=== PATIENT | male | born 1980 | race Caucasian/White ===

== ENCOUNTER → 2016-08-11 | Outpatient (CLI) | payer BC, OTHER ==
[~2016-08-11] MED LIST: SULF800T23 PO
--- NOTE | 2016-08-11 11:35 | DIAGNOSTIC IMAGING REPORT ---
CHEST 2 VIEWS ROUTINE CLINICAL HISTORY: Emphysema COMPARISON STUDY: No previous studies for comparison. FINDINGS: The heart is mildly enlarged. There is no lobar consolidation. There is slight interstitial thickening, a finding which is likely chronic. There is no overt failure. There are no pleural effusions.[ IMPRESSION: No active disease in the chest. Electronically signed by: Ezekiel German M.D. 08/11/2016 11:34 AM Dictated Date/Time: 08/11/2016 11:32 AM
== END | disposition home or self-care (01) ==
LOC: C.RADBC 11:16
PROVIDERS: ATTEND Family Medicine
DX: J43.9 Emphysema, unspecified (principal)

== ENCOUNTER 2018-03-21 20:55 | Inpatient (IN) | payer BC, OTHER ==
[~2018-03-21] VITALS: Ht 165.1 cm; Wt 79.7 kg
[2018-03-21] MEDS ORDERED: ASPIRIN 324 MG CHEW ONE (21:12)
[2018-03-21] MEDS ORDERED: METOPROLOL TARTRATE 1 MG/ML VIAL ONE (21:12)
[2018-03-21] MEDS ORDERED: FENTANYL CITRATE INJ 50 MCG/1 ML 2 ML VIAL ONE ×2 (21:19→21:33)
[2018-03-21] MEDS ORDERED: ONDANSETRON INJ 2 MG/ML 2 ML VIAL ONE (21:20)
[2018-03-21 21:28] LABS: ISTAT CREATININE 0.7 mg/dl (0.6-1.3); ISTAT IONIZED CALCIUM 1.14 mmol/l (1.12-1.32); ISTAT POTASSIUM 3.6 mEq/L (3.3-5.0)
[2018-03-21] MEDS ORDERED: FENTANYL CITRATE INJ 50 MCG/1 ML 2 ML VIAL IV STA (21:32)
[2018-03-21] MEDS ORDERED: MIDAZOLAM HCL 1 MG/ML 2ML VIAL ONE (21:33)
[2018-03-21] MEDS ORDERED: NiCARDipine HCL INJ 2.5 MG/ML 10 ML AMP ONE (21:33)
[2018-03-21] MEDS ORDERED: NITROGLYCERIN/D5W 100MCG/ML 20ML SYR ONE (21:35)
[2018-03-21 21:41] LABS: BASO % 0.2 %; BASO ABS # 0.03 K/uL (0-0.2); EOS % 0.4 %; EOS ABS # 0.08 K/uL (0-0.5); HEMATOCRIT 46.2 % (42-52); HEMOGLOBIN 16.6 g/dL (14.0-18.0); IG# 0.06 K/uL (0.00-0.02); LYMPH % 13.6 %; LYMPH ABS # 2.56 K/uL (1.2-3.4); MEAN CELL VOLUME 88.5 fL (80-100); MEAN CORPUSCULAR HEMOGLOBIN 31.8 pg (25-34); MEAN CORPUSCULAR HGB CONC 35.9 g/dl (32-36); MEAN PLATELET VOLUME 10.6 fL (7.4-10.4); MONO % 9.3 %; MONO ABS # 1.74 K/uL (0.11-0.59); NEUT % 76.2 %; NEUT ABS # 14.29 K/uL (1.4-6.5); PLATELET COUNT 271 K/uL (130-400); RED CELL DISTRIBUTION WIDTH CV 13.4 % (11.5-14.5); RED CELL DISTRIBUTION WIDTH SD 43.7 fL (36.4-46.3); WHITE BLOOD COUNT 18.76 K/uL (4.8-10.8)
[2018-03-21 21:59] LABS: INR 0.9 (0.9-1.1); PTT PATIENT 29.5 SECONDS (21.0-31.0)
[2018-03-21 22:09] LABS: ALBUMIN 3.9 gm/dl (3.4-5.0); CALCIUM 9.4 mg/dl (8.5-10.1); CREATININE 0.81 mg/dl (0.60-1.40); POTASSIUM 3.5 mmol/L (3.5-5.1); TOTAL PROTEIN 8.3 gm/dl (6.4-8.2)
--- NOTE | 2018-03-21 22:18 | DIAGNOSTIC IMAGING REPORT ---
SINGLE VIEW CHEST CLINICAL HISTORY: Dyspnea. FINDINGS: An AP, portable, upright chest radiograph is compared to study dated 08/11/2016. The cardiomediastinal silhouette is unremarkable. There is diffuse thickening of the interstitium and airspace opacities are present the lung bases. No large pleural effusion or pneumothorax is seen. The bony thorax is grossly intact. IMPRESSION: There is mild diffuse interstitial thickening as well as airspace opacities present at the lung bases. This could represent atelectasis versus an infectious/inflammatory pneumonitis. Clinical correlation will be required. Electronically signed by: Suresh Giles M.D. 03/21/2018 10:17 PM Dictated Date/Time: 03/21/2018 10:16 PM
--- NOTE | 2018-03-21 22:39 | EMERGENCY ROOM VISIT NOTE ---
History Report prepared by Jonn: Bimal Xavier Under the Supervision of: Dr. Russell Mcallister M.D. First contact with patient: 21:14 Chief Complaint: CHEST PAIN Stated Complaint: NAUSEA, CHEST PAIN, DIARRHEA History of Present Illness The patient is a 38 year old male who presents to the Emergency Room with complaints of intermittent chest pain beginning 2 nights ago. He reports that he was awoken from his sleep with chest pain. He describes it as left-sided radiating back to his scapula. It is associated with shortness of breath. It has been intermittent since last night. He did see an emergency doctor in the [place] yesterday. He had an EKG which was unremarkable he is discharged on Naprosyn. He came back to [place] today and developed chest pain tonight at approximately 7 PM. He rates it a 5 out of 10 in severity. States that it is sharp and left-sided. He also states that since Sunday he has had vomiting and diarrhea without abdominal pain, hematochezia or fever. He denies any family history of heart disease other than his grandparents. He denies any cocaine or amphetamine use. He denies any history of aneurysm. Source of History: patient Onset: 2 days Position: chest (left) Symptom Intensity: 5 out of 10 Quality: sharp Timing: intermittent Modifying Factors (Worsening): breathing Associated Symptoms: + SOB, + vomiting, + diarrhea, No fevers Review of Systems See HPI for pertinent positives & negatives. A total of 10 systems reviewed and were otherwise negative. Past Medical & Surgical Medical Problems: (1) No Known Active Medical Problems Family History Cancer Diabetes mellitus Social History Smoking Status: Current Every Day Smoker Alcohol Use: occasionally Marital Status: Housing Status: lives with family Occupation Status: unemployed Allergies Coded Allergies: No Known Allergies (Unverified , 06/25/16) Physical Exam Vital Signs Date Time Temp Pulse Resp B/P (MAP) Pulse Ox O2 Delivery O2 Flow Rate FiO2 03/21/18 21:30 118 20 124/93 94 Room Air 03/21/18 21:20 119 16 122/92 95 Room Air 03/21/18 21:17 126 126/101 03/21/18 21:14 96 Room Air 03/21/18 21:07 130 18 126/101 96 Room Air 03/21/18 21:06 120 03/21/18 20:58 37.1 128 18 118/93 97 Room Air Physical Exam Constitutional: Vital signs reviewed. Eyes: Pupils are equal round reactive to light. Conjunctiva are noninjected. ENT: Pharynx is clear without erythema or exudate. Mucous membranes are moist. Neck supple without meningeal signs. Respiratory: Clear to auscultation bilaterally. Breath sounds are equal bilaterally. Cardiovascular: Tachycardic rate and regular rhythm. No rubs or gallops. GI: Soft, nondistended. Diffuse abdominal tenderness. No pulsatile masses. Bowel sounds are present. Musculoskeletal: No peripheral edema. No lower extremity tenderness. Integumentary: No cyanosis. Neurological: The patient is awake and alert. No focal deficits. Psychiatric: Normal affect. Medical Decision & Procedures ER Provider Diagnostic Interpretation: Radiology results as stated below per my review and the radiologist's interpretation: SINGLE VIEW CHEST CLINICAL HISTORY: Dyspnea. FINDINGS: An AP, portable, upright chest radiograph is compared to study dated 08/11/2016. The cardiomediastinal silhouette is unremarkable. There is diffuse thickening of the interstitium and airspace opacities are present the lung bases. No large pleural effusion or pneumothorax is seen. The bony thorax is grossly intact. IMPRESSION: There is mild diffuse interstitial thickening as well as airspace opacities present at the lung bases. This could represent atelectasis versus an infectious/inflammatory pneumonitis. Clinical correlation will be required. Electronically signed by: Suresh Giles M.D. 03/21/2018 10:17 PM Dictated Date/Time: 03/21/2018 10:16 PM Laboratory Results 03/21/18 21:01 Red Blood Count 5.22, Mean Corpuscular Volume 88.5, Mean Corpuscular Hemoglobin 31.8, Mean Corpuscular Hemoglobin Concent 35.9, Mean Platelet Volume 10.6, Neutrophils (%) (Auto) 76.2, Lymphocytes (%) (Auto) 13.6, Monocytes (%) (Auto) 9.3, Eosinophils (%) (Auto) 0.4, Basophils (%) (Auto) 0.2, Neutrophils # (Auto) 14.29, Lymphocytes # (Auto) 2.56, Monocytes # (Auto) 1.74, Eosinophils # (Auto) 0.08, Basophils # (Auto) 0.03 03/21/18 21:01 Test 03/21/18 21:01 03/21/18 21:14 White Blood Count 18.76 K/uL (4.8-10.8) Red Blood Count 5.22 M/uL (4.7-6.1) Hemoglobin 16.6 g/dL (14.0-18.0) Hematocrit 46.2 % (42-52) Mean Corpuscular Volume 88.5 fL (80-100) Mean Corpuscular Hemoglobin 31.8 pg (25-34) Mean Corpuscular Hemoglobin Concent 35.9 g/dl (32-36) Platelet Count 271 K/uL (130-400) Mean Platelet Volume 10.6 fL (7.4-10.4) Neutrophils (%) (Auto) 76.2 % Lymphocytes (%) (Auto) 13.6 % Monocytes (%) (Auto) 9.3 % Eosinophils (%) (Auto) 0.4 % Basophils (%) (Auto) 0.2 % Neutrophils # (Auto) 14.29 K/uL (1.4-6.5) Lymphocytes # (Auto) 2.56 K/uL (1.2-3.4) Monocytes # (Auto) 1.74 K/uL (0.11-0.59) Eosinophils # (Auto) 0.08 K/uL (0-0.5) Basophils # (Auto) 0.03 K/uL (0-0.2) RDW Standard Deviation 43.7 fL (36.4-46.3) RDW Coefficient of Variation 13.4 % (11.5-14.5) Immature Granulocyte % (Auto) 0.3 % Immature Granulocyte # (Auto) 0.06 K/uL (0.00-0.02) Prothrombin Time 9.8 SECONDS (9.0-12.0) Prothromb Time International Ratio 0.9 (0.9-1.1) Activated Partial Thromboplast Time 29.5 SECONDS (21.0-31.0) Partial Thromboplastin Ratio 1.1 Est Creatinine Clear Calc Drug Dose 124.4 ml/min Estimated GFR () 131.6 Estimated GFR (Non- 113.5 BUN/Creatinine Ratio 11.0 (10-20) Calcium Level 9.4 mg/dl (8.5-10.1) Magnesium Level 2.4 mg/dl (1.8-2.4) Total Bilirubin 1.0 mg/dl (0.2-1) Direct Bilirubin 0.2 mg/dl (0-0.2) Aspartate Amino Transf (AST/SGOT) 259 U/L (15-37) Alanine Aminotransferase (ALT/SGPT) 85 U/L (12-78) Alkaline Phosphatase 92 U/L (45-117) Total Creatine Kinase 1348 U/L (39-308) Creatine Kinase MB 44.0 ng/ml (0.5-3.6) Creatine Kinase MB Ratio 3.3 (0-3.0) Total Protein 8.3 gm/dl (6.4-8.2) Albumin 3.9 gm/dl (3.4-5.0) Lipase 56 U/L (73-393) Bedside Hemoglobin 17.0 g/dl (14.0-18.0) Bedside Hematocrit 50 % (42-52) Bedside Sodium 136 mEq/L (135-144) Bedside Potassium 3.6 mEq/L (3.3-5.0) Bedside Chloride 97 mEq/L (101-112) Bedside Total CO2 25 mEq/l (24-31) Anion Gap 19.0 mmol/L (16-25) Bedside Blood Urea Nitrogen 8 mg/dl (7-18) Bedside Creatinine 0.7 mg/dl (0.6-1.3) Bedside Glucose (other) 113 mg/dl (70-99) Bedside Ionized Calcium (Marva) 1.14 mmol/l (1.12-1.32) Bedside Troponin I 31.270 ng/ml (0-0.045) Laboratory results as reviewed by me. Medications Administered Medications (Trade) Dose Ordered Sig/Kira Route Start Time Stop Time Status Last Admin Dose Admin Aspirin (Aspirin Chew) 324 mg STK-MED ONCE .ROUTE 03/21/18 21:12 03/21/18 21:13 DC 03/21/18 21:19 324 MG Metoprolol Tartrate (Lopressor Iv) 5 mg STK-MED ONCE .ROUTE 03/21/18 21:12 03/21/18 21:13 DC 03/21/18 21:17 2.5 MG Fentanyl Citrate (Fentanyl Inj) 100 mcg STK-MED ONCE .ROUTE 03/21/18 21:19 03/21/18 21:20 DC 03/21/18 21:23 50 MCG Ondansetron HCl (Zofran Inj) 4 mg STK-MED ONCE .ROUTE 03/21/18 21:20 03/21/18 21:21 DC 03/21/18 21:22 4 MG ECG Per My Interpretation Indication: chest pain Rate (beats per minute): 118 Rhythm: sinus tachycardia Findings: Q waves (Anterior), ST elevation (in all precordial leads), other ( ST depressions inferiorly.) ED Course 2106: The patient was evaluated in room A3. A complete history and physical exam was performed. 2123: I discussed the case with Dr. Thorne - Cardiology. He states that a CT scan is now currently necessary, and he will come to take the patient to the research laboratory manager. 2127: I reassessed the patient. He reports that his pain is now gone after receiving Fentanyl and Lopressor. Repeat EKG shows sinus tachycardia at a rate of 113 with Q-waves and persistent ST elevation precordially. 2128: Dr. Thorne is now in the room with the patient. 2131: Ordered Fentanyl 50 mcg IV 2138: I updated with the patient. He is still not experiencing any chest pain. The patient is waiting to be taken to the research laboratory manager. Medical Decision This is a 38-year-old male presents with chest pain with abdominal pain on palpation and vomiting and diarrhea. Differential diagnosis includes STEMI, pericarditis, myocarditis, aortic dissection, foodborne illness, aortic aneurysm. I did perform a limited focused review of portions of the patient's old chart on the electronic medical record. The patient has had no recent pertinent visits to this hospital. I did evaluate the patient as noted above. Patient is presenting with intermittent chest pain since Sunday. On examination he has abdominal pain diffusely. He denies having had abdominal pain before I palpate his abdomen. He denies any back pain or any history of aneurysm. I did do a bedside ultrasound to evaluate his aorta but there was too much bowel gas to appreciate the aorta to any extent other than in the epigastric region which did not show any dilatation. IV access was established. The patient was placed on a continuous satellite project site monitor. The patient was tachycardic and so I did treat him with Lopressor 2.5 mg IV. He was also given aspirin. He is also given fentanyl 50 mcg IV and Zofran 4 mg IV. I did order and personally review the patient's 12-lead EKG and chest x-ray as described above. His twelve-lead EKG demonstrates a STEMI with reciprocal changes inferiorly. His chest x-ray does not show any widened mediastinum. I did discuss case with Dr. Thorne of cardiology. He stated he would come in and take the patient to the Dental Prosthetist and did not think a CT was indicated currently. I did order and review the patient's blood work as noted in the electronic medical record. His troponin came back greater than 30. I did repeat another twelve-lead EKG which showed persistent ST elevations. He currently states that his chest pain is now completely resolved. Dr. Thorne did arrive in the emergency department and he was taken to the Dental Prosthetist. Medication Reconcilliation Current Medication List: was personally reviewed by me Blood Pressure Screening Patient's blood pressure: Normal blood pressure Blood pressure disposition: Did not require urgent referral Consults Time Called: 2121 Consulting Physician: Dr. Thorne - Cardiology Returned Call: 2123 I discussed the case with Dr. Thorne - Cardiology. He states that a CT scan is now currently necessary, and he will come to take the patient to the research laboratory manager. Impression Primary Impression: STEMI (ST elevation myocardial infarction) Additional Impressions: Diffuse abdominal pain Vomiting and diarrhea Scribe Attestation The scribe's documentation has been prepared under my direct and personally reviewed by me in its entirety. I confirm that the note above accurately reflects all work, treatment, procedures, and medical decision making performed by me. Departure Information Dispostion Being Evaluated By Surgeon Rajwinder Bah D.O. (PCP) Patient Instructions My [facility] Problem Qualifiers Primary Impression: STEMI (ST elevation myocardial infarction) Involved coronary artery: unspecified coronary artery Qualified Codes: I21.3 - ST elevation (STEMI) myocardial infarction of unspecified site
[2018-03-21] MEDS ORDERED: EPTIFIBATIDE 0.75 MG/ML 75MG VIAL ONE (22:48)
[2018-03-21] MEDS ORDERED: EPTIFIBATIDE 2 MG/ML 10 ML VIAL ONE (22:48)
[2018-03-21] MEDS ORDERED: TICAGRELOR 90 MG TAB PO ONE (23:09)
--- NOTE | 2018-03-21 23:20 | Pre Sedation Assessment ---
Pre Sedation Assessment General Date of Sedation: Mar 21, 2018. Vital Signs Past 12 Hours Date Time Temp Pulse Resp B/P (MAP) Pulse Ox O2 Delivery O2 Flow Rate FiO2 03/21/18 21:30 118 20 124/93 94 Room Air 03/21/18 21:20 119 16 122/92 95 Room Air 03/21/18 21:17 126 126/101 03/21/18 21:14 96 Room Air 03/21/18 21:07 130 18 126/101 96 Room Air 03/21/18 21:06 120 03/21/18 20:58 37.1 128 18 118/93 97 Room Air Review Cardiovascular: regular rate, rhythm, no edema Lungs: chest non-tender, lungs clear Pre-Sedation Airway Assessment Smoking Status: Current Every Day Smoker Hx of Sleep Apnea: No Hx of difficult intubation: No Short Thick Neck: No Thyro-mental Distance: > 3 Finger Breadths Oral Cavity: WNL Mallampati Classification: Class III ASA Classification: Class IV Procedure Planning Contraindications for Sedation: None Current Medications Reviewed: Yes Notes The planned sedation has been discussed with the patient. Informed Consent was obtained. I have identified the patient, determined the appropriateness of sedation and have assessed the patient immediately prior to the procedure. All medicine(s) and interventions are by my order.
--- NOTE | 2018-03-21 23:21 | Post Sedation Assessment ---
Post Sedation Assessment General Date of Sedation Mar 21, 2018. Vital Signs: Vital Signs Past 12 Hours Date Time Temp Pulse Resp B/P (MAP) Pulse Ox O2 Delivery O2 Flow Rate FiO2 03/21/18 21:30 118 20 124/93 94 Room Air 03/21/18 21:20 119 16 122/92 95 Room Air 03/21/18 21:17 126 126/101 03/21/18 21:14 96 Room Air 03/21/18 21:07 130 18 126/101 96 Room Air 03/21/18 21:06 120 03/21/18 20:58 37.1 128 18 118/93 97 Room Air Post Procedure Recovery Score Activity: (2) Moves 4 extremities * Respiration: (2) Deep breath/cough Circulation: (2) +/-20% PreAnes Value Consciousness: (2) Fully Awake Oxygen Saturation: (2) > 92% On Room Air Post Anesthesia Score: 10 Discharge Sedation Level of Care: Fast Track Phase II Post Sedation Plan On clinical assessment, the patient appears to have tolerated the sedation without complications. Patient is recovering as anticipated. Patient will continue to be monitored by nursing and may be discharged when sedation discharge criteria are met per below protocol. Upon Completions of procedure and additional 15 minutes continue every 5 minute vital signs and the P.A.R. score; then discharge to a Phase I or Fast Track to Phase II per the following guidelines: * Discharge Patient to appropriate Phase II area if PAR is 8 or greater or return to pre- procedure baseline. The post - procedure orders will be as directed. * If PAR score is less than 8 or not return to pre-procedure baseline then patient will follow Phase I monitoring till PAR is reached for Phase II. The Phase I may be done in procedure room or may call to secure a Phase I area. * If naloxone or flumazenil are used for reversal, hold in Phase I for an additional 60 -120 minutes before discharge to Phase II. Please call the Sedation Physician to re-evaluate and complete post-note for discharge to Phase II area. Do NOT discharge from procedure sedation or Phase 1 until post- sedation evaluation note is complete by procedure /sedation MD Sedation Discharge Instructions to be given to the patient at discharge to home.
[2018-03-21] MEDS ORDERED: NITROGLYCERIN 0.4 MG SL PER TAB CHARGE SL PRN (23:30)
[2018-03-21] MEDS ORDERED: EPTIFIBATIDE BOLUS / DRIP IV ONE (23:30)
[2018-03-21] MEDS ORDERED: ONDANSETRON INJ 2 MG/ML 2 ML VIAL IV PRN (23:30)
[2018-03-21] MEDS ORDERED: SODIUM CHLORIDE 0.9% 1000ML 1,000 ML IV SCH (23:30)
[2018-03-21 23:35] VITALS: BP 114/89; PULSE 110; TEMP 37.1; O2SAT 92; Ht 165.1 cm; Wt 79.7 kg
[2018-03-21 23:37] VITALS: BP 114/89
--- NOTE | 2018-03-21 23:42 | Cardiac Catheterization ---
Procedure Note Procedure Date Mar 21, 2018. Pre-Procedure Diagnosis STEMI AUC Score 9 Post-Procedure Diagnosis Severe CAD Procedure(s) Performed Coronary Angiography, Left Heart Cath, Drug Eluting Stent Diabetes Manager Mati Chief Security And Safety Officer(s) Leonardo Estimated Blood Loss 20 Medication(s) Fentanyl, Heparin, Integrilin, Nicardipine, Nitroglycerin, Versed, Lidocaine 1% Ticagrelor Summary of Findings Indication: STEMI/Heart Alert Access: 6Fr right radial artery Catheters: Delanson, JR4; EBU 3.5 guide Findings: LM - Luminal irregularities LAD - 100% occlusion early-mid LAD right after take-off of small 1st diagonal Circumflex - Large vessel, luminal irregularities RCA - Dominant, angiographically normal LVEDP - 21 -- PCI -- Antithrombotic therapy: Heparin, Integrilin, Ticagrelor Procedure: LM cannulated with EBU 3.5 guide With some difficulty able to cross LAD occlusion with whisper wire Mid LAD lesion predilated with 2.0 and 2.5 compliant balloons Radio Maintainer 50 wire placed into moderate caliber 2nd diagonal Dilated lesion stented with 3.0 x 38 [place] WAYNE Diagonal re-wired with sdv pilot/navigator/dds operator wire Ostium of diagonal/stent struts dilated with 2.0 balloon Stent post-dilated with 3.0 noncompliant balloon IC vasodilators administered for spasm Post procedure JANELL 3 flow, stent well expanded with minimal residual stenosis and no apparent cardiac complications. Arterial Closure: TR Band Summary: 1. Anterior STEMI/Occluded mid LAD 2. Elevated intracardiac filling pressures. LVEDP 21 3. Successful PCI of proximal to mid LAD with single WAYNE (3.0 x 30 Gary). Recommendations: Admit to ICU for continued monitoring Loaded with Ticagrelor 180mg in recyclable materials distributor Continue integrilin for 6 hrs. Continue dual-antiplatelet therapy for at least 1 year. Trend troponins until peak, Check Echo Uptitrate beta-bianka/JOLLY as BP allows High-dose statin Consult cardiac Rehab Hemodynamics Rest Ao: // Final Ao: //85 LV: 107/21 Recommendations PCI without planned CABG Specimens None Radiation Exposure (mGy) 3339 Contrast (mls) 200 Fluids (cc crystalloids) 180 Drains none Anesthesia moderate Procedural Complication(s) None Disposition ICU ACC Data Cardiac Status Clinical evaluation leading to the procedure CAD Presntation: STEMI Anginal Classification: CCS IV Heart Failure: No, NYHA Class: CCS I Cardiogenic Shock w/in 24Hrs: No Cardiac Arrest w/in 24Hrs: No Imaging studies past 6 months: No Stress studies past 6 months: No Closure Device Percutaneous Entry Location: Radial Closure Device: Radial Band Recommendations: PCI without planned CABG PCI Indication: Immediate PCI for STEMI Lesion Segment Name: Mid LAD Culprit Artery: Yes Stenosis Prior to Rx (%): 100 Chronic Total Occlusion: No IVUS: No FFR: No Pre-Procedure JANELL Flow: 0 Previously Treated Lesion: No Lesion Complexity: Non-High/Non-C Lesion Length (mm): 25 Thrombus Present: Yes Bifurcation Lesion: Yes Guidewire Across Lesion: Yes Guidewire: Stenosis Post-Procedure (%): 3 Post-Procedure JANELL Flow: 3 Device(s) Deployed: Yes Intraprocedure Events Significant Dissection: No Perforation: No
[2018-03-21] MEDS ORDERED: ICU PROTOCOL FOR HYPERGLYCEMIA PRN (23:45)
[2018-03-21 23:47] VITALS: O2SAT 93
[2018-03-21 23:59] VITALS: O2SAT 93
[2018-03-22] VITALS (34 sets, daily range): BP systolic 85–118; BP diastolic 60–80; PULSE 90–120; TEMP 37.1–37.2; O2SAT 90–96
--- NOTE | 2018-03-22 00:13 | CARDIOLOGY CONSULTATION ---
DATE OF CONSULTATION: 03/21/2018 CONSULTATION REQUESTED BY: Russell Mcallister MD REASON FOR CONSULTATION: Heart alert/NSTEMI. HISTORY OF PRESENT ILLNESS: Mr. Hassan is a 38-year-old man without significant past medical history who presented to the ED [facility] with persistent chest pain for a large part over the last 2 days. The patient states that he had been in his usual state of health until about Sunday night approximately 11:00 p.m. when was awoken from sleep with chest pain. This was associated with nausea as well as diarrhea and generally feeling unwell. Symptoms persisted on and off the next day and presented to an urgent care near [place], where reportedly he had an EKG done that was said to be normal. The patient diagnosed with musculoskeletal pain and recommended to start on NSAIDs. The patient continued to have pain which worsened significantly today at approximately 7:00 p.m. 2 hours prior to presentation and which prompted the patient to return to ED. In the ED, patient had an EKG which showed anterior ST elevations and anterior Q-waves. His point of care troponin was positive at 31. PAST MEDICAL HISTORY: None. SOCIAL HISTORY: He is , works intermittently in [employer] and in [place]. Smokes a pack per day. Denies heavy alcohol or illicit drugs. FAMILY HISTORY: No premature coronary artery disease or sudden cardiac . MEDICATIONS: None. ALLERGIES: None. REVIEW OF SYSTEMS: Not completed in the setting of emergent situation. PHYSICAL EXAMINATION: VITAL SIGNS: Afebrile, pulse 128, blood pressure 118/93, satting 97% on room air. GENERAL: The patient appeared uncomfortable, diaphoretic, in no acute distress. HEENT: Sclerae are anicteric. Oropharynx is clear. Mucous members are moist. NECK: Supple with no lymphadenopathy. LUNGS: Clear to auscultation bilaterally. HEART: He was tachycardic but regular with no murmurs. ABDOMEN: Soft, tender diffusely with positive bowel sounds. EXTREMITIES: Warm with no significant lower extremity edema. He had intact distal pulses including 2+ radial pulses. SKIN: Showed no rashes. NEUROLOGIC: Grossly nonfocal. LABORATORY DATA: Chest x-ray showed mild diffuse interstitial thickening, atelectasis versus infectious process. Labs showed a white blood cell count of 18.7, hemoglobin of 17, platelets of 271. Sodium 136, potassium of 3.6, BUN of 9, creatinine of 0.8, AST and ALT were elevated at 259 and 85 respectively. Point of care troponin elevated at 31.2. IMPRESSION AND PLAN: Anterior ST elevation myocardial infarction. Mr. Hassan is here with 2 days of intermittent chest pain worse this evening and found to have an elevated troponin with anterior ST elevations and anterior Q-waves. Concerned that patient has been having active ischemia for at least 24 hours. As having ongoing pain feel we should proceed with emergent angiography. Discussed risks, benefits, and alternatives of cardiac catheterization and the patient is willing to proceed. We will plan to perform via right radial artery. Further recommendations pending findings of angiography. Thank you for consultation. THADDEUS
[2018-03-22] MEDS ORDERED: EPTIFIBATIDE INJ 75 MG PREMIXED IV SCH (00:15)
--- NOTE | 2018-03-22 01:46 | History and Physical ---
History & Physical Date & Time of Service: Mar 22, 2018 at 01:35 Chief Complaint: STEMI Primary Care Physician: Rajwinder Farrell D.O. History of Present Illness Source: patient, clinic records Mr. Hassan is a 38yo male with no significant past medical or surgical history presenting to [facility] ER as a Code Heart Alert. Patient was awoken from sleep on Sunday night at appx 23:00 with chest discomfort as well as nausea and diarrhea. The symptoms persisted intermittently throughout the next day. He was seen at an Urgent Care facility near [place], [place] and had a normal EKG performed at that time. He was told that his chest pain was secondary to musculoskeletal pain. He was recommended NSAIDs for pain control and sent home. His pain persisted and acutely worsened yesterday at 19:00 which prompted him to come to the ER. His EKG on arrival revealed ST elevations in the anterior leads with q-waves. Troponin positive at 31. A Code Heart was called and the patient was taken to the rn cardiac cath and found to have 100% occlusion of the mid-LAD. A single WAYNE was placed. Patient was transferred to the MICU for continued monitoring. He is presently chest pain free. Complains of feeling chilly, otherwise no complaints. Cath Report: Findings: LM - Luminal irregularities LAD - 100% occlusion early-mid LAD right after take-off of small 1st diagonal Circumflex - Large vessel, luminal irregularities RCA - Dominant, angiographically normal Past Medical/Surgical History Medical Problems: None Past Surgical History: None Family History Cancer Diabetes mellitus No known history of premature CAD or SCD Social History Smoking Status: Current Every Day Smoker Smokeless Tobacco Use: No Alcohol Use: none Drug Use: none Marital Status: Housing status: lives with family Occupational Status: unemployed Allergies Coded Allergies: No Known Allergies (Unverified , 06/25/16) Review of Systems Constitutional: No fever, No chills, No sweats Eyes: No worsening of vision, No diplopia ENT: No sore throat, No trouble swallowing Respiratory: No cough, No shortness of breath Cardiovascular: No chest pain, No palpitations Abdomen: No pain, No nausea, No vomiting, No diarrhea, No constipation Musculoskeletal: No joint pain, No muscle pain Genitourinary - Male: No dysuria Neurologic: No weakness Endocrine: No fatigue Hematologic / Lymphatic: No abnormal bleeding/bruising Integumentary: No rash Physical Exam Vital Signs Date Time Temp Pulse Resp B/P (MAP) Pulse Ox O2 Delivery O2 Flow Rate FiO2 03/21/18 23:35 37.1 110 20 114/89 92 Room Air 03/21/18 23:18 66 18 120/81 (94) 100 Room Air 03/21/18 23:13 64 18 122/89 (100) 99 Room Air 03/21/18 23:08 62 20 111/85 (94) 99 Room Air 03/21/18 21:30 118 20 124/93 94 Room Air 03/21/18 21:20 119 16 122/92 95 Room Air 03/21/18 21:17 126 126/101 03/21/18 21:14 96 Room Air 03/21/18 21:07 130 18 126/101 96 Room Air 03/21/18 21:06 120 03/21/18 20:58 37.1 128 18 118/93 97 Room Air General: resting comfortably, NAD, AA&O Skin: warm, dry, intact, no rashes/lesions HEENT: NC/AT, PERRL, anicteric sclera, conjunctiva without injection, EOMI, MMM , no JVD, no thyromegaly, trachea midline, neck supple Heart: +S1/S2, regular, tachycardic, no m/r/g Lungs: CTA bilaterally with scattered end-expiratory wheezing L > R Abd: soft, NT/ND, no masses/organomegaly/ascites Ext: slightly cool to touch, palpable pulses 2+ in UE/LE bilaterally with good capillary refill, pressure device in place at right wrist, fingers warm with sensation intact, no edema/clubbing or cyanosis noted Neuro: grossly intact Diagnostics Laboratory Results Results Past 24 Hours Test 03/21/18 21:01 03/21/18 21:14 03/21/18 22:20 Range/Units White Blood Count 18.76 4.8-10.8 K/uL Red Blood Count 5.22 4.7-6.1 M/uL Hemoglobin 16.6 14.0-18.0 g/dL Hematocrit 46.2 42-52 % Mean Corpuscular Volume 88.5 80-100 fL Mean Corpuscular Hemoglobin 31.8 25-34 pg Mean Corpuscular Hemoglobin Concent 35.9 32-36 g/dl Platelet Count 271 130-400 K/uL Mean Platelet Volume 10.6 7.4-10.4 fL Neutrophils (%) (Auto) 76.2 % Lymphocytes (%) (Auto) 13.6 % Monocytes (%) (Auto) 9.3 % Eosinophils (%) (Auto) 0.4 % Basophils (%) (Auto) 0.2 % Neutrophils # (Auto) 14.29 1.4-6.5 K/uL Lymphocytes # (Auto) 2.56 1.2-3.4 K/uL Monocytes # (Auto) 1.74 0.11-0.59 K/uL Eosinophils # (Auto) 0.08 0-0.5 K/uL Basophils # (Auto) 0.03 0-0.2 K/uL RDW Standard Deviation 43.7 36.4-46.3 fL RDW Coefficient of Variation 13.4 11.5-14.5 % Immature Granulocyte % (Auto) 0.3 % Immature Granulocyte # (Auto) 0.06 0.00-0.02 K/uL Prothrombin Time 9.8 9.0-12.0 SECONDS Prothromb Time International Ratio 0.9 0.9-1.1 Activated Partial Thromboplast Time 29.5 21.0-31.0 SECONDS Partial Thromboplastin Ratio 1.1 Sodium Level 132 136-145 mmol/L Potassium Level 3.5 3.5-5.1 mmol/L Chloride Level 99 98-107 mmol/L Carbon Dioxide Level 26 21-32 mmol/L Anion Gap 7.0 19.0 16-25 mmol/L Blood Urea Nitrogen 9 7-18 mg/dl Creatinine 0.81 0.60-1.40 mg/dl Est Creatinine Clear Calc Drug Dose 124.4 ml/min Estimated GFR () 131.6 Estimated GFR (Non- 113.5 BUN/Creatinine Ratio 11.0 10-20 Random Glucose 102 70-99 mg/dl Calcium Level 9.4 8.5-10.1 mg/dl Magnesium Level 2.4 1.8-2.4 mg/dl Total Bilirubin 1.0 0.2-1 mg/dl Direct Bilirubin 0.2 0-0.2 mg/dl Aspartate Amino Transf (AST/SGOT) 259 15-37 U/L Alanine Aminotransferase (ALT/SGPT) 85 12-78 U/L Alkaline Phosphatase 92 45-117 U/L Total Creatine Kinase 1348 39-308 U/L Creatine Kinase MB 44.0 0.5-3.6 ng/ml Creatine Kinase MB Ratio 3.3 0-3.0 Total Protein 8.3 6.4-8.2 gm/dl Albumin 3.9 3.4-5.0 gm/dl Lipase 56 73-393 U/L Bedside Hemoglobin 17.0 14.0-18.0 g/dl Bedside Hematocrit 50 42-52 % Bedside Sodium 136 135-144 mEq/L Bedside Potassium 3.6 3.3-5.0 mEq/L Bedside Chloride 97 101-112 mEq/L Bedside Total CO2 25 24-31 mEq/l Bedside Blood Urea Nitrogen 8 7-18 mg/dl Bedside Creatinine 0.7 0.6-1.3 mg/dl Bedside Glucose (other) 113 70-99 mg/dl Bedside Ionized Calcium (Marva) 1.14 1.12-1.32 mmol/l Bedside Troponin I 31.270 0-0.045 ng/ml Kaolin Activated Coagulation Time 268 94-140 SECONDS Microbiology Results 03/21/18 MRSA DNA Surveillance Screen, Received Pending Diagnostic Radiology SINGLE VIEW CHEST CLINICAL HISTORY: Dyspnea. FINDINGS: An AP, portable, upright chest radiograph is compared to study dated 08/11/2016. The cardiomediastinal silhouette is unremarkable. There is diffuse thickening of the interstitium and airspace opacities are present the lung bases. No large pleural effusion or pneumothorax is seen. The bony thorax is grossly intact. IMPRESSION: There is mild diffuse interstitial thickening as well as airspace opacities present at the lung bases. This could represent atelectasis versus an infectious/inflammatory pneumonitis. Clinical correlation will be required. Electronically signed by: Suresh Giles M.D. 03/21/2018 10:17 PM Dictated Date/Time: 03/21/2018 10:16 PM Impression Assessment and Plan 38yo male smoker s/p anterior STEMI s/p cardiac catheterization with PCI, WAYNE x 1 placed to mid-LAD 1. STEMI - patient presently hemodynamically stable, chest pain free. No known risk factors identified with exception of patient being an active tobacco user. -Admit to MICU for continuous cardiac monitoring -Check HgAIC -Check fasting lipid panel -Trend serial troponins and EKGs -Echocardiogram in AM -Continue DAPT with ASA and Brillinta for at least one year -High dose statin with Lipitor 80mg po daily -Beta Raiza - Lopressor 12.5mg po BID, increase as tolerated -Lisinopril 2.5mg po daily -Nitro PRN CP -Cardiology followup and rehab 2. Tobacco abuse - -Smoking cessation counseling 3. F/E/N - Heplock. Monitor electrolytes and replete as needed. AHA diet as tolerated. 4. Ppx - scds to bilateral LEsscd 5. Code - Full per discussion with patient 6. Dispo - Admit to MICU Advanced Directives Existing Living Will: No Existing Power of Facility Manager: No Resuscitation Status VTE Prophylaxis Will order VTE Prophylaxis: Yes
[2018-03-22] MEDS ORDERED: Integrelin infusion --> STOP ORDER ONE (05:00)
[2018-03-22 06:29] LABS: BASO % 0.1 %; BASO ABS # 0.02 K/uL (0-0.2); EOS % 0.6 %; EOS ABS # 0.09 K/uL (0-0.5); HEMATOCRIT 42.4 % (42-52); HEMOGLOBIN 15.2 g/dL (14.0-18.0); IG# 0.05 K/uL (0.00-0.02); LYMPH % 12.3 %; LYMPH ABS # 1.95 K/uL (1.2-3.4); MEAN CELL VOLUME 88.3 fL (80-100); MEAN CORPUSCULAR HEMOGLOBIN 31.7 pg (25-34); MEAN CORPUSCULAR HGB CONC 35.8 g/dl (32-36); MEAN PLATELET VOLUME 10.1 fL (7.4-10.4); MONO % 9.2 %; MONO ABS # 1.47 K/uL (0.11-0.59); NEUT % 77.5 %; NEUT ABS # 12.33 K/uL (1.4-6.5); PLATELET COUNT 240 K/uL (130-400); RED CELL DISTRIBUTION WIDTH CV 13.5 % (11.5-14.5); RED CELL DISTRIBUTION WIDTH SD 43.9 fL (36.4-46.3); WHITE BLOOD COUNT 15.91 K/uL (4.8-10.8)
[2018-03-22 06:30] LABS: HEMOGLOBIN A1C 5.6 % (4.5-5.6)
[2018-03-22 07:43] LABS: CALCIUM 8.9 mg/dl (8.5-10.1); CREATININE 0.69 mg/dl (0.60-1.40); POTASSIUM 3.6 mmol/L (3.5-5.1)
[2018-03-22] MEDS: ASPIRIN 81 MG ECTAB PO SCH (08:41)
[2018-03-22] MEDS: LISINOPRIL 2.5 MG TAB PO SCH (08:42)
[2018-03-22] MEDS: ATORVASTATIN 40 MG TAB PO SCH (08:42)
[2018-03-22] MEDS: METOPROLOL TARTRATE 25 MG TAB PO SCH ×2 (08:42→21:30)
[2018-03-22] MEDS: TICAGRELOR 90 MG TAB PO SCH ×2 (08:42→21:30)
[2018-03-22] MEDS: ACETAMINOPHEN 325 MG TAB PO PRN (09:01)
--- NOTE | 2018-03-22 09:13 | ECHOCARDIOGRAM REPORT ---
*NOTICE TO RECEIVING LIBERTARIAN AGENCY This information is strictly Confidential and protected under [place] law. [place] law prohibits you from making any further disclosure of this information unless further disclosure is expressly permitted by the written consent of the person to whom it pertains or is authorized by law. A general authorization for the release of medical or other information is not sufficient for this purpose. Hospital accepts no responsibility if the information is made available to any other person, INCLUDING THE PATIENT. Interpretation Summary * Name: MAXINE WINSLOW Study Date: 03/22/2018 06:20 AM BP: 100/67 mmHg * Patient Location: .MSICU\S\E104\S\1 HR: 95 * : 1980 (M/d/yyyy) Gender: Male Height: 66 in * Age: 38 yrs Ethnicity: CA Weight: 177 lb * Ordering Physician: Robbie Thorne * Referring Physician: Self, Referred * Performed By: Hari Navarro RCS * * Reason For Study: AMI * BSA: 1.9 m2 * -- Conclusions -- * 1. Normal LV size and wall thickness. * 2. LVEF 30-35%. LAD distribution wall motion abnormalities with apical akinesis. * 3. Normal RV size and function. * 4. No significant valvular pathology. * 5. Small pericardial effusion. * 6. No prior studies for comparison. Procedure Details * A complete two-dimensional transthoracic echocardiogram was performed (2D, M-mode, Doppler and color flow Doppler). Left Ventricle * The left ventricle is grossly normal size. * There is normal left ventricular wall thickness. Right Ventricle * The right ventricle is grossly normal size. * The right ventricular systolic function is qualitatively normal. Atria * The left atrial size is normal. * Right atrial size is normal. * No ASD detected; PFO is not assessed. Mitral Valve * The mitral valve is grossly normal. * There is no mitral valve stenosis. Tricuspid Valve * Significant tricuspid regurgitation is absent. Aortic Valve * The aortic valve opens well. * The aortic valve is trileaflet. * No hemodynamically significant valvular aortic stenosis. * There is no significant aortic regurgitation. Pulmonic Valve * The pulmonary valve is inadequately visualized, but the Doppler data is adequate for interpretation. * There is no pulmonic valvular stenosis. * There is no significant pulmonary regurgitation. Great Vessels * The aortic root and proximal ascending aorta are normal sized. Pericardium/Pleural * Small pericardial effusion. Great Vessels * Normal inferior vena cava size and collapsability with sniff indicates a normal right atrial pressure of 3 mmHg MMode 2D Measurements and Calculations IVSd 0.96 cm IVSs 1.2 cm LVIDd 5.1 cm LVIDs 4.3 cm LVPWd 1.0 cm LVPWs 1.2 cm IVS/LVPW 0.92 FS 16.3 % EDV(Teich) 123.3 ml ESV(Teich) 81.3 ml EF(Teich) 34.1 % EDV(cubed) 131.9 ml ESV(cubed) 77.3 ml EF(cubed) 41.4 % % IVS thick 29.7 % % LVPW thick 13.0 % LV mass(C)d 188.5 grams LV mass(C)dI 99.2 grams/m\S\2 LV mass(C)s 185.4 grams LV mass(C)sI 97.6 grams/m\S\2 SV(Teich) 42.0 ml SI(Teich) 22.1 ml/m\S\2 SV(cubed) 54.6 ml SI(cubed) 28.7 ml/m\S\2 Ao root diam 3.8 cm Ao root area 11.0 cm\S\2 ACS 1.3 cm LA dimension 3.0 cm asc Aorta Diam 2.9 cm LA/Ao 0.80 EDV(MOD-sp4) 108.0 ml ESV(MOD-sp4) 76.0 ml EF(MOD-sp4) 29.6 % EDV(MOD-sp2) 95.0 ml ESV(MOD-sp2) 63.0 ml EF(MOD-sp2) 33.7 % SV(MOD-sp4) 32.0 ml SI(MOD-sp4) 16.9 ml/m\S\2 SV(MOD-sp2) 32.0 ml SI(MOD-sp2) 16.9 ml/m\S\2 Doppler Measurements and Calculations MV E max tricia 98.2 cm/sec MV A max tricia 63.5 cm/sec MV E/A 1.5 MV P1/2t max tricia 102.2 cm/sec MV P1/2t 58.7 msec MVA(P1/2t) 3.7 cm\S\2 MV dec slope 510.0 cm/sec\S\2 MV dec time 0.17 sec Ao V2 max 126.5 cm/sec Ao max PG 6.4 mmHg Ao max PG (full) 1.0 mmHg LV V1 max PG 5.4 mmHg LV V1 max 115.8 cm/sec PA V2 max 96.6 cm/sec PA max PG 3.8 mmHg
--- NOTE | 2018-03-22 09:13 | Critical Care Consultation ---
Critical Care Consultation Date of Consultation: Mar 22, 2018. Attending Physician: Robbie Thorne MD Reason for Consultation: STEMI s/p PCI History of Present Illness Patient is a 38-year-old male who presented to [facility] emergency department with 6 out of 10 substernal chest pain with radiation into the right shoulder. He was found to have a ST elevation LA on EKG and underwent cardiac cath with a single drug-eluting stent to the LAD. He has had an uneventful postoperative course at this point. This morning he complains of a chest discomfort that is worse with deep breathing and worse with movement. He denies that this is related to his chest pain which brought him in yesterday and is not rating it a number on the pain scale. He denies fevers chills or mucus production with cough. He denies nausea vomiting diarrhea. Past Medical/Surgical History Denies significant past medical history 1 pack a day smoker recently quit and was not smoking for 10 months until going to [place]. 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 Family History Cancer Diabetes mellitus Social History Smoking Status: Current Every Day Smoker Smokeless Tobacco Use: No Alcohol Use: none Drug Use: none Marital Status: Housing Status: lives with family Occupation Status: unemployed Allergies Coded Allergies: No Known Allergies (Unverified , 06/25/16) Current Inpatient Medications Current Inpatient Medications Medications (Trade) Dose Ordered Sig/Kira Route Start Time Stop Time Status Last Admin Dose Admin Nitroglycerin (Nitrostat Tab) 0.4 mg UD PRN SL 03/21/18 23:30 04/20/18 23:29 Ondansetron HCl (Zofran Inj) 4 mg Q6H PRN IV 03/21/18 23:30 04/20/18 23:29 Aspirin (Ecotrin Tab) 81 mg QAM PO 03/22/18 09:00 04/21/18 08:59 03/22/18 08:41 81 MG Atorvastatin Calcium (Lipitor Tab) 80 mg QAM PO 03/22/18 09:00 04/21/18 08:59 03/22/18 08:42 80 MG Metoprolol Tartrate (Lopressor Tab) 12.5 mg Q12 PO 03/22/18 09:00 04/21/18 08:59 03/22/18 08:42 12.5 MG Lisinopril (Zestril Tab) 2.5 mg QAM PO 03/22/18 09:00 04/21/18 08:59 03/22/18 08:42 2.5 MG Acetaminophen (Tylenol Tab) 650 mg Q4H PRN PO 03/21/18 23:30 04/20/18 23:29 Ticagrelor (Brilinta Tab) 90 mg BID PO 03/22/18 09:00 04/21/18 08:59 03/22/18 08:42 90 MG Miscellaneous Information (Icu Protocol For Hyperglycemia) 1 ea PRN PRN N/A 03/21/18 23:45 03/23/18 23:44 Review of Systems See above for pertinent positives & negatives. A total of 10 systems reviewed and were otherwise negative. Respiratory: No cough, No sputum, No wheezing, No shortness of breath, No dyspnea on exertion Abdomen: No pain, No nausea, No vomiting, No diarrhea, No constipation, No GI bleeding, No problem reported Physical Exam Date Time Temp Pulse Resp B/P (MAP) Pulse Ox O2 Delivery O2 Flow Rate FiO2 03/22/18 08:00 37.1 113 14 100/69 (79) 94 Room Air 03/22/18 08:00 Room Air 03/22/18 07:00 110 20 111/70 (84) 94 03/22/18 06:01 115 20 110/70 (83) 92 03/22/18 05:01 114 18 100/67 (78) 95 03/22/18 05:01 114 18 100/67 (78) 95 03/22/18 04:01 107 16 116/77 (90) 94 03/22/18 04:01 107 16 116/77 (90) 94 Room Air 03/22/18 03:01 110 15 108/71 (83) 94 Room Air 03/22/18 03:01 110 15 108/71 (83) 94 Room Air 03/22/18 02:58 120 19 108/73 (85) 95 Room Air 03/22/18 02:32 17 93 Room Air 03/22/18 02:01 17 113/75 (88) 94 Room Air 03/22/18 02:01 113 17 113/75 (88) 94 Room Air 03/22/18 01:32 6 93 Room Air 03/22/18 01:01 22 112/75 (87) 91 Room Air 03/22/18 01:01 113 22 112/75 (87) 91 Room Air 03/22/18 00:32 25 91 Room Air 03/22/18 00:17 25 91 Room Air 03/22/18 00:01 21 116/80 (92) 92 Room Air 03/21/18 23:59 93 Room Air 03/21/18 23:47 17 93 Room Air 03/21/18 23:37 114/89 (97) Room Air 03/21/18 23:35 37.1 110 20 114/89 92 Room Air 03/21/18 23:32 Room Air 03/21/18 23:18 66 18 120/81 (94) 100 Room Air 03/21/18 23:13 64 18 122/89 (100) 99 Room Air 03/21/18 23:08 62 20 111/85 (94) 99 Room Air 03/21/18 21:30 118 20 124/93 94 Room Air 03/21/18 21:20 119 16 122/92 95 Room Air 03/21/18 21:17 126 126/101 03/21/18 21:14 96 Room Air 03/21/18 21:07 130 18 126/101 96 Room Air 03/21/18 21:06 120 03/21/18 20:58 37.1 128 18 118/93 97 Room Air General: Alert. nontoxic. Skin: Warm, dry, Head: Atraumatic Ears, nose, mouth and throat: airway patent Cardiovascular: Normal peripheral perfusion S1-S2 no murmurs rubs gallops Respiratory: no respiratory distress scattered rhonchi bilaterally Gastrointestinal: Non distended Musculoskeletal: No deformity Laboratory Results Last 24 Hours Test 03/21/18 21:01 03/21/18 21:14 03/21/18 22:20 03/22/18 02:30 White Blood Count 18.76 K/uL Red Blood Count 5.22 M/uL Hemoglobin 16.6 g/dL Hematocrit 46.2 % Mean Corpuscular Volume 88.5 fL Mean Corpuscular Hemoglobin 31.8 pg Mean Corpuscular Hemoglobin Concent 35.9 g/dl Platelet Count 271 K/uL Mean Platelet Volume 10.6 fL Neutrophils (%) (Auto) 76.2 % Lymphocytes (%) (Auto) 13.6 % Monocytes (%) (Auto) 9.3 % Eosinophils (%) (Auto) 0.4 % Basophils (%) (Auto) 0.2 % Neutrophils # (Auto) 14.29 K/uL Lymphocytes # (Auto) 2.56 K/uL Monocytes # (Auto) 1.74 K/uL Eosinophils # (Auto) 0.08 K/uL Basophils # (Auto) 0.03 K/uL RDW Standard Deviation 43.7 fL RDW Coefficient of Variation 13.4 % Immature Granulocyte % (Auto) 0.3 % Immature Granulocyte # (Auto) 0.06 K/uL Prothrombin Time 9.8 SECONDS Prothromb Time International Ratio 0.9 Activated Partial Thromboplast Time 29.5 SECONDS Partial Thromboplastin Ratio 1.1 Sodium Level 132 mmol/L Potassium Level 3.5 mmol/L Chloride Level 99 mmol/L Carbon Dioxide Level 26 mmol/L Anion Gap 7.0 mmol/L 19.0 mmol/L Blood Urea Nitrogen 9 mg/dl Creatinine 0.81 mg/dl Est Creatinine Clear Calc Drug Dose 124.4 ml/min Estimated GFR () 131.6 Estimated GFR (Non- 113.5 BUN/Creatinine Ratio 11.0 Random Glucose 102 mg/dl Calcium Level 9.4 mg/dl Magnesium Level 2.4 mg/dl Total Bilirubin 1.0 mg/dl Direct Bilirubin 0.2 mg/dl Aspartate Amino Transf (AST/SGOT) 259 U/L Alanine Aminotransferase (ALT/SGPT) 85 U/L Alkaline Phosphatase 92 U/L Total Creatine Kinase 1348 U/L Creatine Kinase MB 44.0 ng/ml Creatine Kinase MB Ratio 3.3 Total Protein 8.3 gm/dl Albumin 3.9 gm/dl Lipase 56 U/L Bedside Hemoglobin 17.0 g/dl Bedside Hematocrit 50 % Bedside Sodium 136 mEq/L Bedside Potassium 3.6 mEq/L Bedside Chloride 97 mEq/L Bedside Total CO2 25 mEq/l Bedside Blood Urea Nitrogen 8 mg/dl Bedside Creatinine 0.7 mg/dl Bedside Glucose (other) 113 mg/dl Bedside Ionized Calcium (Marva) 1.14 mmol/l Bedside Troponin I 31.270 ng/ml Kaolin Activated Coagulation Time 268 SECONDS Urine Color YELLOW Urine Appearance CLEAR Urine pH 6.5 Urine Specific [place] 1.019 Urine Protein NEG Urine Glucose (UA) NEG Urine Ketones NEG Urine Occult Blood 1+ Urine Nitrite NEG Urine Bilirubin NEG Urine Urobilinogen NEG Urine Leukocyte Esterase NEG Urine WBC (Auto) 1-5 /hpf Urine RBC (Auto) 0-4 /hpf Urine Hyaline Casts (Auto) 0 /lpf Urine Epithelial Cells (Auto) 0-5 /lpf Urine Bacteria (Auto) NEG Test 03/22/18 06:07 03/22/18 06:08 White Blood Count 15.91 K/uL Red Blood Count 4.80 M/uL Hemoglobin 15.2 g/dL Hematocrit 42.4 % Mean Corpuscular Volume 88.3 fL Mean Corpuscular Hemoglobin 31.7 pg Mean Corpuscular Hemoglobin Concent 35.8 g/dl Platelet Count 240 K/uL Mean Platelet Volume 10.1 fL Neutrophils (%) (Auto) 77.5 % Lymphocytes (%) (Auto) 12.3 % Monocytes (%) (Auto) 9.2 % Eosinophils (%) (Auto) 0.6 % Basophils (%) (Auto) 0.1 % Neutrophils # (Auto) 12.33 K/uL Lymphocytes # (Auto) 1.95 K/uL Monocytes # (Auto) 1.47 K/uL Eosinophils # (Auto) 0.09 K/uL Basophils # (Auto) 0.02 K/uL RDW Standard Deviation 43.9 fL RDW Coefficient of Variation 13.5 % Immature Granulocyte % (Auto) 0.3 % Immature Granulocyte # (Auto) 0.05 K/uL Sodium Level 136 mmol/L Potassium Level 3.6 mmol/L Chloride Level 102 mmol/L Carbon Dioxide Level 24 mmol/L Anion Gap 10.0 mmol/L Blood Urea Nitrogen 9 mg/dl Creatinine 0.69 mg/dl Est Creatinine Clear Calc Drug Dose 145.8 ml/min Estimated GFR () 140.6 Estimated GFR (Non- 121.3 BUN/Creatinine Ratio 13.3 Random Glucose 100 mg/dl Estimated Average Glucose 114 mg/dl Hemoglobin A1c 5.6 % Calcium Level 8.9 mg/dl Troponin I 50.500 ng/ml Triglycerides Level 218 mg/dl Cholesterol Level 266 mg/dl HDL Cholesterol 32 mg/dl LDL Cholesterol, Calculated 190 mg/dl VLDL Cholesterol, Calculated 44 mg/dl Cholesterol/HDL Ratio 8.3 Bedside Glucose 101 mg/dl Diagnostic Results I have reviewed the EKG dated March 22 at 8:48 AM it reveals a sinus tachycardia with a rate of [address] elevations in V2 through V5 and Q waves. It is compared to a previous EKG dated March 21, [id number], the ST elevations are decreased compared to previous. This is an abnormal EKG. Assessment & Plan Reason Critically Ill: 38-year-old male with an ST elevation LA status post PCI. PLAN: Resp: Tobacco abuse -Encouraged smoking cessation -Patient denied need for nicotine patch at this time Chest x-ray changes -Chest discomfort likely related to pleuritis -Check procalcitonin, possible bronchitis if procalcitonin is elevated will add doxycycline 100 mg twice daily for 7 days for possible atypical infection. CV: Coronary artery disease status post PCI Tachycardia -Increasing beta bianka and given additional 5 mg IV 1 for possible sub- endocardial ischemia secondary to Tachycardia Hyperlipidemia Hypertriglyceridemia -High-dose statin Fluids/Renal: Relative hypokalemia -Additional supplementation p.o. 40 any cues K-Dur 1 ID: Rule out bronchitis -As noted above -Procalcitonin 0.10, without more constitutional symptoms or fever, will hold antibiotics at this time GI/Nutrition: AHA diet Heme: DVT prophylaxis -SCDs Endocrine: ICU hyperglycemia protocol -A1c 5.6 Vascular access: Peripheral IVs Code Status: Full Patient stable for downgrade to telemetry status today.
[2018-03-22] MEDS ORDERED: POTASSIUM CHLORIDE 20 MEQ TABCR PO ONE (09:15)
[2018-03-22] MEDS ORDERED: METOPROLOL TARTRATE 1 MG/ML VIAL IV ONE (09:15)
--- NOTE | 2018-03-22 12:06 | Cardiology Follow-Up ---
Subjective Subjective Date of Service: Mar 22, 2018. Pt evaluation today including: conversation w/ patient, conversation w/ family , physical exam, chart review, lab review, review of studies, review of inpatient medication list Additional Details: No chest pain similar to presentation. Endorse mild discomfort taking a deep breath in, lying flat. Limited appetite Telemetry -- reviewed - sinus tachycardia, no other events. Problem List Medical Problems: (1) Cutaneous abscess of neck Status: Acute (2) Diffuse abdominal pain Status: Acute (3) STEMI (ST elevation myocardial infarction) Status: Acute (4) Vomiting and diarrhea Status: Acute Review of Systems Constitutional: No fever, No chills ENT: No hearing loss Respiratory: No cough, No sputum Cardiac: + see HPI, + chest pain Heme: No abnormal bleeding/bruising Skin: No rash, No itch Objective Vital Signs Last Vital Signs Documentation Date Time Temp Pulse Resp B/P (MAP) Pulse Ox O2 Delivery O2 Flow Rate FiO2 03/22/18 10:00 99 20 86/60 (69) 95 Room Air 03/22/18 08:00 37.1 Physical Exam: General Appearance: no apparent distress ENT: normal ENT inspection, hearing grossly normal Neck: supple Respiratory/Chest: chest non-tender, lungs clear Cardiovascular: regular rate, rhythm, no edema Abdomen: non tender, soft Extremities: normal range of motion Neurologic/Psychiatric: alert, normal mood/affect Skin: normal color Assessment and Plan 1. Anterior STEMI - late-presenter 2. Ischemic cardiomyopathy, LVEF 30-35% with apical akinesis 3. Dyslipidemia 4. Tobacco abuse 5. Small pericardial effusion - possible post [place] pericarditis Hemodynamically stable. No recurrent presenting chest pain. Sinus tachycardia but no significant arrhythmia. Low pulse pressure. No signs of heart failure Moderate to severe LV dysfunction on echo with apical akinesis. No apical thrombus. Low stroke volume per echo. Renal function stable. No access site complications. -- Integrilin off. Continue DAPT with ASA/Ticagrelor -- Titrate beta-bianka as BP allows --> start metoprolol 12.5mg BID -- continue JOLLY -- continue high-intensity statin -- if worsened positional chest pain would consider high dose ASA for pericarditis -- plan for repeat limited echo sat or sun to eval for LV thrombus. -- suspect long-term severe LV dysfunction/ICM -- discussed with patient and family Life Vest on discharge. -- from a cardiac standpoint OK for transition to telemetry if bed needed. Medications: Current Inpatient Medications Medications (Trade) Dose Ordered Sig/Kira Route Start Time Stop Time Status Last Admin Dose Admin Nitroglycerin (Nitrostat Tab) 0.4 mg UD PRN SL 03/21/18 23:30 04/20/18 23:29 Ondansetron HCl (Zofran Inj) 4 mg Q6H PRN IV 03/21/18 23:30 04/20/18 23:29 Aspirin (Ecotrin Tab) 81 mg QAM PO 03/22/18 09:00 04/21/18 08:59 03/22/18 08:41 81 MG Atorvastatin Calcium (Lipitor Tab) 80 mg QAM PO 03/22/18 09:00 04/21/18 08:59 03/22/18 08:42 80 MG Metoprolol Tartrate (Lopressor Tab) 12.5 mg Q12 PO 03/22/18 09:00 04/21/18 08:59 03/22/18 08:42 12.5 MG Lisinopril (Zestril Tab) 2.5 mg QAM PO 03/22/18 09:00 04/21/18 08:59 03/22/18 08:42 2.5 MG Acetaminophen (Tylenol Tab) 650 mg Q4H PRN PO 03/21/18 23:30 04/20/18 23:29 03/22/18 09:01 650 MG Ticagrelor (Brilinta Tab) 90 mg BID PO 03/22/18 09:00 04/21/18 08:59 03/22/18 08:42 90 MG Miscellaneous Information (Icu Protocol For Hyperglycemia) 1 ea PRN PRN N/A 03/21/18 23:45 03/23/18 23:44 Lab Results: 03/22/18 06:07 Red Blood Count 4.80, Mean Corpuscular Volume 88.3, Mean Corpuscular Hemoglobin 31.7, Mean Corpuscular Hemoglobin Concent 35.8, Mean Platelet Volume 10.1, Neutrophils (%) (Auto) 77.5, Lymphocytes (%) (Auto) 12.3, Monocytes (%) (Auto) 9.2, Eosinophils (%) (Auto) 0.6, Basophils (%) (Auto) 0.1, Neutrophils # (Auto) 12.33, Lymphocytes # (Auto) 1.95, Monocytes # (Auto) 1.47, Eosinophils # (Auto) 0.09, Basophils # (Auto) 0.02 03/22/18 06:07 Test 03/21/18 21:01 03/21/18 21:14 03/21/18 22:20 03/22/18 02:30 Prothrombin Time 9.8 SECONDS (9.0-12.0) Prothromb Time International Ratio 0.9 (0.9-1.1) Activated Partial Thromboplast Time 29.5 SECONDS (21.0-31.0) Partial Thromboplastin Ratio 1.1 Magnesium Level 2.4 mg/dl (1.8-2.4) Total Bilirubin 1.0 mg/dl (0.2-1) Direct Bilirubin 0.2 mg/dl (0-0.2) Aspartate Amino Transf (AST/SGOT) 259 U/L (15-37) Alanine Aminotransferase (ALT/SGPT) 85 U/L (12-78) Alkaline Phosphatase 92 U/L (45-117) Total Creatine Kinase 1348 U/L (39-308) Creatine Kinase MB 44.0 ng/ml (0.5-3.6) Creatine Kinase MB Ratio 3.3 (0-3.0) Total Protein 8.3 gm/dl (6.4-8.2) Albumin 3.9 gm/dl (3.4-5.0) Lipase 56 U/L (73-393) Bedside Hemoglobin 17.0 g/dl (14.0-18.0) Bedside Hematocrit 50 % (42-52) Bedside Sodium 136 mEq/L (135-144) Bedside Potassium 3.6 mEq/L (3.3-5.0) Bedside Chloride 97 mEq/L (101-112) Bedside Total CO2 25 mEq/l (24-31) Bedside Blood Urea Nitrogen 8 mg/dl (7-18) Bedside Creatinine 0.7 mg/dl (0.6-1.3) Bedside Glucose (other) 113 mg/dl (70-99) Bedside Ionized Calcium (Marva) 1.14 mmol/l (1.12-1.32) Bedside Troponin I 31.270 ng/ml (0-0.045) Kaolin Activated Coagulation Time 268 SECONDS (94-140) Urine Color YELLOW Urine Appearance CLEAR (CLEAR) Urine pH 6.5 (4.5-7.5) Urine Specific [place] 1.019 (1.000-1.030) Urine Protein NEG (NEG) Urine Glucose (UA) NEG (NEG) Urine Ketones NEG (NEG) Urine Occult Blood 1+ (NEG) Urine Nitrite NEG (NEG) Urine Bilirubin NEG (NEG) Urine Urobilinogen NEG (NEG) Urine Leukocyte Esterase NEG (NEG) Urine WBC (Auto) 1-5 /hpf (0-5) Urine RBC (Auto) 0-4 /hpf (0-4) Urine Hyaline Casts (Auto) 0 /lpf (0-5) Urine Epithelial Cells (Auto) 0-5 /lpf (0-5) Urine Bacteria (Auto) NEG (NEG) Test 03/22/18 06:07 03/22/18 06:08 03/22/18 09:28 White Blood Count 15.91 K/uL (4.8-10.8) Red Blood Count 4.80 M/uL (4.7-6.1) Hemoglobin 15.2 g/dL (14.0-18.0) Hematocrit 42.4 % (42-52) Mean Corpuscular Volume 88.3 fL (80-100) Mean Corpuscular Hemoglobin 31.7 pg (25-34) Mean Corpuscular Hemoglobin Concent 35.8 g/dl (32-36) Platelet Count 240 K/uL (130-400) Mean Platelet Volume 10.1 fL (7.4-10.4) Neutrophils (%) (Auto) 77.5 % Lymphocytes (%) (Auto) 12.3 % Monocytes (%) (Auto) 9.2 % Eosinophils (%) (Auto) 0.6 % Basophils (%) (Auto) 0.1 % Neutrophils # (Auto) 12.33 K/uL (1.4-6.5) Lymphocytes # (Auto) 1.95 K/uL (1.2-3.4) Monocytes # (Auto) 1.47 K/uL (0.11-0.59) Eosinophils # (Auto) 0.09 K/uL (0-0.5) Basophils # (Auto) 0.02 K/uL (0-0.2) RDW Standard Deviation 43.9 fL (36.4-46.3) RDW Coefficient of Variation 13.5 % (11.5-14.5) Immature Granulocyte % (Auto) 0.3 % Immature Granulocyte # (Auto) 0.05 K/uL (0.00-0.02) Anion Gap 10.0 mmol/L (3-11) Est Creatinine Clear Calc Drug Dose 145.8 ml/min Estimated GFR () 140.6 Estimated GFR (Non- 121.3 BUN/Creatinine Ratio 13.3 (10-20) Estimated Average Glucose 114 mg/dl Hemoglobin A1c 5.6 % (4.5-5.6) Calcium Level 8.9 mg/dl (8.5-10.1) Troponin I 50.500 ng/ml (0-0.045) Triglycerides Level 218 mg/dl (0-150) Cholesterol Level 266 mg/dl (0-200) HDL Cholesterol 32 mg/dl LDL Cholesterol, Calculated 190 mg/dl VLDL Cholesterol, Calculated 44 mg/dl Cholesterol/HDL Ratio 8.3 Bedside Glucose 101 mg/dl (70-99) Procalcitonin 0.10 ng/ml (0-0.5) Date/Time Source Procedure Growth Status 03/21/18 23:54 Nasal MRSA DNA Surveillance Screen - Final Specimen Negative for MRSA by DNA Probe Complete
--- NOTE | 2018-03-22 22:48 | Progress Note ---
Subjective Date of Service: Mar 22, 2018. Subjective Pt evaluation today including: conversation w/ patient, physical exam 38 yo male reports feeling better. He denies chest pain at this time but he does feel very fatigued. He states that sometimes he has pain when he takes a deep breath. He wants to know how long it would take for him to get stronger. Problem List Medical Problems: (1) Cutaneous abscess of neck Status: Acute (2) Diffuse abdominal pain Status: Acute (3) STEMI (ST elevation myocardial infarction) Status: Acute (4) Vomiting and diarrhea Status: Acute Review of Systems Constitutional: No fever, No chills Eyes: No worsening of vision ENT: No hearing loss Respiratory: + shortness of breath, No cough Cardiac: + chest pain Breast: No breast lump Abdomen: No pain Musculoskeletal: No joint pain Neurologic: No memory loss Psychiatric: No depression symptoms Heme: No abnormal bleeding/bruising Endo: + fatigue Skin: No rash All Other Systems: Reviewed and Negative Objective Vital Signs Date Time Temp Pulse Resp B/P (MAP) Pulse Ox O2 Delivery O2 Flow Rate FiO2 03/22/18 22:01 103 21 85/67 (73) 93 03/22/18 21:01 108 24 104/76 (85) 91 03/22/18 20:34 Room Air 03/22/18 20:31 37.1 111 20 118/75 (89) 94 Room Air 03/22/18 19:31 118 27 117/73 (88) 92 Room Air 03/22/18 19:01 118 25 114/80 (91) 92 Room Air 03/22/18 18:00 112 14 88/64 (72) 94 Room Air 03/22/18 17:00 98 20 107/71 (83) 90 Room Air 03/22/18 16:00 37.1 90 21 99/74 (82) 95 Room Air 03/22/18 15:00 108 25 115/76 (89) 93 Room Air 03/22/18 14:00 109 16 93/69 (77) 95 Room Air 03/22/18 13:00 110 16 93/72 (79) 96 Room Air 03/22/18 12:00 37.2 95 16 111/76 (88) 94 Room Air 03/22/18 11:00 100 22 101/65 (77) 92 Room Air 03/22/18 10:00 99 20 86/60 (69) 95 Room Air 03/22/18 09:30 107 15 94/63 (73) 95 Room Air 03/22/18 09:25 104 24 110/62 (78) 93 18 09:22 113 100/69 818 09:20 104 24 110/62 (78) 93 03/22/18 09:15 111 14 97/66 (76) 94 03/22/18 09:00 112 13 99/65 (76) 94 03/22/18 08:00 Room Air 03/22/18 08:00 37.1 113 14 100/69 (79) 94 Room Air 03/22/18 08:00 Room Air 03/22/18 07:00 110 20 111/70 (84) 94 03/22/18 06:01 115 20 110/70 (83) 92 03/22/18 05:01 114 18 100/67 (78) 95 03/22/18 05:01 114 18 100/67 (78) 95 03/22/18 04:01 107 16 116/77 (90) 94 03/22/18 04:01 107 16 116/77 (90) 94 Room Air 03/22/18 03:01 110 15 108/71 (83) 94 Room Air 03/22/18 03:01 110 15 108/71 (83) 94 Room Air 03/22/18 02:58 120 19 108/73 (85) 95 Room Air 03/22/18 02:32 17 93 Room Air 03/22/18 02:01 17 113/75 (88) 94 Room Air 03/22/18 02:01 113 17 113/75 (88) 94 Room Air 03/22/18 01:32 6 93 Room Air 03/22/18 01:01 22 112/75 (87) 91 Room Air 03/22/18 01:01 113 22 112/75 (87) 91 Room Air 03/22/18 00:32 25 91 Room Air 03/22/18 00:17 25 91 Room Air 03/22/18 00:01 21 116/80 (92) 92 Room Air 03/21/18 23:59 93 Room Air 18 23:47 17 93 Room Air 03/21/18 23:37 114/89 (97) Room Air 03/21/18 23:35 37.1 110 20 114/89 92 Room Air 03/21/18 23:32 Room Air 03/21/18 23:18 66 18 120/81 (94) 100 Room Air 03/21/18 23:13 64 18 122/89 (100) 99 Room Air 03/21/18 23:08 62 20 111/85 (94) 99 Room Air Physical Exam General Appearance: WD/WN, no apparent distress Eyes: normal inspection ENT: normal ENT inspection Neck: supple, no adenopathy Respiratory/Chest: chest non-tender, lungs clear, normal breath sounds Cardiovascular: regular rate, rhythm, no edema Abdomen: normal bowel sounds, non tender, soft Extremities: normal range of motion Neurologic/Psychiatric: alert, oriented x 3 Skin: normal color Lymphatic: no adenopathy, + axilla node tender (R), + axilla node tender (L), + inguinal node tender (R), + inguinal node tender (L), + pertinent finding Laboratory Results Last 24 Hours Test 03/22/18 02:30 03/22/18 06:07 03/22/18 06:08 03/22/18 09:28 Urine Color YELLOW Urine Appearance CLEAR Urine pH 6.5 Urine Specific [place] 1.019 Urine Protein NEG Urine Glucose (UA) NEG Urine Ketones NEG Urine Occult Blood 1+ Urine Nitrite NEG Urine Bilirubin NEG Urine Urobilinogen NEG Urine Leukocyte Esterase NEG Urine WBC (Auto) 1-5 /hpf Urine RBC (Auto) 0-4 /hpf Urine Hyaline Casts (Auto) 0 /lpf Urine Epithelial Cells (Auto) 0-5 /lpf Urine Bacteria (Auto) NEG White Blood Count 15.91 K/uL Red Blood Count 4.80 M/uL Hemoglobin 15.2 g/dL Hematocrit 42.4 % Mean Corpuscular Volume 88.3 fL Mean Corpuscular Hemoglobin 31.7 pg Mean Corpuscular Hemoglobin Concent 35.8 g/dl Platelet Count 240 K/uL Mean Platelet Volume 10.1 fL Neutrophils (%) (Auto) 77.5 % Lymphocytes (%) (Auto) 12.3 % Monocytes (%) (Auto) 9.2 % Eosinophils (%) (Auto) 0.6 % Basophils (%) (Auto) 0.1 % Neutrophils # (Auto) 12.33 K/uL Lymphocytes # (Auto) 1.95 K/uL Monocytes # (Auto) 1.47 K/uL Eosinophils # (Auto) 0.09 K/uL Basophils # (Auto) 0.02 K/uL RDW Standard Deviation 43.9 fL RDW Coefficient of Variation 13.5 % Immature Granulocyte % (Auto) 0.3 % Immature Granulocyte # (Auto) 0.05 K/uL Sodium Level 136 mmol/L Potassium Level 3.6 mmol/L Chloride Level 102 mmol/L Carbon Dioxide Level 24 mmol/L Anion Gap 10.0 mmol/L Blood Urea Nitrogen 9 mg/dl Creatinine 0.69 mg/dl Est Creatinine Clear Calc Drug Dose 145.8 ml/min Estimated GFR () 140.6 Estimated GFR (Non- 121.3 BUN/Creatinine Ratio 13.3 Random Glucose 100 mg/dl Estimated Average Glucose 114 mg/dl Hemoglobin A1c 5.6 % Calcium Level 8.9 mg/dl Troponin I 50.500 ng/ml Triglycerides Level 218 mg/dl Cholesterol Level 266 mg/dl HDL Cholesterol 32 mg/dl LDL Cholesterol, Calculated 190 mg/dl VLDL Cholesterol, Calculated 44 mg/dl Cholesterol/HDL Ratio 8.3 Bedside Glucose 101 mg/dl Procalcitonin 0.10 ng/ml Test 03/22/18 14:16 Troponin I 29.600 ng/ml Assessment and Plan 38yo male smoker s/p anterior STEMI s/p cardiac catheterization with PCI, WAYNE x 1 placed to mid-LAD 1. Anterior STEMI - patient presently hemodynamically stable, chest pain free. No known risk factors identified with exception of patient being an active tobacco user. -Admit to MICU for continuous cardiac monitoring -Checked FLP and HBA1C -LDL was elevated at 190 -HBA1C was 5.6 -Troponin peaked at 50. -Continue DAPT with ASA and Brillinta for at least one year -High dose statin with Lipitor 80mg po daily -Beta Raiza - Lopressor 12.5mg po BID, increase as tolerated -Lisinopril 2.5mg po daily -Nitro PRN CP -Cardiology followup and rehab 2. Ischemic cardiomyopathy, -Echocardiogram showed: LVEF 30-35%. LAD distribution wall motion abnormalities with apical akinesis. Patient will likely require LIFEVEST. 3. Dyslipidemia Continue high dose statin. This likely played a role in his ME 4. Tobacco abuse counselling provided. 5. Small pericardial effusion - possible post [place] pericarditis Will monitor his symptoms. If worsen, as per cardiology will place patient on high dose ASA. 6. F/E/N - Heplock. Monitor electrolytes and replete as needed. AHA diet as tolerated. 7. Ppx - scds to bilateral LEsscd 8. Code - Full per discussion with patient 6. Dispo - Admitedt to MICU
[2018-03-23] VITALS (13 sets, daily range): BP systolic 99–118; BP diastolic 66–87; PULSE 90–112; TEMP 37–37.7; O2SAT 91–97
[2018-03-23 04:55] LABS: BASO % 0.2 %; BASO ABS # 0.03 K/uL (0-0.2); EOS % 0.9 %; EOS ABS # 0.15 K/uL (0-0.5); HEMATOCRIT 41.8 % (42-52); HEMOGLOBIN 14.8 g/dL (14.0-18.0); IG# 0.07 K/uL (0.00-0.02); LYMPH % 14.9 %; MEAN CELL VOLUME 88.4 fL (80-100); MEAN CORPUSCULAR HEMOGLOBIN 31.3 pg (25-34); MEAN CORPUSCULAR HGB CONC 35.4 g/dl (32-36); MONO % 8.1 %; MONO ABS # 1.36 K/uL (0.11-0.59); NEUT % 75.5 %; NEUT ABS # 12.68 K/uL (1.4-6.5); PLATELET COUNT 254 K/uL (130-400); RED CELL DISTRIBUTION WIDTH CV 13.5 % (11.5-14.5); RED CELL DISTRIBUTION WIDTH SD 43.8 fL (36.4-46.3); WHITE BLOOD COUNT 16.79 K/uL (4.8-10.8)
[2018-03-23 05:15] LABS: CALCIUM 8.9 mg/dl (8.5-10.1); CREATININE 0.82 mg/dl (0.60-1.40); POTASSIUM 3.9 mmol/L (3.5-5.1)
[2018-03-23] MEDS: ACETAMINOPHEN 325 MG TAB PO PRN (07:39)
[2018-03-23] MEDS: LISINOPRIL 2.5 MG TAB PO SCH (07:40)
[2018-03-23] MEDS: ASPIRIN 81 MG ECTAB PO SCH (07:40)
[2018-03-23] MEDS: TICAGRELOR 90 MG TAB PO SCH ×2 (07:40→20:43)
[2018-03-23] MEDS: ATORVASTATIN 40 MG TAB PO SCH (07:40)
[2018-03-23] MEDS: METOPROLOL TARTRATE 25 MG TAB PO SCH ×2 (07:41→20:43)
--- NOTE | 2018-03-23 07:51 | Critical Care Progress Note ---
Critical Care Progress Note Date of Service Mar 23, 2018. ICU Day ICU Day Number: [address] Arevalo Subjective Denies chest pain, admits to exertional dyspnea, really able to get to the toilet and has mild exertional dyspnea with that. We discussed lifestyle modification. Desires to be discharged home, reiterated patient needs to wear LifeVest. Objective General: Alert. nontoxic. Skin: Warm, dry, Head: Atraumatic Ears, nose, mouth and throat: airway patent Cardiovascular: Normal peripheral perfusion Respiratory: no respiratory distress Gastrointestinal: Non distended Musculoskeletal: No deformity Assessment & Plan Reason Critically Ill: 38-year-old male with an ST elevation [place] status post PCI. PLAN: Resp: Tobacco abuse -Encouraged smoking cessation -Patient denied need for nicotine patch at this time Chest x-ray changes -Chest discomfort likely related to pleuritis -Check procalcitonin, possible bronchitis if procalcitonin is elevated will add doxycycline 100 mg twice daily for 7 days for possible atypical infection. CV: Coronary artery disease status post PCI -Dual antiplatelet therapy aspirin with ticagrelor -JOLLY inhibitor Tachycardia: Resolved Hyperlipidemia Hypertriglyceridemia -High-dose statin Ischemic cardiomyopathy: LVEF 30-35% with apical kinesis -LifeVest ordered per cardiology Small pericardial effusion -Per cardiology if patient has worsening positional chest pain consider high-dose aspirin for possible pericarditis Fluids/Renal: Relative hypokalemia -Additional supplementation p.o. 40 any cues K-Dur 1 ID: Rule out bronchitis -As noted above -Procalcitonin 0.10, without more constitutional symptoms or fever, will hold antibiotics at this time GI/Nutrition: AHA diet Heme: DVT prophylaxis -SCDs Endocrine: ICU hyperglycemia protocol -A1c 5.6 Vascular access: Peripheral IVs Code Status: Full Patient stable for downgrade to telemetry status today Consults & Procedures Consultants: Cardiology Procedures: Left heart cath March 21, 2018 Data Medications: Current Inpatient Medications Medications (Trade) Dose Ordered Sig/Kira Route Start Time Stop Time Status Last Admin Dose Admin Nitroglycerin (Nitrostat Tab) 0.4 mg UD PRN SL 03/21/18 23:30 04/20/18 23:29 Ondansetron HCl (Zofran Inj) 4 mg Q6H PRN IV 03/21/18 23:30 04/20/18 23:29 Aspirin (Ecotrin Tab) 81 mg QAM PO 03/22/18 09:00 04/21/18 08:59 03/23/18 07:40 81 MG Atorvastatin Calcium (Lipitor Tab) 80 mg QAM PO 03/22/18 09:00 04/21/18 08:59 03/23/18 07:40 80 MG Metoprolol Tartrate (Lopressor Tab) 12.5 mg Q12 PO 03/22/18 09:00 04/21/18 08:59 03/23/18 07:41 12.5 MG Lisinopril (Zestril Tab) 2.5 mg QAM PO 03/22/18 09:00 04/21/18 08:59 03/23/18 07:40 2.5 MG Acetaminophen (Tylenol Tab) 650 mg Q4H PRN PO 03/21/18 23:30 04/20/18 23:29 03/23/18 07:39 650 MG Ticagrelor (Brilinta Tab) 90 mg BID PO 03/22/18 09:00 04/21/18 08:59 03/23/18 07:40 90 MG Miscellaneous Information (Icu Protocol For Hyperglycemia) 1 ea PRN PRN N/A 03/21/18 23:45 03/23/18 23:44 Vital Signs: Date Time Temp Pulse Resp B/P (MAP) Pulse Ox O2 Delivery O2 Flow Rate FiO2 03/23/18 06:01 103 24 107/87 (94) 93 Room Air 03/23/18 05:01 95 25 118/76 (90) 91 Room Air 03/23/18 04:01 104 18 104/70 (81) 95 03/23/18 03:01 90 17 117/83 (94) 95 03/23/18 02:01 99 21 104/77 (86) 94 Room Air 03/23/18 01:01 93 22 104/72 (83) 96 Room Air 03/23/18 00:01 37.0 92 23 114/69 (84) 95 Room Air 03/22/18 23:01 97 23 101/68 (79) 92 Room Air 03/22/18 22:01 103 21 85/67 (73) 93 03/22/18 21:01 108 24 104/76 (85) 91 03/22/18 20:34 Room Air 03/22/18 20:31 37.1 111 20 118/75 (89) 94 Room Air 03/22/18 19:31 118 27 117/73 (88) 92 Room Air 03/22/18 19:01 118 25 114/80 (91) 92 Room Air 03/22/18 18:00 112 14 88/64 (72) 94 Room Air 03/22/18 17:00 98 20 107/71 (83) 90 Room Air 03/22/18 16:00 37.1 90 21 99/74 (82) 95 Room Air 03/22/18 15:00 108 25 115/76 (89) 93 Room Air 03/22/18 14:00 109 16 93/69 (77) 95 Room Air 03/22/18 13:00 110 16 93/72 (79) 96 Room Air 03/22/18 12:00 37.2 95 16 111/76 (88) 94 Room Air 03/22/18 11:00 100 22 101/65 (77) 92 Room Air 03/22/18 10:00 99 20 86/60 (69) 95 Room Air 03/22/18 09:30 107 15 94/63 (73) 95 Room Air 03/22/18 09:25 104 24 110/62 (78) 93 18 09:22 113 100/69 03/22/18 09:20 104 24 110/62 (78) 93 03/22/18 09:15 111 14 97/66 (76) 94 03/22/18 09:00 112 13 99/65 (76) 94 03/22/18 08:00 Room Air 03/22/18 08:00 37.1 113 14 100/69 (79) 94 Room Air 03/22/18 08:00 Room Air Laboratory Results: Last 24 Hours Test 03/22/18 09:28 03/22/18 14:16 18 04:33 Procalcitonin 0.10 ng/ml Troponin I 29.600 ng/ml White Blood Count 16.79 K/uL Red Blood Count 4.73 M/uL Hemoglobin 14.8 g/dL Hematocrit 41.8 % Mean Corpuscular Volume 88.4 fL Mean Corpuscular Hemoglobin 31.3 pg Mean Corpuscular Hemoglobin Concent 35.4 g/dl Platelet Count 254 K/uL Mean Platelet Volume 10.0 fL Neutrophils (%) (Auto) 75.5 % Lymphocytes (%) (Auto) 14.9 % Monocytes (%) (Auto) 8.1 % Eosinophils (%) (Auto) 0.9 % Basophils (%) (Auto) 0.2 % Neutrophils # (Auto) 12.68 K/uL Lymphocytes # (Auto) 2.50 K/uL Monocytes # (Auto) 1.36 K/uL Eosinophils # (Auto) 0.15 K/uL Basophils # (Auto) 0.03 K/uL RDW Standard Deviation 43.8 fL RDW Coefficient of Variation 13.5 % Immature Granulocyte % (Auto) 0.4 % Immature Granulocyte # (Auto) 0.07 K/uL Sodium Level 134 mmol/L Potassium Level 3.9 mmol/L Chloride Level 102 mmol/L Carbon Dioxide Level 21 mmol/L Anion Gap 11.0 mmol/L Blood Urea Nitrogen 12 mg/dl Creatinine 0.82 mg/dl Est Creatinine Clear Calc Drug Dose 122.6 ml/min Estimated GFR () 130.9 Estimated GFR (Non- 113.0 BUN/Creatinine Ratio 14.9 Random Glucose 96 mg/dl Calcium Level 8.9 mg/dl
--- NOTE | 2018-03-23 17:04 | Cardiology Follow-Up ---
Subjective Subjective Date of Service: Mar 23, 2018. Pt evaluation today including: conversation w/ patient, conversation w/ family Additional Details: Some mild pleuritic pain persists. Short of breath walking to bathroom. No other new concerns. Problem List Medical Problems: (1) Cutaneous abscess of neck Status: Acute (2) Diffuse abdominal pain Status: Acute (3) STEMI (ST elevation myocardial infarction) Status: Acute (4) Vomiting and diarrhea Status: Acute Review of Systems Constitutional: No fever, No chills ENT: No hearing loss Respiratory: No cough, No sputum Cardiac: + see HPI, + chest pain Heme: No abnormal bleeding/bruising Skin: No rash, No itch Objective Vital Signs Last Vital Signs Documentation Date Time Temp Pulse Resp B/P (MAP) Pulse Ox O2 Delivery O2 Flow Rate FiO2 03/23/18 12:00 37.1 102 21 106/66 (79) 95 Room Air Physical Exam: General Appearance: no apparent distress ENT: normal ENT inspection, hearing grossly normal Neck: supple Respiratory/Chest: chest non-tender, lungs clear Cardiovascular: no edema, + tachycardia Abdomen: non tender, soft Extremities: normal range of motion, + pertinent finding (no right radial artery access site complications. ) Neurologic/Psychiatric: alert, normal mood/affect Skin: normal color Assessment and Plan 1. Anterior STEMI - late-presenter 2. Ischemic cardiomyopathy, LVEF 30-35% with apical akinesis 3. Dyslipidemia 4. Tobacco abuse 5. Small pericardial effusion - possible post [place] pericarditis Hemodynamically stable. No recurrent presenting chest pain. Sinus tachycardia but no significant arrhythmia. Troponin peaked Renal function stable. No access site complications. -- Up walking today -- Continue DAPT with ASA/Ticagrelor -- Increase metoprolol to 25mg tonight --> 50mg BID tomorrow. -- continue JOLLY -- continue high-intensity statin -- if worsened positional chest pain would consider high dose ASA for pericarditis -- repeat limited echo tomorrow AM -- LifeVest fitting tomorrow. -- from a cardiac standpoint OK for transition to telemetry if bed needed. -- possible discharge tomorrow/sunday. Medications: Current Inpatient Medications Medications (Trade) Dose Ordered Sig/Kira Route Start Time Stop Time Status Last Admin Dose Admin Nitroglycerin (Nitrostat Tab) 0.4 mg UD PRN SL 03/21/18 23:30 04/20/18 23:29 Ondansetron HCl (Zofran Inj) 4 mg Q6H PRN IV 03/21/18 23:30 04/20/18 23:29 Aspirin (Ecotrin Tab) 81 mg QAM PO 03/22/18 09:00 04/21/18 08:59 03/23/18 07:40 81 MG Atorvastatin Calcium (Lipitor Tab) 80 mg QAM PO 03/22/18 09:00 04/21/18 08:59 03/23/18 07:40 80 MG Metoprolol Tartrate (Lopressor Tab) 12.5 mg Q12 PO 03/22/18 09:00 04/21/18 08:59 03/23/18 07:41 12.5 MG Lisinopril (Zestril Tab) 2.5 mg QAM PO 03/22/18 09:00 04/21/18 08:59 03/23/18 07:40 2.5 MG Acetaminophen (Tylenol Tab) 650 mg Q4H PRN PO 03/21/18 23:30 04/20/18 23:29 03/23/18 07:39 650 MG Ticagrelor (Brilinta Tab) 90 mg BID PO 03/22/18 09:00 04/21/18 08:59 03/23/18 07:40 90 MG Miscellaneous Information (Icu Protocol For Hyperglycemia) 1 ea PRN PRN N/A 03/21/18 23:45 03/23/18 23:44 Lab Results: 03/23/18 04:33 Red Blood Count 4.73, Mean Corpuscular Volume 88.4, Mean Corpuscular Hemoglobin 31.3, Mean Corpuscular Hemoglobin Concent 35.4, Mean Platelet Volume 10.0, Neutrophils (%) (Auto) 75.5, Lymphocytes (%) (Auto) 14.9, Monocytes (%) (Auto) 8.1, Eosinophils (%) (Auto) 0.9, Basophils (%) (Auto) 0.2, Neutrophils # (Auto) 12.68, Lymphocytes # (Auto) 2.50, Monocytes # (Auto) 1.36, Eosinophils # (Auto) 0.15, Basophils # (Auto) 0.03 03/23/18 04:33 Test 03/23/18 04:33 White Blood Count 16.79 K/uL (4.8-10.8) Red Blood Count 4.73 M/uL (4.7-6.1) Hemoglobin 14.8 g/dL (14.0-18.0) Hematocrit 41.8 % (42-52) Mean Corpuscular Volume 88.4 fL (80-100) Mean Corpuscular Hemoglobin 31.3 pg (25-34) Mean Corpuscular Hemoglobin Concent 35.4 g/dl (32-36) Platelet Count 254 K/uL (130-400) Mean Platelet Volume 10.0 fL (7.4-10.4) Neutrophils (%) (Auto) 75.5 % Lymphocytes (%) (Auto) 14.9 % Monocytes (%) (Auto) 8.1 % Eosinophils (%) (Auto) 0.9 % Basophils (%) (Auto) 0.2 % Neutrophils # (Auto) 12.68 K/uL (1.4-6.5) Lymphocytes # (Auto) 2.50 K/uL (1.2-3.4) Monocytes # (Auto) 1.36 K/uL (0.11-0.59) Eosinophils # (Auto) 0.15 K/uL (0-0.5) Basophils # (Auto) 0.03 K/uL (0-0.2) RDW Standard Deviation 43.8 fL (36.4-46.3) RDW Coefficient of Variation 13.5 % (11.5-14.5) Immature Granulocyte % (Auto) 0.4 % Immature Granulocyte # (Auto) 0.07 K/uL (0.00-0.02) Anion Gap 11.0 mmol/L (3-11) Est Creatinine Clear Calc Drug Dose 122.6 ml/min Estimated GFR () 130.9 Estimated GFR (Non- 113.0 BUN/Creatinine Ratio 14.9 (10-20) Calcium Level 8.9 mg/dl (8.5-10.1)
--- NOTE | 2018-03-23 22:59 | Progress Note ---
Subjective Date of Service: Mar 23, 2018. Subjective Pt evaluation today including: conversation w/ patient, physical exam 38 yo male reports his pain has improved, but is very short of breath on exertion. Patient states that he will like to return to work on Sunday. Patient knows that he is waiting for his life vest tomorrow. Patient reports just going to the bathroom, he felt very winded. Problem List Medical Problems: (1) Cutaneous abscess of neck Status: Acute (2) Diffuse abdominal pain Status: Acute (3) STEMI (ST elevation myocardial infarction) Status: Acute (4) Vomiting and diarrhea Status: Acute Review of Systems Constitutional: No fever, No chills Eyes: No worsening of vision ENT: No hearing loss Respiratory: No cough Cardiac: + chest pain Abdomen: + pain Musculoskeletal: No joint pain Male : No dysuria Neurologic: No memory loss Psychiatric: No depression symptoms Heme: No abnormal bleeding/bruising Endo: No fatigue Skin: No rash Objective Vital Signs Date Time Temp Pulse Resp B/P (MAP) Pulse Ox O2 Delivery O2 Flow Rate FiO2 03/23/18 20:03 Room Air 03/23/18 20:02 37.1 112 16 106/71 (83) 94 Room Air 03/23/18 17:30 109 20 111/74 (86) 97 Room Air 03/23/18 16:00 37.4 93 17 102/72 (82) 94 Room Air 03/23/18 12:00 37.1 102 21 106/66 (79) 95 Room Air 03/23/18 08:00 Room Air 03/23/18 08:00 37.7 101 18 110/68 (82) 94 Room Air 03/23/18 07:00 100 20 99/70 (80) 95 Room Air 03/23/18 06:01 103 24 107/87 (94) 93 Room Air 03/23/18 05:01 95 25 118/76 (90) 91 Room Air 03/23/18 04:01 104 18 104/70 (81) 95 03/23/18 03:01 90 17 117/83 (94) 95 03/23/18 02:01 99 21 104/77 (86) 94 Room Air 03/23/18 01:01 93 22 104/72 (83) 96 Room Air 03/23/18 00:01 37.0 92 23 114/69 (84) 95 Room Air 03/22/18 23:01 97 23 101/68 (79) 92 Room Air Physical Exam General Appearance: WD/WN, no apparent distress Eyes: normal inspection ENT: normal ENT inspection Neck: supple, no adenopathy Respiratory/Chest: chest non-tender, lungs clear, normal breath sounds Cardiovascular: regular rate, rhythm, no edema Abdomen: normal bowel sounds, soft, no organomegaly, + tenderness (in bilateral lower quadrant, no rebound.) Extremities: normal range of motion, non-tender, normal inspection Neurologic/Psychiatric: alert, oriented x 3 Laboratory Results Last 24 Hours Test 03/23/18 04:33 White Blood Count 16.79 K/uL Red Blood Count 4.73 M/uL Hemoglobin 14.8 g/dL Hematocrit 41.8 % Mean Corpuscular Volume 88.4 fL Mean Corpuscular Hemoglobin 31.3 pg Mean Corpuscular Hemoglobin Concent 35.4 g/dl Platelet Count 254 K/uL Mean Platelet Volume 10.0 fL Neutrophils (%) (Auto) 75.5 % Lymphocytes (%) (Auto) 14.9 % Monocytes (%) (Auto) 8.1 % Eosinophils (%) (Auto) 0.9 % Basophils (%) (Auto) 0.2 % Neutrophils # (Auto) 12.68 K/uL Lymphocytes # (Auto) 2.50 K/uL Monocytes # (Auto) 1.36 K/uL Eosinophils # (Auto) 0.15 K/uL Basophils # (Auto) 0.03 K/uL RDW Standard Deviation 43.8 fL RDW Coefficient of Variation 13.5 % Immature Granulocyte % (Auto) 0.4 % Immature Granulocyte # (Auto) 0.07 K/uL Sodium Level 134 mmol/L Potassium Level 3.9 mmol/L Chloride Level 102 mmol/L Carbon Dioxide Level 21 mmol/L Anion Gap 11.0 mmol/L Blood Urea Nitrogen 12 mg/dl Creatinine 0.82 mg/dl Est Creatinine Clear Calc Drug Dose 122.6 ml/min Estimated GFR () 130.9 Estimated GFR (Non- 113.0 BUN/Creatinine Ratio 14.9 Random Glucose 96 mg/dl Calcium Level 8.9 mg/dl Assessment and Plan 38yo male smoker s/p anterior STEMI s/p cardiac catheterization with PCI, WAYNE x 1 placed to mid-LAD 1. Anterior STEMI - patient presently hemodynamically stable, chest pain free. No known risk factors identified with exception of patient being an active tobacco user. -Admit to MICU for continuous cardiac monitoring -Checked FLP and HBA1C -LDL was elevated at 190 -HBA1C was 5.6 -Troponin peaked at 50. -Continue DAPT with ASA and Brillinta for at least one year -High dose statin with Lipitor 80mg po daily -Beta Raiza - Lopressor 25mg po BID, increase as tolerated -Lisinopril 2.5mg po daily -Nitro PRN CP -Cardiology followup and rehab 2. Ischemic cardiomyopathy, -Echocardiogram showed: LVEF 30-35%. LAD distribution wall motion abnormalities with apical akinesis. Patient will likely require LIFEVEST. will repeat limited echo in AM 3. Dyslipidemia Continue high dose statin. This likely played a role in his IA 4. Tobacco abuse counselling provided. Also likely played a role in IA. 5. Small pericardial effusion - possible post [place] pericarditis Will monitor his symptoms. If worsen, as per cardiology will place patient on high dose ASA. 6. Leukocytosis: likely reactive from problem one. will monitor 7. Abdominal pain no signs of peritonitis. will monitor. 8. F/E/N - Heplock. Monitor electrolytes and replete as needed. AHA diet as tolerated. 9. Ppx - scds to bilateral LEsscd 10. Code - Full per discussion with patient
[2018-03-24 00:10] VITALS: BP 101/65; PULSE 91; TEMP 37; O2SAT 93
[2018-03-24 04:09] VITALS: BP 94/61; PULSE 104; TEMP 37.2; O2SAT 94
[2018-03-24 04:14] LABS: BASO % 0.1 %; BASO ABS # 0.02 K/uL (0-0.2); EOS % 1.5 %; EOS ABS # 0.22 K/uL (0-0.5); HEMATOCRIT 39.8 % (42-52); HEMOGLOBIN 14.1 g/dL (14.0-18.0); IG# 0.08 K/uL (0.00-0.02); LYMPH % 15.6 %; LYMPH ABS # 2.35 K/uL (1.2-3.4); MEAN CELL VOLUME 88.8 fL (80-100); MEAN CORPUSCULAR HEMOGLOBIN 31.5 pg (25-34); MEAN CORPUSCULAR HGB CONC 35.4 g/dl (32-36); NEUT % 74.3 %; NEUT ABS # 11.16 K/uL (1.4-6.5); PLATELET COUNT 267 K/uL (130-400); RED CELL DISTRIBUTION WIDTH CV 13.3 % (11.5-14.5); RED CELL DISTRIBUTION WIDTH SD 43.6 fL (36.4-46.3); WHITE BLOOD COUNT 15.03 K/uL (4.8-10.8)
[2018-03-24 04:31] LABS: CALCIUM 8.9 mg/dl (8.5-10.1); CREATININE 0.79 mg/dl (0.60-1.40); POTASSIUM 3.8 mmol/L (3.5-5.1)
[2018-03-24] MEDS: ASPIRIN 81 MG ECTAB PO SCH (07:49)
[2018-03-24] MEDS: METOPROLOL TARTRATE 25 MG TAB PO SCH (07:49)
[2018-03-24] MEDS: ATORVASTATIN 40 MG TAB PO SCH (07:49)
[2018-03-24] MEDS: TICAGRELOR 90 MG TAB PO SCH (07:49)
[2018-03-24] MEDS: LISINOPRIL 2.5 MG TAB PO SCH (07:49)
[2018-03-24 08:00] VITALS: BP 107/73; PULSE 105; TEMP 37.1; O2SAT 94
--- NOTE | 2018-03-24 10:36 | ECHOCARDIOGRAM REPORT ---
*NOTICE TO RECEIVING REPUBLICAN AGENCY This information is strictly Confidential and protected under [place] law. [place] law prohibits you from making any further disclosure of this information unless further disclosure is expressly permitted by the written consent of the person to whom it pertains or is authorized by law. A general authorization for the release of medical or other information is not sufficient for this purpose. Hospital accepts no responsibility if the information is made available to any other person, INCLUDING THE PATIENT. Interpretation Summary * Name: MAXINE WINSLOW Study Date: 03/24/2018 06:48 AM BP: 139/72 mmHg * Patient Location: .MSICU\S\E104\S\1 HR: 101 * : 1980 (M/d/yyyy) Gender: Male Height: 66 in * Age: 38 yrs Ethnicity: CA Weight: 187 lb * Ordering Physician: Robbie Thorne * Referring Physician: Self, Referred * Performed By: Rachel Resendez [facility] * * Reason For Study: AMI * BSA: 1.9 m2 * -- Conclusions -- * 1. Normal LV size, mild concentric LVH. * 2. LVEF 30-35%. Apical akinesis. * 3. Normal RV size and function. * 4. No LV thrombus. * 5. Compared with prior study on 03/22/2018: No significant changes. Procedure Details * Limited views were obtained. * A contrast injection of Definity was performed to improve assessment of LV function. * Contrast was injected into an intravenous site in the right arm. * One vial of Definity ultrasound contrast was diluted in normal saline to a total volume of 10 ml. A total of '2' ml of solution was administered during imaging. * Lot # [id number] of Definity utilized for procedure. * Expiration date FEB 21. * The attending nurse who injected the contrast agent was AISHA REEVES RN. Left Ventricle * The left ventricle is grossly normal size. * There is no thrombus. * There is mild concentric left ventricular hypertrophy. * Ejection Fraction = 30-35%. * There is apical akinesis. Right Ventricle * The right ventricle is grossly normal size. * The right ventricular systolic function is normal as assessed by tricuspid annular plane systolic excursion (TAPSE) (normal >1.5 cm). Atria * The left atrial size is normal. * Right atrial size is normal. Mitral Valve * The mitral valve is grossly normal. * There is no mitral valve stenosis. Tricuspid Valve * The tricuspid valve is not well visualized, but is grossly normal. Aortic Valve * The aortic valve opens well. * No hemodynamically significant valvular aortic stenosis. Pulmonic Valve * The pulmonary valve is inadequately visualized, but the Doppler data is adequate for interpretation. Great Vessels * The aortic root and proximal ascending aorta are normal sized. Pericardium/Pleural * There is no pericardial effusion. MMode 2D Measurements and Calculations IVSd 1.5 cm IVSs 1.5 cm LVIDd 4.4 cm LVIDs 3.4 cm LVPWd 1.3 cm LVPWs 1.5 cm IVS/LVPW 1.2 FS 24.6 % EDV(Teich) 89.7 ml ESV(Teich) 45.8 ml EF(Teich) 49.0 % EDV(cubed) 87.7 ml ESV(cubed) 37.6 ml EF(cubed) 57.1 % % IVS thick 2.8 % % LVPW thick 18.2 % LV mass(C)d 236.5 grams LV mass(C)dI 121.7 grams/m\S\2 LV mass(C)s 184.1 grams LV mass(C)sI 94.7 grams/m\S\2 SV(Teich) 43.9 ml SI(Teich) 22.6 ml/m\S\2 SV(cubed) 50.1 ml SI(cubed) 25.8 ml/m\S\2 Ao root diam 3.3 cm Ao root area 8.3 cm\S\2 LVOT diam 2.0 cm LVOT area 3.2 cm\S\2 LVAd ap4 20.3 cm\S\2 LVLd ap4 6.9 cm EDV(MOD-sp4) 50.3 ml EDV(sp4-el) 50.8 ml LVAs ap4 13.3 cm\S\2 LVLs ap4 6.4 cm ESV(MOD-sp4) 22.5 ml ESV(sp4-el) 23.7 ml EF(MOD-sp4) 55.3 % EF(sp4-el) 53.3 % LVAd ap2 22.5 cm\S\2 LVLd ap2 7.1 cm EDV(MOD-sp2) 59.0 ml EDV(sp2-el) 60.9 ml LVAs ap2 16.5 cm\S\2 LVLs ap2 6.7 cm ESV(MOD-sp2) 33.0 ml ESV(sp2-el) 34.3 ml EF(MOD-sp2) 44.1 % EF(sp2-el) 43.7 % LVLd %diff 2.4 % EDV(MOD-bp) 54.9 ml LVLs %diff 5.0 % ESV(MOD-bp) 27.2 ml EF(MOD-bp) 50.4 % SV(MOD-sp4) 27.8 ml SI(MOD-sp4) 14.3 ml/m\S\2 SV(MOD-sp2) 26.0 ml SI(MOD-sp2) 13.4 ml/m\S\2 SV(MOD-bp) 27.7 ml SI(MOD-bp) 14.3 ml/m\S\2 SV(sp4-el) 27.1 ml SI(sp4-el) 13.9 ml/m\S\2 SV(sp2-el) 26.6 ml SI(sp2-el) 13.7 ml/m\S\2
--- NOTE | 2018-03-24 11:19 | Cardiology Follow-Up ---
Subjective Subjective Date of Service: Mar 24, 2018. Pt evaluation today including: conversation w/ patient, conversation w/ family , physical exam, chart review, lab review, review of studies, review of inpatient medication list Additional Details: No chest pain. Up walking armstrong yesterday, reports some limiting dyspnea but improved from earlier in day. No other new complaints. LifeVest placed this AM. Tele reviewed -- Problem List Medical Problems: (1) Cutaneous abscess of neck Status: Acute (2) Diffuse abdominal pain Status: Acute (3) STEMI (ST elevation myocardial infarction) Status: Acute (4) Vomiting and diarrhea Status: Acute Review of Systems Constitutional: No fever, No chills Eyes: No worsening of vision ENT: No hearing loss Respiratory: No cough Cardiac: + chest pain Breast: No breast lump Abdomen: + pain Musculoskeletal: No joint pain Male : No dysuria Neurologic: No memory loss Psychiatric: No depression symptoms Heme: No abnormal bleeding/bruising Endo: No fatigue Skin: No rash Objective Vital Signs Last Vital Signs Documentation Date Time Temp Pulse Resp B/P (MAP) Pulse Ox O2 Delivery O2 Flow Rate FiO2 03/24/18 08:00 Room Air 03/24/18 08:00 37.1 105 20 107/73 (84) 94 Physical Exam: General Appearance: no apparent distress ENT: normal ENT inspection Neck: supple, no adenopathy Respiratory/Chest: lungs clear, normal breath sounds Cardiovascular: regular rate, rhythm, no edema Abdomen: normal bowel sounds, soft Extremities: normal range of motion, normal inspection, + pertinent finding ( right radial artery access site -- no complications. ) Neurologic/Psychiatric: alert, oriented x 3 Skin: normal color Lymphatic: no adenopathy Assessment and Plan 1. Anterior STEMI - late-presenter 2. Ischemic cardiomyopathy, LVEF 30-35% with apical akinesis 3. Dyslipidemia 4. Tobacco abuse 5. Small pericardial effusion - possible post [place] pericarditis --- no significant effusion on repeat echo Chest pain free. No arrhythmias. LV function unchanged on echo. No LV thrombus. From a cardiac standpoint OK for discharge today with close follow-up -- PCP this week, follow-up with me on Thursday 03/29 On discharge -- -- Brillanta 90mg BID -- ASA 81 mg daily -- Change to Toprol XL 50mg daily on discharge -- Lisinopril 2.5 mg daily -- Atorvastatin 80m daily -- PRN SL nitroglycerin. Medications: Current Inpatient Medications Medications (Trade) Dose Ordered Sig/Kira Route Start Time Stop Time Status Last Admin Dose Admin Nitroglycerin (Nitrostat Tab) 0.4 mg UD PRN SL 03/21/18 23:30 04/20/18 23:29 Ondansetron HCl (Zofran Inj) 4 mg Q6H PRN IV 03/21/18 23:30 04/20/18 23:29 Aspirin (Ecotrin Tab) 81 mg QAM PO 03/22/18 09:00 04/21/18 08:59 03/24/18 07:49 81 MG Atorvastatin Calcium (Lipitor Tab) 80 mg QAM PO 03/22/18 09:00 04/21/18 08:59 03/24/18 07:49 80 MG Lisinopril (Zestril Tab) 2.5 mg QAM PO 03/22/18 09:00 04/21/18 08:59 03/24/18 07:49 2.5 MG Acetaminophen (Tylenol Tab) 650 mg Q4H PRN PO 03/21/18 23:30 04/20/18 23:29 03/23/18 07:39 650 MG Ticagrelor (Brilinta Tab) 90 mg BID PO 03/22/18 09:00 04/21/18 08:59 03/24/18 07:49 90 MG Metoprolol Tartrate (Lopressor Tab) 25 mg Q12 PO 03/23/18 21:00 04/21/18 08:59 03/24/18 07:49 25 MG Lab Results: 03/24/18 03:58 Red Blood Count 4.48, Mean Corpuscular Volume 88.8, Mean Corpuscular Hemoglobin 31.5, Mean Corpuscular Hemoglobin Concent 35.4, Mean Platelet Volume 10.0, Neutrophils (%) (Auto) 74.3, Lymphocytes (%) (Auto) 15.6, Monocytes (%) (Auto) 8.0, Eosinophils (%) (Auto) 1.5, Basophils (%) (Auto) 0.1, Neutrophils # (Auto) 11.16, Lymphocytes # (Auto) 2.35, Monocytes # (Auto) 1.20, Eosinophils # (Auto) 0.22, Basophils # (Auto) 0.02 8/19/18 03:58 Test 03/24/18 03:58 White Blood Count 15.03 K/uL (4.8-10.8) Red Blood Count 4.48 M/uL (4.7-6.1) Hemoglobin 14.1 g/dL (14.0-18.0) Hematocrit 39.8 % (42-52) Mean Corpuscular Volume 88.8 fL (80-100) Mean Corpuscular Hemoglobin 31.5 pg (25-34) Mean Corpuscular Hemoglobin Concent 35.4 g/dl (32-36) Platelet Count 267 K/uL (130-400) Mean Platelet Volume 10.0 fL (7.4-10.4) Neutrophils (%) (Auto) 74.3 % Lymphocytes (%) (Auto) 15.6 % Monocytes (%) (Auto) 8.0 % Eosinophils (%) (Auto) 1.5 % Basophils (%) (Auto) 0.1 % Neutrophils # (Auto) 11.16 K/uL (1.4-6.5) Lymphocytes # (Auto) 2.35 K/uL (1.2-3.4) Monocytes # (Auto) 1.20 K/uL (0.11-0.59) Eosinophils # (Auto) 0.22 K/uL (0-0.5) Basophils # (Auto) 0.02 K/uL (0-0.2) RDW Standard Deviation 43.6 fL (36.4-46.3) RDW Coefficient of Variation 13.3 % (11.5-14.5) Immature Granulocyte % (Auto) 0.5 % Immature Granulocyte # (Auto) 0.08 K/uL (0.00-0.02) Anion Gap 11.0 mmol/L (3-11) Est Creatinine Clear Calc Drug Dose 124.5 ml/min Estimated GFR () 133.0 Estimated GFR (Non- 114.7 BUN/Creatinine Ratio 17.4 (10-20) Calcium Level 8.9 mg/dl (8.5-10.1)
[2018-03-24] MEDS ORDERED: BRL90 PO (11:28)
[2018-03-24] MEDS ORDERED: TPRSR50 PO (11:28)
[2018-03-24] MEDS ORDERED: ASPI-461 PO (11:28)
[2018-03-24] MEDS ORDERED: NTRSLP4 SL (11:28)
[2018-03-24] MEDS ORDERED: LPT40 PO (11:28)
[2018-03-24] MEDS ORDERED: LSN25 PO (11:28)
--- NOTE | 2018-03-24 11:30 | Discharge Instructions ---
Discharge Instructions Date of Service Mar 24, 2018. Admission Reason for Admission: STEMI Discharge Discharge Diagnosis / Problem: STEMI Discharge Goals Goal(s): Decrease discomfort, Improve function Activity Recommendations Activity Limitations: as noted below Lifting Limitations: gradually increase as tolerated . Instructions / Follow-Up Instructions / Follow-Up From a cardiac standpoint OK for discharge today with close follow-up -- PCP this week, follow-up with me on Thursday 03/29 On discharge -- -- Brillanta 90mg BID -- ASA 81 mg daily -- Change to Toprol XL 50mg daily on discharge -- Lisinopril 2.5 mg daily -- Atorvastatin 80m daily -- PRN SL nitroglycerin. Do not return to work until you see [employer] on Sunday Current Hospital Diet Patient's current hospital diet: AHA Diet (Heart Healthy) Discharge Diet Recommended Diet: AHA Diet (Heart Healthy) Pending Studies Studies pending at discharge: no Laboratory Results Hemoglobin A1c Test 03/22/18 06:07 Range/Units Estimated Average Glucose 114 mg/dl Hemoglobin A1c 5.6 4.5-5.6 % Lipid Panel Test 03/22/18 06:07 Range/Units Triglycerides Level 218 H 0-150 mg/dl Cholesterol Level 266 H 0-200 mg/dl HDL Cholesterol 32 mg/dl Cholesterol/HDL Ratio 8.3 LDL Cholesterol, Calculated 190 mg/dl Medical Emergencies . Who to Call and When: Medical Emergencies: If at any time you feel your situation is an emergency, please call 911 immediately. . Non-Emergent Contact Non-Emergency issues call your: Primary Care Provider Call Non-Emergent contact if: you have any medication questions . . "Provider Documentation" section prepared by Blaine Schaffer. .
[2018-03-24 11:34] VITALS: BP 107/73; PULSE 105; TEMP 37.1; O2SAT 94
[2018-03-25] MEDS ORDERED: METOPROLOL SUCC 50MG EXT REL TAB PO SCH (09:00)
== END 2018-03-24 12:13 | disposition home or self-care (01) | DRG 247 ==
LOC: C.EDB 20:56 → C.MSICU 23:48 → EEVIPCON 23:48
PROVIDERS: ADMIT Internal Medicine; ATTEND Internal Medicine Sports Medicine
PROC: 4A023N7 Measurement of Cardiac Sampling and Pressure, Left Heart, Percutaneous Approach (ICD-10-PCS; principal; 2018-03-21 21:32)
PROC: 027034Z Dilation of Coronary Artery, One Artery with Drug-eluting Intraluminal Device, Percutaneous Approach (ICD-10-PCS; principal; 2018-03-21 21:32)
PROC: B211YZZ Fluoroscopy of Multiple Coronary Arteries using Other Contrast (ICD-10-PCS; principal; 2018-03-21 21:32)
DX: I21.02 ST elevation (STEMI) myocardial infarction involving left anterior descending coronary artery (principal); I24.1 Dressler's syndrome; I25.5 Ischemic cardiomyopathy; E78.5 Hyperlipidemia, unspecified; E78.1 Pure hyperglyceridemia; R73.9 Hyperglycemia, unspecified; F17.200 Nicotine dependence, unspecified, uncomplicated; J40 Bronchitis, not specified as acute or chronic

== ENCOUNTER 2018-10-12 12:53 | Inpatient (IN) ==
[2018-10-12] MEDS ORDERED: SODIUM CHLORIDE 0.9% 1000ML 500 ML IV ONE (13:16)
--- NOTE | 2018-10-12 13:28 | Emergency Department Note ---
History of Present Illness General Chief complaint: Abdominal Pain Stated complaint: STOMACH PAIN Time Seen by Provider: 10/12/18 13:02 History of Present Illness Maximum Pain Intensity: 4 38-year-old male who presents the emergency department with complaint of intermittent lower abdominal pain for the past 4 days. The patient reports that he has a prior history of heart attack and had abdominal pain at that time. He is status post coronary artery stenting. The patient reports that this pain is lower than the pain he had when he had his heart attack. The patient reports a history of frequent diarrhea. The patient did undergo a colonoscopy a few years ago by Dr. Caruso, and was found to have benign polyps. The patient reports dark red blood in his stools. He denies any nausea or vomiting. The pain does not radiate into his back, chest, neck or extremities. He denies any diaphoresis or weakness. The patient currently denies any pain on my exam, but reported pain a 4 out of 10 this morning with bowel movements. Home Medications Home Medications Medication Instructions Recorded Confirmed Type aspirin 81 mg PO QAM 10/12/18 10/12/18 History atorvastatin [Lipitor] 80 mg PO QAM 10/12/18 10/12/18 History lisinopril [Zestril] 2.5 mg PO QAM 10/12/18 10/12/18 History metoprolol succinate [Toprol XL] 50 mg PO QAM 10/12/18 10/12/18 History nitroglycerin [Nitrostat] 0.4 mg SUBLINGUAL UD PRN 10/12/18 10/12/18 History ticagrelor [Brilinta] 90 mg PO BID 10/12/18 10/12/18 History Allergies Allergy/AdvReac Type Severity Reaction Status Date / Time No Known Allergies Allergy Unverified 10/12/18 13:57 Past Med/Surg History Medical History Colonic polyp Hyperlipidemia Hypertension Myocardial infarction Surgical History History of colonoscopy History of heart artery stent Social History marital status: Current Living Situation: Spouse current occupational status: employed Feels Safe at Home: Yes Smoking Status: Current every day smoker Hx Alcohol Use: Yes (3-4 beers 1 day a weekend) Hx Substance Use: No Review of Systems HEENT: Denies dizziness, visual problems, hearing loss, tinnitus. Denies difficulty swallowing or oral lesions. PULMONARY: Denies cough, shortness of breath, sputum production or hemoptysis. CARDIOVASCULAR: Denies current chest pain, palpitations, dyspnea on exertion, orthopnea or peripheral edema. GASTROINTESTINAL: Reports frequent loose stools. Denies any recent constipation, nausea or vomiting. GENITOURINARY: Denies dysuria, frequency, urgency or nocturia. NEUROLOGIC: Denies history of epilepsy, CVA, TIA or chronic headaches. MUSCULOSKELETAL: Denies history of joint tenderness/swelling. SKIN: Denies rashes or lesions. PSYCHIATRIC: Denies history of depression or mental illness. ENDOCRINE: Denies history of diabetes or thyroid disorders. Physical Exam Vital Signs Vital Signs - 24 hr 10/12/18 12:59 10/12/18 13:53 10/12/18 13:54 Temperature 37.0 C Temperature Source Oral Sepsis Recent Fever Within 48 Hours No Sepsis New/Unexplained Change in Mental Status No Sepsis Action Taken by Nursing No Action Required Pulse Rate 91 H 79 91 H Pulse Rate from SpO2 Sensor 78 Pulse Rhythm Regular Regular Pulse Strength Normal Respiratory Rate 20 17 20 Respiratory Effort / Characteristics Non-Labored Accessory Muscle Use Respiratory Depth Normal Respiratory Pattern Agonal Blood Pressure 151/89 H 110/66 Blood Pressure Mean 109 80 Pulse Oximetry 98 95 98 Oxygen Delivery Method Room Air Room Air Room Air 10/12/18 14:01 10/12/18 14:30 10/12/18 15:00 Temperature Temperature Source Sepsis Recent Fever Within 48 Hours Sepsis New/Unexplained Change in Mental Status Sepsis Action Taken by Nursing Pulse Rate 81 73 80 Pulse Rate from SpO2 Sensor 82 73 81 Pulse Rhythm Pulse Strength Respiratory Rate 20 20 21 Respiratory Effort / Characteristics Respiratory Depth Respiratory Pattern Blood Pressure 111/71 111/73 Blood Pressure Mean 84 85 Pulse Oximetry 95 96 97 Oxygen Delivery Method Room Air Room Air 10/12/18 15:01 10/12/18 15:30 10/12/18 15:31 Temperature Temperature Source Sepsis Recent Fever Within 48 Hours Sepsis New/Unexplained Change in Mental Status Sepsis Action Taken by Nursing Pulse Rate 71 79 81 Pulse Rate from SpO2 Sensor 71 77 80 Pulse Rhythm Pulse Strength Respiratory Rate 18 15 26 H Respiratory Effort / Characteristics Respiratory Depth Respiratory Pattern Blood Pressure 125/88 108/72 Blood Pressure Mean 100 84 Pulse Oximetry 97 96 97 Oxygen Delivery Method CONSTITUTIONAL: Healthy and well nourished. Alert and oriented X 3. Patient does not appear in any acute distress. HEENT: Normocephalic, atraumatic. Pupils equal, round and reactive. No scleral icterus or conjunctival injection/pallor. No tonsillar hypertrophy or exudates. NECK: Full active range of motion without discomfort. No JVD or carotid bruits. LYMPHATICS: No cervical chain adenopathy. RESPIRATORY: Clear to auscultation bilaterally with no wheezing, crackles, rhonchi or stridor. CARDIOVASCULAR: Regular rate and rhythm with no murmurs, rubs or gallops. GASTROINTESTINAL: Bowel sounds present in all quadrants. Has diffuse and notable lower abdominal tenderness to palpation, more so in the left lower quadrant. Mild guarding is noted without abdominal rigidity or rebound. Negative CVA tenderness. MUSCULOSKELETAL: Full range of motion of all joints without discomfort. INTEGUMENTARY: No rash or other significant dermatologic conditions noted. HEMATOLOGIC: No ecchymosis or petechiae. PSYCHIATRIC: Positive affect. NEUROLOGIC: No focal neurologic deficits noted. Course Patient history and physical exam were performed. Nurse's notes were reviewed. Vital signs were reviewed. The patient is afebrile and mildly hypertensive. O2 saturation and heart rate are normal. IV access was established, and labs were drawn. The patient was hydrated with a normal saline 500 cc bolus. He refused any analgesics or antiemetics. An ECG shows an ectopic atrial rhythm which is different from his last ECG last fall. No ST elevations noted. A portable chest x-ray shows stable findings when compared to his prior, showing mild stable cardiomegaly. Review of labs shows a mild leukocytosis with left shift and bandemia. CRP is elevated at 3.48. Remaining electrolytes are normal. Urinalysis was also unremarkable without evidence for hematuria or signs of infection. CT of the abdomen and pelvis with IV contrast shows evidence for acute sigmoid diverticulitis with microperforation. No abscess appreciated. The case was further discussed with Dr. Oconnell, ED attending physician, who recommended consultation with general surgery to see if they are willing to manage the patient locally. I did discuss the case with Dr. Howell who is in agreement with this plan of care. [facility], who came to the emergency department, performed patient evaluation and will be admitting the patient. It is noted that when I did discuss the patient with the nature of his pain, he initially insisted that he was going to go home. I did discuss the risks of doing so with this infection, including risk of bowel perforation, and increased risk of worsening infection, sepsis and even . I did order IV Cipro and Flagyl prior to transfer of care to the hospitalist service. Administered Medications Ioversol (Optiray 320 100ml) 93 ml IV ONCE PRN PRN Reason: Interaction Checking Stop: 10/16/18 14:29 Last Admin: 10/12/18 14:30 Dose: 93 ml Documented by: [id number] Discontinued Medications Sodium Chloride (Nss 1000ml) 500 mls @ 999 mls/hr IV .Q31M ONE Stop: 10/12/18 13:46 Last Infusion: 10/12/18 14:15 Dose: 0 mls/hr Documented by: [id number] Admin: 10/12/18 13:42 Dose: 999 mls/hr Documented by: [id number] Metronidazole (Flagyl) 500 mg in 100 mls @ 100 mls/hr IV NOW STA Stop: 10/12/18 16:04 Last Admin: 10/12/18 15:45 Dose: 100 mls/hr Documented by: [id number] Ciprofloxacin (Cipro) 400 mg in 200 mls @ 200 mls/hr IV NOW STA Stop: 10/12/18 16:04 Last Admin: 10/12/18 15:45 Dose: 200 mls/hr Documented by: [id number] Medical Decision Making Medical Records Attestation: I reviewed the patient's medical records. Home Medications Current Medication List: was personally reviewed by me Laboratory Data Attestation: I reviewed the patient's lab results. Result diagrams: 10/12/18 13:35 10/12/18 13:35 Lab Results 10/12/18 10/12/18 10/12/18 Range/Units 13:20 13:35 13:35 WBC 11.97 H (4.8-10.8) K/uL RBC 4.91 (4.7-6.1) M/uL Hgb 15.6 (14.0-18.0) g/dL Hct 44.1 (42-52) % MCV 89.8 (80-100) fL MCH 31.8 (25-34) pg MCHC 35.4 (32-36) g/dL RDW Std Deviation 42.7 (36.4-46.3) fL RDW Coeff of Héctor 13.0 (11.5-14.5) % Plt Count 253 (130-400) K/uL MPV 10.4 (7.4-10.4) fL Immature Gran % (Auto) 0.3 % Neut % (Auto) 69.2 % Lymph % (Auto) 21.3 % [place] % (Auto) 7.3 % Eos % (Auto) 1.6 % Baso % (Auto) 0.3 % Immature Gran # (Auto) 0.03 H (0.00-0.02) K/uL Neut # (Auto) 8.30 H (1.4-6.5) K/uL Lymph # (Auto) 2.55 (1.2-3.4) K/uL [place] # (Auto) 0.87 H (0.11-0.59) K/uL Eos # (Auto) 0.19 (0-0.5) K/uL Baso # (Auto) 0.03 (0-0.2) K/uL PT 9.9 (9.0-12.0) Seconds INR 1.0 (0.9-1.1) APTT (21.0-31.0) Seconds PTT Ratio Sodium (136-145) mmol/L Potassium (3.5-5.1) mmol/L Chloride (98-107) mmol/L Carbon Dioxide (21-32) mmol/L Anion Gap (3-11) BUN (7-18) mg/dl Creatinine (0.6-1.4) mg/dl Est Cr Clr Drug Dosing ml/min Est GFR ( Amer) Est GFR (Non-Af Amer) BUN/Creatinine Ratio (10-20) Glucose (70-99) mg/dl Calcium (8.5-10.1) mg/dl Total Bilirubin (0.2-1) mg/dl AST (15-37) U/L ALT (12-78) U/L Alkaline Phosphatase (45-117) U/L Troponin I (0-0.045) ng/ml C-Reactive Protein (0-0.29) mg/dl Total Protein (6.4-8.2) gm/dl Albumin (3.4-5.0) gm/dl Globulin (2.5-4.0) gm/dl Albumin/Globulin Ratio (0.9-2) Lipase (73-393) U/L Urine Color Yellow Urine Appearance Clear (Clear) Urine pH 7.0 (4.5-7.5) Ur Specific Paia 1.015 (1.000-1.030) Urine Protein Negative (Negative) Urine Glucose (UA) Negative (Negative) Urine Ketones Negative (Negative) Urine Blood Negative (Negative) Urine Nitrite Negative (Negative) Urine Bilirubin Negative (Negative) Urine Urobilinogen Negative (Negative) Ur Leukocyte Esterase Negative (Negative) 10/12/18 10/12/18 Range/Units 13:35 13:35 WBC (4.8-10.8) K/uL RBC (4.7-6.1) M/uL Hgb (14.0-18.0) g/dL Hct (42-52) % MCV (80-100) fL MCH (25-34) pg MCHC (32-36) g/dL RDW Std Deviation (36.4-46.3) fL RDW Coeff of Héctor (11.5-14.5) % Plt Count (130-400) K/uL MPV (7.4-10.4) fL Immature Gran % (Auto) % Neut % (Auto) % Lymph % (Auto) % [place] % (Auto) % Eos % (Auto) % Baso % (Auto) % Immature Gran # (Auto) (0.00-0.02) K/uL Neut # (Auto) (1.4-6.5) K/uL Lymph # (Auto) (1.2-3.4) K/uL [place] # (Auto) (0.11-0.59) K/uL Eos # (Auto) (0-0.5) K/uL Baso # (Auto) (0-0.2) K/uL PT (9.0-12.0) Seconds INR (0.9-1.1) APTT 27.3 (21.0-31.0) Seconds PTT Ratio 1.0 Sodium 138 (136-145) mmol/L Potassium 3.6 (3.5-5.1) mmol/L Chloride 104 (98-107) mmol/L Carbon Dioxide 27 (21-32) mmol/L Anion Gap 7.0 (3-11) BUN 10 (7-18) mg/dl Creatinine 0.76 (0.6-1.4) mg/dl Est Cr Clr Drug Dosing 132.7 ml/min Est GFR ( Amer) 135.1 Est GFR (Non-Af Amer) 116.6 BUN/Creatinine Ratio 12.9 (10-20) Glucose 98 (70-99) mg/dl Calcium 9.2 (8.5-10.1) mg/dl Total Bilirubin 0.4 (0.2-1) mg/dl AST 20 (15-37) U/L ALT 48 (12-78) U/L Alkaline Phosphatase 107 (45-117) U/L Troponin I < 0.015 (0-0.045) ng/ml C-Reactive Protein 3.48 H (0-0.29) mg/dl Total Protein 7.7 (6.4-8.2) gm/dl Albumin 3.6 (3.4-5.0) gm/dl Globulin 4.1 H (2.5-4.0) gm/dl Albumin/Globulin Ratio 0.9 (0.9-2) Lipase 120 (73-393) U/L Urine Color Urine Appearance (Clear) Urine pH (4.5-7.5) Ur Specific Paia (1.000-1.030) Urine Protein (Negative) Urine Glucose (UA) (Negative) Urine Ketones (Negative) Urine Blood (Negative) Urine Nitrite (Negative) Urine Bilirubin (Negative) Urine Urobilinogen (Negative) Ur Leukocyte Esterase (Negative) Imaging Data Attestation: I personally reviewed and interpreted this imaging study as follows: My Impression: My interpretation of a portable chest x-ray does not show any consolidations or pneumothorax. Cardiomegaly is noted, but unchanged when comparable to a prior chest x-ray in March 2018. Radiologist report was also reviewed. CT of the abdomen and pelvis with IV contrast shows an acute sigmoid diverticulitis with microperforations. No abscess formation noted. Radiologist reports were reviewed. Radiologist's Impression: XR chest 1V portable HISTORY: Generalized abdominal pain. COMPARISON: Chest 03/21/2018. FINDINGS: No pneumothorax. No pleural effusions. The heart remains enlarged. Perihilar interstitial thickening persists. This may be chronic or technical from the patient's body habitus. No new focal lung consolidations to suggest pneumonia. No evidence for pulmonary edema. IMPRESSION: No significant change compared to the prior study. No acute process. Stable mild cardiomegaly. ABDOMEN AND PELVIS CT WITH IV CONTRAST CT DOSE: 852.64 mGycm HISTORY: LOWER ABD PAIN TECHNIQUE: Multiaxial CT images of the abdomen and pelvis were performed following the use of intravenous contrast. A dose lowering technique was utilized adhering to the principles of ALARA. COMPARISON STUDY: Abdomen and pelvis CT 07/16/2015. FINDINGS: The lung bases are clear. No fractures within the visualized osseous structures. Tiny fat-containing umbilical hernia. The liver, gallbladder, spleen, adrenal glands, pancreas, and kidneys are unremarkable. No hydronephrosis. No retroperitoneal lymphadenopathy. Normal bladder. Focal thickening and pericolonic fat stranding at the mid sigmoid colon. There are few punctate foci of extraluminal gas consistent with microperforation. Findings are consistent with acute diverticulitis. No abscess identified at this time. No evidence for bowel obstruction. Normal appendix. IMPRESSION: Acute sigmoid diverticulitis with associated microperforation. No abscess i dentified at this time. Follow-up colonoscopy is recommended once the patient's symptoms have resolved to exclude the less likely possibility of an underlying colonic lesion. ECG Data Attestation: I personally reviewed and interpreted this ECG as follows: Indication: abdominal pain Rate (beats per minute): 72 Rhythm: other (Ectopic atrial rhythm) Comparison ECG Date: from (03/22/18) Change: the following changes noted (Change from a sinus rhythm to ectopic atrial rhythm) Blood Pressure Blood Pressure Findings: Elevated blood pressure MDM Narrative Workup today shows evidence for an acute sigmoid diverticulitis with microper foration, and no evidence for abscess formation. Remaining workup is not suggestive of appendicitis, UTI or bowel obstruction. Clinical exam is not consistent with pyelonephritis. Impression & Plan Sigmoid diverticulitis Discharge Plan Visit Data Chief Complaint: Abdominal Pain Stated Complaint: STOMACH PAIN ED Provider: Anish,Misha D ED Midlevel Provider: Janusz Do Discharge Problem: Sigmoid diverticulitis Patient Disposition: Admitted As Inpatient Forms Stand Alone Forms: Call Back Authorization, My [facility] Prescriptions Prescriptions: No Action atorvastatin [Lipitor] 80 mg tablet 80 mg PO QAM RF: 0 metoprolol succinate [Toprol XL] 50 mg tablet extended release 24 hr 50 mg PO QAM RF: 0 aspirin 81 mg Tablet,Delayed Release (Dr/Ec) 81 mg PO QAM RF: 0 nitroglycerin [Nitrostat] 0.4 mg Tablet, Sublingual 0.4 mg Sublingual UD PRN (Reason: Chest Pain) RF: 0 lisinopril [Zestril] 2.5 mg tablet 2.5 mg PO QAM RF: 0 Brilinta 90 mg tablet 90 mg PO BID RF: 0 Referrals Referrals: Rajwinder Farrell DO [Primary Care Provider] -
--- NOTE | 2018-10-12 13:41 | XRay Report ---
XR chest 1V portable HISTORY: Generalized abdominal pain. COMPARISON: Chest 03/21/2018. FINDINGS: No pneumothorax. No pleural effusions. The heart remains enlarged. Perihilar interstitial t hickening persists. This may be chronic or technical from the patient's body habitus. No new focal katy ng consolidations to suggest pneumonia. No evidence for pulmonary edema. IMPRESSION: No significant change compared to the prior study. No acute process. Stable mild cardiomegaly. Electronically signed by: Marquise Olmos M.D. 10/12/2018 1:39 PM
[2018-10-12 13:47] LABS: Basophils # (auto) 0.03 K/uL (0-0.2); Basophils % (auto) 0.3 %; Eosinophils # (auto) 0.19 K/uL (0-0.5); Eosinophils % (auto) 1.6 %; Hematocrit (blood only) 44.1 % (42-52); Hemoglobin 15.6 g/dL (14.0-18.0); Immature Granulocytes # (auto) 0.03 K/uL (0.00-0.02); Immature Granulocytes % (auto) 0.3 %; Lymphocytes # (auto) 2.55 K/uL (1.2-3.4); Lymphocytes % (auto) 21.3 %; Mean Corpuscular Hgb Conc 35.4 g/dL (32-36); Mean Corpuscular Volume 89.8 fL (80-100); Mean Platelet Volume 10.4 fL (7.4-10.4); Monocytes # (auto) 0.87 K/uL (0.11-0.59); Monocytes % (auto) 7.3 %; Neutrophils % (auto) 69.2 %; Platelet Count 253 K/uL (130-400); RDW Standard Deviation 42.7 fL (36.4-46.3); Red Blood Count 4.91 M/uL (4.7-6.1); White Blood Count 11.97 K/uL (4.8-10.8)
[2018-10-12 13:51] LABS: Appearance Urine Clear (Clear); Bilirubin Urine Negative (Negative); Blood Urine Negative (Negative); Color Urine Yellow; Glucose Urine UA Negative (Negative); Ketones Urine Negative (Negative); Leukocyte Esterase Urine Negative (Negative); Nitrite Urine Negative (Negative); Protein Urine Negative (Negative); Specific Gravity Urine 1.015 (1.000-1.030); Urobilinogen Urine Negative (Negative)
[2018-10-12 13:57] LABS: Prothrombin Time 9.9 Seconds (9.0-12.0)
[2018-10-12 14:03] LABS: Alanine Aminotransferase 48 U/L (12-78); Albumin Level 3.6 gm/dl (3.4-5.0); Aspartate Aminotransferase 20 U/L (15-37); BUN Creatinine Ratio 12.9 (10-20); Blood Urea Nitrogen 10 mg/dl (7-18); C Reactive Protein 3.48 mg/dl (0-0.29); Calcium 9.2 mg/dl (8.5-10.1); Carbon Dioxide 27 mmol/L (21-32); Chloride 104 mmol/L (98-107); Creatinine Clr Calc Pharmacy 132.7 ml/min; Est GFR (African American) 135.1; Est GFR (Non-African American) 116.6; Glucose 98 mg/dl (70-99); Potassium 3.6 mmol/L (3.5-5.1); Sodium 138 mmol/L (136-145)
[2018-10-12 14:08] LABS: Albumin Globulin Ratio 0.9 (0.9-2); Alkaline Phosphatase 107 U/L (45-117); Bilirubin,Total 0.4 mg/dl (0.2-1); Globulin 4.1 gm/dl (2.5-4.0); Total Protein 7.7 gm/dl (6.4-8.2); Troponin I < 0.015 ng/ml (0-0.045)
[2018-10-12 14:19] LABS: Partial Thromboplastin Time 27.3 Seconds (21.0-31.0)
[2018-10-12] MEDS ORDERED: IOVERSOL 100ml IV PRN (14:30)
--- NOTE | 2018-10-12 14:42 | CT Scan Report ---
ABDOMEN AND PELVIS CT WITH IV CONTRAST CT DOSE: 852.64 mGycm HISTORY: LOWER ABD PAIN TECHNIQUE: Multiaxial CT images of the abdomen and pelvis were performed following the use of intrave nous contrast. A dose lowering technique was utilized adhering to the principles of ALARA. COMPARISON STUDY: Abdomen and pelvis CT 07/16/2015. FINDINGS: The lung bases are clear. No fractures within the visualized osseous structures. Tiny fat-c ontaining umbilical hernia. The liver, gallbladder, spleen, adrenal glands, pancreas, and kidneys are unremarkable. No hydronephrosis. No retroperitoneal lymphadenopathy. Normal bladder. Focal thickenin g and pericolonic fat stranding at the mid sigmoid colon. There are few punctate foci of extraluminal gas consistent with microperforation. Findings are consistent with acute diverticulitis. No abscess identified at this time. No evidence for bowel obstruction. Normal appendix. IMPRESSION: Acute sigmoid diverticulitis with associated microperforation. No abscess identified at this time. Fo llow-up colonoscopy is recommended once the patient's symptoms have resolved to exclude the less like ly possibility of an underlying colonic lesion. Electronically signed by: Marquise Olmos M.D. 10/12/2018 2:40 PM
[2018-10-12] MEDS ORDERED: CIPROFLOXACIN 400 MG/200 ML BAG IV STA (15:05)
[2018-10-12] MEDS ORDERED: metroNIDAZOLE 500 MG/100 ML BAG IV STA (15:05)
--- NOTE | 2018-10-12 15:53 | History & Physical Report ---
Date of Service October 12, 2018 Assessment & Plan (1) Diverticulitis: with microperf, noted on CT AP NPO with IVF Cipro/flagyl Minimal elevation in WBC, monitor Trop neg Gen surg c/s Has seen Dr. Caruso in the past if GI is needed Recs for scope once resolved to r/o underlying lesions (2) HTN (hypertension): Stable in the ED Holding home meds for now with PRN vasotec (3) Hyperlipidemia: (4) Myocardial infarction: Recent RI 03/2018 with stent Will hold aspirin 81mg, however given pt's event was somewhat recent, I am hesitant to hold Brilinta in the setting of resolved GIB x2 days and pain improved somewhat [employer] If pain worsens, bleeding resumes, or there is other concern for need for OR, this will need re-evaluated Trop neg EKG WNL States sx are not similar to cardiac event (5) Tobacco use disorder: Declines nicotine patch, will order PRN (6) DVT prophylaxis: SCDs given possible need for OR History of Present Illness Primary Care Provider: Rajwinder Farrell, DO 38 y/o M c/o abd pain. Pt states this pain started Sunday night and has been gradually worsening since that time. It was actually a bit better today, but given the ongoing pain, he came to the ED. Pt states he was fine on Sunday and Sunday until pain onset. He has baseline diarrhea which continued throughout this time. He did note blood mixed in with his stool on Sunday but it was less on AM and none since that time. No jerome clots noted. His pain is LLQ. No n/v. He states he has been able to eat but is "eating less", which entailed 3 slices of pizza yesterday and 3 eggs today. Pt states he had abd pain when he was having an RI last year, but that pain was more epigastric. This is not similar. He feels bloated. Pt with hx of abd pain and GIB 3-4 years ago. He had a c-scope with Dr. Caruso at that time that revealed polyps, benign. He states that this pain is more intense than at that time. Pt states he feels a bit less pain s/p IVF, abx, pain medications in the ED. Still with pain. Pt is somewhat agitated as he has a work commitment and states he needs to leave here by 6pm tomorrow night. ED spoke with Dr. Howell who feels pt does not need OR intervention at this time. Allergies Allergy/AdvReac Type Severity Reaction Status Date / Time No Known Allergies Allergy Unverified 10/12/18 13:57 Home Medications Home Medications Medication Instructions Recorded Confirmed Type aspirin 81 mg PO QAM 10/12/18 10/12/18 History atorvastatin [Lipitor] 80 mg PO QAM 10/12/18 10/12/18 History lisinopril [Zestril] 2.5 mg PO QAM 10/12/18 10/12/18 History metoprolol succinate [Toprol XL] 50 mg PO QAM 10/12/18 10/12/18 History nitroglycerin [Nitrostat] 0.4 mg SUBLINGUAL UD PRN 10/12/18 10/12/18 History ticagrelor [Brilinta] 90 mg PO BID 10/12/18 10/12/18 History Past Med/Surg History Medical History Colonic polyp Hyperlipidemia Hypertension Myocardial infarction Surgical History History of colonoscopy History of heart artery stent Family History Other Heart attack Social History marital status: Current Living Situation: Spouse current occupational status: employed Feels Safe at Home: Yes Smoking Status: Current every day smoker Hx Alcohol Use: Yes (3-4 beers 1 day a weekend) Hx Substance Use: No Review of Systems Pertinent positives and negatives reviewed in HPI--all others negative Physical Exam Vital Signs (Past 24 Hours): Last Vital Signs Temp 37.0 C 10/12/18 12:59 Pulse 73 10/12/18 14:30 Resp 20 10/12/18 14:30 BP 111/73 10/12/18 14:30 Pulse Ox 96 10/12/18 14:30 Constitutional: WD/WN, vitals as above Eyes: normal visual li by confrontation and + anicteric sclerae Neck: normal visual inspection and trachea midline Respiratory: normal respiratory effort, lungs clear to auscultation Cardiovascular: Rate/Rhythm: regular rate and regular rhythm Gastrointestinal (Abdomen): Inspection/Auscultation: + abdomen distended Percussion/Palpation: + abdomen tender (LLQ, Left lateral quadrant) and abdomen soft Musculoskeletal: Head/Neck/Chest: normocephalic and head atraumatic negative for edema, peripheral pulses intact Skin: no rashes, warm and dry Neurologic: awake; not confused Speech / Cognition: normal speech Psychiatric: Orientation: oriented x 3 Mood: + irritable mood Results & Data Diagnostic Findings CXR: neg for acute CT AP: Acute sigmoid diverticulitis with associated microperforation. No abscess identified at this time. Follow-up colonoscopy is recommended once the patient's symptoms have resolved to exclude the less likely possibility of an underlying colonic lesion. Code Status & VTE Plan Code Status Full code VTE Prophylaxis Plan VTE Prophylaxis will be ordered: Yes
[2018-10-12] MEDS ORDERED: ONDANSETRON INJ 2 MG/ML 2 ML VIAL IV PRN (16:57)
[2018-10-12] MEDS ORDERED: MAGNESIUM HYDROXIDE SUSP 30 ML UDC PO PRN (16:57)
[2018-10-12] MEDS ORDERED: ACETAMINOPHEN 325 MG TAB PO PRN (16:57)
[2018-10-12] MEDS ORDERED: NICOTINE 21 MG/24 HR TDSY TD PRN (16:57)
--- NOTE | 2018-10-12 17:17 | Surgery Consultation ---
Date of Consultation October 12, 2018 Assessment & Plan (1) Sigmoid diverticulitis: pt is a 38 year old male who was admitted to hospital for acute sigmoid diverticulitis, with micro-perforation, IMP: sigmoid diverticulitis with micro-perforation, Plan, conservative treatment first, v fluid, iv antibiotic, control pain, repeat labs in am, no surgical intervention now, History of Present Illness Attending Physician: Bianka Triplett, DO 38 y/o M c/o abd pain. Pt states this pain started Sunday night and has been gradually worsening since that time. It was actually a bit better today, but given the ongoing pain, he came to the ED. Pt states he was fine on Sunday and Sunday until pain onset. He has baseline diarrhea which continued throughout this time. He did note blood mixed in with his stool on Sunday but it was less on AM and none since that time. No jerome clots noted. His pain is LLQ. No n/v. He states he has been able to eat but is "eating less", which entailed 3 slices of pizza yesterday and 3 eggs today. Pt states he had abd pain when he was having an WA last year, but that pain was more epigastric. This is not similar. He feels bloated. Pt with hx of abd pain and GIB 3-4 years ago. He had a c-scope with Dr. Caruso at that time that revealed polyps, benign. He states that this pain is more intense than at that time. Pt states he feels a bit less pain s/p IVF, abx, pain medications in the ED. Still with pain. Pt is somewhat agitated as he has a work commitment and states he needs to leave here by 6pm tomorrow night. I reviewed pt's H/P with pt and his , pt feels better now, no abdominal pain, no fever, no diarrhea, last BM yesterday. Allergies Allergy/AdvReac Type Severity Reaction Status Date / Time No Known Allergies Allergy Unverified 10/12/18 13:57 Home Medications Home Medications Medication Instructions Recorded Confirmed Type aspirin 81 mg PO QAM 10/12/18 10/12/18 History atorvastatin [Lipitor] 80 mg PO QAM 10/12/18 10/12/18 History lisinopril [Zestril] 2.5 mg PO QAM 10/12/18 10/12/18 History metoprolol succinate [Toprol XL] 50 mg PO QAM 10/12/18 10/12/18 History nitroglycerin [Nitrostat] 0.4 mg SUBLINGUAL UD PRN 10/12/18 10/12/18 History ticagrelor [Brilinta] 90 mg PO BID 10/12/18 10/12/18 History Patient History Medical History Colonic polyp Hyperlipidemia Hypertension Myocardial infarction Surgical History History of colonoscopy History of heart artery stent Social History Preferred Language: Yi Communication Ability: Effective Passenger Conductor Required: No Beliefs That Will Affect Care: None marital status: Current Living Situation: Family current occupational status: employed Other Information That Helps Us Care for You: No Feels Safe at Home: Yes Safety Concerns: Feels Safe At This Time Smoking Status: Current every day smoker Hx Alcohol Use: No Hx Substance Use: No Review of Systems Constitutional: as per Subjective / HPI Ear, Nose, Mouth, Throat: as per Subjective / HPI Respiratory: as per Subjective / HPI smoking one pack/day Cardiovascular: as per Subjective / HPI Gastrointestinal: as per Subjective / HPI pt had colonosocpy withpolypectomy 2 years ago Genitourinary (Male): as per Subjective / HPI Neurologic: as per Subjective / HPI Psychiatric: as per Subjective / HPI Endocrine: as per Subjective / HPI Physical Exam Vital Signs (Past 24 Hours): Last Vital Signs Temp 37.0 C 10/12/18 12:59 Pulse 81 10/12/18 15:31 Resp 26 H 10/12/18 15:31 BP 108/72 10/12/18 15:31 Pulse Ox 97 10/12/18 15:31 Constitutional: WD/WN, vitals as above well developed and well nourished Neck: trachea midline, no thyromegaly Respiratory: normal respiratory effort, lungs clear to auscultation normal respiratory effort Cardiovascular: RRR, no murmur, no edema Rate/Rhythm: regular rate and regular rhythm Heart Sounds: normal S1 and normal S2 Gastrointestinal (Abdomen): Percussion/Palpation: abdomen soft NT, ND BS + Neurologic: awake Psychiatric: Orientation: alert and oriented x 3 Results & Data Laboratory Results Abnormal lab results 10/12/18 10/12/18 Range/Units 13:35 13:35 WBC 11.97 H (4.8-10.8) K/uL Immature Gran # (Auto) 0.03 H (0.00-0.02) K/uL Neut # (Auto) 8.30 H (1.4-6.5) K/uL [place] # (Auto) 0.87 H (0.11-0.59) K/uL C-Reactive Protein 3.48 H (0-0.29) mg/dl Globulin 4.1 H (2.5-4.0) gm/dl Diagnostic Findings ABDOMEN AND PELVIS CT WITH IV CONTRAST CT DOSE: 852.64 mGycm HISTORY: LOWER ABD PAIN TECHNIQUE: Multiaxial CT images of the abdomen and pelvis were performed following the use of intravenous contrast. A dose lowering technique was utilized adhering to the principles of ALARA. COMPARISON STUDY: Abdomen and pelvis CT 07/16/2015. FINDINGS: The lung bases are clear. No fractures within the visualized osseous structures. Tiny fat-containing umbilical hernia. The liver, gallbladder, spleen, adrenal glands, pancreas, and kidneys are unremarkable. No hydronephrosis. No retroperitoneal lymphadenopathy. Normal bladder. Focal thickening and pericolonic fat stranding at the mid sigmoid colon. There are few punctate foci of extraluminal gas consistent with microperforation. Findings are consistent with acute diverticulitis. No abscess identified at this time. No evidence for bowel obstruction. Normal appendix. IMPRESSION: Acute sigmoid diverticulitis with associated microperforation. No abscess identified at this time. Follow-up colonoscopy is recommended once the patient's symptoms have resolved to exclude the less likely possibility of an underlying colonic lesion.
[2018-10-12] MEDS: D5W AND 1/2NSS + 20MEQ KCL 20 MEQ/1,000 ML BAG IV SCH (18:07)
[2018-10-12] MEDS ORDERED: ENALAPRILAT 2.5 MG in DEXTROSE 5% 25 ML IV PRN (21:00)
[2018-10-12] MEDS: TICAGRELOR 90 MG TAB PO SCH (21:01)
[2018-10-12] MEDS ORDERED: CIPROFLOXACIN 400 MG/200 ML BAG IV SCH (23:00)
[2018-10-13] MEDS: metroNIDAZOLE 500 MG/100 ML BAG IV SCH ×2 (00:26→08:16)
[2018-10-13] MEDS: D5W AND 1/2NSS + 20MEQ KCL 20 MEQ/1,000 ML BAG IV SCH ×2 (03:57→15:39)
[2018-10-13] MEDS ORDERED: CIPROFLOXACIN 400 MG/200 ML BAG IV SCH (04:00)
[2018-10-13 05:48] LABS: Basophils # (auto) 0.02 K/uL (0-0.2); Basophils % (auto) 0.2 %; Eosinophils % (auto) 1.9 %; Hematocrit (blood only) 39.8 % (42-52); Immature Granulocytes # (auto) 0.02 K/uL (0.00-0.02); Immature Granulocytes % (auto) 0.2 %; Lymphocytes # (auto) 2.13 K/uL (1.2-3.4); Lymphocytes % (auto) 20.3 %; Mean Corpuscular Hgb Conc 35.2 g/dL (32-36); Mean Corpuscular Volume 87.9 fL (80-100); Mean Platelet Volume 10.2 fL (7.4-10.4); Monocytes # (auto) 0.88 K/uL (0.11-0.59); Monocytes % (auto) 8.4 %; Neutrophils # (auto) 7.23 K/uL (1.4-6.5); Platelet Count 226 K/uL (130-400); RDW Coefficient of Variation 12.9 % (11.5-14.5); RDW Standard Deviation 41.3 fL (36.4-46.3); Red Blood Count 4.53 M/uL (4.7-6.1); White Blood Count 10.48 K/uL (4.8-10.8)
[2018-10-13 06:11] LABS: Calcium 8.6 mg/dl (8.5-10.1); Creatinine Clr Calc Pharmacy 134.9 ml/min; Est GFR (African American) 137.3; Est GFR (Non-African American) 118.5; Magnesium 2.3 mg/dl (1.8-2.4); Potassium 3.7 mmol/L (3.5-5.1)
[2018-10-13 06:12] LABS: Phosphorus 2.9 mg/dl (2.5-4.9)
[2018-10-13] MEDS: TICAGRELOR 90 MG TAB PO SCH (08:19)
--- NOTE | 2018-10-13 14:57 | Discharge Summary ---
Date of Service October 13, 2018 Admission HPI Per Admitting Provider 38 y/o M c/o abd pain. Pt states this pain started Sunday night and has been gradually worsening since that time. It was actually a bit better today, but given the ongoing pain, he came to the ED. Pt states he was fine on Sunday and Sunday until pain onset. He has baseline diarrhea which continued throughout this time. He did note blood mixed in with his stool on Sunday but it was less on AM and none since that time. No jerome clots noted. His pain is LLQ. No n/v. He states he has been able to eat but is "eating less", which entailed 3 slices of pizza yesterday and 3 eggs today. Pt states he had abd pain when he was having an NC last year, but that pain was more epigastric. This is not similar. He feels bloated. Pt with hx of abd pain and GIB 3-4 years ago. He had a c-scope with Dr. Caruso at that time that revealed polyps, benign. He states that this pain is more intense than at that time. Pt states he feels a bit less pain s/p IVF, abx, pain medications in the ED. St ill with pain. Pt is somewhat agitated as he has a work commitment and states he needs to leave here by 6pm tomorrow night. ED spoke with Dr. Howell who feels pt does not need OR intervention at this time. Principal Diagnosis Diverticulitis with microperforation Discharge Exam Constitutional WD/WN, vitals as above Eyes PERRL, conjunctivae normal, anicteric sclerae ENMT external ear and nose normal, oropharynx normal Neck normal visual inspection Respiratory normal respiratory effort, lungs clear to auscultation Cardiovascular RRR, no murmur, no edema Gastrointestinal (Abdomen) Inspection/Auscultation: abdomen normal to inspection and normal bowel sounds Percussion/Palpation: + abdomen tender (LLQ) Musculoskeletal no cyanosis or clubbing, extremities motor strength 5/5 Skin no rashes, warm and dry Neurologic PERRL, EOMI, accommodation nl, no face palsy, no dysarthria Psychiatric A+Ox3, euthymic affect Discharge Data Allergies Allergy/AdvReac Type Severity Reaction Status Date / Time No Known Allergies Allergy Unverified 10/12/18 13:57 Consultations 10/12/18 15:11 ED Decision to Admit Stat 10/12/18 16:57 Consult General Surgery Routine Ordered Studies 10/12/18 13:16 CT abd pelvis IV con only Stat Hospital Course (1) Sigmoid diverticulitis: Patient presented with continued LLQ pain and intermittent BRBPR in the past 5 days. He actually felt symptoms were improving on day of admission, but came in to be checked out just in case. CT Abdo showed diverticulitis with microperforation without clear evidence of abscess. Diverticulitis with microperf -Evaluated by surgery, no surgical need at this time. -Pt improving, no elevated WBC -Pt insistent on discharge home today which is reasonable with qualification that this may be abscess, given strict directions to return to ER. -Was able to tolerate advanced diet without pain or GIBleeding -Sent home with 10 day script of cipro/flagyl BRBPR -Resolved -Continue asa and brillinta -Follow up colonoscopy recommended for h/o polyps after resolution of diverticulitis H/O NC/HTN/HLD -Continue home meds Code: FULL (2) Myocardial infarction: (3) HTN (hypertension): (4) Tobacco use disorder: (5) Hyperlipidemia: Total Time Total Time Spent Total Time Spent (In Minutes): 35 Discharge Plan Discharge Items Patient Disposition: Home - Home Health Services Reason For Visit: DIVERTICLITIS WITH MICROPERF Discharge Diagnosis: Diverticulitis Discharge Goals: Decrease discomfort and Therapeutic intervention Activity: Per 'Additional Instructions' section Non-emergency contact: Primary Care Provider Call non-emergency contact if: your symptoms worsen, your pain is worsening and your temperature is above 101.5 Follow-up/Referrals: Rajwinder Farrell DO [Primary Care Provider] - Diet: Regular Addtl Provider Instructions: During this admission, you were evaluated for abdominal pain. You were found to have Diverticulitis. You will be discharged on antibiotics for this; please complete the entire course of antibiotics. Please follow up with your primary care physician in 7-14 days. We will help to get you set up with a PCP within [place] [facility] [place], but your current physician should still see you within 2 weeks. If your symptoms return or worsen, if you develop a fever, or if you are unable to keep food down, please return to the emergency room. We recommend you have a follow up colonoscopy after you have fully healed from this current condition to evaluate for your GI bleed and to follow up on your polyps. Resume all of your home medications in addition to your antibiotics. Prescriptions: New ciprofloxacin HCl 500 mg tablet 500 mg PO BID 10 Days Qty: 20 RF: 0 metronidazole 500 mg tablet 500 mg PO Q8H 10 Days Qty: 30 RF: 0 Continued atorvastatin [Lipitor] 80 mg tablet 80 mg PO QAM RF: 0 metoprolol succinate [Toprol XL] 50 mg tablet extended release 24 hr 50 mg PO QAM RF: 0 aspirin 81 mg Tablet,Delayed Release (Dr/Ec) 81 mg PO QAM RF: 0 nitroglycerin [Nitrostat] 0.4 mg Tablet, Sublingual 0.4 mg Sublingual UD PRN (Reason: Chest Pain) RF: 0 lisinopril [Zestril] 2.5 mg tablet 2.5 mg PO QAM RF: 0 Brilinta 90 mg tablet 90 mg PO BID RF: 0 Visit Report Forms: Smoking Cessation Stand-Alone Forms: Call Back Authorization, [facility]/Other Patient Handouts: DVT, Diverticulitis Dc Discharge Orders: Discharge Order (Routine); Ordered 10/13/18 Ordered By: Aliya Talbert Admission Data Admit Date/Time: 10/12/18 15:40 Attending Provider: Nabor Jackson Admit Provider: Bianka Triplett Primary Care Provider: Rajwinder Farrell Other Providers: Juan Francisco Howell ; Nabor Jackson Service: Medical Other Interventions: Discharge Summary Assessment (RN) Last Done: 10/13/18 15:05 DC Date/Time DO NOT enter until pt leaves facility: 10/13/18 15:58 Supervising Physician Co-Signing Physician Notes I saw and examined the patient independently. I discussed the plan of care with the resident with the following summary/exceptions: 38yo M w/ hx of NC who presents with diverticulitis and microperforation. Today he is pain-free. No fevers, chills, nausea, or vomiting. Normal BM today with blood or melena. Desires to leave the hospital this afternoon. 1) Diverticulitis with microperforation - CT a/p on 10/12 showed acute sigmoid diverticulitis with microperforations. No abscess seen. Seen by surgery without plan for OR. On day of discharge, he was entirely pain-free and was not willing to stay in the hospital any longer. We discussed that we would prefer that he remain in the hospital for a longer period of time, but he declined. He was capable of making this decision, as he had no altered mental status or confusion. His was in agreement with his decision. We explicitly discussed that he needed to return to the hospital if he had worsening pain, nausea, blood or dark stools, fevers (>100.5), chills, felt lightheaded, or had any other issues. We discussed the risk of perforation, abscess formation, or need for urgent surgery. He was willing to accept these risks. - He will be discharged on 10 days of antibiotics and was strictly advised to follow up with his PCP this week to ensure he is doing well. He was agreeable to this plan. Resident Activity Tracking Resident Involvement: Resident Care Provided Care Provided: Adult [facility]
== END 2018-10-13 15:58 | disposition home health service (06) | DRG 379 ==
LOC: ED 12:53 → 3E 15:40 → SUATTDRO 15:40 → 3E 16:57

== ENCOUNTER 2018-10-18 20:33 | Inpatient (IN) ==
[2018-10-18] MEDS ORDERED: ONDANSETRON INJ 2 MG/ML 2 ML VIAL IV STA (21:48)
[2018-10-18] MEDS ORDERED: MoRPHine SULFATE 4 MG/ML 1 ML CARP\\VIAL IV STA (21:48)
[2018-10-18] MEDS ORDERED: PIPERACILL/TAZOBAC CONSULT ACTIVE PRN (21:48)
[2018-10-18] MEDS ORDERED: PIPERACILLIN/TAZOBACTAM 4.5 GM/120 ML BAG IV ONE (21:48)
[2018-10-18] MEDS ORDERED: SODIUM CHLORIDE 0.9% 1000ML 1,000 ML IV ONE (21:48)
[2018-10-18 22:16] LABS: Basophils # (auto) 0.02 K/uL (0-0.2); Basophils % (auto) 0.1 %; Eosinophils # (auto) 0.16 K/uL (0-0.5); Hematocrit (blood only) 44.8 % (42-52); Hemoglobin 16.6 g/dL (14.0-18.0); Immature Granulocytes # (auto) 0.09 K/uL (0.00-0.02); Immature Granulocytes % (auto) 0.6 %; Lymphocytes # (auto) 2.83 K/uL (1.2-3.4); Lymphocytes % (auto) 17.3 %; Mean Corpuscular Hgb Conc 37.1 g/dL (32-36); Mean Corpuscular Volume 86.2 fL (80-100); Mean Platelet Volume 12.6 fL (7.4-10.4); Monocytes # (auto) 1.28 K/uL (0.11-0.59); Monocytes % (auto) 7.8 %; Neutrophils # (auto) 11.94 K/uL (1.4-6.5); Neutrophils % (auto) 73.2 %; Platelet Count 178 K/uL (130-400); RDW Coefficient of Variation 12.6 % (11.5-14.5); RDW Standard Deviation 39.8 fL (36.4-46.3); White Blood Count 16.32 K/uL (4.8-10.8)
[2018-10-18 22:29] LABS: iSTAT Creatinine 0.7 mg/dl (0.6-1.3); iSTAT Ionized Calcium 1.13 mmol/l (1.12-1.32); iSTAT Potassium 3.9 mEq/L (3.3-5.0)
[2018-10-18 22:33] LABS: Albumin Level 3.7 gm/dl (3.4-5.0); BUN Creatinine Ratio 11.6 (10-20); Calcium 9.3 mg/dl (8.5-10.1); Creatinine Clr Calc Pharmacy 117.4 ml/min; Est GFR (African American) 130.3; Est GFR (Non-African American) 112.4; Potassium 3.9 mmol/L (3.5-5.1)
[2018-10-18 22:36] LABS: Albumin Globulin Ratio 0.9 (0.9-2); Bilirubin,Total 0.5 mg/dl (0.2-1); Globulin 4.3 gm/dl (2.5-4.0)
[2018-10-18 22:57] LABS: Appearance Urine Cloudy (Clear); Bacteria Urine Automated Negative (Negative); Bilirubin Urine Negative (Negative); Blood Urine Negative (Negative); Color Urine Dark Yellow; Glucose Urine UA Negative (Negative); Ketones Urine Trace (Negative); Leukocyte Esterase Urine 1+ (Negative); Nitrite Urine Negative (Negative); Protein Urine Negative (Negative); Urobilinogen Urine Negative (Negative)
--- NOTE | 2018-10-18 23:20 | Emergency Department Note ---
History of Present Illness General Chief complaint: Abdominal Pain Stated complaint: STOMACH PAIN, DIARRHEA History of Present Illness Maximum Pain Intensity: 3 This 38 yo presents to the ER complaining of worsening abdominal pain who is currently being treated for diverticulitis with microperforation he was placed on Cipro and Flagyl Location: Left lower quadrant Quality: Aching Severity: Moderate Duration: 1 week Timin week ago Context: Patient became more sick and came into the night Modifying factors: better with nothing; worse with activity Patient states he has been getting progressively worse this past few days. He complaints of subjective fever and chills and lack of appetite. He has been taking his antibiotics as directed. Patient denies chest pain, dyspnea, vomiting, back pain. He has been having diarrhea. No well water. Home Medications Home Medications Medication Instructions Recorded Confirmed Type Brilinta 90 mg PO BID 10/12/18 10/18/18 History aspirin 81 mg PO QAM 10/12/18 10/18/18 History atorvastatin [Lipitor] 80 mg PO QAM 10/12/18 10/18/18 History lisinopril [Zestril] 2.5 mg PO QAM 10/12/18 10/18/18 History metoprolol succinate [Toprol XL] 50 mg PO QAM 10/12/18 10/18/18 History nitroglycerin [Nitrostat] 0.4 mg SUBLINGUAL UD PRN 10/12/18 10/18/18 History ciprofloxacin HCl 500 mg PO BID 10 Days #20 tab 10/13/18 10/18/18 Rx metronidazole 500 mg PO Q8H 10 Days #30 tab 10/13/18 10/18/18 Rx Allergies Allergy/AdvReac Type Severity Reaction Status Date / Time No Known Allergies Allergy Verified 10/18/18 22:06 Past Med/Surg History Medical History Sigmoid diverticulitis (Acute) Colonic polyp Hyperlipidemia Hypertension Myocardial infarction Surgical History History of colonoscopy History of heart artery stent Family History Other Heart attack Social History Preferred Language: Tanzanian Beliefs That Will Affect Care: None marital status: Current Living Situation: Family current occupational status: employed Feels Safe at Home: Yes Smoking Status: Current every day smoker Hx Alcohol Use: No Hx Substance Use: No Review of Systems All systems reviewed & are unremarkable except as noted in HPI & below Physical Exam Vital Signs Vital Signs - 24 hr 10/18/18 20:37 10/18/18 22:56 10/19/18 00:00 Temperature 36.5 C Temperature Source Oral Sepsis Recent Fever Within 48 Hours No Sepsis New/Unexplained Change in Mental Status No Sepsis Action Taken by Nursing No Action Required Pulse Rate 105 H Pulse Rate [Finger] 88 75 Pulse Rhythm [Finger] Regular Pulse Strength [Finger] Normal Respiratory Rate 18 18 Respiratory Effort / Characteristics Non-Labored Spontaneous Respiratory Depth Normal Blood Pressure 124/82 Blood Pressure [Right Arm] 111/74 Blood Pressure Mean 96 Blood Pressure Mean [Right Arm] 86 Pulse Oximetry 97 97 95 Oxygen Delivery Method Room Air Room Air 10/19/18 01:38 Temperature Temperature Source Sepsis Recent Fever Within 48 Hours Sepsis New/Unexplained Change in Mental Status Sepsis Action Taken by Nursing Pulse Rate Pulse Rate [Finger] 75 Pulse Rhythm [Finger] Regular Pulse Strength [Finger] Normal Respiratory Rate 18 Respiratory Effort / Characteristics Non-Labored Spontaneous Respiratory Depth Normal Blood Pressure Blood Pressure [Right Arm] 107/73 Blood Pressure Mean Blood Pressure Mean [Right Arm] 84 Pulse Oximetry 96 Oxygen Delivery Method Room Air VITALS: Vitals are noted on the nurse's note and reviewed by myself. Vital signs stable. GENERAL: White male, in no acute distress, nondiaphoretic, well-developed well-nourished. SKIN: The skin was without rashes, erythema, edema, or bruising. There is no tenting of the skin. Capillary reflex less than 2 seconds. HEAD: Normocephalic atraumatic. EARS: External auditory canals clear, tympanic membranes pearly sharp without erythema or effusion bilaterally. EYES: Pupils equal round and reactive to light and accommodation. Conjunctivae without injection, sclerae without icterus. Extraocular movements intact. NOSE: Patent, turbinates without inflammation or discharge. MOUTH: Mucous membranes moist. Pharynx without erythema or exudate. Uvula midline. Airway patent. Tongue does not deviate. NECK: Supple without nuchal rigidity. No lymphadenopathy. No thyromegaly. Cervical spine is nontender. No JVD. HEART: Regular rate and rhythm without murmurs gallops or rubs. LUNGS: Clear to auscultation bilaterally without wheezes, rales or rhonchi. No retractions or accessory muscle use. ABDOMEN: Positive bowel sounds x 4. Normal tympanic percussion. Soft, tender to palpation left lower quadrant, without masses or organomegaly. Bowles sign negative. No guarding or rebound tenderness. No CVA tenderness MUSCULOSKELETAL: No muscle atrophy, erythema, or edema noted. NEURO: Patient was alert and oriented to person place and time. Normal sensati on to light and sharp touch. No focal neurological deficits. Course Administered Medications Ioversol (Optiray 320 100ml) 94 ml IV ONCE PRN PRN Reason: Interaction Checking Stop: 10/22/18 23:47 Last Admin: 10/18/18 23:49 Dose: 94 ml Documented by: [id number] Morphine Sulfate (Morphine Sulfate) 4 mg IV NOW PRN PRN Reason: pain Stop: 11/02/18 01:32 Last Admin: 10/19/18 01:36 Dose: 4 mg Documented by: [id number] Discontinued Medications Sodium Chloride (Nss 1000ml) 1,000 mls @ 999 mls/hr IV .Q1H1M ONE Stop: 10/18/18 22:48 Last Infusion: 10/19/18 00:02 Dose: 0 mls/hr Documented by: [id number] Admin: 10/18/18 22:52 Dose: 999 mls/hr Documented by: [id number] Piperacillin Sod/Tazobactam Sod (Zosyn) 4.5 gm in 120 mls @ 240 mls/hr IV NOW ONE Stop: 10/18/18 22:17 Last Infusion: 10/19/18 00:03 Dose: 0 mls/hr Documented by: [id number] Admin: 10/18/18 22:54 Dose: 240 mls/hr Documented by: [id number] Morphine Sulfate (Morphine Sulfate) 4 mg IV NOW STA Stop: 10/18/18 21:49 Last Admin: 10/18/18 22:52 Dose: 4 mg Documented by: [id number] Ondansetron HCl (Zofran) 4 mg IV NOW STA Stop: 10/18/18 21:49 Last Admin: 10/18/18 22:52 Dose: 4 mg Documented by: [id number] Medical Decision Making Medical Records Attestation: I reviewed the patient's medical records. Home Medications Current Medication List: was personally reviewed by me Laboratory Data Attestation: I reviewed the patient's lab results. Result diagrams: 10/18/18 22:05 10/18/18 22:05 Lab Results 10/18/18 10/18/18 10/18/18 Range/Units 22:05 22:05 22:11 WBC 16.32 H (4.8-10.8) K/uL RBC 5.20 (4.7-6.1) M/uL Hgb 16.6 (14.0-18.0) g/dL POC Hgb (14.0-18.0) g/dl Hct 44.8 (42-52) % POC Hct (42-52) % MCV 86.2 (80-100) fL MCH 31.9 (25-34) pg MCHC 37.1 H (32-36) g/dL RDW Std Deviation 39.8 (36.4-46.3) fL RDW Coeff of Héctor 12.6 (11.5-14.5) % Plt Count 178 (130-400) K/uL MPV 12.6 H (7.4-10.4) fL Immature Gran % (Auto) 0.6 % Neut % (Auto) 73.2 % Lymph % (Auto) 17.3 % [place] % (Auto) 7.8 % Eos % (Auto) 1.0 % Baso % (Auto) 0.1 % Immature Gran # (Auto) 0.09 H (0.00-0.02) K/uL Neut # (Auto) 11.94 H (1.4-6.5) K/uL Lymph # (Auto) 2.83 (1.2-3.4) K/uL [place] # (Auto) 1.28 H (0.11-0.59) K/uL Eos # (Auto) 0.16 (0-0.5) K/uL Baso # (Auto) 0.02 (0-0.2) K/uL POC Sodium (135-144) mEq/L Sodium 133 L (136-145) mmol/L POC Potassium (3.3-5.0) mEq/L Potassium 3.9 (3.5-5.1) mmol/L POC Chloride (101-112) mEq/L Chloride 100 (98-107) mmol/L Carbon Dioxide 26 (21-32) mmol/L POC Total CO2 (24-31) mEq/l Anion Gap 7.0 (3-11) POC Anion Gap (16-25) mmol/L POC BUN (7-18) mg/dl BUN 10 (7-18) mg/dl Creatinine 0.83 (0.6-1.4) mg/dl POC Creatinine (0.6-1.3) mg/dl Est Cr Clr Drug Dosing 117.4 ml/min Est GFR ( Amer) 130.3 Est GFR (Non-Af Amer) 112.4 BUN/Creatinine Ratio 11.6 (10-20) Glucose 110 H (70-99) mg/dl POC Glucose (other) (70-99) mg/dl POC Lactic Acid Sukhdev 0.84 L (0.90-1.70) mmol/L Calcium 9.3 (8.5-10.1) mg/dl POC Ioniz Calcium Marva (1.12-1.32) mmol/l Total Bilirubin 0.5 (0.2-1) mg/dl AST 24 (15-37) U/L ALT 47 (12-78) U/L Alkaline Phosphatase 106 (45-117) U/L Total Protein 8.0 (6.4-8.2) gm/dl Albumin 3.7 (3.4-5.0) gm/dl Globulin 4.3 H (2.5-4.0) gm/dl Albumin/Globulin Ratio 0.9 (0.9-2) Lipase 63 L (73-393) U/L Urine Color Urine Appearance (Clear) Urine pH (4.5-7.5) Ur Specific [place] (1.000-1.030) Urine Protein (Negative) Urine Glucose (UA) (Negative) Urine Ketones (Negative) Urine Blood (Negative) Urine Nitrite (Negative) Urine Bilirubin (Negative) Urine Urobilinogen (Negative) Ur Leukocyte Esterase (Negative) Urine WBC (Auto) (0-5) /hpf Urine RBC (Auto) (0-4) /hpf U Hyaline Cast (Auto) (0-5) /lpf U Epithel Cells (Auto) (0-5) /lpf Urine Bacteria (Auto) (Negative) 10/18/18 10/18/18 Range/Units 22:15 22:30 WBC (4.8-10.8) K/uL RBC (4.7-6.1) M/uL Hgb (14.0-18.0) g/dL POC Hgb 16.0 (14.0-18.0) g/dl Hct (42-52) % POC Hct 47 (42-52) % MCV (80-100) fL MCH (25-34) pg MCHC (32-36) g/dL RDW Std Deviation (36.4-46.3) fL RDW Coeff of Héctor (11.5-14.5) % Plt Count (130-400) K/uL MPV (7.4-10.4) fL Immature Gran % (Auto) % Neut % (Auto) % Lymph % (Auto) % [place] % (Auto) % Eos % (Auto) % Baso % (Auto) % Immature Gran # (Auto) (0.00-0.02) K/uL Neut # (Auto) (1.4-6.5) K/uL Lymph # (Auto) (1.2-3.4) K/uL [place] # (Auto) (0.11-0.59) K/uL Eos # (Auto) (0-0.5) K/uL Baso # (Auto) (0-0.2) K/uL POC Sodium 133 L (135-144) mEq/L Sodium (136-145) mmol/L POC Potassium 3.9 (3.3-5.0) mEq/L Potassium (3.5-5.1) mmol/L POC Chloride 97 L (101-112) mEq/L Chloride (98-107) mmol/L Carbon Dioxide (21-32) mmol/L POC Total CO2 23 L (24-31) mEq/l Anion Gap (3-11) POC Anion Gap 17.0 (16-25) mmol/L POC BUN 9 (7-18) mg/dl BUN (7-18) mg/dl Creatinine (0.6-1.4) mg/dl POC Creatinine 0.7 (0.6-1.3) mg/dl Est Cr Clr Drug Dosing ml/min Est GFR ( Amer) Est GFR (Non-Af Amer) BUN/Creatinine Ratio (10-20) Glucose (70-99) mg/dl POC Glucose (other) 110 H (70-99) mg/dl POC Lactic Acid Sukhdev (0.90-1.70) mmol/L Calcium (8.5-10.1) mg/dl POC Ioniz Calcium Marva 1.13 (1.12-1.32) mmol/l Total Bilirubin (0.2-1) mg/dl AST (15-37) U/L ALT (12-78) U/L Alkaline Phosphatase (45-117) U/L Total Protein (6.4-8.2) gm/dl Albumin (3.4-5.0) gm/dl Globulin (2.5-4.0) gm/dl Albumin/Globulin Ratio (0.9-2) Lipase (73-393) U/L Urine Color Dark Yellow Urine Appearance Cloudy H (Clear) Urine pH 6.0 (4.5-7.5) Ur Specific [place] 1.020 (1.000-1.030) Urine Protein Negative (Negative) Urine Glucose (UA) Negative (Negative) Urine Ketones Trace H (Negative) Urine Blood Negative (Negative) Urine Nitrite Negative (Negative) Urine Bilirubin Negative (Negative) Urine Urobilinogen Negative (Negative) Ur Leukocyte Esterase 1+ H (Negative) Urine WBC (Auto) 1-5 (0-5) /hpf Urine RBC (Auto) 5-10 H (0-4) /hpf U Hyaline Cast (Auto) 1-5 (0-5) /lpf U Epithel Cells (Auto) 5-10 H (0-5) /lpf Urine Bacteria (Auto) Negative (Negative) MDM Narrative Prior records/ancillary studies reviewed. Triage Nursing notes reviewed. Additional history obtained from family. The patient's history was concerning for abdominal pain. Differential diagnosis: Etiologies such as appendicitis, diverticulitis, PUD, biliary pathology, UTI, pancreatitis, obstruction, mesenteric ischemia, aortic pathology, infections, inflammatory bowel disease, renal colic, as well as others were entertained. Physical examination findings: As above. ER treatment provided: Zosyn IV On reassessment the patient felt better. Diagnostics interpreted by me: The labs revealed leukocytosis Negative lactic acid Imaging studies: CT SCAN OF THE ABDOMEN AND PELVIS WITH IV CONTRAST CLINICAL HISTORY: Generalized abdominal pain. COMPARISON STUDY: Abdominal CT dated 10/12/2018 and 07/16/2015. TECHNIQUE: Following the IV administration of 94 cc of Optiray 320, CT scan of the abdomen and pelvis is performed from the lung bases to the proximal femora. Images are reviewed in the axial, sagittal, and coronal planes. IV contrast was administered without complication. A dose lowering technique was utilized adhering to the principles of ALARA. CT DOSE: 389.45 mGy.cm FINDINGS: Lung bases: The heart is normal in size and without pericardial effusion. The coronary arteries are densely calcified. The lung bases are clear. Liver: The contrast-enhanced liver is normal in size, contour, and attenuation. There is no intrahepatic biliary ductal dilatation. The hepatic veins and portal veins are patent. Gallbladder: Unremarkable. Spleen: Normal in size and attenuation. Pancreas: Unremarkable. Adrenal glands: Unremarkable. Kidneys: The contrast enhanced kidneys are normal in size and without hydronephrosis. The kidneys enhance symmetrically. Abdominal vasculature: The abdominal aorta is normal in course and caliber noting mild to moderate and age-advanced atherosclerotic calcification. Bowel: There is mild colonic diverticulosis. Again seen is significant wall thickening with pericolonic infiltration and trace fluid involving the sigmoid colon consistent with acute diverticulitis. There is discontinuity of the colonic mucosa indicating microperforation. Phlegmonous change is noted. No organized fluid collection is clearly seen to indicate abscess. This appears worsened as compared to 10/12/2018. There are mildly inflamed loops of adjacent small bowel, likely reactive basis. No bowel obstruction is seen. The appendix is well-visualized and normal. Peritoneum: There is no intraperitoneal free air or abdominal ascites. There is a small fat-containing umbilical hernia. Lymphadenopathy: None. Pelvic viscera: The bladder, prostate, and seminal vesicles are normal as vis ualized. There are small bilateral fat-containing inguinal hernias. Skeletal structures: No lytic or blastic lesions are seen. IMPRESSION: 1. There is mild colonic diverticulosis with evidence of severe acute diverticulitis involving the sigmoid colon. This has worsened as compared to 10/12/2017. Follow-up colonoscopy is recommended following resolution of symptoms for further assessment of the underlying colon. 2. Mucosal discontinuity of the colonic wall suggests microperforation. No definite intraperitoneal free air is seen. There is phlegmonous change with no organized fluid collection to indicate abscess. 3. The coronary arteries are densely calcified, advanced for age. Consider non emergent cardiology follow-up. Electronically signed by: Suresh Giles M.D. CT scan from last week was reviewed Consultation: A consultation was placed with the hospitalist, Dr. Krueger. The case was discussed and diagnostics were reviewed. The patient was evaluated in the ER for further treatment. Exam and history seem consistent with diverticulitis that is worsening from prior CAT scan. Patient was started on antibiotics on initial assessment. He is agreeable treatment plan of admission. By the evaluation outlined above emergent etiologies such as appendicitis, PUD, biliary pathology, UTI, pancreatitis, obstruction, mesenteric ischemia, aortic pathology, inflammatory bowel disease, renal colic, as well as others were deemed relatively unlikely. The pt informed about the findings as listed above. All questions were answered and pleased with the treatment. Case reviewed with my attending The chart was completed utilizing [facility] Speech voice recognition software. Grammatical errors, random word insertions, pronoun errors, and incomplete sentences are an occassional consequence of this system due to software limitations, ambient noise, and hardware issues. Any formal questions or concerns about the content, text, or information contained within the body of this dictation should be directly addressed to the physician shampoo assistant for clarification. Impression & Plan Diverticulitis of colon with perforation Discharge Plan Visit Data Chief Complaint: Abdominal Pain Stated Complaint: STOMACH PAIN, DIARRHEA ED Provider: Santi Jacobs ED Midlevel Provider: Lashell Gan Discharge Problem: Diverticulitis of colon with perforation Patient Disposition: Admitted As Inpatient Condition: Fair Forms Stand Alone Forms: Call Back Authorization, [facility] Prescriptions Prescriptions: No Action atorvastatin [Lipitor] 80 mg tablet 80 mg PO QAM RF: 0 metoprolol succinate [Toprol XL] 50 mg tablet extended release 24 hr 50 mg PO QAM RF: 0 aspirin 81 mg Tablet,Delayed Release (Dr/Ec) 81 mg PO QAM RF: 0 nitroglycerin [Nitrostat] 0.4 mg Tablet, Sublingual 0.4 mg Sublingual UD PRN (Reason: Chest Pain) RF: 0 lisinopril [Zestril] 2.5 mg tablet 2.5 mg PO QAM RF: 0 Brilinta 90 mg tablet 90 mg PO BID RF: 0 ciprofloxacin HCl 500 mg tablet 500 mg PO BID 10 Days Qty: 20 RF: 0 metronidazole 500 mg tablet 500 mg PO Q8H 10 Days Qty: 30 RF: 0 Referrals Referrals: Felicity Pemberton DO [Primary Care Provider] - Discharge Problem: Diverticulitis of colon with perforation Qualifiers: Diverticulitis bleeding: unspecified bleeding status Qualified Code(s): K57.20 - Diverticulitis of large intestine with perforation and abscess without bleeding
[2018-10-18] MEDS ORDERED: IOVERSOL 100ml IV PRN (23:48)
--- NOTE | 2018-10-19 00:08 | CT Scan Report ---
CT SCAN OF THE ABDOMEN AND PELVIS WITH IV CONTRAST CLINICAL HISTORY: Generalized abdominal pain. COMPARISON STUDY: Abdominal CT dated 10/12/2018 and 07/16/2015. TECHNIQUE: Following the IV administration of 94 cc of Optiray 320, CT scan of the abdomen and pelvi s is performed from the lung bases to the proximal femora. Images are reviewed in the axial, sagittal , and coronal planes. IV contrast was administered without complication. A dose lowering technique wa s utilized adhering to the principles of ALARA. CT DOSE: 389.45 mGy.cm FINDINGS: Lung bases: The heart is normal in size and without pericardial effusion. The coronary arteries are d ensely calcified. The lung bases are clear. Liver: The contrast-enhanced liver is normal in size, contour, and attenuation. There is no intrahepa tic biliary ductal dilatation. The hepatic veins and portal veins are patent. Gallbladder: Unremarkable. Spleen: Normal in size and attenuation. Pancreas: Unremarkable. Adrenal glands: Unremarkable. Kidneys: The contrast enhanced kidneys are normal in size and without hydronephrosis. The kidneys enh ance symmetrically. Abdominal vasculature: The abdominal aorta is normal in course and caliber noting mild to moderate an d age-advanced atherosclerotic calcification. Bowel: There is mild colonic diverticulosis. Again seen is significant wall thickening with pericolon ic infiltration and trace fluid involving the sigmoid colon consistent with acute diverticulitis. The re is discontinuity of the colonic mucosa indicating microperforation. Phlegmonous change is noted. N o organized fluid collection is clearly seen to indicate abscess. This appears worsened as compared t o 10/12/2018. There are mildly inflamed loops of adjacent small bowel, likely reactive basis. No bowel obstruction is seen. The appendix is well-visualized and normal. Peritoneum: There is no intraperitoneal free air or abdominal ascites. There is a small fat-containin g umbilical hernia. Lymphadenopathy: None. Pelvic viscera: The bladder, prostate, and seminal vesicles are normal as visualized. There are small bilateral fat-containing inguinal hernias. Skeletal structures: No lytic or blastic lesions are seen. IMPRESSION: 1. There is mild colonic diverticulosis with evidence of severe acute diverticulitis involving the si gmoid colon. This has worsened as compared to 10/12/2017. Follow-up colonoscopy is recommended followin g resolution of symptoms for further assessment of the underlying colon. 2. Mucosal discontinuity of the colonic wall suggests microperforation. No definite intraperitoneal f ree air is seen. There is phlegmonous change with no organized fluid collection to indicate abscess. 3. The coronary arteries are densely calcified, advanced for age. Consider nonemergent cardiology fol low-up. Electronically signed by: Suresh Giles M.D. 10/19/2018 12:05 AM
[2018-10-19] MEDS ORDERED: MoRPHine SULFATE 4 MG/ML 1 ML CARP\\VIAL IV PRN (01:33)
--- NOTE | 2018-10-19 02:25 | History & Physical Report ---
Date of Service October 19, 2018 Assessment & Plan (1) Diverticulitis of colon with perforation: Patient with history of the same, failed outpatient treatment with Cipro and Flagyl. Presenting with worsening abdominal pain, leukocytosis and progressive findings on CT. Patient reports adherance to medication regimen. He is presently afebrile, HD stable, nontoxic in appearance. His abdomen is quite tender with some voluntary guarding. * Admit to MedSurge * Zosyn * Morphine PRN pain * Zofran PRN nausea * NSS at 125mL/hr x 2 liters * General surgery consultation - appreciate assistance with this case (2) CAD (coronary artery disease): Patient with newly diagnosed CAD s/p anterior STEMI with stenting to the LAD. Risk factors include HTN, HLP, smoking. Patient presently without chest pain * Check EKG * Continue ASA, Brillinta, Atorvastatin, Metoprolol and Lisinopril * Tobacco cessation counseling (3) Hyperlipidemia: Newly diagnosed * Continue Atorvastatin (4) HTN (hypertension): Blood pressure well controlled at present * Continue Metoprolol * Continue Lisinopril F/E/N- NSS at 125mL/hr x 2 liters, monitor electrolytes and replete as needed, NPO for now Ppx - SCDs to bilateral LE Code -Full Dispo - [facility]ge History of Present Illness Chief Complaint: Abdominal pain Primary Care Provider: Felicity Pemberton, 38yo male with history of CAD s/p anterior STEMI with stent to LAD in March 2018. Patient was recently hospitalized from 10/12 - 10/13 with diverticulitis with microperforation. He was discharged home in stable condition with Cipro and Flagyl. Patient reports compliance with medications. Has had worsening abdominal pain over the last few days. Pain is severe in LLQ. Also with nausea with two episodes of non-bloody/non-bilious vomiting today. Decreased PO intake over the last few days as well as weakness and fatigue. He denies fevers/chills/sweats or abdominal distention. No additional complaints at this time. Denies melena/BRBPR ER Course: Morphine, Zofran, Zosyn Allergies Allergy/AdvReac Type Severity Reaction Status Date / Time No Known Allergies Allergy Verified 10/18/18 22:06 Home Medications Home Medications Medication Instructions Recorded Confirmed Type Brilinta 90 mg PO BID 10/12/18 10/18/18 History aspirin 81 mg PO QAM 10/12/18 10/18/18 History atorvastatin [Lipitor] 80 mg PO QAM 10/12/18 10/18/18 History lisinopril [Zestril] 2.5 mg PO QAM 10/12/18 10/18/18 History metoprolol succinate [Toprol XL] 50 mg PO QAM 10/12/18 10/18/18 History nitroglycerin [Nitrostat] 0.4 mg SUBLINGUAL UD PRN 10/12/18 10/18/18 History ciprofloxacin HCl 500 mg PO BID 10 Days #20 tab 10/13/18 10/18/18 Rx metronidazole 500 mg PO Q8H 10 Days #30 tab 10/13/18 10/18/18 Rx Past Med/Surg History Medical History Sigmoid diverticulitis (Acute) Colonic polyp Hyperlipidemia Hypertension Myocardial infarction Surgical History History of colonoscopy History of heart artery stent Family History Other Heart attack Social History Preferred Language: Montenegrin Beliefs That Will Affect Care: None marital status: Current Living Situation: Family current occupational status: employed Feels Safe at Home: Yes Smoking Status: Current every day smoker Hx Alcohol Use: No Hx Substance Use: No Review of Systems All systems reviewed & are unremarkable except as noted in HPI & below Physical Exam Vital Signs (Past 24 Hours): Last Vital Signs Temp 36.5 C 10/18/18 20:37 Pulse 75 10/19/18 01:38 Resp 18 10/19/18 01:38 BP 107/73 10/19/18 01:38 Pulse Ox 96 10/19/18 01:38 Physical Exam: General: patient resting comfortably, NAD, non-toxic in appearance, AA&O x 4 Skin: warm, dry, intact, no rashes or lesions HEENT: NC/AT, PERRL, EOMI, anicteric sclera, conjunctiva without injection, external ear normal to inspection and nontender, nares patent, dry mucus membranes, dentition intact, no oropharyngeal lesions, neck supple, trachea midline, no LAD, no thyromegaly, no JVD Heart: +S1/S2, regular, no m/r/g Lungs: equal air entry bilaterally, coarse breath sounds cleared with coughing, diffuse end-expiratory wheezing Abd: +BS, soft, ND, diffusely tender with voluntary guarding, no rebound tenderness Ext: warm, 2+ pulses in UE/LE bilaterally, no clubbing/cyanosis or edema Neuro: nonfocal, patient AA&O x 4, speech intact, no facial droop, moving all extremities on command with equal strength 5/5 Results & Data Laboratory Results Lab Results 10/18/18 10/18/18 10/18/18 Range/Units 22:05 22:05 22:11 WBC 16.32 H (4.8-10.8) K/uL RBC 5.20 (4.7-6.1) M/uL Hgb 16.6 (14.0-18.0) g/dL POC Hgb (14.0-18.0) g/dl Hct 44.8 (42-52) % POC Hct (42-52) % MCV 86.2 (80-100) fL MCH 31.9 (25-34) pg MCHC 37.1 H (32-36) g/dL RDW Std Deviation 39.8 (36.4-46.3) fL RDW Coeff of Héctor 12.6 (11.5-14.5) % Plt Count 178 (130-400) K/uL MPV 12.6 H (7.4-10.4) fL Immature Gran % (Auto) 0.6 % Neut % (Auto) 73.2 % Lymph % (Auto) 17.3 % [place] % (Auto) 7.8 % Eos % (Auto) 1.0 % Baso % (Auto) 0.1 % Immature Gran # (Auto) 0.09 H (0.00-0.02) K/uL Neut # (Auto) 11.94 H (1.4-6.5) K/uL Lymph # (Auto) 2.83 (1.2-3.4) K/uL [place] # (Auto) 1.28 H (0.11-0.59) K/uL Eos # (Auto) 0.16 (0-0.5) K/uL Baso # (Auto) 0.02 (0-0.2) K/uL POC Sodium (135-144) mEq/L Sodium 133 L (136-145) mmol/L POC Potassium (3.3-5.0) mEq/L Potassium 3.9 (3.5-5.1) mmol/L POC Chloride (101-112) mEq/L Chloride 100 (98-107) mmol/L Carbon Dioxide 26 (21-32) mmol/L POC Total CO2 (24-31) mEq/l Anion Gap 7.0 (3-11) POC Anion Gap (16-25) mmol/L POC BUN (7-18) mg/dl BUN 10 (7-18) mg/dl Creatinine 0.83 (0.6-1.4) mg/dl POC Creatinine (0.6-1.3) mg/dl Est Cr Clr Drug Dosing 117.4 ml/min Est GFR ( Amer) 130.3 Est GFR (Non-Af Amer) 112.4 BUN/Creatinine Ratio 11.6 (10-20) Glucose 110 H (70-99) mg/dl POC Glucose (other) (70-99) mg/dl POC Lactic Acid Sukhdev 0.84 L (0.90-1.70) mmol/L Calcium 9.3 (8.5-10.1) mg/dl POC Ioniz Calcium Marva (1.12-1.32) mmol/l Total Bilirubin 0.5 (0.2-1) mg/dl AST 24 (15-37) U/L ALT 47 (12-78) U/L Alkaline Phosphatase 106 (45-117) U/L Total Protein 8.0 (6.4-8.2) gm/dl Albumin 3.7 (3.4-5.0) gm/dl Globulin 4.3 H (2.5-4.0) gm/dl Albumin/Globulin Ratio 0.9 (0.9-2) Lipase 63 L (73-393) U/L Urine Color Urine Appearance (Clear) Urine pH (4.5-7.5) Ur Specific [place] (1.000-1.030) Urine Protein (Negative) Urine Glucose (UA) (Negative) Urine Ketones (Negative) Urine Blood (Negative) Urine Nitrite (Negative) Urine Bilirubin (Negative) Urine Urobilinogen (Negative) Ur Leukocyte Esterase (Negative) Urine WBC (Auto) (0-5) /hpf Urine RBC (Auto) (0-4) /hpf U Hyaline Cast (Auto) (0-5) /lpf U Epithel Cells (Auto) (0-5) /lpf Urine Bacteria (Auto) (Negative) 10/18/18 10/18/18 Range/Units 22:15 22:30 WBC (4.8-10.8) K/uL RBC (4.7-6.1) M/uL Hgb (14.0-18.0) g/dL POC Hgb 16.0 (14.0-18.0) g/dl Hct (42-52) % POC Hct 47 (42-52) % MCV (80-100) fL MCH (25-34) pg MCHC (32-36) g/dL RDW Std Deviation (36.4-46.3) fL RDW Coeff of Héctor (11.5-14.5) % Plt Count (130-400) K/uL MPV (7.4-10.4) fL Immature Gran % (Auto) % Neut % (Auto) % Lymph % (Auto) % [place] % (Auto) % Eos % (Auto) % Baso % (Auto) % Immature Gran # (Auto) (0.00-0.02) K/uL Neut # (Auto) (1.4-6.5) K/uL Lymph # (Auto) (1.2-3.4) K/uL [place] # (Auto) (0.11-0.59) K/uL Eos # (Auto) (0-0.5) K/uL Baso # (Auto) (0-0.2) K/uL POC Sodium 133 L (135-144) mEq/L Sodium (136-145) mmol/L POC Potassium 3.9 (3.3-5.0) mEq/L Potassium (3.5-5.1) mmol/L POC Chloride 97 L (101-112) mEq/L Chloride (98-107) mmol/L Carbon Dioxide (21-32) mmol/L POC Total CO2 23 L (24-31) mEq/l Anion Gap (3-11) POC Anion Gap 17.0 (16-25) mmol/L POC BUN 9 (7-18) mg/dl BUN (7-18) mg/dl Creatinine (0.6-1.4) mg/dl POC Creatinine 0.7 (0.6-1.3) mg/dl Est Cr Clr Drug Dosing ml/min Est GFR ( Amer) Est GFR (Non-Af Amer) BUN/Creatinine Ratio (10-20) Glucose (70-99) mg/dl POC Glucose (other) 110 H (70-99) mg/dl POC Lactic Acid Sukhdev (0.90-1.70) mmol/L Calcium (8.5-10.1) mg/dl POC Ioniz Calcium Marva 1.13 (1.12-1.32) mmol/l Total Bilirubin (0.2-1) mg/dl AST (15-37) U/L ALT (12-78) U/L Alkaline Phosphatase (45-117) U/L Total Protein (6.4-8.2) gm/dl Albumin (3.4-5.0) gm/dl Globulin (2.5-4.0) gm/dl Albumin/Globulin Ratio (0.9-2) Lipase (73-393) U/L Urine Color Dark Yellow Urine Appearance Cloudy H (Clear) Urine pH 6.0 (4.5-7.5) Ur Specific [place] 1.020 (1.000-1.030) Urine Protein Negative (Negative) Urine Glucose (UA) Negative (Negative) Urine Ketones Trace H (Negative) Urine Blood Negative (Negative) Urine Nitrite Negative (Negative) Urine Bilirubin Negative (Negative) Urine Urobilinogen Negative (Negative) Ur Leukocyte Esterase 1+ H (Negative) Urine WBC (Auto) 1-5 (0-5) /hpf Urine RBC (Auto) 5-10 H (0-4) /hpf U Hyaline Cast (Auto) 1-5 (0-5) /lpf U Epithel Cells (Auto) 5-10 H (0-5) /lpf Urine Bacteria (Auto) Negative (Negative) Diagnostic Findings CT SCAN OF THE ABDOMEN AND PELVIS WITH IV CONTRAST CLINICAL HISTORY: Generalized abdominal pain. COMPARISON STUDY: Abdominal CT dated 10/12/2018 and 07/16/2015. TECHNIQUE: Following the IV administration of 94 cc of Optiray 320, CT scan of the abdomen and pelvis is performed from the lung bases to the proximal femora. Images are reviewed in the axial, sagittal, and coronal planes. IV contrast was administered without complication. A dose lowering technique was utilized adhering to the principles of ALARA. CT DOSE: 389.45 mGy.cm FINDINGS: Lung bases: The heart is normal in size and without pericardial effusion. The coronary arteries are densely calcified. The lung bases are clear. Liver: The contrast-enhanced liver is normal in size, contour, and attenuation. There is no intrahepatic biliary ductal dilatation. The hepatic veins and portal veins are patent. Gallbladder: Unremarkable. Spleen: Normal in size and attenuation. Pancreas: Unremarkable. Adrenal glands: Unremarkable. Kidneys: The contrast enhanced kidneys are normal in size and without hydronephrosis. The kidneys enhance symmetrically. Abdominal vasculature: The abdominal aorta is normal in course and caliber noting mild to moderate and age-advanced atherosclerotic calcification. Bowel: There is mild colonic diverticulosis. Again seen is significant wall thickening with pericolonic infiltration and trace fluid involving the sigmoid colon consistent with acute diverticulitis. There is discontinuity of the colonic mucosa indicating microperforation. Phlegmonous change is noted. No organized fluid collection is clearly seen to indicate abscess. This appears worsened as compared to 10/12/2018. There are mildly inflamed loops of adjacent small bowel, likely reactive basis. No bowel obstruction is seen. The appendix is well-visualized and normal. Peritoneum: There is no intraperitoneal free air or abdominal ascites. There is a small fat-containing umbilical hernia. Lymphadenopathy: None. Pelvic viscera: The bladder, prostate, and seminal vesicles are normal as visualized. There are small bilateral fat-containing inguinal hernias. Skeletal structures: No lytic or blastic lesions are seen. IMPRESSION: 1. There is mild colonic diverticulosis with evidence of severe acute diverticulitis involving the sigmoid colon. This has worsened as compared to 10/12/2017. Follow-up colonoscopy is recommended following resolution of symptoms for further assessment of the underlying colon. 2. Mucosal discontinuity of the colonic wall suggests microperforation. No definite intraperitoneal free air is seen. There is phlegmonous change with no organized fluid collection to indicate abscess. 3. The coronary arteries are densely calcified, advanced for age. Consider nonemergent cardiology follow-up. Electronically signed by: Suresh Giles M.D. 10/19/2018 12:05 AM Dictated: 10/18/18 2355 Transcribed: 10/18/18 2355 ECG Additional Comments: ordered Code Status & VTE Plan Code Status FULL VTE Prophylaxis Plan VTE Prophylaxis will be ordered: Yes Critical Care Time Critical Care Time: No (1) Diverticulitis of colon with perforation Diverticulitis bleeding: unspecified bleeding status Qualified Code(s): K57.20 - Diverticulitis of large intestine with perforation and abscess without bleeding (2) Hyperlipidemia Hyperlipidemia type: unspecified Qualified Code(s): E78.5 - Hyperlipidemia, unspecified (3) HTN (hypertension) Hypertension type: essential hypertension Qualified Code(s): I10 - Essential (primary) hypertension (4) CAD (coronary artery disease) Coronary Disease-Associated Artery/Lesion type: jamul artery [place] vs. transplanted heart: jamul heart Associated angina: without angina Qualified Code(s): I25.10 - Atherosclerotic heart disease of jamul coronary artery without angina pectoris
[2018-10-19] MEDS ORDERED: ONDANSETRON INJ 2 MG/ML 2 ML VIAL IV PRN (02:37)
[2018-10-19] MEDS ORDERED: PIPERACILL/TAZOBAC CONSULT ACTIVE PRN (02:37)
[2018-10-19 02:53] LABS: Magnesium 2.4 mg/dl (1.8-2.4); Phosphorus 2.9 mg/dl (2.5-4.9)
[2018-10-19] MEDS: MoRPHine SULFATE 2 MG/ML CARP IV PRN ×2 (03:29→09:16)
[2018-10-19] MEDS: SODIUM CHLORIDE 0.9% 1000ML 1,000 ML IV SCH ×2 (03:30→16:19)
[2018-10-19] MEDS: PIPERACILLIN/TAZOBACTAM 3.375 GM in DEXTROSE 5% 100 ML IV SCH ×3 (03:30→20:43)
[2018-10-19] MEDS: TICAGRELOR 90 MG TAB PO SCH ×2 (09:00→20:44)
[2018-10-19] MEDS: LISINOPRIL 2.5 MG TAB PO SCH (09:01)
[2018-10-19] MEDS: ATORVASTATIN 40 MG TAB PO SCH (09:01)
[2018-10-19] MEDS: METOPROLOL SUCC 50MG EXT REL TAB PO SCH (09:01)
[2018-10-19] MEDS: ASPIRIN 81 MG ECTAB PO SCH (09:02)
--- NOTE | 2018-10-19 11:08 | Family Medicine Progress Note ---
Date of Service October 19, 2018 Assessment & Plan (1) Diverticulitis of colon with perforation: 38 year old male with hx of [place] s/p LAD stent and now with diverticulitis w/ perf after failing outpatient regimen. No abscess presently. (1) Diverticulitis of colon with microperforation.: - Continue IV Zosyn - Morphine PRN pain - Zofran PRN nausea - NSS at 125mL/hr x 2 liters. Will re-evaluate fluid status tonight - General surgery consultation. To schedule sigmoidectomy as outpatient in a [facility] (2) CAD (coronary artery disease): - Patient CAD s/p anterior STEMI with stenting to the LAD in 2018. Patient presently without chest pain - EKG w/out any acute changes - Continue ASA, Brillinta, Atorvastatin, Metoprolol and Lisinopril - Tobacco cessation counseling (3) Hyperlipidemia: - Continue Atorvastatin (4) HTN (hypertension): - Blood pressure well controlled at present - Continue Metoprolol - Continue Lisinopril F/E/N- NSS at 125mL/hr x 2 liters, monitor electrolytes and replete as needed, NPO for now Ppx - SCDs to bilateral LE Code -Full Dispo - MedSurg Supervising Physician Co-Signing Physician Notes Resident Physician Supervision Note: I independently interviewed and examined the patient and verified the herrera history and physical, reviewed labs and image studies, discussed the case with the resident Dr. Renteria and agree with the findings and care plan. Subjective Patient notes he feels well this morning. His pain is well controlled with the morphine. In between doses he has mild pain in the RLQ. He denies any fevers, chills, nausea or vomiting. He has not had a bowel movement since being in the hospital. He has been urinating normally. He denies any chest pain, cough, SOB, leg swelling, rashes Review of Systems All systems reviewed & are unremarkable except as noted in HPI & below Physical Exam Vital Signs (Past 24 Hours): Last Vital Signs Temp 36.7 C 10/19/18 02:35 Pulse 78 10/19/18 02:35 Resp 16 10/19/18 02:35 BP 99/65 L 10/19/18 02:35 Pulse Ox 95 10/19/18 02:35 Physical Exam: Gen: alert and in no acute distress Ab: moderate tenderness throughout, no rebound or guarding, normal BS Cardiac: RRR, no murmurs Lungs: clear to auscultation bilaterally without any wheezes or rhonchi Lower extremities: no swelling w/ strong peripheral pulses (1) Diverticulitis of colon with perforation Diverticulitis bleeding: unspecified bleeding status Qualified Code(s): K57.20 - Diverticulitis of large intestine with perforation and abscess without bleeding
--- NOTE | 2018-10-19 12:37 | Surgery Consultation ---
Date of Consultation October 19, 2018 Assessment & Plan (1) Sigmoid diverticulitis: no urgent surgical indications keep clears only cont IV antibiotics will follow along will discuss/potential elective sigmoid colectomy candidate in future History of Present Illness Attending Physician: Laina Holt MD History of Present Illness pt recently admitted to hospital with acute diverticulitis. was sent home after 1 day with oral antibiotics. readmitted last night with same symptoms. ct shows worsening diverticulitis with suspected microperforation. no free air pt feeling better now than when he was admitted. Allergies Allergy/AdvReac Type Severity Reaction Status Date / Time No Known Allergies Allergy Verified 10/18/18 22:06 Home Medications Home Medications Medication Instructions Recorded Confirmed Type Brilinta 90 mg PO BID 10/12/18 10/18/18 History aspirin 81 mg PO QAM 10/12/18 10/18/18 History atorvastatin [Lipitor] 80 mg PO QAM 10/12/18 10/18/18 History lisinopril [Zestril] 2.5 mg PO QAM 10/12/18 10/18/18 History metoprolol succinate [Toprol XL] 50 mg PO QAM 10/12/18 10/18/18 History nitroglycerin [Nitrostat] 0.4 mg SUBLINGUAL UD PRN 10/12/18 10/18/18 History ciprofloxacin HCl 500 mg PO BID 10 Days #20 tab 10/13/18 10/18/18 Rx metronidazole 500 mg PO Q8H 10 Days #30 tab 10/13/18 10/18/18 Rx Patient History Medical History Sigmoid diverticulitis (Acute) Colonic polyp Hyperlipidemia Hypertension Myocardial infarction Surgical History History of colonoscopy History of heart artery stent Family History Other Heart attack Social History Preferred Language: Australian Communication Ability: Effective Spragger Required: No Beliefs That Will Affect Care: None marital status: Current Living Situation: Spouse current occupational status: employed Other Information That Helps Us Care for You: No Feels Safe at Home: Yes Safety Concerns: Feels Safe At This Time Smoking Status: Current every day smoker Hx Alcohol Use: No Hx Substance Use: No Review of Systems abdominal pain fatigue Physical Exam Vital Signs (Past 24 Hours): Last Vital Signs Temp 36.7 C 10/19/18 02:35 Pulse 78 10/19/18 02:35 Resp 16 10/19/18 02:35 BP 99/65 L 10/19/18 02:35 Pulse Ox 95 10/19/18 02:35 Physical Exam: alert. nad heent: pearla. eomi Heart: RRR Lungs: CTA b/l abd: soft. + LLQ ttp/suprapubic ttp. no g/r/r ext: no c/c/e
[2018-10-19] MEDS ORDERED: KETOROLAC TROMETHAMINE 15 MG/ML VIAL IV PRN (15:52)
[2018-10-19] MEDS: PANTOprazole 40 MG in SYRINGE 0 ML IV SCH (16:19)
[2018-10-20] MEDS: PIPERACILLIN/TAZOBACTAM 3.375 GM in DEXTROSE 5% 100 ML IV SCH ×3 (04:59→20:21)
[2018-10-20 06:12] LABS: Basophils # (auto) 0.02 K/uL (0-0.2); Basophils % (auto) 0.1 %; Eosinophils # (auto) 0.13 K/uL (0-0.5); Eosinophils % (auto) 0.9 %; Hematocrit (blood only) 39.4 % (42-52); Hemoglobin 13.7 g/dL (14.0-18.0); Immature Granulocytes # (auto) 0.04 K/uL (0.00-0.02); Immature Granulocytes % (auto) 0.3 %; Lymphocytes # (auto) 1.77 K/uL (1.2-3.4); Lymphocytes % (auto) 12.7 %; Mean Corpuscular Hgb Conc 34.8 g/dL (32-36); Mean Corpuscular Volume 88.5 fL (80-100); Mean Platelet Volume 11.9 fL (7.4-10.4); Monocytes # (auto) 0.95 K/uL (0.11-0.59); Monocytes % (auto) 6.8 %; Neutrophils # (auto) 11.08 K/uL (1.4-6.5); Neutrophils % (auto) 79.2 %; Platelet Count 177 K/uL (130-400); RDW Coefficient of Variation 12.5 % (11.5-14.5); RDW Standard Deviation 40.8 fL (36.4-46.3); Red Blood Count 4.45 M/uL (4.7-6.1); White Blood Count 13.99 K/uL (4.8-10.8)
[2018-10-20 06:39] LABS: Albumin Level 3.1 gm/dl (3.4-5.0); BUN Creatinine Ratio 10.9 (10-20); Calcium 8.5 mg/dl (8.5-10.1); Creatinine Clr Calc Pharmacy 126.5 ml/min; Est GFR (African American) 134.4; Est GFR (Non-African American) 115.9; Potassium 3.8 mmol/L (3.5-5.1)
[2018-10-20 06:44] LABS: Albumin Globulin Ratio 0.9 (0.9-2); Bilirubin,Total 0.4 mg/dl (0.2-1); Globulin 3.5 gm/dl (2.5-4.0); Total Protein 6.6 gm/dl (6.4-8.2)
[2018-10-20] MEDS: TICAGRELOR 90 MG TAB PO SCH ×2 (09:38→20:24)
[2018-10-20] MEDS: ASPIRIN 81 MG ECTAB PO SCH (09:38)
[2018-10-20] MEDS: METOPROLOL SUCC 50MG EXT REL TAB PO SCH (09:39)
[2018-10-20] MEDS: ATORVASTATIN 40 MG TAB PO SCH (09:39)
[2018-10-20] MEDS: LISINOPRIL 2.5 MG TAB PO SCH (09:40)
--- NOTE | 2018-10-20 11:20 | Family Medicine Progress Note ---
Date of Service October 20, 2018 Assessment & Plan (1) Diverticulitis of colon with perforation: (1) Diverticulitis of colon with perforation: 38 year old male with hx of [place] s/p LAD stent and now with diverticulitis w/ perf after failing outpatient regimen. No abscess presently. (1) Diverticulitis of colon with microperforation.: - Continue IV Zosyn - Morphine PRN pain - Zofran PRN nausea - Patient tolerating clears therefore IVF stopped - General surgery consultation. To schedule sigmoidectomy as outpatient in a month. They will discuss w/ pt about advancing diet (2) CAD (coronary artery disease): - Patient CAD s/p anterior STEMI with stenting to the LAD in 2018. Patient pre sently without chest pain - EKG w/out any acute changes - Continue ASA, Brillinta, Atorvastatin, Metoprolol and Lisinopril - Tobacco cessation counseling (3) Hyperlipidemia: - Continue Atorvastatin (4) HTN (hypertension): - Blood pressure well controlled at present - Continue Metoprolol - Continue Lisinopril F/E/N- monitor electrolytes and replete as needed, clear fluids Ppx - SCDs to bilateral LE Code -Full Dispo - MedSurg Supervising Physician Co-Signing Physician Notes Resident Physician Supervision Note: I independently interviewed and examined the patient and verified the herrera history and physical, reviewed labs and image studies, discussed the case with the resident Dr. Renteria and agree with the findings and care plan. Subjective Patient notes that he has lots of abdominal pain with bowel movements. He notes his bowel movements are loose, but denies any blood. He is frustrated that he is on a clear diet. He denies any fevers, chills, nausea, vomiting, cough, chest pain, urinary symptoms Review of Systems All systems reviewed & are unremarkable except as noted in HPI & below Physical Exam Vital Signs (Past 24 Hours): Last Vital Signs Temp 37.2 C 10/20/18 07:15 Pulse 87 10/20/18 07:15 Resp 16 10/20/18 07:15 BP 129/75 10/20/18 07:15 Pulse Ox 95 10/20/18 07:15 Physical Exam: Gen: alert and in no acute distress Ab: moderate tenderness throughout, mild guarding, w/out rebound, normal BS Cardiac: RRR, no murmurs Lungs: clear to auscultation bilaterally without any wheezes or rhonchi Lower extremities: no swelling w/ strong peripheral pulses (1) Diverticulitis of colon with perforation Diverticulitis bleeding: unspecified bleeding status Qualified Code(s): K57.20 - Diverticulitis of large intestine with perforation and abscess without bleeding
--- NOTE | 2018-10-20 14:06 | Surgery Progress Note ---
Date of Service October 20, 2018 Assessment & Plan (1) Diverticulitis of colon with perforation: likely has microperforation we are not out of the [facility] yet for possible urgent OR continue npo/sips antibiotics wbc slightly improved. will monitor wbc and fever curve Subjective slightly better than yesterday. still pain with palpation. Physical Exam Vital Signs (Past 24 Hours): Last Vital Signs Temp 37.2 C 10/20/18 07:15 Pulse 87 10/20/18 07:15 Resp 16 10/20/18 07:15 BP 129/75 10/20/18 07:15 Pulse Ox 95 10/20/18 07:15 Physical Exam: alert. nad abd: soft. +LLQ tenderness/guarding. about same as yesterday (1) Diverticulitis of colon with perforation Diverticulitis bleeding: unspecified bleeding status Qualified Code(s): K57.20 - Diverticulitis of large intestine with perforation and abscess without bleeding
[2018-10-20] MEDS: PANTOprazole 40 MG in SYRINGE 0 ML IV SCH (14:08)
[2018-10-21] MEDS: PIPERACILLIN/TAZOBACTAM 3.375 GM in DEXTROSE 5% 100 ML IV SCH ×3 (04:44→20:39)
[2018-10-21] MEDS: ATORVASTATIN 40 MG TAB PO SCH (07:38)
[2018-10-21] MEDS: ASPIRIN 81 MG ECTAB PO SCH (07:39)
[2018-10-21] MEDS: TICAGRELOR 90 MG TAB PO SCH ×2 (07:39→20:42)
[2018-10-21] MEDS: METOPROLOL SUCC 50MG EXT REL TAB PO SCH (07:39)
[2018-10-21] MEDS: LISINOPRIL 2.5 MG TAB PO SCH (07:39)
[2018-10-21 07:42] LABS: Basophils # (auto) 0.03 K/uL (0-0.2); Basophils % (auto) 0.3 %; Eosinophils # (auto) 0.25 K/uL (0-0.5); Eosinophils % (auto) 2.2 %; Hematocrit (blood only) 39.9 % (42-52); Hemoglobin 14.3 g/dL (14.0-18.0); Immature Granulocytes # (auto) 0.04 K/uL (0.00-0.02); Immature Granulocytes % (auto) 0.4 %; Lymphocytes # (auto) 2.63 K/uL (1.2-3.4); Lymphocytes % (auto) 23.2 %; Mean Corpuscular Hgb Conc 35.8 g/dL (32-36); Mean Corpuscular Volume 87.1 fL (80-100); Mean Platelet Volume 11.7 fL (7.4-10.4); Monocytes # (auto) 0.93 K/uL (0.11-0.59); Monocytes % (auto) 8.2 %; Neutrophils # (auto) 7.45 K/uL (1.4-6.5); Neutrophils % (auto) 65.7 %; Platelet Count 233 K/uL (130-400); RDW Coefficient of Variation 12.6 % (11.5-14.5); RDW Standard Deviation 40.8 fL (36.4-46.3); Red Blood Count 4.58 M/uL (4.7-6.1); White Blood Count 11.33 K/uL (4.8-10.8)
[2018-10-21 08:02] LABS: BUN Creatinine Ratio 7.2 (10-20); Creatinine Clr Calc Pharmacy 121.8 ml/min; Est GFR (African American) 132.3; Est GFR (Non-African American) 114.1; Potassium 3.7 mmol/L (3.5-5.1)
[2018-10-21] MEDS: PANTOprazole 40 MG in SYRINGE 0 ML IV SCH (10:24)
--- NOTE | 2018-10-21 10:48 | Surgery Progress Note ---
Date of Service October 21, 2018 Assessment & Plan (1) Diverticulitis of colon with perforation: clinically improving. WBC improving will advance to full liquids. continue IV antibiotics not ready for d/c yet Subjective feeling better/pain improved. +bm. Physical Exam Vital Signs (Past 24 Hours): Last Vital Signs Temp 37 C 10/21/18 07:42 Pulse 80 10/21/18 07:42 Resp 17 10/21/18 07:42 BP 118/70 10/21/18 07:42 Pulse Ox 97 10/21/18 07:42 Physical Exam: alert. nad abd: soft. +suprapubic /LLQ ttp with deep palpation. mild/improved. no g/r/r (1) Diverticulitis of colon with perforation Diverticulitis bleeding: unspecified bleeding status Qualified Code(s): K57.20 - Diverticulitis of large intestine with perforation and abscess without bleeding
--- NOTE | 2018-10-21 10:55 | Family Medicine Progress Note ---
Date of Service October 21, 2018 Assessment & Plan (1) Diverticulitis of colon with perforation: (1) Diverticulitis of colon with perforation: 38 year old male with hx of [place] s/p LAD stent and now with diverticulitis w/ perf after failing outpatient regimen. No abscess presently. Diverticulitis of colon with microperforation.: - Continue IV Zosyn - Morphine PRN pain - Zofran PRN nausea - Patient tolerating clears therefore IVF stopped - General surgery consultation. To schedule sigmoidectomy as outpatient in a month. F/E/N- monitor electrolytes and replete as needed, clear fluids Ppx - SCDs to bilateral LE Code -Full Dispo - MedSurg (2) CAD (coronary artery disease): - Patient CAD s/p anterior STEMI with stenting to the LAD in 2018. Patient presently without chest pain - EKG w/out any acute changes - Continue ASA, Brillinta, Atorvastatin, Metoprolol and Lisinopril - Tobacco cessation counseling (3) Hyperlipidemia: - Continue Atorvastatin (4) HTN (hypertension): - Blood pressure well controlled at present - Continue Metoprolol - Continue Lisinopril Supervising Physician Co-Signing Physician Notes I personally examined the patient and verified all herrera points of history and exam, discussed case, and agree with decision making with Dr Ricks. Feeling okay, no significant pain. Would like to eat more, but understands this is slow to get better. He has been outside some. Vitals noted, in general he is in no distress. HEENT normocephalic atraumatic mucous membranes are moist. Skin shows no rashes no pallor or icterus Diverticulitis/microperforationcontinue antibiotics and supportive care. Appears to be slowly improving. Appreciate surgical input. DVT prophylaxisaspirin, ambulation Subjective Dave states his abdominal pain has improved and is only present with movement. He notes that he has had clear watery BMs x 5 since yesterday. He would like to advance his diet if allowed. He denies any fevers, chills, nausea, vomiting, cough, chest pain, urinary symptoms Physical Exam Vital Signs (Past 24 Hours): Last Vital Signs Temp 37 C 10/21/18 07:42 Pulse 80 10/21/18 07:42 Resp 17 10/21/18 07:42 BP 118/70 10/21/18 07:42 Pulse Ox 97 10/21/18 07:42 Constitutional: WD/WN, vitals as above cooperative and comfortable Eyes: + anicteric sclerae and EOM intact bilaterally Neck: normal visual inspection and trachea midline Respiratory: normal respiratory effort, lungs clear to auscultation Cardiovascular: Rate/Rhythm: regular rate and regular rhythm Extremities: no pedal edema Gastrointestinal (Abdomen): Inspection/Auscultation: normal bowel sounds Percussion/Palpation: abdomen soft; abdomen nontender, no guarding and abdomen not rigid Musculoskeletal: Head/Neck/Chest: normocephalic and head atraumatic Skin: no rashes, warm and dry Neurologic: moves all extremities and awake Psychiatric: A+Ox3, euthymic affect Results & Data Laboratory Results Laboratory Results - last 24 hr 10/21/18 10/21/18 07:16 07:16 WBC 11.33 H RBC 4.58 L Hgb 14.3 Hct 39.9 L MCV 87.1 MCH 31.2 MCHC 35.8 RDW Std Deviation 40.8 RDW Coeff of Héctor 12.6 Plt Count 233 MPV 11.7 H Immature Gran % (Auto) 0.4 Neut % (Auto) 65.7 Lymph % (Auto) 23.2 [place] % (Auto) 8.2 Eos % (Auto) 2.2 Baso % (Auto) 0.3 Immature Gran # (Auto) 0.04 H Neut # (Auto) 7.45 H Lymph # (Auto) 2.63 [place] # (Auto) 0.93 H Eos # (Auto) 0.25 Baso # (Auto) 0.03 Sodium 138 Potassium 3.7 Chloride 107 Carbon Dioxide 25 Anion Gap 7.0 BUN 6 L Creatinine 0.80 Est Cr Clr Drug Dosing 121.8 Est GFR ( Amer) 132.3 Est GFR (Non-Af Amer) 114.1 BUN/Creatinine Ratio 7.2 L Glucose 117 H Calcium 9.0 Medications Administered Aspirin ([facility]rin Ectab) [facility] Stop: 11/18/18 08:59 Last Admin: 10/21/18 07:39 Dose: 81 mg Documented by: [id number] Admin: 10/20/18 09:38 Dose: 81 mg Documented by: [id number] Admin: 10/19/18 09:02 Dose: 81 mg Documented by: [id number] Atorvastatin Calcium (Lipitor) 80 mg PO QAM [facility] Stop: 11/18/18 08:59 Last Admin: 10/21/18 07:38 Dose: 80 mg Documented by: [id number] Admin: 10/20/18 09:39 Dose: 80 mg Documented by: [id number] Admin: 10/19/18 09:01 Dose: 80 mg Documented by: [id number] Piperacillin Sod/Tazobactam (Sod 3.375 gm/ Dextrose) 115 mls @ 28.75 mls/hr IV Q8H [facility]; Protocol Stop: 10/29/18 03:59 Last Infusion: 10/21/18 08:51 Dose: 0 mls/hr Documented by: [id number] Admin: 10/21/18 04:44 Dose: 28.8 mls/hr Documented by: [id number] Infusion: 10/21/18 00:25 Dose: 0 mls/hr Documented by: [id number] Admin: 10/20/18 20:21 Dose: 28.8 mls/hr Documented by: [id number] Infusion: 10/20/18 18:10 Dose: 0 mls/hr Documented by: [id number] Admin: 10/20/18 14:08 Dose: 28.8 mls/hr Documented by: [id number] Infusion: 10/20/18 08:05 Dose: 0 mls/hr Documented by: [id number] Admin: 10/20/18 04:59 Dose: 28.8 mls/hr Documented by: [id number] Infusion: 10/20/18 00:43 Dose: 0 mls/hr Documented by: [id number] Admin: 10/19/18 20:43 Dose: 28.8 mls/hr Documented by: [id number] Infusion: 10/19/18 15:26 Dose: 0 mls/hr Documented by: [id number] Admin: 10/19/18 11:53 Dose: 28.8 mls/hr Documented by: [id number] Infusion: 10/19/18 07:34 Dose: 0 mls/hr Documented by: [id number] Admin: 10/19/18 03:30 Dose: 28.8 mls/hr Documented by: [id number] Pantoprazole Sodium 40 mg/ (Syringe) 10 mls @ 5 mls/min IV DAILY@1100 [facility] Stop: 11/18/18 16:59 Last Admin: 10/21/18 10:24 Dose: 5 mls/min Documented by: [id number] Admin: 10/20/18 14:08 Dose: 5 mls/min Documented by: [id number] Admin: 10/19/18 16:19 Dose: 5 mls/min Documented by: [id number] Ketorolac Tromethamine (Toradol) 15 mg IV Q6H PRN PRN Reason: Pain Stop: 10/24/18 15:51 Last Admin: 10/19/18 16:20 Dose: 15 mg Documented by: [id number] Lisinopril (Zestril) [facility] [place] Stop: 11/18/18 08:59 Last Admin: 10/21/18 07:39 Dose: 2.5 mg Documented by: [id number] Admin: 10/20/18 09:40 Dose: 2.5 mg Documented by: [id number] Admin: 10/19/18 09:01 Dose: 2.5 mg Documented by: [id number] Metoprolol Succinate (Toprol Xl) 50 mg PO [facility] Stop: 11/18/18 08:59 Last Admin: 10/21/18 07:39 Dose: 50 mg Documented by: [id number] Admin: 10/20/18 09:39 Dose: 50 mg Documented by: [id number] Admin: 10/19/18 09:01 Dose: Not Given Documented by: [id number] Morphine Sulfate (Morphine Sulfate) 2 mg IV Q4 PRN PRN Reason: Pain Stop: 11/02/18 02:36 Last Admin: 10/19/18 09:16 Dose: 2 mg Documented by: [id number] Admin: 10/19/18 03:29 Dose: 2 mg Documented by: [id number] Ticagrelor (Brilinta) 90 mg PO BID [facility] Stop: 11/18/18 08:59 Last Admin: 10/21/18 07:39 Dose: 90 mg Documented by: [id number] Admin: 10/20/18 20:24 Dose: 90 mg Documented by: [id number] Admin: 10/20/18 09:38 Dose: 90 mg Documented by: [id number] Admin: 10/19/18 20:44 Dose: 90 mg Documented by: [id number] Admin: 10/19/18 09:00 Dose: 90 mg Documented by: [id number] (1) CAD (coronary artery disease) Associated angina: without angina Coronary Disease-Associated Artery/Lesion type: [place] artery [place] vs. transplanted heart: [place] heart Qualified Code(s): I25.10 - Atherosclerotic heart disease of [place] coronary artery without angina pectoris (2) Hyperlipidemia Hyperlipidemia type: unspecified Qualified Code(s): E78.5 - Hyperlipidemia, unspecified (3) Diverticulitis of colon with perforation Diverticulitis bleeding: unspecified bleeding status Qualified Code(s): K57.20 - Diverticulitis of large intestine with perforation and abscess without bleeding (4) HTN (hypertension) Hypertension type: essential hypertension Qualified Code(s): I10 - Essential (primary) hypertension
[2018-10-22] MEDS: PIPERACILLIN/TAZOBACTAM 3.375 GM in DEXTROSE 5% 100 ML IV SCH ×2 (03:03→12:03)
[2018-10-22 06:50] LABS: Basophils # (auto) 0.04 K/uL (0-0.2); Basophils % (auto) 0.4 %; Eosinophils # (auto) 0.33 K/uL (0-0.5); Eosinophils % (auto) 2.9 %; Hematocrit (blood only) 41.5 % (42-52); Hemoglobin 14.6 g/dL (14.0-18.0); Immature Granulocytes # (auto) 0.03 K/uL (0.00-0.02); Immature Granulocytes % (auto) 0.3 %; Lymphocytes # (auto) 3.31 K/uL (1.2-3.4); Lymphocytes % (auto) 29.1 %; Mean Corpuscular Hgb Conc 35.2 g/dL (32-36); Mean Corpuscular Volume 88.7 fL (80-100); Monocytes # (auto) 0.87 K/uL (0.11-0.59); Monocytes % (auto) 7.7 %; Neutrophils # (auto) 6.78 K/uL (1.4-6.5); Neutrophils % (auto) 59.6 %; Platelet Count 293 K/uL (130-400); RDW Coefficient of Variation 12.8 % (11.5-14.5); RDW Standard Deviation 40.4 fL (36.4-46.3); Red Blood Count 4.68 M/uL (4.7-6.1); White Blood Count 11.36 K/uL (4.8-10.8)
[2018-10-22 07:24] LABS: BUN Creatinine Ratio 6.3 (10-20); Calcium 9.2 mg/dl (8.5-10.1); Creatinine Clr Calc Pharmacy 114.6 ml/min; Est GFR (Non-African American) 111.3
[2018-10-22] MEDS: ATORVASTATIN 40 MG TAB PO SCH (07:38)
[2018-10-22] MEDS: LISINOPRIL 2.5 MG TAB PO SCH (07:38)
[2018-10-22] MEDS: TICAGRELOR 90 MG TAB PO SCH (07:38)
[2018-10-22] MEDS: METOPROLOL SUCC 50MG EXT REL TAB PO SCH (07:38)
[2018-10-22] MEDS: ASPIRIN 81 MG ECTAB PO SCH (07:38)
--- NOTE | 2018-10-22 08:09 | Surgery Progress Note ---
Date of Service October 22, 2018 Assessment & Plan (1) Diverticulitis of colon with perforation: WBC remains 11,000 advance diet Subjective denies pain, tolerating liquids, no f/c, 4-5 loose BM daily, some blood with BM Physical Exam Vital Signs (Past 24 Hours): Last Vital Signs Temp 36.6 C 10/22/18 07:12 Pulse 74 10/22/18 07:12 Resp 16 10/22/18 07:12 BP 111/74 10/22/18 07:12 Pulse Ox 97 10/22/18 07:12 Gastrointestinal (Abdomen): Percussion/Palpation: abdomen soft; abdomen nontender stool occult and c. diff negative (1) Diverticulitis of colon with perforation Diverticulitis bleeding: unspecified bleeding status Qualified Code(s): K57.20 - Diverticulitis of large intestine with perforation and abscess without bleeding
--- NOTE | 2018-10-22 09:10 | Surgery Progress Note ---
Date of Service October 22, 2018 Assessment & Plan (1) Diverticulitis: clinically improving set to try full liquids at lunch can likely be d/c'd later today or tomorrow pt to follow up with me in 2-3 weeks will s/o call if needed. Subjective feeling better. denies pain. small amount of blood with BM. really wants to go home Physical Exam Vital Signs (Past 24 Hours): Last Vital Signs Temp 36.6 C 10/22/18 07:12 Pulse 74 10/22/18 07:12 Resp 16 10/22/18 07:12 BP 111/74 10/22/18 07:12 Pulse Ox 97 10/22/18 07:12 Physical Exam: alert. nad abd: soft. nt. nd. no g/r/r
[2018-10-22] MEDS ORDERED: PANTOprazole 40 MG TAB PO SCH (10:45)
--- NOTE | 2018-10-22 12:04 | Discharge Summary ---
Date of Service October 22, 2018 Admission HPI Per Admitting Provider 38yo male with history of CAD s/p anterior STEMI with stent to LAD in March 2018. Patient was recently hospitalized from 10/12 - 10/13 with diverticulitis with microperforation. He was discharged home in stable condition with Cipro and Flagyl. Patient reports compliance with medications. Has had worsening abdominal pain over the last few days. Pain is severe in LLQ. Also with nausea with two episodes of non-bloody/non-bilious vomiting today. Decreased PO intake over the last few days as well as weakness and fatigue. He denies fevers/chills/sweats or abdominal distention. No additional complaints at this time. Denies melena/BRBPR ER Course: Morphine, Zofran, Zosyn Admission Exam Per Admitting Provider General: patient resting comfortably, NAD, non-toxic in appearance, AA&O x 4 Skin: warm, dry, intact, no rashes or lesions HEENT: NC/AT, PERRL, EOMI, anicteric sclera, conjunctiva without injection, external ear normal to inspection and nontender, nares patent, dry mucus membranes, dentition intact, no oropharyngeal lesions, neck supple, trachea midline, no LAD, no thyromegaly, no JVD Heart: +S1/S2, regular, no m/r/g Lungs: equal air entry bilaterally, coarse breath sounds cleared with coughing, diffuse end-expiratory wheezing Abd: +BS, soft, ND, diffusely tender with voluntary guarding, no rebound tenderness Ext: warm, 2+ pulses in UE/LE bilaterally, no clubbing/cyanosis or edema Neuro: nonfocal, patient AA&O x 4, speech intact, no facial droop, moving all extremities on command with equal strength 5/5 Principal Diagnosis Diverticulitis with microperforation Discharge Exam Constitutional WD/WN, vitals as above cooperative and comfortable Eyes + anicteric sclerae and EOM intact bilaterally Neck normal visual inspection and trachea midline Respiratory normal respiratory effort, lungs clear to auscultation Cardiovascular Rate/Rhythm: regular rate and regular rhythm Extremities: no pedal edema Gastrointestinal (Abdomen) Inspection/Auscultation: normal bowel sounds Percussion/Palpation: abdomen soft; abdomen nontender, no guarding and abdomen not rigid Musculoskeletal Head/Neck/Chest: normocephalic and head atraumatic Skin no rashes, warm and dry Neurologic moves all extremities and awake Psychiatric A+Ox3, euthymic affect Discharge Data Allergies Allergy/AdvReac Type Severity Reaction Status Date / Time No Known Allergies Allergy Verified 10/18/18 22:06 Consultations 10/19/18 00:29 ED Decision to Admit Stat 10/19/18 02:37 Consult General Surgery Routine Ordered Studies 10/18/18 21:48 CT abd pelvis IV con only Stat Hospital Course (1) Diverticulitis of colon with perforation: (1) Diverticulitis of colon with perforation: 38 year old male with hx of [place] s/p LAD stent and now with diverticulitis w/ perf after failing outpatient regimen. No abscess presently. Diverticulitis of colon with microperforation.: - received IV Zosyn 3.375gm q8hr for a total of 10 doses during admission - will send home on a 10 day course of Cipro 500mg BID and Flagyl 500mg TID - Morphine PRN pain - Zofran PRN nausea - Patient tolerating clears therefore IVF stopped previously - General surgery consultation. To schedule sigmoidectomy as outpatient in a month. F/E/N- monitor electrolytes and replete as needed, clear fluids Ppx - SCDs to bilateral LE Code -Full Dispo - MedSurg (2) CAD (coronary artery disease): - Patient CAD s/p anterior STEMI with stenting to the LAD in 2018. Patient presently without chest pain - EKG w/out any acute changes - Continue ASA, Brillinta, Atorvastatin, Metoprolol and Lisinopril - Tobacco cessation counseling (3) Hyperlipidemia: - Continue Atorvastatin (4) HTN (hypertension): - Blood pressure well controlled at present - Continue Metoprolol - Continue Lisinopril Total Time Total Time Spent Total Time Spent (In Minutes): Less than 30 Total Time Includes: Examination of the Patient, Discharge Planning, Medication Reconciliation and Communication With Other Providers Discharge Plan Discharge Items Patient Disposition: Home - Self-Care Reason For Visit: DIVERTICULITIS Discharge Diagnosis: Diverticulitis with microperforation Condition: Fair Discharge Goals: Improve disease control and Therapeutic intervention Activity: Per 'Additional Instructions' section Non-emergency contact: Primary Care Provider Call non-emergency contact if: you have any medication questions, your symptoms worsen, your pain is worsening, your pain is concerning for you and you have a fever Follow-up/Referrals: Felicity Pemberton, [Primary Care Provider] - 10/29/18 9:00 am (Please, follow up with Dr. Felicity Pemberton, she will be your new primary care provider, on SundayOctober 29 at 9:00 am. *This office is located in [place], next to [employer]. If you need to change this appointment, call the office at [phone].) Bimal Iglesias, [Surgeon] - Diet: Low Fiber Addtl Provider Instructions: You were admitted and treated for Diverticulitis with microperforation. You received IV antibiotics here in the hospital that worked to improve symptoms. You will need to continue antibiotics at home. Please complete course of antibiotics even if you are feeling symptom free. Please follow a low fiber diet. You will complete a 10 day course of the following antibiotics: * Ciprofloxacin 500mg, take one pill twice per day/every 12 hours. * Metronidazole 500mg, take one pill three times per day/every 8 hours. * These medications were electronically sent to [facility] in [place]. Please ensure you maintain follow up appointments. This includes follow up with your Primary Care Provider. Also, you will need to schedule follow up appointment in a month with general surgery per their recommendations to discuss further intervention. If you feel your symptoms worsen, please seek medical attention, call your Primary Care Doctor or return to [facility] Emergency Department. Prescriptions: New ciprofloxacin HCl 500 mg tablet 500 mg PO BID 10 Days Qty: 20 RF: 0 metronidazole 500 mg tablet 500 mg PO Q8H 10 Days Qty: 30 RF: 0 Continued atorvastatin [Lipitor] 80 mg tablet 80 mg PO QAM RF: 0 metoprolol succinate [Toprol XL] 50 mg tablet extended release 24 hr 50 mg PO QAM RF: 0 aspirin 81 mg Tablet,Delayed Release (Dr/Ec) 81 mg PO QAM RF: 0 nitroglycerin [Nitrostat] 0.4 mg Tablet, Sublingual 0.4 mg Sublingual UD PRN (Reason: Chest Pain) RF: 0 lisinopril [Zestril] 2.5 mg tablet 2.5 mg PO QAM RF: 0 Brilinta 90 mg tablet 90 mg PO BID RF: 0 Discontinued ciprofloxacin HCl 500 mg tablet 500 mg PO BID 10 Days Qty: 20 RF: 0 metronidazole 500 mg tablet 500 mg PO Q8H 10 Days Qty: 30 RF: 0 Visit Report Forms: Smoking Cessation Stand-Alone Forms: Call Back Authorization, [facility]/Other Patient Handouts: Diverticulitis Dc Discharge Orders: Discharge Order (Routine); Ordered 10/22/18 Ordered By: Garrison Naranjo Admission Data Admit Date/Time: 10/19/18 02:10 Attending Provider: Carlo Lord Admit Provider: Aleshia Krueger Primary Care Provider: Felicity Pemberton Other Providers: Aleshia Krueger ; Rodolfo Moe ; Janell Boyd ; Fareed Gutierrez ; Damaso Rodriguez ; Garrison Gallegos Jr ; Isidro Galdamez ; Bimal Iglesias ; Sneha Jalloh ; Yordan Seay ; Juan Jose Summers ; Laina Holt Service: Surgical Services Other Interventions: Discharge Summary Assessment (RN) Last Done: 10/22/18 16:04 DC Date/Time DO NOT enter until pt leaves facility: 10/22/18 16:49 Supervising Physician Co-Signing Physician Notes I personally examined the patient and verified all herrera points of history and exam, discussed case, and agree with decision making with Dr Naranjo. Feeling much better, wants to go home, tolerating real food okay. Dr. Naranjo discussed the case with surgery and felt that discharge was okay. Vitals noted, in general he is awake alert oriented x3 pleasant no distress, eating well without any difficulty or any discomfort. Neuro shows no focal deficits. Skin shows no rashes no pallor or icterus. Diverticulitis/microperforationstable for home on ongoing antibiotics, outpatient follow-up. Otherwise as above
== END 2018-10-22 16:49 | disposition home or self-care (01) | DRG 392 ==
LOC: ED 20:33 → SUATTDRO 10-19 02:10 → 3W 10-19 02:10

== ENCOUNTER 2018-12-01 21:58 | Inpatient (IN) ==
[2018-12-01] MEDS ORDERED: SODIUM CHLORIDE 0.9% 1000ML 1,000 ML IV SCH (22:30)
[2018-12-01] MEDS ORDERED: MoRPHine SULFATE 10 MG/ML CARP/VIAL IV STA (22:54)
[2018-12-01 23:37] LABS: Basophils # (auto) 0.03 K/uL (0-0.2); Basophils % (auto) 0.3 %; Eosinophils # (auto) 0.11 K/uL (0-0.5); Hematocrit (blood only) 41.4 % (42-52); Hemoglobin 15.3 g/dL (14.0-18.0); Immature Granulocytes # (auto) 0.04 K/uL (0.00-0.02); Immature Granulocytes % (auto) 0.3 %; Lymphocytes # (auto) 1.11 K/uL (1.2-3.4); Lymphocytes % (auto) 9.6 %; Mean Corpuscular Volume 87.9 fL (80-100); Mean Platelet Volume 10.1 fL (7.4-10.4); Monocytes # (auto) 0.91 K/uL (0.11-0.59); Monocytes % (auto) 7.9 %; Neutrophils # (auto) 9.31 K/uL (1.4-6.5); Neutrophils % (auto) 80.9 %; Platelet Count 247 K/uL (130-400); Red Blood Count 4.71 M/uL (4.7-6.1); White Blood Count 11.51 K/uL (4.8-10.8)
[2018-12-01 23:56] LABS: Albumin Level 3.1 gm/dl (3.4-5.0); Calcium 8.9 mg/dl (8.5-10.1); Creatinine Clr Calc Pharmacy 127.5 ml/min; Est GFR (African American) 140.6; Est GFR (Non-African American) 121.3; Magnesium 1.9 mg/dl (1.8-2.4); Potassium 3.8 mmol/L (3.5-5.1)
[2018-12-02] LABS: Albumin Globulin Ratio 0.8 (0.9-2); Bilirubin Direct 0.1 mg/dl (0-0.2); Bilirubin,Total 0.5 mg/dl (0.2-1); Globulin 3.9 gm/dl (2.5-4.0); Phosphorus 3.4 mg/dl (2.5-4.9)
[2018-12-02] MEDS ORDERED: IOVERSOL 100ml IV PRN (00:29)
[2018-12-02] MEDS ORDERED: PIPERACILLIN/TAZOBACTAM 4.5 GM/120 ML BAG IV ONE (00:59)
[2018-12-02] MEDS ORDERED: MoRPHine SULFATE 10 MG/ML CARP/VIAL IV STA (01:00)
[2018-12-02] MEDS ORDERED: SODIUM CHLORIDE 0.9% 1000ML 1,000 ML IV ONE (01:00)
--- NOTE | 2018-12-02 01:33 | Emergency Department Note ---
Entered by Rodolfo Storey acting as a scribe for History of Present Illness General Chief complaint: Abdominal Pain Stated complaint: abdominal pain Time Seen by Provider: 12/01/18 22:30 Source: patient History of Present Illness Provider complaint: Abdominal pain Onset (ago): hour(s) (Couple hours ago) Location: abdomen Radiation: other (Chest) Pain Consistency: + constant Maximum Pain Intensity: 10 Current Pain Intensity: 10 Relieved By: + none Exacerbated By: + none Associated symptoms: + nausea/vomiting and + other (Diarrhea) The patient is a 38 year old male who presents to the Emergency Room with c omplaints of constant abdominal pain that started early this afternoon just after returning home from [facility]. He rates the pain as a 10/10 and notes it radiates to his chest. He was originally in [place] admitted for past 5 days for diverticulitis after getting an attack when he was working in the [place] area and presented to [facility]. He was discharged this morning on Augmentin and states he states he was progressively getting better until this afternoon. He is experiencing nausea, vomiting and diarrhea, however the diarrhea is normal for him at baseline. The patient has a history of a myocardial infarction in March and has one stent in place. He currently takes a baby Aspirin and Brilinta daily, which he took this morning but not yet tonight. Home Medications Home Medications Medication Instructions Recorded Confirmed Type Brilinta 90 mg PO BID 10/12/18 12/01/18 History aspirin 81 mg PO QAM 10/12/18 12/01/18 History atorvastatin [Lipitor] 80 mg PO QAM 10/12/18 12/01/18 History lisinopril [Zestril] 2.5 mg PO QAM 10/12/18 12/01/18 History metoprolol succinate [Toprol XL] 50 mg PO QAM 10/12/18 12/01/18 History nitroglycerin [Nitrostat] 0.4 mg SUBLINGUAL UD PRN 10/12/18 12/01/18 History amoxicillin-pot clavulanate 1 tab PO Q12H 12/01/18 12/01/18 History [Augmentin] Allergies Allergy/AdvReac Type Severity Reaction Status Date / Time No Known Allergies Allergy Verified 10/18/18 22:06 Past Med/Surg History Medical History Sigmoid diverticulitis (Acute) Colonic polyp Hyperlipidemia Hypertension Myocardial infarction Surgical History History of colonoscopy History of heart artery stent Family History Other Heart attack Social History Preferred Language: Taiwanese Communication Ability: Effective Beliefs That Will Affect Care: None marital status: Current Living Situation: Spouse current occupational status: employed Feels Safe at Home: Yes Smoking Status: Former smoker Tobacco Type: cigarettes Cigarettes Per Day: 20 Second Hand Exposure: Yes Hx Alcohol Use: No Hx Substance Use: No Review of Systems See HPI for pertinent positives & negatives. and A total of 10 systems reviewed and were otherwise negative Physical Exam Vital Signs Vital Signs - 24 hr 12/01/18 22:05 12/01/18 22:36 12/02/18 00:28 Temperature 36.9 C Temperature Source Oral Sepsis Recent Fever Within 48 Hours No Sepsis Action Taken by Nursing No Action Required Pulse Rate 88 Pulse Rate [Right Finger] 97 H Pulse Rate from SpO2 Sensor Pulse Rhythm [Right Finger] Regular Pulse Strength [Right Finger] Normal Respiratory Rate 26 H 18 Respiratory Effort / Characteristics Non-Labored Non-Labored Respiratory Depth Normal Normal Blood Pressure 105/72 Blood Pressure [Right Arm] 117/49 L Blood Pressure Mean 83 Blood Pressure Mean [Right Arm] 71 Blood Pressure Position [Right Arm] Lying Pulse Oximetry 94 96 94 Oxygen Delivery Method Room Air Room Air Room Air 12/02/18 01:01 12/02/18 01:20 12/02/18 01:30 Temperature Temperature Source Sepsis Recent Fever Within 48 Hours Sepsis Action Taken by Nursing Pulse Rate 101 H 101 H 99 H Pulse Rate [Right Finger] Pulse Rate from SpO2 Sensor 100 H 100 H 97 H Pulse Rhythm [Right Finger] Pulse Strength [Right Finger] Respiratory Rate 24 24 24 Respiratory Effort / Characteristics Respiratory Depth Blood Pressure 96/65 L 106/75 127/75 Blood Pressure [Right Arm] Blood Pressure Mean 75 85 92 Blood Pressure Mean [Right Arm] Blood Pressure Position [Right Arm] Pulse Oximetry 94 94 94 Oxygen Delivery Method 12/02/18 02:00 12/02/18 02:17 Temperature Temperature Source Sepsis Recent Fever Within 48 Hours Sepsis Action Taken by Nursing Pulse Rate 107 H Pulse Rate [Right Finger] Pulse Rate from SpO2 Sensor 106 H Pulse Rhythm [Right Finger] Pulse Strength [Right Finger] Respiratory Rate 24 Respiratory Effort / Characteristics Respiratory Depth Blood Pressure 105/78 Blood Pressure [Right Arm] Blood Pressure Mean 87 Blood Pressure Mean [Right Arm] Blood Pressure Position [Right Arm] Pulse Oximetry 94 Oxygen Delivery Method Room Air GENERAL: Awake, alert, uncomfortable-appearing, in no distress HENT: Normocephalic, atraumatic. Oropharynx with dry mucous membranes and otherwise unremarkable. EYES: Normal conjunctiva. Sclera non-icteric. NECK: Supple. No nuchal rigidity. FROM. No JVD. RESPIRATORY: Clear to auscultation. CARDIAC: Regular rate, normal rhythm. Extremities warm and well perfused. Pulses equal. ABDOMEN: Soft, non-distended. Generalized abdominal tenderness with rebound and guarding. No masses. RECTAL: Deferred. MUSCULOSKELETAL: Chest examination reveals no tenderness. The back is symmetrical on inspection without obvious abnormality. There is no CVA tenderness to palpation. No joint edema. LOWER EXTREMITIES: Calves are equal size bilaterally and non-tender. No edema. No discoloration. NEURO: Normal sensorium. No sensory or motor deficits noted. SKIN: No rash or jaundice noted. Course 0: The patient was evaluated in room C10, and a complete history and physical examination were performed. Administered Medications Piperacillin Sod/Tazobactam Sod (Zosyn) 4.5 gm in 120 mls @ 30 mls/hr IV NOW ONE Stop: 12/02/18 04:58 Last Admin: 12/02/18 01:19 Dose: 30 mls/hr Documented by: [id number] Ioversol (Optiray 320 100ml) 100 ml IV ONCE PRN PRN Reason: Interaction Checking Stop: 12/06/18 00:28 Last Admin: 12/02/18 00:29 Dose: 94 ml Documented by: [id number] Discontinued Medications Sodium Chloride (Nss 1000ml) 1,000 mls @ 999 mls/hr IV .Q1H1M SAURAV Stop: 12/01/18 23:30 Last Infusion: 12/02/18 00:22 Dose: 0 mls/hr Documented by: [id number] Admin: 12/01/18 23:10 Dose: 999 mls/hr Documented by: [id number] Sodium Chloride (Nss 1000ml) 1,000 mls @ 999 mls/hr IV .Q1H1M ONE Stop: 12/02/18 02:00 Last Admin: 12/02/18 01:19 Dose: 999 mls/hr Documented by: [id number] Morphine Sulfate (Morphine Sulfate) 10 mg IV NOW STA Stop: 12/01/18 22:55 Last Admin: 12/01/18 23:06 Dose: 10 mg Documented by: [id number] Morphine Sulfate (Morphine Sulfate) 10 mg IV NOW STA Stop: 12/02/18 01:01 Last Admin: 12/02/18 01:41 Dose: 10 mg Documented by: [id number] Medical Decision Making Differential Diagnosis Differential diagnoses includes but is not limited to gastritis, peptic ulcer disease, GERD, gallbladder disease, pancreatitis, small bowel obstruction, acute coronary syndrome, pericarditis, ischemic bowel, irritable bowel disease, irritable bowel syndrome, appendicitis, diverticulitis, malignancy, hernia, urinary tract infection, torsion, perforation, trauma, infectious. Medical Records Attestation: I reviewed the patient's medical records. Home Medications Current Medication List: was personally reviewed by me Laboratory Data Attestation: I reviewed the patient's lab results. Result diagrams: 12/01/18 23:22 12/01/18 23:22 Lab Results 12/01/18 12/01/18 12/02/18 Range/Units 23:22 23:22 01:15 WBC 11.51 H (4.8-10.8) K/uL RBC 4.71 (4.7-6.1) M/uL Hgb 15.3 (14.0-18.0) g/dL Hct 41.4 L (42-52) % MCV 87.9 (80-100) fL MCH 32.5 (25-34) pg MCHC 37.0 H (32-36) g/dL RDW Std Deviation 42.0 (36.4-46.3) fL RDW Coeff of Héctor 13.0 (11.5-14.5) % Plt Count 247 (130-400) K/uL MPV 10.1 (7.4-10.4) fL Immature Gran % (Auto) 0.3 % Neut % (Auto) 80.9 % Lymph % (Auto) 9.6 % [place] % (Auto) 7.9 % Eos % (Auto) 1.0 % Baso % (Auto) 0.3 % Immature Gran # (Auto) 0.04 H (0.00-0.02) K/uL Neut # (Auto) 9.31 H (1.4-6.5) K/uL Lymph # (Auto) 1.11 L (1.2-3.4) K/uL [place] # (Auto) 0.91 H (0.11-0.59) K/uL Eos # (Auto) 0.11 (0-0.5) K/uL Baso # (Auto) 0.03 (0-0.2) K/uL Sodium 136 (136-145) mmol/L Potassium 3.8 (3.5-5.1) mmol/L Chloride 106 (98-107) mmol/L Carbon Dioxide 26 (21-32) mmol/L Anion Gap 4.0 (3-11) BUN 10 (7-18) mg/dl Creatinine 0.69 (0.6-1.4) mg/dl Est Cr Clr Drug Dosing 127.5 ml/min Est GFR ( Amer) 140.6 Est GFR (Non-Af Amer) 121.3 BUN/Creatinine Ratio 14.0 (10-20) Glucose 131 H (70-99) mg/dl Lactate 0.9 (0.4-2.0) mmol/L Calcium 8.9 (8.5-10.1) mg/dl Phosphorus 3.4 (2.5-4.9) mg/dl Magnesium 1.9 (1.8-2.4) mg/dl Total Bilirubin 0.5 (0.2-1) mg/dl Direct Bilirubin 0.1 (0-0.2) mg/dl AST 32 (15-37) U/L ALT 60 (12-78) U/L Alkaline Phosphatase 62 (45-117) U/L Total Protein 7.0 (6.4-8.2) gm/dl Albumin 3.1 L (3.4-5.0) gm/dl Globulin 3.9 (2.5-4.0) gm/dl Albumin/Globulin Ratio 0.8 L (0.9-2) Lipase 43 L (73-393) U/L Urine Color Urine Appearance (Clear) Urine pH (4.5-7.5) Ur Specific [place] (1.000-1.030) Urine Protein (Negative) Urine Glucose (UA) (Negative) Urine Ketones (Negative) Urine Blood (Negative) Urine Nitrite (Negative) Urine Bilirubin (Negative) Urine Urobilinogen (Negative) Ur Leukocyte Esterase (Negative) Urine WBC (Auto) (0-5) /hpf Urine RBC (Auto) (0-4) /hpf U Hyaline Cast (Auto) (0-5) /lpf U Epithel Cells (Auto) (0-5) /lpf Urine Bacteria (Auto) (Negative) Urine Crystals Calcium Oxalate Crystal (None Prsent) Granular Casts (0) /lpf Urine Mucus (None Prsent) 12/02/18 Range/Units 02:14 WBC (4.8-10.8) K/uL RBC (4.7-6.1) M/uL Hgb (14.0-18.0) g/dL Hct (42-52) % MCV (80-100) fL MCH (25-34) pg MCHC (32-36) g/dL RDW Std Deviation (36.4-46.3) fL RDW Coeff of Héctor (11.5-14.5) % Plt Count (130-400) K/uL MPV (7.4-10.4) fL Immature Gran % (Auto) % Neut % (Auto) % Lymph % (Auto) % [place] % (Auto) % Eos % (Auto) % Baso % (Auto) % Immature Gran # (Auto) (0.00-0.02) K/uL Neut # (Auto) (1.4-6.5) K/uL Lymph # (Auto) (1.2-3.4) K/uL [place] # (Auto) (0.11-0.59) K/uL Eos # (Auto) (0-0.5) K/uL Baso # (Auto) (0-0.2) K/uL Sodium (136-145) mmol/L Potassium (3.5-5.1) mmol/L Chloride (98-107) mmol/L Carbon Dioxide (21-32) mmol/L Anion Gap (3-11) BUN (7-18) mg/dl Creatinine (0.6-1.4) mg/dl Est Cr Clr Drug Dosing ml/min Est GFR ( Amer) Est GFR (Non-Af Amer) BUN/Creatinine Ratio (10-20) Glucose (70-99) mg/dl Lactate (0.4-2.0) mmol/L Calcium (8.5-10.1) mg/dl Phosphorus (2.5-4.9) mg/dl Magnesium (1.8-2.4) mg/dl Total Bilirubin (0.2-1) mg/dl Direct Bilirubin (0-0.2) mg/dl AST (15-37) U/L ALT (12-78) U/L Alkaline Phosphatase (45-117) U/L Total Protein (6.4-8.2) gm/dl Albumin (3.4-5.0) gm/dl Globulin (2.5-4.0) gm/dl Albumin/Globulin Ratio (0.9-2) Lipase (73-393) U/L Urine Color Dark Yellow Urine Appearance Clear (Clear) Urine pH 5.5 (4.5-7.5) Ur Specific [place] > 1.045 H (1.000-1.030) Urine Protein Trace H (Negative) Urine Glucose (UA) Negative (Negative) Urine Ketones Trace H (Negative) Urine Blood 2+ H (Negative) Urine Nitrite Negative (Negative) Urine Bilirubin Negative (Negative) Urine Urobilinogen Negative (Negative) Ur Leukocyte Esterase Negative (Negative) Urine WBC (Auto) 1-5 (0-5) /hpf Urine RBC (Auto) 5-10 H (0-4) /hpf U Hyaline Cast (Auto) 10-30 H (0-5) /lpf U Epithel Cells (Auto) >30 H (0-5) /lpf Urine Bacteria (Auto) Negative (Negative) Urine Crystals Not Reportable Calcium Oxalate Crystal Present H (None Prsent) Granular Casts 5-10 H (0) /lpf Urine Mucus Present H (None Prsent) Imaging Data Attestation: I personally reviewed and interpreted this imaging study as follows: My Impression: CHEST XRAY Mild cardiomegaly, no overt infiltrates, no overt free air. Radiologist's Impression: STATRAD: PreliminaryFindingsOnly See Final Report For Complete Findings CT ABDOMEN & PELVIS With Contrast: Basilar atelectasis Pneumoperitoneumconsistent with bowel perforation Focus of extraluminal fluid and foci of air adjacent to an abnormal appearing small bowel loop in the lower abdomen measures 3.4 x 2.3 x 3 cmaxial 61 and coronal 33 Short segment of abnormal appearing bowel loopswith wall thickening, edema in the lower abdomen with adjacent fat stranding, edema Normal caliber appendixwithout secondarysigns Abdominal solid organs and gallbladder appear within limits Small amount of abdominal pelvic free fluid Afewcolonic diverticula suggested Radiologist: Rodolfo Shoemaker M.D. Study ready at 00:35 and initial results transmitted at 01:02 Critical Value Communications Clear Time Type Notes 12/02/18 00:59 Call Doctor Regarding Bowel Perforation with Free Air, called Dr. Landon on 12/02 00:58 (-04:00) ECG Data Attestation: I personally reviewed and interpreted this ECG as follows: Indication: abdominal pain Rate (beats per minute): 90 Rhythm: normal sinus Findings: + other (Normal axis); no acute ischemic change Blood Pressure Blood Pressure Findings: Normal blood pressure MDM Narrative The patient is a pleasant 38-year-old gentleman with a past medical history of CAD status post DC/PCI in March on Brilinta, recurrent diverticulitis who presents emergency department with acute onset generalized abdominal pain that began this afternoon and acutely worsened this evening after having a bowel mov ement in the setting of being discharged this morning from [facility] where he had been admitted for 5 days for diverticulitis per hpi. On arrival patient is uncomfortable but no acute distress, afebrile stable vital signs. On exam patient has generalized abdominal tenderness with rebound and guarding. EKG unremarkable without overt evidence of acute ischemia. Chest x- ray without obvious free air or focal infiltrates per my preliminary review. WBC 11.5, nonspecific. Hemoglobin and platelets within normal limits. Chemistry without evidence of acidosis. Lactate within normal limits. LFTs unremarkable. CT abdomen pelvis per preliminary stat rad read shows evidence of perforated diverticulitis. Patient was ordered for IV Zosyn. Case was discussed with Dr. Iglesias, general surgery on-call, who will evaluate the patient for OR/admission. Impression & Plan Diverticulitis of colon with perforation Critical Care Time I have personally spent greater than 65 minutes of critical care time in the direct management of this patient. This includes bedside care, interpretation of diagnostic studies, and testing, discussion with consultants, patient, and family members, and other required patient management activities. This 65 minutes is in excess of all separately billable procedures. Critical Care Time: Yes Total Critical Care Time: 65 Discharge Plan Visit Data Chief Complaint: Abdominal Pain Stated Complaint: abdominal pain ED Provider: Harry Landon Discharge Problem: Diverticulitis of colon with perforation Patient Disposition: Admitted As Inpatient Discharge Instructions Interventions: ED Discharge Assessment Last Done: 12/02/18 02:17 Discharge Problem: Diverticulitis of colon with perforation Qualifiers: Diverticulitis bleeding: unspecified bleeding status Qualified Code(s): K57.20 - Diverticulitis of large intestine with perforation and abscess without bleeding The scribe's documentation has been prepared under my direction and personally reviewed by me in its entirety. I confirm that the note above accurately reflects all work, treatment, procedures, and medical decision making performed by me.
--- NOTE | 2018-12-02 02:20 | History & Physical Report ---
Date of Service December 02, 2018 Assessment & Plan (1) Diverticulitis of colon with perforation: 38 y/o M hx CAD - RI 03/2018. The pt was admitted with diverticulitis and a microperforation 10/19 after having failed outpt antibiotics for said condition. He was discharged 10/22 with a course of antibiotics and plan for elective sigmoidectomy. The pt developed recurrence of RLQ abdominal pain over the past 2 days and returned to the ER for evaluation. A CT of the abdomen in the ER demonstrated diverticulitis with perforation and pneumoperitoneum. The pt states that he may have had some CP earlier in the day, however, he describes this as lower chest pain and felt that it was radiation from the abdomen, not similar to the CP he experienced with his RI. 1) Perforated diverticulitis - the pt proceeded directl to the OR. 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 The medical service will follow dialy pending DC. 2) CAD - The pt will be placed on IV Metoprolol. He took his daily meds including ASA and Brilinta the day of admission which the surgeon is aware of. These should be continued at the earliest possible time post-operatively considering recent stenting of his LAD. He will continue a Statin when tolerated. 3) HTN - IV Metoprolol provided. If he is NPO, Vasotec and Hydralazine can be added until he can tolerate Lisinopril. 4) HLD - as above - resume statin therapy when possible. Full code - prophylaxis held due to impending surgery Total time for this admit including review of labs, meds, imaging, records - discussion with pt, ER attending, surgeon - 39 min Present on Admission?: Yes History of Present Illness Chief Complaint: Abdominal pain, diverticulitis Primary Care Provider: Felicity Pemberton DO 38 y/o M hx CAD - RI 03/2018. The pt was admitted with diverticulitis and a microperforation 10/19 after having failed outpt antibiotics for said condition. He was discharged 10/22 with a course of antibiotics and plan for elective sigmoidectomy. The pt developed recurrence of RLQ abdominal pain over the past 2 days and returned to the ER for evaluation. A CT of the abdomen in the ER demonstrated diverticulitis with perforation and pneumoperitoneum. The pt states that he may have had some CP earlier in the day, however, he describes this as lower chest pain and felt that it was radiation from the abdomen, not similar to the CP he experienced with his RI. PMH: 1) CAD - anterior RI 03/2018 - LAD stent 2) HTN 3) HLD 4) Smoker Surgical: Catheterization and stent 03/2018 Social: Smokes a pack of cigarettes daily, denies ETOH Family: CAD Allergies Allergy/AdvReac Type Severity Reaction Status Date / Time No Known Allergies Allergy Verified 10/18/18 22:06 Home Medications Home Medications Medication Instructions Recorded Confirmed Type Brilinta 90 mg PO BID 10/12/18 12/01/18 History aspirin 81 mg PO QAM 10/12/18 12/01/18 History atorvastatin [Lipitor] 80 mg PO QAM 10/12/18 12/01/18 History lisinopril [Zestril] 2.5 mg PO QAM 10/12/18 12/01/18 History metoprolol succinate [Toprol XL] 50 mg PO QAM 10/12/18 12/01/18 History nitroglycerin [Nitrostat] 0.4 mg SUBLINGUAL UD PRN 10/12/18 12/01/18 History amoxicillin-pot clavulanate 1 tab PO Q12H 12/01/18 12/01/18 History [Augmentin] Past Med/Surg History Medical History Sigmoid diverticulitis (Acute) Colonic polyp Hyperlipidemia Hypertension Myocardial infarction Surgical History History of colonoscopy History of heart artery stent Family History Other Heart attack Social History Preferred Language: Sudanese Communication Ability: Effective Beliefs That Will Affect Care: None marital status: Current Living Situation: Spouse current occupational status: employed Feels Safe at Home: Yes Smoking Status: Former smoker Tobacco Type: cigarettes Cigarettes Per Day: 20 Second Hand Exposure: Yes Hx Alcohol Use: No Hx Substance Use: No Review of Systems Review of Systems: Gen: Denies fevers, night sweats, rigors, fatigue, malaise, weight loss/gain ENT: Denies congestion, throat pain, hearing loss Eyes: Denies acute visual changes CV: Denies CP, palpitations Pulmonary: Denies SOB, cough, wheezing GI: Abdomninal pain Neuro: Denies acute or unilateral weakness, acute gait impairment, headache or acute visual changes Musculoskeletal: Denies joint pain, inflammation Endocrine: Denies polydipsia, polyuria Skin: Denies acute rashe or ulcers Physical Exam Physical Exam: General: AAO x 3, no distress ENT: No erythema or exudates, no thrush Eyes: JESSICA, EOMI Head and neck: Normocephalic, atraumatic, No JVD, neck is supple. Chest/heart: Nontender, S1,2, RRR, no murmurs, no gallops Lungs: CTAB, no wheezing or crackles Abdomen: Abdomen is very tender and firm Neuro: AAO x 3, speech is clear, no unilateral weakness or loss of sensation, coordination intact Musculoskeletal: No joint inflammation, muscle tenderness, FROM Skin: No acute rashes or ulcers Extremities: No clubbing, cyanosis, edema Results & Data Vital Signs (Past 12 Hours) Vital Signs Temp Pulse Pulse Resp BP BP Pulse Ox 12/02/18 02:00 107 H 24 105/78 94 12/02/18 01:30 99 H 24 127/75 94 12/02/18 01:20 101 H 24 106/75 94 12/02/18 01:01 101 H 24 96/65 L 94 12/02/18 00:28 97 H 18 117/49 L 94 12/01/18 22:36 96 12/01/18 22:05 98.4 F 88 26 H 105/72 94 (1) Diverticulitis of colon with perforation Diverticulitis bleeding: unspecified bleeding status Qualified Code(s): K57.20 - Diverticulitis of large intestine with perforation and abscess without bleeding
--- NOTE | 2018-12-02 02:23 | History & Physical Report ---
Date of Service December 02, 2018 Assessment & Plan (1) Diverticulitis of colon with perforation: pt with perforated sigmoid colon and peritonitis discussed options. Ct reviewed. recommend ex-lap with resection, washout and likely stoma formation. discussed risks (bleeding/infection/injury to other organs/dvt/pe/mi/cva etc...) I had previously discussed his care with Dr. Thorne who said from cardiac standpoint we could proceed with the elective surgery. questions answered. pt /family agree with plan. (2) CAD (coronary artery disease): History of Present Illness Primary Care Provider: Felicity Pemberton DO pt known to me. has history of diverticulitis with microperforation in past. we were planning elective sigmoid colectomy in near future. has been in [facility] the past 5 days being treated for diverticulitis. was discharged just today. This evening during a bowel movement, the patient had excruciating pain and came to the ER. CT shows free air c/w perforated sigmoid colon. Allergies Allergy/AdvReac Type Severity Reaction Status Date / Time No Known Allergies Allergy Verified 10/18/18 22:06 Home Medications Home Medications Medication Instructions Recorded Confirmed Type Brilinta 90 mg PO BID 10/12/18 12/01/18 History aspirin 81 mg PO QAM 10/12/18 12/01/18 History atorvastatin [Lipitor] 80 mg PO QAM 10/12/18 12/01/18 History lisinopril [Zestril] 2.5 mg PO QAM 10/12/18 12/01/18 History metoprolol succinate [Toprol XL] 50 mg PO QAM 10/12/18 12/01/18 History nitroglycerin [Nitrostat] 0.4 mg SUBLINGUAL UD PRN 10/12/18 12/01/18 History amoxicillin-pot clavulanate 1 tab PO Q12H 12/01/18 12/01/18 History [Augmentin] Past Med/Surg History Medical History Sigmoid diverticulitis (Acute) Colonic polyp Hyperlipidemia Hypertension Myocardial infarction Surgical History History of colonoscopy History of heart artery stent Family History Other Heart attack Social History Preferred Language: Ken[place] Communication Ability: Effective Beliefs That Will Affect Care: None marital status: Current Living Situation: Spouse current occupational status: employed Feels Safe at Home: Yes Smoking Status: Former smoker Tobacco Type: cigarettes Cigarettes Per Day: 20 Second Hand Exposure: Yes Hx Alcohol Use: No Hx Substance Use: No Review of Systems Review of Systems: All systems reviewed & are unremarkable except as noted in HPI & below Physical Exam Physical Exam: alert. moderate distress secondary to pain. oriented. Heent: pearla. eomi. Heart: Sinus tachy. Lungs: CTA b/l Abd: firm. diffuse tenderness. +rebound ext: no c/c/e Results & Data Vital Signs (Past 12 Hours) Vital Signs Temp Pulse Pulse Resp BP BP Pulse Ox 12/02/18 02:00 107 H 24 105/78 94 12/02/18 01:30 99 H 24 127/75 94 12/02/18 01:20 101 H 24 106/75 94 12/02/18 01:01 101 H 24 96/65 L 94 12/02/18 00:28 97 H 18 117/49 L 94 12/01/18 22:36 96 12/01/18 22:05 36.9 C 88 26 H 105/72 94 (1) Diverticulitis of colon with perforation Diverticulitis bleeding: unspecified bleeding status Qualified Code(s): K57.20 - Diverticulitis of large intestine with perforation and abscess without bleeding (2) CAD (coronary artery disease) Coronary Disease-Associated Artery/Lesion type: [place] artery [place] vs. transplanted heart: [place] heart Associated angina: without angina Qualified Code(s): I25.10 - Atherosclerotic heart disease of [place] coronary artery without angina pectoris
[2018-12-02 02:40] LABS: Appearance Urine Clear (Clear); Bacteria Urine Automated Negative (Negative); Bilirubin Urine Negative (Negative); Blood Urine 2+ (Negative); Color Urine Dark Yellow; Epithelial Cell Urine Auto >30 /lpf (0-5); Glucose Urine UA Negative (Negative); Ketones Urine Trace (Negative); Leukocyte Esterase Urine Negative (Negative); Nitrite Urine Negative (Negative); Protein Urine Trace (Negative); Specific Gravity Urine > 1.045 (1.000-1.030); Urobilinogen Urine Negative (Negative); pH Urine 5.5 (4.5-7.5)
--- NOTE | 2018-12-02 02:48 | Anesthesiology Consultation ---
Date of Service December 02, 2018 Assessment & Plan (1) Encounter for pre-operative examination: Chart Review Chart Review: Acceptable Risk for Surgery and Patient NOT seen in Pre Admission Testing Consults Requested none NPO Date Last Intake of Fluids: 12/01/18 Time Last Intake of Fluids: 19:00 Date Last Intake of Solids: 12/01/18 Time Last Intake of Solids: 12:00 History Surgery Operation Date: 12/02/18 02:00 Proposed Procedures p Bowel Resection - Bimal Iglesias DO Height/Weight Height: 5 ft 5 in Weight: 70.5 kg Allergies Allergy/AdvReac Type Severity Reaction Status Date / Time No Known Allergies Allergy Verified 10/18/18 22:06 Medications Home Medications Medication Instructions Recorded Confirmed Last Taken Brilinta 90 mg PO BID 10/12/18 12/01/18 10/18/18 AM DOSE aspirin 81 mg PO QAM 10/12/18 12/01/18 10/18/18 atorvastatin [Lipitor] 80 mg PO QAM 10/12/18 12/01/18 10/18/18 lisinopril [Zestril] 2.5 mg PO QAM 10/12/18 12/01/18 10/18/18 metoprolol succinate [Toprol XL] 50 mg PO QAM 10/12/18 12/01/18 10/18/18 nitroglycerin [Nitrostat] 0.4 mg SUBLINGUAL UD PRN 10/12/18 12/01/18 Unknown amoxicillin-pot clavulanate 1 tab PO Q12H 12/01/18 12/01/18 Unknown [Augmentin] Active Medications Generic Name Dose Route Start Last Admin Trade Name Freq PRN Reason Stop Dose Admin Ioversol 100 ml 12/02/18 00:29 12/02/18 00:29 Optiray 320 100ml IV 12/06/18 00:28 94 ml ONCE PRN Administration Interaction Checking Past Medical History Medical History Sigmoid diverticulitis (Acute) Colonic polyp Hyperlipidemia Hypertension Myocardial infarction Past Family History Family History Other Heart attack Past Surgical History Surgical History History of colonoscopy History of heart artery stent Social History Smoking Status: Former smoker tobacco type: cigarettes Smoking cigarettes per day: 20 Hx Alcohol Use: No Hx Substance Use: No Physical Exam Vital Signs Last Vital Signs Temp 36.9 C 12/01/18 22:05 Pulse 107 H 12/02/18 02:00 Resp 24 12/02/18 02:00 BP 105/78 12/02/18 02:00 Pulse Ox 94 12/02/18 02:00 Testing Echocardiogram Date: 03/24/18 EF: 30-35% Laboratory Results 12/01/18 23:22 12/01/18 23:22 Urine Color Dark Yellow 12/02/18 02:14 Urine Appearance Clear (Clear) 12/02/18 02:14 Urine pH 5.5 (4.5-7.5) 12/02/18 02:14 Ur Specific [place] > 1.045 (1.000-1.030) H 12/02/18 02:14 Urine Protein Trace (Negative) H 12/02/18 02:14 Urine Glucose (UA) Negative (Negative) 12/02/18 02:14 Urine Ketones Trace (Negative) H 12/02/18 02:14 Urine Nitrite Negative (Negative) 12/02/18 02:14 Ur Leukocyte Esterase Negative (Negative) 12/02/18 02:14 Urine WBC (Auto) 1-5 /hpf (0-5) 12/02/18 02:14 Urine RBC (Auto) 10-30 /hpf (0-4) H 12/02/18 02:14 U Epithel Cells (Auto) >30 /lpf (0-5) H 12/02/18 02:14 Urine Bacteria (Auto) Negative (Negative) 12/02/18 02:14
[2018-12-02] MEDS ORDERED: fentaNYL citrate 100 MCG/2 ML VIAL ONE ×2 (02:51→02:52)
[2018-12-02] MEDS ORDERED: PIPERACILL/TAZOBAC CONSULT ACTIVE PRN (02:54)
[2018-12-02] MEDS ORDERED: HYDROmorphone INJ 0.5 MG/0.5 ML SYR IV PRN (02:55)
[2018-12-02 02:58] LABS: Calcium Oxalate Crystals Urine Present (None Prsent)
[2018-12-02] MEDS ORDERED: D5W AND LACTATED RINGERS 1,000 ML IV SCH (03:00)
[2018-12-02 03:01] LABS: Mucus Urine Present (None Prsent)
[2018-12-02] MEDS ORDERED: MoRPHine SULFATE PF 1 MG/ML 10 ML AMP/VIAL ONE (03:37)
[2018-12-02] MEDS ORDERED: SUCCINYLCHOLINE CHLORIDE 20 MG/ML 10 ML VIAL ONE (04:37)
[2018-12-02] MEDS ORDERED: DEXAMETHASONE SOD INJ 4 MG/ML VIAL ONE (04:37)
[2018-12-02] MEDS ORDERED: ONDANSETRON INJ 2 MG/ML 2 ML VIAL ONE (04:37)
[2018-12-02] MEDS ORDERED: PROPOFOL IV EMULSION 10 MG/ML 20 ML VIAL IV ONE (04:37)
[2018-12-02] MEDS ORDERED: LIDOCAINE HCL 2% 2 ML VIAL/AMP(20MG/ML) INFIL ONE (04:37)
[2018-12-02] MEDS ORDERED: ROCURONIUM BROMIDE 10 MG/ML 5 ML VIAL ONE (04:37)
[2018-12-02] MEDS ORDERED: GLYCOPYRROLATE 0.2 MG/ML VIAL ONE (04:52)
[2018-12-02] MEDS ORDERED: NEOSTIGMINE METHYLSULFATE 5 MG/5 ML SYR ONE (04:52)
--- NOTE | 2018-12-02 05:18 | Operative Report ---
Post Operative Report Pre & Post Diagnosis Operation Date: 12/02/18 02:00 Pre-Op Diagnosis: Diverticulitis of colon with perforation Post-Op Diagnosis: Diverticulitis of colon with perforation Procedure Operation Date: 12/02/18 02:00 Actual Procedures p Exploratory Laparotomy, Sigmoid colectomy with end colostomy, abdominal washout(Not Applicable) - Bimal Iglesias DO Surgeon Bimal Iglesias DO Editor [employer] Co Founder n/a Estimated Blood Loss 75 Findings Consistent with Post-Op Diagnosis Specimens sigmoid colon Description of Procedure After informed consent was obtained the patient was taken to the operating room and placed in supine position. After successful intubation a Marquez catheter was placed. The abdomen was then shaved and sterilely prepped and draped in usual fashion. I began with a midline incision from above the umbilicus down around to the suprapubic region. This was carried down through the soft tissue using cautery. Anterior rectus fascia was opened using cautery. Peritoneum was elevated with hemostats and incised under direct vision using a Metzenbaum scissor. I then extended the incision to both poles using cautery. Once in the abdomen there was a large amount of dark purulent fluid. It was not foul- smelling but we took cultures. The colon was clearly perforated. I then suctioned this out. I was able to put my hands down in the pelvis and immediately palpate a very large inflammatory sigmoid colon mass. We used a Bookwalter root throughout the procedure to help with our exposure. This was placed and the wound retracted. There were 2 areas of small bowel that were tightly adherent to the infected area. It had appeared to perforate primarily into the mesentery as the mesentery was very thick and hard. After peeling the small bowel off of this area while the serosa appeared abnormal there was no breakdown of the serosa and the small bowel was intact. We were able to pack the small bowel into the upper abdomen using wet towels. I then mobilized the left and sigmoid colon along the white line of Toldt using blunt finger fractionation as well as electrocautery. The area of perforation was about an 8 inch segment. It was very thick and hard to mobilize again because of the thickened mesentery. I picked a viable spot of bowel proximal to this area transected it with a SHAHEEN purple cartridge. I then picked a viable spot distal to the perforation and transected the colon using a SHAHEEN black stapler. I then used the LigaSure to take down the mesentery and the past specimen was passed of f. The cecum and appendix appeared normal as did the proximal left colon. No other abnormalities were identified. We thoroughly irrigated the entire abdomen with multiple irrigant. I placed 0 Prolene sutures on either corner of the rectal stump to help identify it in the future. We ran the small bowel and there did not appear to be any small bowel injury or perforations. I created a circular opening in the left lower quadrant with a fresh skin blade and carried this down through the soft tissue using the cautery. The fascia was opened in a cruciate manner and spread using retractors and cautery. I mobilized the remainder of the left colon using blunt dissection and small amounts of cautery. A Dexter was then used to deliver the end of the left colon out through this window created in the left lower quadrant. I was able to pull it out easily without any tension. A 19 round drain was placed into the pelvis and brought through a separate stab incision in the left abdomen. It was secured to the skin using 2-0 silk. Final irrigation was performed and the fascia was closed using 0-looped PDS in a running fashion. Soft tissue was irrigated and skin was closed using skin rio. I matured the stoma in Tasha fashion with 3-0 Monocryl. Silver dressing was applied to the incision and a stoma bag was placed. The patient was awakeed, extubated and transferred recovery in guarded condition. I attest to the content of the Intraoperative Record and any orders documented therein. Any exceptions are noted below.
[2018-12-02] MEDS ORDERED: fentaNYL citrate 100 MCG/2 ML VIAL IV PRN (05:28)
[2018-12-02] MEDS ORDERED: ONDANSETRON INJ 2 MG/ML 2 ML VIAL IV PRN (05:28)
[2018-12-02] MEDS ORDERED: ATROPINE SULFATE 0.1 MG/ML 10ML SYR IV PRN (05:28)
[2018-12-02] MEDS ORDERED: HYDROmorphone INJ 2 MG/ML SYR/VIAL IV PRN (05:28)
[2018-12-02] MEDS ORDERED: ePHEDrine sulfate 50 MG/ML AMP IV PRN (05:28)
--- NOTE | 2018-12-02 05:52 | Anesthesiology Progress Note ---
Date of Service December 02, 2018 Anesthesia Post Procedure Vital Signs Vital Signs: Temp Pulse Pulse Resp BP BP Pulse Ox 12/02/18 02:00 107 H 24 105/78 94 12/02/18 01:30 99 H 24 127/75 94 12/02/18 01:20 101 H 24 106/75 94 12/02/18 01:01 101 H 24 96/65 L 94 12/02/18 00:28 97 H 18 117/49 L 94 12/01/18 22:36 96 12/01/18 22:05 36.9 C 88 26 H 105/72 94 Pain Intensity Left Lower Abdomen: Pain Intensity: 6 Notes Mental Status: alert / awake / arousable Patient Amnestic to Procedure: Yes Nausea / Vomiting: adequately controlled Pain: adequately controlled Airway Patency, RR, SpO2: stable & adequate BP & HR: stable & adequate Hydration State: stable & adequate Anesthetic Complications: no major complications apparent
--- NOTE | 2018-12-02 07:10 | XRay Report ---
SINGLE VIEW CHEST CLINICAL HISTORY: Generalized abdominal pain. FINDINGS: An AP, portable, upright chest radiograph is compared to study dated 10/12/2018. The examinat ion is degraded by portable technique and patient rotation. The cardiomediastinal silhouette is unre markable. There are low lung volumes with bibasilar atelectasis. No focal airspace consolidation or l arge pleural effusion is identified. No pneumothorax is seen. The bony thorax is grossly intact. IMPRESSION: Low lung volumes with no acute cardiopulmonary abnormality. Electronically signed by: Suresh Giles M.D. 12/02/2018 7:09 AM
--- NOTE | 2018-12-02 07:11 | CT Scan Report ---
CT abd pelvis IV con only CT DOSE: 488.59 mGy.cm HISTORY: Pain abd pain diverticulitis TECHNIQUE: Multiaxial CT images of the abdomen and pelvis were performed following the use of intrave nous contrast. A dose lowering technique was utilized adhering to the principles of ALARA. COMPARISON STUDY: 10/18/2018 FINDINGS: Mild dependent basilar atelectasis. Liver spleen and pancreas appear uniform. Trace amount of free fluid surrounds the spleen. Scattered free air throughout the abdomen as well as pelvis. Mode rate generalized colonic wall thickening. Mild small bowel distention with moderate wall thickening o f components of the small bowel. There is possibility of a focal internal hernia best seen transaxial image 32. Remainder the small bowel continues to show wall thickening and/or edematous change. Withi n the central abdomen transaxial image 30 is interval development of a 4 x 2 cm collection. This cont ains infiltrative change as well as air. This potentially is at the site of perforation. There is sma ll amount of ascites within the pelvic cul-de-sac. There is moderate pericolonic infiltrative change involving the sigmoid. IMPRESSION: 1. Free intraperitoneal air. 2. General progression of the patient's wall edema of the colon as well as small bowel with a suggest ion of a potential internal hernia within the central abdomen. 3. Interval development of 4 x 2 cm complex collection anterior to the aortic bifurcation 4. Additional infiltrative change throughout the root of the mesentery as well as remainder of the me sentery and omentum regions. 4.. Suggests progressive colitis/small bowel diffuse inflammatory change. 5. This includes development of at least one perforation with a 4 x 2 cm central abdominal collection . The above report was generated using voice recognition software. It may contain grammatical, syntax or spelling errors. Electronically signed by: Taurus Mcconnell M.D. 12/02/2018 7:10 AM
[2018-12-02] MEDS ORDERED: NITROGLYCERIN SL 0.4 MG/TAB TAB SL PRN (07:34)
[2018-12-02] MEDS ORDERED: ZOLPIDEM TARTRATE 5 MG TAB PO PRN (07:34)
[2018-12-02] MEDS ORDERED: ACETAMINOPHEN 1,000 MG/100 ML VIAL IV PRN (07:34)
[2018-12-02] MEDS ORDERED: ACETAMINOPHEN 325 MG TAB PO PRN (07:34)
[2018-12-02] MEDS ORDERED: PIPERACILLIN/TAZOBACTAM 3.375 GM in DEXTROSE 5% 100 ML IV SCH (07:34)
[2018-12-02] MEDS ORDERED: METOPROLOL TARTRATE 1 MG/ML VIAL IV SCH (07:34)
[2018-12-02] MEDS: LACTATED RINGER'S 1,000 ML IV SCH ×3 (08:29→21:18)
[2018-12-02] MEDS: HYDROmorphone INJ 1 MG/ML SYRINGE IV PRN ×5 (08:37→21:17)
[2018-12-02] MEDS: PIPERACILLIN/TAZOBACTAM 3.375 GM in DEXTROSE 5% 100 ML IV SCH ×2 (08:38→16:19)
[2018-12-02] MEDS ORDERED: TICAGRELOR 90 MG TAB PO SCH ×2 (09:00)
[2018-12-02] MEDS: METOPROLOL SUCC 50MG EXT REL TAB PO SCH (10:26)
[2018-12-02] MEDS: ATORVASTATIN 40 MG TAB PO SCH (10:26)
--- NOTE | 2018-12-02 15:25 | Cardiology Consultation ---
Date of Consultation December 02, 2018 Assessment & Plan (1) Diverticulitis of colon with perforation: 2. Coronary artery disease post anterior MD and prior WAYNE to mid LAD 3. Ischemic cardiomyopathyprior EF 30 to 35%, most recently LV dysfunction resolved EF 50-55 11/2018 Patient now postop sigmoid colectomy with colostomy for diverticulitis with perforation. Post procedure he is chest pain-free, hemodynamically and electrically stable. No signs of heart failure. As patient is more than 8 months out from prior WAYNE to mid LAD feel okay to hold dual antiplatelet therapy in the perioperative setting. Once GI issues stable with then resume DAPT to complete 1 year of therapy. Recommend: Hold ticagrelor until safe from a surgical standpoint and colostomy bleeding issues resolved Ideally would continue aspirin throughout perioperative course Continue current Toprol XL 50 mg daily, continue to monitor on telemetry Okay to hold JOLLY inhibitor if BP is marginal We will continue to follow History of Present Illness Attending Physician: Bimal Iglesias, DO History of Present Illness Mr. Hassan is a very pleasant 38-year-old known to me from prior anterior STEMI on 03/21/2018 treated with single WAYNE to mid LAD who underwent emergent sigmoid colectomy for diverticulitis with perforation this morning. Cardiology consulted for perioperative management. Patient has been dealing with new diverticulitis over the last month. Previously seen by Dr. Iglesias and elective colectomy was planned. Patient was recently admitted to [facility] after developed sharp left lower quadrant pain. CT of abdomen and pelvis at that time showed locules of free air as well as a very thickened inflamed sigmoid colon. Diet advanced over the next several days. Discharged on 12/01/2018. During admission was seen by cardiology and had a repeat echocardiogram which showed an EF of 50 to 55% with distal LAD wall motion abnormality. Patient return to [facility] overnight after developed severe abdominal pain after bowel movement. Repeat abdominal imaging showed free intraperitoneal air sigmoid colectomy with colostomy completed without complication. At time of interview patient states mild residual pain in his abdomen. Colostomy with bright red blood. Denies any chest pain. Does report having some right-sided chest pain while hospitalized at [facility] and a brief episode of pain yesterday which he thinks was more related to gas as it came from his abdomen and was relieved with belching. Pain felt nothing like prior MD. EKG on arrival showed sinus rhythm with anterior Q waves, no new dynamic ST changes. Prior cardiovascular studies Cardiac catheterization (03/21/2018): 100% acute occlusion of early mid LAD after takeoff of small 1st diagonal. No other significant remain disease. LVEDP 21 PCI proximal mid LAD with single drug-eluting stent (3 x 30 mm Gary). Echo (03/2018): EF 30-35%. Lad distribution wall motion abnormality with apical akinesis. Echo 11/28/2018[facility]: Normal LV size, EF 50 to 55%, distal LAD wall motion of normality, no significant valvular pathology Allergies Allergy/AdvReac Type Severity Reaction Status Date / Time No Known Allergies Allergy Verified 10/18/18 22:06 Home Medications Home Medications Medication Instructions Recorded Confirmed Type Brilinta 90 mg PO BID 10/12/18 12/01/18 History aspirin 81 mg PO QAM 10/12/18 12/01/18 History atorvastatin [Lipitor] 80 mg PO QAM 10/12/18 12/01/18 History lisinopril [Zestril] 2.5 mg PO QAM 10/12/18 12/01/18 History metoprolol succinate [Toprol XL] 50 mg PO QAM 10/12/18 12/01/18 History nitroglycerin [Nitrostat] 0.4 mg SUBLINGUAL UD PRN 10/12/18 12/01/18 History amoxicillin-pot clavulanate 1 tab PO Q12H 12/01/18 12/01/18 History [Augmentin] Patient History Medical History Sigmoid diverticulitis (Acute) Colonic polyp Hyperlipidemia Hypertension Myocardial infarction Surgical History History of colonoscopy History of heart artery stent Family History Other Heart attack Social History Preferred Language: [place] Communication Ability: Effective Historical Archeologist Required: No Beliefs That Will Affect Care: None marital status: Current Living Situation: Family current occupational status: employed Other Information That Helps Us Care for You: No Feels Safe at Home: Yes Safety Concerns: Feels Safe At This Time Smoking Status: Current every day smoker Tobacco Type: cigarettes Cigarettes Per Day: 20 Do You Dip or Chew Tobacco: No Second Hand Exposure: No Tobacco Cessation Education Requested by Patient: No Hx Alcohol Use: No Hx Substance Use: No Review of Systems Review of Systems: All systems reviewed & are unremarkable except as noted in HPI & below Physical Exam Physical Exam: General: Comfortable, no acute distress, uncomfortable Eyes: Sclerae anicteric, extraocular movements intact HENT: Oropharynx clear mucous membranes moist Lungs: Clear to auscultation bilaterally, no rhonchi or wheezes Cardiac: Regular rate and rhythm, no murmurs, rubs or gallops. Abdomen: Dressing in place, colostomy with bright red blood Extremities: Well perfused, no peripheral edema Neuro: Nonfocal Psych: Alert orient x3, normal affect and mood Results & Data Vital Signs (Past 12 Hours) Vital Signs Temp Pulse Pulse Resp BP BP Pulse Ox 12/02/18 12:00 36.8 C 108 H 16 103/80 92 12/02/18 11:37 36.9 C 115 H 18 122/79 94 12/02/18 11:10 36.4 C L 101 H 18 117/88 92 12/02/18 10:30 103 H 15 116/78 96 12/02/18 10:00 101 H 12 99/73 L 96 12/02/18 09:30 105 H 10 L 95/75 L 96 12/02/18 09:00 96 H 10 L 114/76 91 12/02/18 08:30 109 H 16 114/75 94 12/02/18 06:31 74 96 12/02/18 06:30 89 138/76 93 12/02/18 06:25 84 109/82 95 12/02/18 06:20 96 H 129/85 12/02/18 06:15 91 H 121/81 89 L 12/02/18 06:10 94 H 127/88 92 12/02/18 06:05 92 H 127/78 97 12/02/18 06:01 36.7 C 88 97 12/02/18 06:00 85 121/88 97 12/02/18 05:55 84 120/81 96 12/02/18 05:51 91 H 18 127/75 97 12/02/18 05:46 89 114/85 98 04/29/19 05:40 89 18 130/85 97 12/02/18 05:37 90 127/79 99 12/02/18 05:31 78 100 12/02/18 05:30 78 18 122/82 100 12/02/18 05:26 76 18 129/85 100 12/02/18 05:22 88 134/90 98 12/02/18 05:20 83 16 122/87 100 12/02/18 05:19 36.6 C 78 16 100 (1) Diverticulitis of colon with perforation Diverticulitis bleeding: unspecified bleeding status Qualified Code(s): K57.20 - Diverticulitis of large intestine with perforation and abscess without bleeding
[2018-12-02 16:40] LABS: Hematocrit (blood only) 34.1 % (42-52); Hemoglobin 12.3 g/dL (14.0-18.0)
[2018-12-02 21:31] LABS: Hematocrit (blood only) 32.7 % (42-52); Hemoglobin 11.9 g/dL (14.0-18.0)
--- OUTSIDE RECORDS SUMMARY | 2018-12-02 22:46 | External Medical Summary | Continuity of Care Document ---
:1980 Author Name Carmen Fink, Provider Address Unavailable Unavailable , Care Team Providers Name Role Phone Mike Camarillo PA-C Unavailable [email or web address] Trey HOFFMAN Unavailable [email or web address] Mati Fink Unavailable [email or web address] Brian MOREL Unavailable [email or web address] [email or web address] [email or web address] Unavailable Unavailable Unavailable Unavailable Unavailable Problems Acute diverticulitis (562.11) (K57.92) Oral thrush (112.0) (B37.0) Cardiomyopathy, ischemic (414.8) (I25.5) Dyslipidemia (272.4) (E78.5) History of [place] (myocardial infarction) (412) (I25.2) Coronary artery disease (414.00) (I25.10) Status post insertion of drug-eluting st ent into left anterior descending (LAD) artery (V45.82) (Z95.5) Allergies and Adverse Reactions No Known Allergies (Allergy) Medications Brilinta 90 MG Oral Tablet; take 1 tablet by mouth twi ce a day DALTON Yang Start: 28-Oct-2018 Quantity: 60 Refills: 5 Nitroglycerin 0.4 MG Sublingual Tablet Sublingual Refills: 0 Metoprolol Succinate ER 50 MG Oral Table t Extended Release 24 Hour; TAKE 1 TABLET BY MOUTH EVERY DAY DALTON Camarillo Start: 25-Oct-2018 Quantity: 30 Refills: 5 Lisinopril 2.5 MG Oral Tablet; TAKE 1 TABLET BY MOUTH EVERY DAY DALTON Camarillo Start: 25-Oct-2018 Quantity: 30 Refills: 5 Atorvastatin Calcium 80 MG Oral Tablet; TAKE 1 TABLET BY MOUTH EVERYDAY In morning Danae Thorne Start: 10-Oct-2018 Quantity: 30 Refills: 5 Aspirin 81 MG TABS; take 1 tablet by mouth once daily Refills: 0 Procedures Colonoscopy Date: 1-Apr-2019 History of coronary artery stent placement Status: Completed Immunizations Immunizations not documented Family History Unknown Family Member Family history of malignant neoplasm (V16.9) Status: Active Comments: Family History (Z80.9) Mother Family history of malignant neoplasm (V16.9) (Z80.9) Status: Active Grandmother Family history of malignant neoplasm (V16.9) (Z80.9) Status: Active Family history of coronary artery disease (V17.3) (Z82.49) S tatus: Active Family history of type 2 diabetes mellitus (V18.0) (Z83.3) S tatus: Active Grandfather Family history of coronary artery disease (V17.3) (Z82.49) S tatus: Active Grandfather Family history of coronary artery disease (V17.3) (Z82.49) S tatus: Active Father Family history of type 2 diabetes mellitus (V18.0) (Z83.3) S tatus: Active Social History - Smoking Status Current every day smoker Plan of Treatment Planned Encounters Appointment; Bimal Torres CRNP Start: 14-Apr-2019 1 4:00 Request Planned Observations Planned Goals not documented Results X-Ray Chest 1 View Portable Laboratory: [facility] Diagnostic Candice ging Miguel EPb (Pending) [facility] MATI 02-Dec-2018 7:07 X-Ray Chest 1 VW Portable (CXR1P) [facility], [place] [phone] XRa y Report Patient: MAXINE WINSLOW Admit Date: MR#: [id number] Address1: [address] [place] [address] Acct ID:[id number] Address2: Jorge e: 1980 [facility] Zip: [place] [address] Age: 38 Location: OR Sex: M Room/Bed: Att Phy: Bimal Miller, Diagnosis: abdo yariel pain Gloria Phy: Felicity Pemberton DO Service Date: 12/01/18 Fam Phy: Interpreting P hy: Suresh Carbone Adm it Phy: Ordering Phy: Harry Landon M. D. cc: SINGLE VIEW C HEST CLINICAL HISTORY: Generalized abdomin al pain. FINDINGS: An AP, portable, up right chest radiograph is compared to study da dominick 10/12/2018. The examination is degraded by portable technique and patient rotation. The cardiomediastinal silhouette is unremark able. There are low lung volumes with bibasila r atelectasis. No focal airspaceconsolidat ion or large pleural effusion is identified. No pneumothorax is seen. The bony thorax is grossly intact. IMPRESSION: Low jaylon g volumes with no acute cardiopulmonary abnormality. Electronically s igned by: Suresh Giles M.D. 12/02/2018 7:09 AM Dictated: 12/02/18706 Transc ribed: 12/02/18706 CT abd pelvis IV con only (Pending) Laboratory: [facility] Diagnostic Imaging [address] [facility] 02-Dec-2018 7:04 CT abd pelvis IV con only [place], [place] [phone] CT Scan Repo rt Patient: MAXINE WINSLOW Admit Date: MR#: [id number] Address1: [address] [place] [address] Acct ID:[id number] Address2: Date: 1980 [facility] Zip: [place] [address] Age: 38 Location: OR Sex: M Room/Bed: Att Phy: Bimal Iglesias, Diagnosis: abdominal pain Gloria Phy: Felicity Pemberton DO Ser vice Date: 12/01/18 Fam P hy: Interpreting Phy: Taurus Mcconnell MD Admit Phy: Ordering Phy: Harry Key M.D. cc : CT abd pelvis IV con only CT DOS E: 488.59 mGy.cm HISTORY: Pain abd pa in diverticulitis TECHNIQUE: Multiaxia l CT images of the abdomen and pelvis were pe rformed following the use of intravenous contras t. A dose lowering technique was utilized adh ering to the principles of ALARA. COMP ANMOL STUDY: 10/18/2018 FINDINGS: Mild dep endent basilar atelectasis. Liver spleen and pa ncreas appear uniform. Trace amount of free flu id surrounds the spleen. Scattered free air throughout the abdomen as well as pelvis . Moderate generalized colonic wall thicke mary ann. Mild small bowel distention with moderat e wallthickening of components of the smal l bowel. There is possibility of a focal i nternal hernia best seen transaxial image 32. Re mainder the small bowel continues to show wall thickening and/or edematous change. With in the central abdomen transaxial image 30 is i nterval development of a 4 x 2 cm collection. Th is contains infiltrative change as well as air. This potentially is at the site of perfo ration. There is small amount of ascites within the pelvic cul-de-sac. There is moderate pericolonic infiltrative change involvin g the sigmoid. IMPRESSION: 1. Free intraperitoneal air. 2. General progression of the patient's wall edema of the colon as well as small bowel with a sugg estion of a potential internal hernia within th e central abdomen. 3. Interval development of 4 x 2 cm complex collecti on anterior to the aortic bifurcation 4. Additional infiltrative change throughou t the root of the mesentery as well as remaind er of the mesentery and omentum regions. 4.. Suggests progressive colitis/small bowel diffuse inflammatory change. 5. This includes development of at least one perforation with a 4 x 2 cm central abdo yariel collection. The above report was generated using voice recognition [employer] re. It may contain grammatical, syntax or spell ing errors. Electronically signed by: Taurus Mcconnell M.D. 12/02/2018 7:10 AM Dictated: 12/02/1804 Transcribed : 12/02/1804 Aero/Akila Culture + Gram Stain 02-Dec-2018 3:34 AERO/AKILA CULTURE & GRAM STAIN ORDERED NM OCEDURE : Aero/Akila Culture Gram Stain; Spec iment : Abdomen Gram Stain : SEE COMMENT GRAM S TAIN RESULT\S\Gram Stain Result Many Polys No Organi sms Seen Vital Signs 04-Nov-2018 9:39 Systolic 112 mm[Hg] Diastolic 81 mm[Hg] Respiration 18 /min Height 65 in Temperature 98.3 f Heart Rate 78 /min BMI Calculated 29.29 kg/m2 Weight 176 lb BSA Calculated 1.87 m2 Encounters Appointment; Bimal Iglesias DO 04-Nov-2018 9:00 Encounter Diagnosis: Problem not documented Appointment; Felicity Pemberton DO 29-Oct-2018 9:40 Encounter Diagnosis: Problem not documented Appointment; Bimal Torres CRNP 20-Sep-2018 11:20 Encounter Diagnosis: Problem not documented Appointment; Ewa Yang PA-C 28-May-2018 11:30 Encounter Diagnosis: Problem not documented Appointment; Echo/Stress, Echo/Stress 10-May-2018 10:15 Encounter Diagnosis: Problem not documented Appointment; Robbie Thorne M.D. 29-Mar-2018 15:00 Encounter Diagnosis: Problem not documented Appointment; Bimal Torres CRNP 14-Apr-2019 14:00 Encounter Diagnosis: Problem not documented
--- OUTSIDE RECORDS SUMMARY | 2018-12-02 22:47 | External Medical Summary | Continuity of Care Document ---
:1980 Author Name Carmen Fink, Provider Address Unavailable Unavailable , Care Team Providers Name Role Phone Mike Camarillo PA-C Unavailable [email or web address] Trey HOFFMAN Unavailable [email or web address] Mati Fink Unavailable [email or web address] Brian MOREL Unavailable [email or web address] Geremias TORRES Unavailable Unavailable Unavailable Unavailable Unavailable Problems Status post insertion of drug-eluting st ent into left anterior descending (LAD) artery (V45.82) (Z95.5) Coronary artery disease (414.00) (I25.10) History of [place] (myocardial infarction) (412) (I25.2) Dyslipidemia (272.4) (E78.5) Cardiomyopathy, ischemic (414.8) (I25.5) Oral thrush (112.0) (B37.0) Acute diverticulitis (562.11) (K57.92) Allergies and Adverse Reactions No Known Allergies (Allergy) Medications Brilinta 90 MG Oral Tablet; take 1 tablet by mouth twi ce a day DALTON Yang Start: 28-Oct-2018 Quantity: 60 Refills: 5 Aspirin 81 MG TABS; take 1 tablet by mouth once daily Refills: 0 Metoprolol Succinate ER 50 MG [...] Thorne Start: 10-Oct-2018 Quantity: 30 Refills: 5 Nitroglycerin 0.4 MG Sublingual Tablet Sublingual Refills: 0 Procedures Colonoscopy Date: 1-Apr-2019 History [...] Results X-Ray Chest 1 View Portable Laboratory: [facility] Diagnostic Candice ging Miguel EPb (Pending) [facility] MATI 02-Dec-2018 7:07 X-Ray Chest 1 VW Portable (CXR1P) [facility], [place] [phone] XRa y Report Patient: MAXINE WINSLOW Admit Date: MR#: [id number] Address1: [address] [place] [address] Acct ID:[id number] Address2: Jorge e: 1980 [facility] Zip: [place] [address] Age: 38 Location: OR Sex: M Room/Bed: [...] abd pelvis IV con only (Pending) Laboratory: [facility] Diagnostic Imaging [address] [facility] 02-Dec-2018 7:04 CT abd pelvis IV con only [place], [place] [phone] CT Scan Repo rt Patient: MAXINE WINSLOW Admit Date: MR#: [id number] Address1: [address] [place] [address] Acct ID:[id number] Address2: Date: 1980 [facility] Zip: [place] [address] Age: 38 Location: OR Sex: M Room/Bed: [...] above report was generated using voice recognition [employer] re. It may contain grammatical, syntax or spell ing errors. Electronically signed by: Taurus Mcconnell M.D. 12/02/2018 7:10 AM Dictated: 12/02/1804 Transcribed : 12/02/1804 Aero/Akila Culture + Gram Stain 02-Dec-2018 3:34 AERO/AKILA CULTURE & GRAM STAIN ORDERED AR OCEDURE : Aero/Akila Culture Gram Stain; Spec [...]
[2018-12-03] MEDS: HYDROmorphone INJ 1 MG/ML SYRINGE IV PRN ×7 (00:23→21:40)
[2018-12-03] MEDS: PIPERACILLIN/TAZOBACTAM 3.375 GM in DEXTROSE 5% 100 ML IV SCH ×3 (00:24→17:12)
[2018-12-03] MEDS: LACTATED RINGER'S 1,000 ML IV SCH ×3 (04:10→17:26)
[2018-12-03 06:00] LABS: Basophils # (auto) 0.02 K/uL (0-0.2); Basophils % (auto) 0.1 %; Eosinophils # (auto) 0.07 K/uL (0-0.5); Eosinophils % (auto) 0.4 %; Hematocrit (blood only) 31.1 % (42-52); Hemoglobin 11.1 g/dL (14.0-18.0); Immature Granulocytes # (auto) 0.06 K/uL (0.00-0.02); Immature Granulocytes % (auto) 0.3 %; Lymphocytes # (auto) 1.29 K/uL (1.2-3.4); Lymphocytes % (auto) 7.3 %; Mean Corpuscular Hgb Conc 35.7 g/dL (32-36); Mean Corpuscular Volume 87.6 fL (80-100); Monocytes # (auto) 1.75 K/uL (0.11-0.59); Monocytes % (auto) 9.9 %; Neutrophils # (auto) 14.44 K/uL (1.4-6.5); Platelet Count 251 K/uL (130-400); RDW Coefficient of Variation 13.1 % (11.5-14.5); RDW Standard Deviation 42.8 fL (36.4-46.3); Red Blood Count 3.55 M/uL (4.7-6.1); White Blood Count 17.63 K/uL (4.8-10.8)
[2018-12-03 06:42] LABS: BUN Creatinine Ratio 18.3 (10-20); Calcium 8.6 mg/dl (8.5-10.1); Creatinine Clr Calc Pharmacy 133.3 ml/min; Est GFR (African American) 143.2; Est GFR (Non-African American) 123.5; Magnesium 1.9 mg/dl (1.8-2.4); Potassium 4.1 mmol/L (3.5-5.1)
[2018-12-03] MEDS: ATORVASTATIN 40 MG TAB PO SCH (08:21)
[2018-12-03] MEDS: METOPROLOL SUCC 50MG EXT REL TAB PO SCH (08:21)
--- NOTE | 2018-12-03 08:44 | Cardiology Progress Note ---
Date of Service December 03, 2018 Assessment & Plan (1) Diverticulitis of colon with perforation: 2. Coronary artery disease post anterior [place] and prior WAYNE to mid LAD 3. Ischemic cardiomyopathyprior EF 30 to 35%, most recently LV dysfunction resolved EF 50-55 11/2018 4. Anemia 5. Sinus tachycardia POD#1 post sigmoid colectomy with colostomy for diverticulitis with perforation. Remains chest pain free. Hemodynamically stable. Sinus tachycardia persists. Physiologic. No arrhythmias. + almost 4 L. On exam well perfused without congestion. Hgb down from 14 to 11 -- DAPT on hold. When safe from surgical standpoint would restart ASA first. -- Continue current toprol XL -- reduce maintenance IVFs <100/hr Will continue to follow Subjective states up every hour overnight due to abdominal pain. denies chest pain. O2 sats to high 80s overnight but denies shortness of breath. Tele reviewed -- sinus tachycardia to 110-120s. Review of Systems Review of Systems: All systems reviewed & are unremarkable except as noted in HPI & below Physical Exam Constitutional: WD/WN, vitals as above Eyes: + anicteric sclerae Respiratory: normal respiratory effort, lungs clear to auscultation Cardiovascular: Rate/Rhythm: + tachycardic Heart Sounds: no murmur Vessels: no JVD Extremities: no edema Gastrointestinal (Abdomen): Percussion/Palpation: + abdomen tender dressing in place, some residual blood in colostomy bag Skin: no rashes, warm and dry Neurologic: moves all extremities Psychiatric: A+Ox3, euthymic affect Results & Data Vital Signs (Past 12 Hours) Vital Signs Temp Pulse Pulse Resp BP Pulse Ox 12/03/18 07:18 37.4 C 111 H 12 111/78 90 12/03/18 03:46 36.9 C 105 H 17 109/75 96 12/02/18 23:02 37.0 C 120 H 18 108/72 90 12/02/18 22:25 103 H (1) Diverticulitis of colon with perforation Diverticulitis bleeding: unspecified bleeding status Qualified Code(s): K57.20 - Diverticulitis of large intestine with perforation and abscess without bleeding
--- NOTE | 2018-12-03 09:08 | Surgery Progress Note ---
Date of Service December 03, 2018 Assessment & Plan (1) Diverticulitis of colon with perforation: POD #1 Exploratory Laparotomy, Sigmoid colectomy with end colostomy, abdominal washout Pt seen and examined with Dr. Harris RIVERA labs and vital signs reviewed. Afebrile Patient doing as expected for POD #1 Will keep kingsley today, plan to remove tomorrow. Patient to get out of bed and sit in chair today Will advance to clear liquids and see how he tolerates- advised to go slow. As above. Bleeding around stoma has stopped. Stoma looks pink and viable. LEDY serous. Continue antibiotics increase activities. Can start clear liquids as tolerated. Subjective Patient doing as expected this AM- reports abdominal pain Denies nausea. Physical Exam Gastrointestinal (Abdomen): Percussion/Palpation: + abdomen tender and abdomen soft surgical dressings dry- will change tomorrow. bloody drainage from colostomy- drainage significantly less than yesterday AM following surgery. Results & Data Vital Signs (Past 12 Hours) Vital Signs Temp Pulse Pulse Resp BP Pulse Ox 12/03/18 07:18 37.4 C 111 H 12 111/78 90 12/03/18 03:46 36.9 C 105 H 17 109/75 96 12/02/18 23:02 37.0 C 120 H 18 108/72 90 12/02/18 22:25 103 H (1) Diverticulitis of colon with perforation Diverticulitis bleeding: unspecified bleeding status Qualified Code(s): K57.20 - Diverticulitis of large intestine with perforation and abscess without bleeding
[2018-12-03] MEDS: ONDANSETRON INJ 2 MG/ML 2 ML VIAL IV PRN (10:05)
[2018-12-03] MEDS: FLUCONAZOLE 200 MG/100 ML BAG IV SCH ×4 (12:39→16:02)
[2018-12-04] MEDS: PIPERACILLIN/TAZOBACTAM 3.375 GM in DEXTROSE 5% 100 ML IV SCH ×3 (00:09→16:30)
[2018-12-04] MEDS: LACTATED RINGER'S 1,000 ML IV SCH ×3 (00:53→18:38)
[2018-12-04] MEDS: HYDROmorphone INJ 1 MG/ML SYRINGE IV PRN ×4 (01:52→12:38)
[2018-12-04] MEDS: METOPROLOL SUCC 50MG EXT REL TAB PO SCH (08:57)
--- NOTE | 2018-12-04 09:34 | Surgery Progress Note ---
Date of Service December 04, 2018 Assessment & Plan (1) Diverticulitis of colon with perforation: POD 2 Exploratory Laparotomy, Sigmoid colectomy with end colostomy, abdominal washout keep on sips, consider NG if nausea persists or vomiting but he wants to wait was OOB yesterday AM labs pending as above. mild nausea. drain serous stoma viable but no funtion yet slightly distended. d/c kingsley. increase activity. awaiting bowel fx diflucan added for yeast on abd. fluid cx cont antibiotics will add oral analgesics Subjective bloated, some nausea, taking just sips of water Physical Exam Gastrointestinal (Abdomen): Inspection/Auscultation: + abdomen distended and + abdominal surgical drain present (240 serosang) Percussion/Palpation: abdomen soft ostomy edematous but pink, minimal blood in pouch Results & Data Vital Signs (Past 12 Hours) Vital Signs Temp Pulse Pulse Resp BP Pulse Ox 12/04/18 07:37 37.2 C 96 H 16 119/75 93 12/04/18 07:20 98 H 12/04/18 03:17 36.9 C 93 H 18 123/83 97 12/03/18 23:18 37.0 C 89 18 130/76 96 12/03/18 22:37 93 H (1) Diverticulitis of colon with perforation Diverticulitis bleeding: unspecified bleeding status Qualified Code(s): K57.20 - Diverticulitis of large intestine with perforation and abscess without bleeding
[2018-12-04 09:51] LABS: Basophils # (auto) 0.01 K/uL (0-0.2); Basophils % (auto) 0.1 %; Eosinophils # (auto) 0.09 K/uL (0-0.5); Eosinophils % (auto) 0.5 %; Hematocrit (blood only) 26.6 % (42-52); Hemoglobin 9.5 g/dL (14.0-18.0); Immature Granulocytes # (auto) 0.07 K/uL (0.00-0.02); Immature Granulocytes % (auto) 0.4 %; Lymphocytes # (auto) 1.34 K/uL (1.2-3.4); Mean Corpuscular Hgb Conc 35.7 g/dL (32-36); Mean Corpuscular Volume 87.5 fL (80-100); Mean Platelet Volume 9.5 fL (7.4-10.4); Monocytes # (auto) 1.09 K/uL (0.11-0.59); Monocytes % (auto) 6.5 %; Neutrophils # (auto) 14.05 K/uL (1.4-6.5); Neutrophils % (auto) 84.5 %; Platelet Count 253 K/uL (130-400); RDW Coefficient of Variation 12.9 % (11.5-14.5); RDW Standard Deviation 41.8 fL (36.4-46.3); Red Blood Count 3.04 M/uL (4.7-6.1); White Blood Count 16.65 K/uL (4.8-10.8)
--- NOTE | 2018-12-04 11:59 | Cardiology Progress Note ---
Date of Service December 04, 2018 Assessment & Plan (1) Diverticulitis of colon with perforation: 2. Coronary artery disease post anterior [place] and prior WAYNE to mid LAD 3. Ischemic cardiomyopathyprior EF 30 to 35%, most recently LV dysfunction resolved EF 50-55 11/2018 4. Anemia 5. Sinus tachycardia POD#2 post sigmoid colectomy with colostomy for diverticulitis with perforation. Remains chest pain free. Hemodynamically stable. + almost 7L from admission. Minimal congestion on exam. Hgb down from 14 to 11, now 9.5 -- DAPT on hold in the setting of dropping hemoglobin -- Continue current toprol XL -- reduce maintenance IVFs <100/hr Will continue to follow Subjective Abdominal pain overnight. Persistent nausea, no real appetite. Denies chest pain or significant shortness of breath. Telemetry reviewedsinus tachycardia, no arrhythmia Review of Systems Review of Systems: All systems reviewed & are unremarkable except as noted in HPI & below Physical Exam Constitutional: WD/WN, vitals as above Eyes: + anicteric sclerae Respiratory: normal respiratory effort, lungs clear to auscultation Cardiovascular: Rate/Rhythm: + tachycardic Heart Sounds: no murmur Vessels: no JVD Extremities: no edema Gastrointestinal (Abdomen): Percussion/Palpation: + abdomen tender Dressing in place, serosanguineous fluid in colostomy bag, LEDY drain Skin: no rashes, warm and dry Neurologic: moves all extremities Psychiatric: A+Ox3, euthymic affect Results & Data Vital Signs (Past 12 Hours) Vital Signs Temp Pulse Pulse Resp BP Pulse Ox 12/04/18 11:44 36.8 C 102 H 18 123/87 95 12/04/18 07:37 37.2 C 96 H 16 119/75 93 12/04/18 07:20 98 H 12/04/18 03:17 36.9 C 93 H 18 123/83 97 (1) Diverticulitis of colon with perforation Diverticulitis bleeding: unspecified bleeding status Qualified Code(s): K57.20 - Diverticulitis of large intestine with perforation and abscess without bleeding
[2018-12-04] MEDS: FLUCONAZOLE 200 MG/100 ML BAG IV SCH (12:38)
[2018-12-04] MEDS: HYDROCODONE/ACETAMINOPHEN 10/325 TAB PO PRN (15:33)
[2018-12-04] MEDS: ENOXAPARIN INJ 40 MG/0.4 ML SYR SQ SCH (15:34)
[2018-12-04] MEDS: ONDANSETRON INJ 2 MG/ML 2 ML VIAL IV PRN (16:31)
[2018-12-04] MEDS ORDERED: PROMETHAZINE HCL 12.5 MG in SODIUM CHLORIDE 0.9% 50 ML IV PRN (20:19)
[2018-12-05] MEDS: PIPERACILLIN/TAZOBACTAM 3.375 GM in DEXTROSE 5% 100 ML IV SCH ×4 (00:06→23:46)
[2018-12-05] MEDS: HYDROmorphone INJ 1 MG/ML SYRINGE IV PRN ×5 (01:13→20:23)
[2018-12-05 07:09] LABS: Basophils # (auto) 0.02 K/uL (0-0.2); Basophils % (auto) 0.2 %; Eosinophils % (auto) 1.7 %; Hematocrit (blood only) 25.2 % (42-52); Hemoglobin 9.1 g/dL (14.0-18.0); Immature Granulocytes # (auto) 0.04 K/uL (0.00-0.02); Immature Granulocytes % (auto) 0.3 %; Lymphocytes # (auto) 2.09 K/uL (1.2-3.4); Lymphocytes % (auto) 17.3 %; Mean Corpuscular Hgb Conc 36.1 g/dL (32-36); Mean Corpuscular Volume 87.2 fL (80-100); Mean Platelet Volume 9.5 fL (7.4-10.4); Monocytes # (auto) 1.01 K/uL (0.11-0.59); Monocytes % (auto) 8.3 %; Neutrophils # (auto) 8.74 K/uL (1.4-6.5); Neutrophils % (auto) 72.2 %; Platelet Count 302 K/uL (130-400); RDW Coefficient of Variation 12.9 % (11.5-14.5); RDW Standard Deviation 41.2 fL (36.4-46.3); Red Blood Count 2.89 M/uL (4.7-6.1)
[2018-12-05] MEDS: LACTATED RINGER'S 1,000 ML IV SCH ×2 (07:43→20:24)
[2018-12-05 07:47] LABS: BUN Creatinine Ratio 18.2 (10-20); Blood Urea Nitrogen 9 mg/dl (7-18); Calcium 8.5 mg/dl (8.5-10.1); Carbon Dioxide 35 mmol/L (21-32); Chloride 97 mmol/L (98-107); Creatinine Clr Calc Pharmacy 211.1 ml/min; Est GFR (African American) > 150.0; Glucose 88 mg/dl (70-99); Potassium 3.3 mmol/L (3.5-5.1); Sodium 136 mmol/L (136-145)
[2018-12-05] MEDS: ONDANSETRON INJ 2 MG/ML 2 ML VIAL IV PRN (09:01)
[2018-12-05] MEDS: METOPROLOL SUCC 50MG EXT REL TAB PO SCH (09:01)
[2018-12-05] MEDS: ENOXAPARIN INJ 40 MG/0.4 ML SYR SQ SCH (09:01)
[2018-12-05] MEDS: KETOROLAC 30 MG/ML VIAL IV PRN (11:09)
[2018-12-05] MEDS: FLUCONAZOLE 200 MG/100 ML BAG IV SCH ×3 (11:42→13:20)
--- NOTE | 2018-12-05 14:35 | Surgery Progress Note ---
Date of Service December 05, 2018 Assessment & Plan (1) Sigmoid diverticulitis: doing ok. awaiting bowel fx keep ngt for now will check KUB tomorrow increase activity Subjective feeling better today. starting to feel gurgling/hungry. distension/nausea improved since NGT place Physical Exam Physical Exam: alert. nad abd: soft. mild distension. wound looks good. LEDY serous. stoma pink/viable Results & Data Vital Signs (Past 12 Hours) Vital Signs Temp Pulse Pulse Resp BP Pulse Ox 12/05/18 12:29 37.1 C 61 15 93/64 L 97 12/05/18 07:37 37 C 78 14 122/80 94 12/05/18 07:15 81 12/05/18 03:57 84 18 113/67 96
--- NOTE | 2018-12-05 14:44 | Cardiology Progress Note ---
Date of Service December 05, 2018 Assessment & Plan (1) Diverticulitis of colon with perforation: 2. Coronary artery disease post anterior [place] and prior WAYNE to mid LAD 3. Ischemic cardiomyopathyprior EF 30 to 35%, most recently LV dysfunction resolved EF 50-55 11/2018 4. Anemia 5. Sinus tachycardia POD#3 post sigmoid colectomy with colostomy for diverticulitis with perforation. Remains chest pain free. Hemodynamically stable. Well perfused, minimal congestion on exam. Hgb to 9.1 today -- DAPT on hold in the setting of hemoglobin drop -- Continue current toprol XL Will continue to follow Subjective NG tube placed overnight. Feeling somewhat better after decompression. Denies any chest pain, shortness of breath. Abdominal pain slightly improved. Telemetry reviewedsinus Review of Systems Review of Systems: All systems reviewed & are unremarkable except as noted in HPI & below Physical Exam Constitutional: WD/WN, vitals as above Eyes: + anicteric sclerae Respiratory: normal respiratory effort, lungs clear to auscultation Cardiovascular: Rate/Rhythm: + tachycardic Heart Sounds: no murmur Vessels: no JVD Extremities: no edema Gastrointestinal (Abdomen): Percussion/Palpation: + abdomen tender Skin: no rashes, warm and dry Neurologic: moves all extremities Psychiatric: A+Ox3, euthymic affect Results & Data Vital Signs (Past 12 Hours) Vital Signs Temp Pulse Pulse Resp BP Pulse Ox 12/05/18 12:29 37.1 C 61 15 93/64 L 97 12/05/18 07:37 37 C 78 14 122/80 94 12/05/18 07:15 81 12/05/18 03:57 84 18 113/67 96 (1) Diverticulitis of colon with perforation Diverticulitis bleeding: unspecified bleeding status Qualified Code(s): K57.2 0 - Diverticulitis of large intestine with perforation and abscess without bleeding
[2018-12-05] MEDS: HYDROmorphone INJ 2 MG/ML SYR/VIAL IV PRN (16:34)
[2018-12-06] MEDS: HYDROmorphone INJ 2 MG/ML SYR/VIAL IV PRN ×5 (00:19→20:42)
[2018-12-06 06:10] LABS: Basophils # (auto) 0.03 K/uL (0-0.2); Basophils % (auto) 0.3 %; Eosinophils # (auto) 0.29 K/uL (0-0.5); Eosinophils % (auto) 2.8 %; Hematocrit (blood only) 26.2 % (42-52); Hemoglobin 9.2 g/dL (14.0-18.0); Immature Granulocytes # (auto) 0.03 K/uL (0.00-0.02); Immature Granulocytes % (auto) 0.3 %; Lymphocytes % (auto) 14.6 %; Mean Corpuscular Hgb Conc 35.1 g/dL (32-36); Mean Corpuscular Volume 88.5 fL (80-100); Mean Platelet Volume 9.1 fL (7.4-10.4); Monocytes # (auto) 0.82 K/uL (0.11-0.59); Neutrophils # (auto) 7.63 K/uL (1.4-6.5); Platelet Count 323 K/uL (130-400); RDW Standard Deviation 42.3 fL (36.4-46.3); Red Blood Count 2.96 M/uL (4.7-6.1)
[2018-12-06 06:56] LABS: BUN Creatinine Ratio 21.1 (10-20); Blood Urea Nitrogen 10 mg/dl (7-18); Calcium 8.5 mg/dl (8.5-10.1); Carbon Dioxide 33 mmol/L (21-32); Chloride 97 mmol/L (98-107); Creatinine Clr Calc Pharmacy 210.7 ml/min; Est GFR (African American) > 150.0; Glucose 78 mg/dl (70-99); Potassium 3.3 mmol/L (3.5-5.1); Sodium 136 mmol/L (136-145)
[2018-12-06] MEDS: PIPERACILLIN/TAZOBACTAM 3.375 GM in DEXTROSE 5% 100 ML IV SCH ×2 (07:36→15:13)
[2018-12-06] MEDS: ENOXAPARIN INJ 40 MG/0.4 ML SYR SQ SCH (07:40)
[2018-12-06] MEDS: HYDROmorphone INJ 1 MG/ML SYRINGE IV PRN (07:43)
--- NOTE | 2018-12-06 08:32 | XRay Report ---
XR KUB/Abdomen 1 view CLINICAL HISTORY: Ex Laparotomy, Sig colectomy with end colostomy postoperative evaluation COMPARISON STUDY: None FINDINGS: Nasogastric tube within the stomach. Generalized post operative ileus. Midline suture line. Surgical drain within the soft tissue pelvis. Left-sided ostomy is present. IMPRESSION: Moderate post operative ileus. The above report was generated using voice recognition software. It may contain grammatical, syntax or spelling errors. Electronically signed by: Taurus Mcconnell M.D. 12/06/2018 8:30 AM
[2018-12-06] MEDS: LACTATED RINGER'S 1,000 ML IV SCH (08:45)
[2018-12-06] MEDS: METOPROLOL SUCC 50MG EXT REL TAB PO SCH (08:54)
--- NOTE | 2018-12-06 08:59 | Surgery Progress Note ---
Date of Service December 06, 2018 Assessment & Plan (1) Diverticulitis of colon with perforation: pod 4 expected slow return of bowel fx keep NGT until stoma functions WBC normalizing [facility] covering for weekend. Subjective pt down in radiology. Results & Data Vital Signs (Past 12 Hours) Vital Signs Temp Pulse Pulse Resp BP Pulse Ox 12/06/18 07:12 37.0 C 74 18 125/72 95 12/06/18 04:00 36.8 C 70 18 123/67 98 12/06/18 00:00 37.0 C 70 17 102/69 94 12/05/18 22:45 63 (1) Diverticulitis of colon with perforation Diverticulitis bleeding: unspecified bleeding status Qualified Code(s): K57.20 - Diverticulitis of large intestine with perforation and abscess without bleeding
--- NOTE | 2018-12-06 10:39 | Cardiology Progress Note ---
Date of Service December 06, 2018 Assessment & Plan (1) Diverticulitis of colon with perforation: 2. Coronary artery disease post anterior [place] and prior WAYNE to mid LAD 3. Ischemic cardiomyopathyprior EF 30 to 35%, most recently LV dysfunction resolved EF 50-55 11/2018 4. Anemia 5. Sinus tachycardia POD#4 post sigmoid colectomy with colostomy for diverticulitis with perforation. --patient remains chest pain free and hemodynamically stable --well perfused and no significant congestion on exam --hemoglobin stable at 9.2; DAPT on hold, restart as soon as deemed safe from surgical standpoint with ASA first --continue toprol XL Supervising Physician Co-Signing Physician Notes Patient seen and examined. Agree with assessment and plan as outlined by MATI Yang. Would restart ASA if felt safe from a surgical standpoint. Subjective No acute complaints. Continues to have NG tube in. Reports some improvement in abdominal discomfort. No chest pain or shortness of breath. Tele reviewed-- sinus rhythm, no events Review of Systems Review of Systems: All systems reviewed & are unremarkable except as noted in HPI & below Physical Exam Physical Exam: General: No acute distress. HEENT: Sclerae anicteric. +NG tube in place. Neck: No appreciable JVD. Lungs: Clear to auscultation bilaterally without rales, rhonchi or wheezes. Cardiac: Regular rate and rhythm. S1-S2 normal. No appreciable murmur, gallop or rub. Extremities/vascular: Well perfused. No peripheral edema. Radial, DP and PT pulses 2+ bilaterally Results & Data Vital Signs (Past 12 Hours) Vital Signs Temp Pulse Pulse Resp BP Pulse Ox 12/06/18 08:00 81 12/06/18 07:12 37.0 C 74 18 125/72 95 12/06/18 04:00 36.8 C 70 18 123/67 98 12/06/18 00:00 37.0 C 70 17 102/69 94 12/05/18 22:45 63 Laboratory Results Laboratory Results - last 24 hr 12/06/18 12/06/18 05:45 05:45 WBC 10.30 RBC 2.96 L Hgb 9.2 L Hct 26.2 L MCV 88.5 MCH 31.1 MCHC 35.1 RDW Std Deviation 42.3 RDW Coeff of Héctor 13.0 Plt Count 323 MPV 9.1 Immature Gran % (Auto) 0.3 Neut % (Auto) 74.0 Lymph % (Auto) 14.6 Petroleum % (Auto) 8.0 Eos % (Auto) 2.8 Baso % (Auto) 0.3 Immature Gran # (Auto) 0.03 H Neut # (Auto) 7.63 H Lymph # (Auto) 1.50 Petroleum # (Auto) 0.82 H Eos # (Auto) 0.29 Baso # (Auto) 0.03 Sodium 136 Potassium 3.3 L Chloride 97 L Carbon Dioxide 33 H Anion Gap 6.0 BUN 10 Creatinine 0.47 L Est Cr Clr Drug Dosing 210.7 Est GFR ( Amer) > 150.0 Est GFR (Non-Af Amer) 142.0 BUN/Creatinine Ratio 21.1 H Glucose 78 Calcium 8.5 (1) Diverticulitis of colon with perforation Diverticulitis bleeding: unspecified bleeding status Qualified Code(s): K57.20 - Diverticulitis of large intestine with perforation and abscess without bleeding
[2018-12-06] MEDS: FLUCONAZOLE 200 MG/100 ML BAG IV SCH ×2 (13:05→15:08)
[2018-12-06] MEDS: ASPIRIN 81 MG ECTAB PO SCH (13:07)
[2018-12-06] MEDS: D5W AND 1/2NSS + 20MEQ KCL 20 MEQ/1,000 ML BAG IV SCH ×2 (13:07→20:37)
[2018-12-06] MEDS: TICAGRELOR 90 MG TAB PO SCH (20:38)
[2018-12-07] MEDS: HYDROmorphone INJ 2 MG/ML SYR/VIAL IV PRN ×7 (00:07→19:08)
[2018-12-07] MEDS: PIPERACILLIN/TAZOBACTAM 3.375 GM in DEXTROSE 5% 100 ML IV SCH ×4 (00:08→23:33)
[2018-12-07] MEDS: D5W AND 1/2NSS + 20MEQ KCL 20 MEQ/1,000 ML BAG IV SCH ×2 (04:43→14:48)
[2018-12-07 06:47] LABS: Basophils # (auto) 0.03 K/uL (0-0.2); Basophils % (auto) 0.4 %; Eosinophils # (auto) 0.19 K/uL (0-0.5); Eosinophils % (auto) 2.4 %; Hematocrit (blood only) 25.9 % (42-52); Hemoglobin 9.1 g/dL (14.0-18.0); Immature Granulocytes # (auto) 0.03 K/uL (0.00-0.02); Immature Granulocytes % (auto) 0.4 %; Lymphocytes # (auto) 1.18 K/uL (1.2-3.4); Lymphocytes % (auto) 14.8 %; Mean Corpuscular Hgb Conc 35.1 g/dL (32-36); Mean Corpuscular Volume 88.4 fL (80-100); Mean Platelet Volume 9.3 fL (7.4-10.4); Monocytes % (auto) 6.3 %; Neutrophils # (auto) 6.06 K/uL (1.4-6.5); Neutrophils % (auto) 75.7 %; Platelet Count 322 K/uL (130-400); RDW Standard Deviation 42.4 fL (36.4-46.3); Red Blood Count 2.93 M/uL (4.7-6.1); White Blood Count 7.99 K/uL (4.8-10.8)
[2018-12-07 07:17] LABS: BUN Creatinine Ratio 6.2 (10-20); Blood Urea Nitrogen 3 mg/dl (7-18); Calcium 8.5 mg/dl (8.5-10.1); Carbon Dioxide 32 mmol/L (21-32); Chloride 98 mmol/L (98-107); Est GFR (African American) > 150.0; Est GFR (Non-African American) 138.4; Glucose 123 mg/dl (70-99); Potassium 3.1 mmol/L (3.5-5.1); Sodium 136 mmol/L (136-145)
[2018-12-07] MEDS: METOPROLOL SUCC 50MG EXT REL TAB PO SCH (08:43)
[2018-12-07] MEDS: ASPIRIN 81 MG ECTAB PO SCH (08:44)
[2018-12-07] MEDS: ENOXAPARIN INJ 40 MG/0.4 ML SYR SQ SCH (08:45)
[2018-12-07] MEDS: TICAGRELOR 90 MG TAB PO SCH ×2 (08:48→20:32)
--- NOTE | 2018-12-07 10:28 | Cardiology Progress Note ---
Date of Service December 07, 2018 Assessment & Plan (1) Diverticulitis of colon with perforation: 2. Coronary artery disease post anterior TN and prior WAYNE to mid LAD 3. Ischemic cardiomyopathyprior EF 30 to 35%, most recently LV dysfunction resolved EF 50-55 11/2018 4. Anemia 5. Sinus tachycardia POD#5 post sigmoid colectomy with colostomy for diverticulitis with perforation. Stable from a cardiac standpoint. Restarted on ASA/Ticagrelor. Hb stable. No signs of heart failure on exam. Continue current DAPT, toprol. Can add statin back at some point when tolerating POs. Cardiology to sign off. Contact if questions. Subjective No acute complaints. Continues to have NG tube in. Reports some improvement in abdominal discomfort. No chest pain or shortness of breath. Tele reviewed-- sinus rhythm, no events Physical Exam Constitutional: WD/WN, vitals as above Eyes: + anicteric sclerae Respiratory: normal respiratory effort, lungs clear to auscultation Cardiovascular: Rate/Rhythm: regular rate Heart Sounds: no murmur Vessels: no JVD Extremities: no edema Gastrointestinal (Abdomen): Percussion/Palpation: + abdomen tender brown liquid stool in colostomy bag. serosang fluid in LEDY drain Skin: no rashes, warm and dry Neurologic: moves all extremities Psychiatric: A+Ox3, euthymic affect Results & Data Vital Signs (Past 12 Hours) Vital Signs Temp Pulse Pulse Resp BP Pulse Ox Pulse Ox 12/07/18 08:00 73 93 12/07/18 07:01 36.9 C 85 16 119/72 93 12/07/18 03:28 37.3 C 74 16 107/66 94 12/06/18 23:39 37.3 C 82 18 115/64 95 (1) Diverticulitis of colon with perforation Diverticulitis bleeding: unspecified bleeding status Qualified Code(s): K57.20 - Diverticulitis of large intestine with perforation and abscess without bleeding
[2018-12-07] MEDS: FLUCONAZOLE 200 MG/100 ML BAG IV SCH ×2 (12:09→12:58)
--- NOTE | 2018-12-07 12:32 | Surgery Progress Note ---
Date of Service December 07, 2018 Assessment & Plan (1) Sigmoid diverticulitis: s/p Yonny's procedure - POD#5 Postop ileus - starting to have stool in bag but still very distended with hypoactive bowel tones. Keep ng tube in for now. Continue to increase activity as tolerated. Hypokalemia - will replete. Subjective POD#5 from Yonny's with postop ileus. Ostomy has started functioning (slight gas, liquid) but still feels bloated/ tight/ pressure. When was disconnected from ng suction for walk yesterday, felt more distended which relieved once placed back on suction. Pain otherwise manageable. Review of Systems Review of Systems: All systems reviewed & are unremarkable except as noted in HPI & below Physical Exam Constitutional: WD/WN, vitals as above Respiratory: normal respiratory effort, lungs clear to auscultation Cardiovascular: RRR, no murmur, no edema Gastrointestinal (Abdomen): Inspection/Auscultation: + abdomen distended (moderate) and + hypoactive bowel sounds Percussion/Palpation: abdomen soft; no guarding incision clean. LEDY 85 cc serosanguinous. Neurologic: moves all extremities and awake; no focal motor deficits Psychiatric: A+Ox3, euthymic affect Results & Data Vital Signs (Past 12 Hours) Vital Signs Temp Pulse Pulse Resp BP Pulse Ox Pulse Ox 12/07/18 08:00 73 93 12/07/18 07:01 36.9 C 85 16 119/72 93 12/07/18 03:28 37.3 C 74 16 107/66 94
[2018-12-07] MEDS: POTASSIUM CHLORIDE / WTR 10 MEQ/100 ML PLCT IV SCH ×2 (13:15→14:48)
[2018-12-07] MEDS: HYDROCODONE/ACETAMINOPHEN 10/325 TAB PO PRN (22:14)
[2018-12-08] MEDS: KETOROLAC 30 MG/ML VIAL IV PRN ×2 (00:55→15:07)
[2018-12-08] MEDS: HYDROCODONE/ACETAMINOPHEN 10/325 TAB PO PRN ×4 (04:10→23:07)
[2018-12-08] MEDS: D5W AND 1/2NSS + 20MEQ KCL 20 MEQ/1,000 ML BAG IV SCH ×4 (04:20→23:03)
[2018-12-08 07:40] LABS: Basophils # (auto) 0.01 K/uL (0-0.2); Basophils % (auto) 0.1 %; Eosinophils # (auto) 0.23 K/uL (0-0.5); Eosinophils % (auto) 3.2 %; Hematocrit (blood only) 26.1 % (42-52); Hemoglobin 9.1 g/dL (14.0-18.0); Immature Granulocytes # (auto) 0.04 K/uL (0.00-0.02); Immature Granulocytes % (auto) 0.6 %; Lymphocytes # (auto) 1.27 K/uL (1.2-3.4); Lymphocytes % (auto) 17.8 %; Mean Corpuscular Hgb Conc 34.9 g/dL (32-36); Mean Corpuscular Volume 88.5 fL (80-100); Mean Platelet Volume 9.2 fL (7.4-10.4); Monocytes # (auto) 0.38 K/uL (0.11-0.59); Monocytes % (auto) 5.3 %; Platelet Count 311 K/uL (130-400); RDW Coefficient of Variation 13.1 % (11.5-14.5); RDW Standard Deviation 42.6 fL (36.4-46.3); Red Blood Count 2.95 M/uL (4.7-6.1); White Blood Count 7.13 K/uL (4.8-10.8)
[2018-12-08 08:10] LABS: BUN Creatinine Ratio 6.6 (10-20); Blood Urea Nitrogen 4 mg/dl (7-18); Calcium 8.8 mg/dl (8.5-10.1); Carbon Dioxide 31 mmol/L (21-32); Chloride 104 mmol/L (98-107); Creatinine Clr Calc Pharmacy 184.9 ml/min; Est GFR (African American) > 150.0; Est GFR (Non-African American) 135.2; Glucose 114 mg/dl (70-99); Potassium 3.5 mmol/L (3.5-5.1); Sodium 139 mmol/L (136-145)
[2018-12-08] MEDS: PIPERACILLIN/TAZOBACTAM 3.375 GM in DEXTROSE 5% 100 ML IV SCH ×2 (08:15→16:56)
[2018-12-08] MEDS: HYDROmorphone INJ 1 MG/ML SYRINGE IV PRN (08:20)
[2018-12-08] MEDS: TICAGRELOR 90 MG TAB PO SCH ×2 (08:32→21:28)
[2018-12-08] MEDS: METOPROLOL SUCC 50MG EXT REL TAB PO SCH (08:32)
[2018-12-08] MEDS: ASPIRIN 81 MG ECTAB PO SCH (08:32)
[2018-12-08] MEDS: FLUCONAZOLE 200 MG/100 ML BAG IV SCH ×2 (11:33→12:47)
--- NOTE | 2018-12-08 12:49 | Surgery Progress Note ---
Date of Service December 08, 2018 Assessment & Plan (1) Sigmoid diverticulitis: s/p Yonny's procedure - POD#6 Postop ileus appears to be resolving - will trial ng clamping today. OK to have water/ sherbets. Offered other alternatives to help him sleep but he is not interested. Continue to increase activity as tolerated. Subjective POD#6 from Yonny's with postop ileus. Ostomy has started functioning (gas/ dark liquid). Still bloated. Worried about having to put ng tube back in. Last night, upset when he didn't have IV dilaudid to help him with pain/ sleeping. Family at bedside. Physical Exam Constitutional: WD/WN, vitals as above Respiratory: normal respiratory effort, lungs clear to auscultation Gastrointestinal (Abdomen): Inspection/Auscultation: + abdomen distended (moderate) and normal bowel sounds Percussion/Palpation: abdomen soft; no guarding incision clean, ostomy full with gas/ dark liquid Neurologic: moves all extremities and awake; no focal motor deficits Psychiatric: A+Ox3, euthymic affect Results & Data Vital Signs (Past 12 Hours) Vital Signs Temp Pulse Resp BP Pulse Ox 12/08/18 11:27 36.8 C 81 22 107/87 92 12/08/18 07:52 36.9 C 82 14 101/57 L 97 12/08/18 04:00 36.9 C 70 11 L 133/87 98
--- NOTE | 2018-12-08 15:21 | Hospitalist Progress Note ---
Date of Service December 08, 2018 Assessment & Plan (1) Diverticulitis of colon with perforation: 38 y/o M hx CAD - [place] 03/2018. The pt was admitted with diverticulitis and a microperforation 10/19 after having failed outpt antibiotics for said condition. He was discharged 10/22 with a course of antibiotics and plan for elective sigmoidectomy. The pt developed recurrence of RLQ abdominal pain over the past 2 days and returned to the ER for evaluation. A CT of the abdomen in the ER demonstrated diverticulitis with perforation and pneumoperitoneum. The pt states that he may have had some CP earlier in the day, however, he describes this as lower chest pain and felt that it was radiation from the abdomen, not similar to the CP he experienced with his [place]. 1) Perforated diverticulitis - the pt proceeded directly to the OR. Prior to surgery, the surgeon had contacted he pt's shear operator automatic and made him aware that he was proceeding to the OR. The medical service will follow daily pending DC. 2) CAD - The pt will be placed on IV Metoprolol. He took his daily meds including ASA and Brilinta the day of admission which the surgeon is aware of. These should be continued at the earliest possible time post-operatively considering recent stenting of his LAD. He will continue a Statin when tolerated. 3) HTN - IV meds until he can tolerate Lisinopril. 4) HLD - as above - resume statin therapy when possible. Full code Subjective Pt with ongoing abd pain and distention. Ongoing SOB issues. Pt denies fever, chest pain, n/v/c/d, LE pain or swelling. Review of Systems Review of Systems: Pertinent positives and negatives reviewed in HPI--all others negative Physical Exam Constitutional: WD/WN, vitals as above Eyes: normal visual li by confrontation and + anicteric sclerae Neck: normal visual inspection and trachea midline Respiratory: normal respiratory effort, lungs clear to auscultation Cardiovascular: Rate/Rhythm: regular rate and regular rhythm Gastrointestinal (Abdomen): Inspection/Auscultation: + abdomen distended Percussion/Palpation: + abdomen tender Musculoskeletal: Head/Neck/Chest: normocephalic and head atraumatic negative for edema, peripheral pulses intact Skin: no rashes, warm and dry Neurologic: awake; not confused Speech / Cognition: normal speech Psychiatric: A+Ox3, euthymic affect Results & Data Vital Signs (Past 12 Hours) Vital Signs Temp Pulse Resp BP Pulse Ox 12/08/18 14:28 38.5 C H 88 14 130/82 90 12/08/18 11:27 36.8 C 81 22 107/87 92 12/08/18 07:52 36.9 C 82 14 101/57 L 97 12/08/18 04:00 36.9 C 70 11 L 133/87 98 (1) Diverticulitis of colon with perforation Diverticulitis bleeding: unspecified bleeding status Qualified Code(s): K57.20 - Diverticulitis of large intestine with perforation and abscess without bleeding
[2018-12-09] MEDS: PIPERACILLIN/TAZOBACTAM 3.375 GM in DEXTROSE 5% 100 ML IV SCH ×4 (00:07→23:39)
[2018-12-09 05:34] LABS: Basophils # (auto) 0.01 K/uL (0-0.2); Basophils % (auto) 0.2 %; Eosinophils # (auto) 0.22 K/uL (0-0.5); Eosinophils % (auto) 3.7 %; Hematocrit (blood only) 27.7 % (42-52); Hemoglobin 9.5 g/dL (14.0-18.0); Immature Granulocytes # (auto) 0.04 K/uL (0.00-0.02); Immature Granulocytes % (auto) 0.7 %; Lymphocytes # (auto) 1.18 K/uL (1.2-3.4); Lymphocytes % (auto) 19.9 %; Mean Corpuscular Hgb Conc 34.3 g/dL (32-36); Mean Corpuscular Volume 89.4 fL (80-100); Mean Platelet Volume 8.9 fL (7.4-10.4); Monocytes # (auto) 0.36 K/uL (0.11-0.59); Monocytes % (auto) 6.1 %; Neutrophils # (auto) 4.11 K/uL (1.4-6.5); Neutrophils % (auto) 69.4 %; Platelet Count 317 K/uL (130-400); RDW Coefficient of Variation 13.2 % (11.5-14.5); RDW Standard Deviation 42.8 fL (36.4-46.3); White Blood Count 5.92 K/uL (4.8-10.8)
[2018-12-09 06:01] LABS: BUN Creatinine Ratio 5.3 (10-20); Calcium 8.6 mg/dl (8.5-10.1); Est GFR (African American) 138.9; Est GFR (Non-African American) 119.9
[2018-12-09] MEDS: D5W AND 1/2NSS + 20MEQ KCL 20 MEQ/1,000 ML BAG IV SCH ×2 (06:28→12:46)
[2018-12-09] MEDS: HYDROmorphone INJ 1 MG/ML SYRINGE IV PRN (07:33)
--- NOTE | 2018-12-09 08:24 | Surgery Progress Note ---
Date of Service December 09, 2018 Assessment & Plan (1) Diverticulitis of colon with perforation: clinically improving will initiate diet. increase activity can probably d/c drain soon. Subjective no new complaints. no n/v. pain control adequate. Physical Exam Physical Exam: alert. nad abd: soft. wound looks good. stoma functioning. liquid stool/gas Results & Data Vital Signs (Past 12 Hours) Vital Signs Temp Pulse Resp BP BP Pulse Ox 12/09/18 07:18 37.2 C 96 H 16 112/76 95 12/08/18 23:10 37 C 72 16 103/66 93 (1) Diverticulitis of colon with perforation Diverticulitis bleeding: unspecified bleeding status Qualified Code(s): K57.20 - Diverticulitis of large intestine with perforation and abscess without bleeding
[2018-12-09] MEDS: TICAGRELOR 90 MG TAB PO SCH ×2 (08:37→20:29)
[2018-12-09] MEDS: METOPROLOL SUCC 50MG EXT REL TAB PO SCH (08:37)
[2018-12-09] MEDS: ASPIRIN 81 MG ECTAB PO SCH (08:37)
[2018-12-09] MEDS: FLUCONAZOLE 200 MG/100 ML BAG IV SCH ×2 (12:09→12:46)
[2018-12-09] MEDS: HYDROCODONE/ACETAMINOPHEN 10/325 TAB PO PRN ×3 (12:15→20:25)
--- NOTE | 2018-12-09 20:47 | Hospitalist Progress Note ---
Date of Service December 09, 2018 Assessment & Plan (1) Diverticulitis of colon with perforation: 38 y/o M hx CAD - [place] 03/2018. The pt was admitted with diverticulitis and a microperforation 10/19 after having failed outpt antibiotics for said condition. He was discharged 10/22 with a course of antibiotics and plan for elective sigmoidectomy. The pt developed recurrence of RLQ abdominal pain over the past 2 days and returned to the ER for evaluation. A CT of the abdomen in the ER demonstrated diverticulitis with perforation and pneumoperitoneum. The pt states that he may have had some CP earlier in the day, however, he describes this as lower chest pain and felt that it was radiation from the abdomen, not similar to the CP he experienced with his CT. 1) Perforated diverticulitis - the pt proceeded directly to the OR. Prior to surgery, the surgeon had contacted he pt's creosoting engineer and made him aware that he was proceeding to the OR. The medical service will follow daily pending DC. 2) CAD - The pt will be placed on IV Metoprolol. He took his daily meds including ASA and Brilinta the day of admission which the surgeon is aware of. These should be continued at the earliest possible time post-operatively considering recent stenting of his LAD. He will continue a Statin when tolerated. 3) HTN - IV meds until he can tolerate Lisinopril. 4) HLD - as above - resume statin therapy when possible. Full code Subjective Pt is feeling much better today. NGT d/c and OOB. He did tolerate some PO. Pt was noted in the common area with multiple family members. SO feels he looks much better. Still with abd pain, but better. Pt denies fever, SOB, chest pain, n/v/c/d, LE pain or swelling. Review of Systems Review of Systems: Pertinent positives and negatives reviewed in HPI--all others negative Physical Exam Constitutional: WD/WN, vitals as above Eyes: normal visual li by confrontation and + anicteric sclerae Neck: normal visual inspection and trachea midline Respiratory: normal respiratory effort, lungs clear to auscultation Cardiovascular: Rate/Rhythm: regular rate and regular rhythm Gastrointestinal (Abdomen): Inspection/Auscultation: + abdomen distended Percussion/Palpation: + abdomen tender Musculoskeletal: Head/Neck/Chest: normocephalic and head atraumatic Skin: no rashes, warm and dry Neurologic: awake; not confused Speech / Cognition: normal speech Psychiatric: A+Ox3, euthymic affect Results & Data Vital Signs (Past 12 Hours) Vital Signs Temp Pulse Resp BP Pulse Ox 12/09/18 15:05 37.6 C H 95 H 15 94/66 L 95 (1) Diverticulitis of colon with perforation Diverticulitis bleeding: unspecified bleeding status Qualified Code(s): K57.20 - Diverticulitis of large intestine with perforation and abscess without bleeding
[2018-12-10] MEDS: HYDROCODONE/ACETAMINOPHEN 10/325 TAB PO PRN ×3 (00:51→20:23)
[2018-12-10] MEDS: HYDROmorphone INJ 1 MG/ML SYRINGE IV PRN (03:35)
--- NOTE | 2018-12-10 07:42 | Surgery Progress Note ---
Date of Service December 10, 2018 Assessment & Plan (1) Diverticulitis of colon with perforation: diet as flavio can probably d/c drain soon as above. doing well. try reg diet today plan d/c tomorrow. will d/c drain prior to d/c Subjective feeling well, tolerating liquids Physical Exam Gastrointestinal (Abdomen): Inspection/Auscultation: + abdominal surgical incision (clean, dry) and + abdominal surgical drain present (10 cc serous) Results & Data Vital Signs (Past 12 Hours) Vital Signs Temp Pulse Pulse Resp BP BP Pulse Ox 12/10/18 06:45 37.3 C 83 20 105/70 93 12/09/18 23:35 36.8 C 59 L 16 98/64 L 93 (1) Diverticulitis of colon with perforation Diverticulitis bleeding: unspecified bleeding status Qualified Code(s): K57.20 - Diverticulitis of large intestine with perforation and abscess without bleeding
[2018-12-10] MEDS: PIPERACILLIN/TAZOBACTAM 3.375 GM in DEXTROSE 5% 100 ML IV SCH ×3 (07:51→23:43)
[2018-12-10] MEDS: TICAGRELOR 90 MG TAB PO SCH ×2 (08:25→20:23)
[2018-12-10] MEDS: ASPIRIN 81 MG ECTAB PO SCH (08:25)
[2018-12-10] MEDS: METOPROLOL SUCC 50MG EXT REL TAB PO SCH (08:26)
[2018-12-10] MEDS: FLUCONAZOLE 100 MG TAB PO SCH (13:00)
--- NOTE | 2018-12-10 21:12 | Hospitalist Progress Note ---
Date of Service December 10, 2018 Assessment & Plan (1) Diverticulitis of colon with perforation: 38 y/o M hx CAD - [place] 03/2018. The pt was admitted with diverticulitis and a microperforation 10/19 after having failed outpt antibiotics for said condition. He was discharged 10/22 with a course of antibiotics and plan for elective sigmoidectomy. The pt developed recurrence of RLQ abdominal pain over the past 2 days and returned to the ER for evaluation. A CT of the abdomen in the ER demonstrated diverticulitis with perforation and pneumoperitoneum. The pt states that he may have had some CP earlier in the day, however, he describes this as lower chest pain and felt that it was radiation from the abdomen, not similar to the CP he experienced with his [place]. 1) Perforated diverticulitis - the pt proceeded directly to the OR. Prior to surgery, the surgeon had contacted he pt's bilingual medical receptionist and made him aware that he was proceeding to the OR. The medical service will follow daily pending DC. NGT d/c'd and doing well Diet as per surgery 2) CAD - The pt will be placed on IV Metoprolol. He took his daily meds including ASA and Brilinta the day of admission which the surgeon is aware of. These should be continued at the earliest possible time post-operatively considering recent stenting of his LAD. He will continue a Statin when tolerated. 3) HTN - IV meds until he can tolerate Lisinopril. 4) HLD - as above - resume statin therapy when possible. Full code Subjective Pt continues to feel better. Still with abd pain, but better. Tolerating PO. Pt denies fever, SOB, chest pain, n/v/c/d, LE pain or swelling. Review of Systems Review of Systems: Pertinent positives and negatives reviewed in HPI--all others negative Physical Exam Constitutional: WD/WN, vitals as above Eyes: normal visual li by confrontation and + anicteric sclerae Neck: normal visual inspection and trachea midline Respiratory: normal respiratory effort, lungs clear to auscultation Cardiovascular: Rate/Rhythm: regular rate and regular rhythm Gastrointestinal (Abdomen): Inspection/Auscultation: + abdomen distended Percussion/Palpation: + abdomen tender Musculoskeletal: Head/Neck/Chest: normocephalic and head atraumatic Skin: no rashes, warm and dry Neurologic: awake; not confused Speech / Cognition: normal speech Psychiatric: A+Ox3, euthymic affect Results & Data Vital Signs (Past 12 Hours) Vital Signs Temp Pulse Resp BP Pulse Ox 12/10/18 15:43 37.6 C H 93 H 17 102/68 96 (1) Diverticulitis of colon with perforation Diverticulitis bleeding: unspecified bleeding status Qualified Code(s): K57.20 - Diverticulitis of large intestine with perforation and abscess without bleeding
[2018-12-11] MEDS: PIPERACILLIN/TAZOBACTAM 3.375 GM in DEXTROSE 5% 100 ML IV SCH (07:28)
[2018-12-11] MEDS: FLUCONAZOLE 100 MG TAB PO SCH (07:32)
[2018-12-11] MEDS: ASPIRIN 81 MG ECTAB PO SCH (07:33)
[2018-12-11] MEDS: TICAGRELOR 90 MG TAB PO SCH (07:33)
[2018-12-11] MEDS: METOPROLOL SUCC 50MG EXT REL TAB PO SCH (07:33)
--- NOTE | 2018-12-11 08:15 | Surgery Progress Note ---
Date of Service December 11, 2018 Assessment & Plan (1) Diverticulitis of colon with perforation: doing well ok for d/c I do not believe antibiotics are needed at d/c home nursing arranged to assist with stoma adjustment. f/u in office in 1 week. Subjective doing well. no pain. flavio diet. was outside in healing [place] for 2 hours yesterday. Physical Exam Physical Exam: alert. nad abd: soft. wound looks good. stoma pink/functioning. Results & Data Vital Signs (Past 12 Hours) Vital Signs Temp Pulse Resp BP Pulse Ox 12/11/18 07:35 36.9 C 78 18 100/65 94 12/10/18 23:00 36.9 C 60 16 122/69 96 (1) Diverticulitis of colon with perforation Diverticulitis bleeding: unspecified bleeding status Qualified Code(s): K57.20 - Diverticulitis of large intestine with perforation and abscess without bleeding
[2018-12-11] MEDS: HYDROCODONE/ACETAMINOPHEN 10/325 TAB PO PRN (10:30)
--- NOTE | 2018-12-11 11:18 | Hospitalist Progress Note ---
Date of Service December 11, 2018 Assessment & Plan (1) Diverticulitis of colon with perforation: s/p Exploratory Laparotomy, Sigmoid colectomy with end colostomy, abdominal washout - by Dr Iglesias. Doing well from surgical standpoint. f/u gen surg as directed. Present on Admission?: Yes (2) CAD (coronary artery disease): Resumed asa, lipitor, brilinta, JOLLY, and beta bianka. No ischemic symptoms at this time. Present on Admission?: No (3) HTN (hypertension): Controlled; continue home meds. Present on Admission?: Yes (4) Tobacco use disorder: Counseled to quit. Present on Admission?: Yes (5) Bronchitis: wheezing on exam c/w bronchitis. he cleared nicely with combivent inhaler this AM. cxr w/o infiltrates or edema. continue combivent after discharge. if no improvement over the next week then consider steroids as outpatient. Present on Admission?: No (6) Acute blood loss anemia: recommended ferrous sulfate 325mg BID for 1-2 months post-discharge. from medical standpoint can d/c home today. Present on Admission?: No Subjective patient feels well. anxious to get home today. denies any abdominal complaints. he has had cough and wheeze. required O2 earlier his stay. denies any BRAY. he has been a long-time smoker. Review of Systems Constitutional: no fever Respiratory: no dyspnea, no dyspnea on exertion and no sputum production Cardiovascular: no chest pain Gastrointestinal: no abdominal pain Physical Exam Constitutional: well developed and well nourished; no acute distress ENMT: external ear and nose normal, oropharynx normal Respiratory: Auscultation: + wheezes; no crackles Cardiovascular: Rate/Rhythm: regular rate and regular rhythm Heart Sounds: normal S1 and normal S2; no murmur Vessels: posterior tibial pulses present and dorsalis pedis pulses present; no JVD Gastrointestinal (Abdomen): normal bowel sounds, soft, nontender, no hepatosplenomegaly colostomy in place with brown stool Psychiatric: A+Ox3, euthymic affect Results & Data Vital Signs (Past 12 Hours) Vital Signs Temp Pulse Pulse Resp BP BP Pulse Ox 12/11/18 09:42 36.9 C 83 78 18 105/70 100/65 94 12/11/18 07:35 36.9 C 78 18 100/65 94 Laboratory Results chest x-ray - no infiltrates or edema. (1) CAD (coronary artery disease) Associated angina: without angina Coronary Disease-Associated Artery/Lesion type: yocha dehe artery Teller vs. transplanted heart: yocha dehe heart Qualified Code(s): I25.10 - Atherosclerotic heart disease of yocha dehe coronary artery without angina pectoris (2) Diverticulitis of colon with perforation Diverticulitis bleeding: unspecified bleeding status Qualified Code(s): K57.20 - Diverticulitis of large intestine with perforation and abscess without bleeding (3) HTN (hypertension) Hypertension type: essential hypertension Qualified Code(s): I10 - Essential (primary) hypertension
[2018-12-11] MEDS ORDERED: guaiFENesin 600 MG TABCR PO SCH (11:20)
[2018-12-11] MEDS ORDERED: IPRATROPIUM BROMIDE/ALBUTEROL respimat INH INH SCH (11:20)
--- NOTE | 2018-12-11 12:02 | XRay Report ---
XR chest 2V routine CLINICAL HISTORY: b/l wheezes, rhonchi COMPARISON STUDY: 12/01/2018, 08/11/2016 FINDINGS: The heart is the upper limits of normal in size. Slight hilar prominence remains unchanged from prior studies. There is no focal pulmonary consolidation. There is no failure. There are no pleu ral effusions.[ IMPRESSION: No active disease in the chest. Electronically signed by: Ezekiel German M.D. 12/11/2018 12:01 PM
--- NOTE | 2018-12-21 03:28 | Discharge Summary ---
PRIMARY DISCHARGE DIAGNOSES: 1. Perforated diverticulitis with peritonitis. 2. Blood loss anemia. 3. Bronchitis. SECONDARY DISCHARGE DIAGNOSES: 1. Coronary artery disease. 2. Hypertension. 3. Hyperlipidemia. PROCEDURE PERFORMED: Exploratory laparotomy with sigmoid colectomy, abdominal washout and end colostomy. CONSULTATIONS: 1. [facility] hospitalist to assist in medical management. 2. [facility] Cardiology for history of coronary artery disease and ischemic cardiomyopathy. HOSPITAL COURSE: The patient is a 38-year-old male recently admitted twice for diverticulitis. He was discharged recently from [facility] and returned to [facility] complaining of increasing abdominal pain. CT showed perforated appendicitis with a 4 x 2 cm fluid collection. He was taken to the Operating Room overnight for exploratory laparotomy, washout and colostomy. Hospitalist was consulted routinely. Cardiology also has been consulted and continued to follow him during his hospitalization. The procedure was well tolerated. He was transferred to PCU postoperatively for cardiac monitoring. He was continued on IV Zosyn. Postoperative day 2, he was complaining of some nausea and bloating. NG tube was placed overnight. He had persistent nausea. His cultures grew grow Deysi albicans and Diflucan was added to Zosyn. By day 3 his white count had normalized. He was afebrile. His bowel function was slow to return. He had some colostomy output beginning postoperative day 5, but remained distended with minimal bowel sounds. By day 6, he was able to tolerate clamping of the NG tube and was later removed. He was started on clear liquids on postoperative day #7. He was transferred to regular surgical floor. His aspirin was continued. His Brilinta was resumed and prophylactic Lovenox discontinued at that time. His blood pressure remained stable and he also remained stable from a cardiac standpoint. He was able to tolerate an advancing diet beginning on postoperative day 8. His H and H equilibrated at 9.5 and 27.7. He did not require transfusion. He was tolerating oral analgesics by postoperative day 9. His incision was healing well. He had teaching for colostomy care. He was stable for discharge on postoperative day 9. He did have a cough, some wheezing. Chest x-ray was unremarkable and he was treated for bronchitis. DISCHARGE INSTRUCTIONS: Discharged home. Follow up with Dr. Iglesias's office in 1 week. Also follow up with his PCP in 1 week for bronchitis. DISCHARGE MEDICATIONS: Combivent 1 puff q.i.d., Mucinex 1200 mg b.i.d., ferrous sulfate 325 mg p.o. b.i.d., Percocet 1-2 tablets every 4 hours as needed for pain. Resume home medications; aspirin 81 mg daily, Lipitor 80 mg daily, Brilinta 90 mg b.i.d., lisinopril 2.5 mg daily, Toprol-XL 50 mg daily, Nitrostat 0.4 mg as needed. MTDD
== END 2018-12-11 14:22 | DRG 330 ==
LOC: ED 21:58 → 2E 12-02 02:17 → OR 12-02 02:17 → 2E 12-02 02:18 → 3E 12-08 14:24

== ENCOUNTER 2019-01-29 08:17 | Inpatient (IN) ==
[2019-01-29] MEDS ORDERED: MoRPHine SULFATE 10 MG/ML CARP/VIAL IV STA (08:44)
[2019-01-29] MEDS ORDERED: SODIUM CHLORIDE 0.9% 1000ML 1,000 ML IV ONE ×2 (08:44→10:21)
[2019-01-29] MEDS ORDERED: ACETAMINOPHEN 1,000 MG/100 ML VIAL IV STA (08:44)
[2019-01-29] MEDS ORDERED: ONDANSETRON INJ 2 MG/ML 2 ML VIAL IV STA (08:44)
--- NOTE | 2019-01-29 08:53 | Emergency Department Note ---
History of Present Illness General Chief complaint: Abdominal Pain Stated complaint: STOMACH PAIN ,HEADACHE Source: patient Mode of arrival: ambulatory Limitations: no limitations History of Present Illness Maximum Pain Intensity: 8 This patient is a 39-year-old male who presents the emergency department complaining of abdominal pain, weakness and lightheadedness. The patient states that his symptoms began 3 days ago. At that time, he began to develop some abdominal pain and was feeling weak. He has had persistent pain all over his abdomen which feels like a crampy pain. He states the pain is constant and rates the discomfort an 8/10. He has been feeling cold, weak and lightheaded. He has had no appetite. Patient states that the stool in his ostomy bag has been very watery. He had 2 episodes of vomiting beginning this morning. Patient states that he had a partial colectomy with colostomy 2 months ago due to perforated diverticulitis. He is supposed to be scheduled for surgery next month to have this reversed. Patient has not taken his temperature at home, but states he was told today he has a fever. Home Medications Home Medications Medication Instructions Recorded Confirmed Type Brilinta 90 mg PO BID 10/12/18 01/29/19 History aspirin 81 mg PO QAM 10/12/18 01/29/19 History atorvastatin [Lipitor] 80 mg PO QAM 10/12/18 01/29/19 History metoprolol succinate [Toprol XL] 50 mg PO QAM 10/12/18 01/29/19 History nitroglycerin [Nitrostat] 0.4 mg SUBLINGUAL UD PRN 10/12/18 01/29/19 History Allergies Allergy/AdvReac Type Severity Reaction Status Date / Time No Known Allergies Allergy Verified 01/29/19 10:26 Past Med/Surg History Medical History Acute diverticulitis (Acute) Cardiomyopathy, ischemic (Acute) LIFE [place] JUNE 2018 Acute blood loss anemia CAD (coronary artery disease) (Chronic) Diverticulitis of colon with perforation (Acute) NOVEMBER 2018 Myocardial infarction HTN (hypertension) (Chronic) Tobacco use disorder (Chronic) Colonic polyp Hyperlipidemia Myocardial infarction 03/2018 Surgical History History of bowel resection WITH COLOSTOMY 11/2018 History of colonoscopy History of esophagogastroduodenoscopy (EGD) History of heart artery stent 03/2018 (FOLLOWED BY DR. JHA) History of tooth extraction Family History Father Family history of diabetes mellitus Unknown Cancer Mother Cancer Grandmother Cancer Coronary heart disease Type 2 diabetes mellitus Grandfather Cancer Coronary heart disease Type 2 diabetes mellitus Grandfather Coronary heart disease Other Myocardial infarction Social History Preferred Language: Setswana Communication Ability: Effective Beliefs That Will Affect Care: None marital status: Current Living Situation: Spouse current occupational status: employed Other Information That Helps Us Care for You: No Feels Safe at Home: Yes Safety Concerns: Feels Safe At This Time Smoking Status: Current every day smoker Tobacco Type: cigarettes Cigarettes Per Day: 20 CIG DAILY Second Hand Exposure: No Hx Alcohol Use: Yes Alcohol type: beer Hx Substance Use: No Review of Systems A total of 10 systems reviewed and were otherwise negative Physical Exam Vital Signs Vital Signs - 24 hr 01/29/19 08:30 01/29/19 09:11 01/29/19 10:03 Temperature 39.2 C H Temperature Source Oral Sepsis Recent Fever Within 48 Hours Yes Sepsis Action Taken by Nursing Physician Notified Pulse Rate 143 H Pulse Rate [Left Finger] 125 H 106 H Pulse Rate from SpO2 Sensor Respiratory Rate 24 16 16 Respiratory Depth Normal Blood Pressure 101/65 Blood Pressure [Left Arm] 107/67 95/68 L Blood Pressure Mean 77 Blood Pressure Mean [Left Arm] 80 77 Blood Pressure Position Sitting Pulse Oximetry 97 96 96 Oxygen Delivery Method Room Air Room Air Room Air 01/29/19 10:34 01/29/19 11:00 01/29/19 11:01 Temperature 37.1 C Temperature Source Oral Sepsis Recent Fever Within 48 Hours Sepsis Action Taken by Nursing Pulse Rate 96 H 96 H Pulse Rate [Left Finger] 99 H Pulse Rate from SpO2 Sensor 96 H 96 H Respiratory Rate 14 20 19 Respiratory Depth Blood Pressure 93/54 L Blood Pressure [Left Arm] 101/59 L Blood Pressure Mean 67 Blood Pressure Mean [Left Arm] 73 Blood Pressure Position Pulse Oximetry 95 92 94 Oxygen Delivery Method Room Air 01/29/19 11:30 01/29/19 11:31 Temperature Temperature Source Sepsis Recent Fever Within 48 Hours Sepsis Action Taken by Nursing Pulse Rate 93 H 96 H Pulse Rate [Left Finger] Pulse Rate from SpO2 Sensor Respiratory Rate 16 19 Respiratory Depth Blood Pressure 95/59 L Blood Pressure [Left Arm] Blood Pressure Mean 71 Blood Pressure Mean [Left Arm] Blood Pressure Position Pulse Oximetry Oxygen Delivery Method VITALS: Vitals are noted on the nurse's note and reviewed by myself. Patient is tachycardic and febrile. GENERAL: This is a 39-year-old male, uncomfortable appearing, well-developed well-nourished. SKIN: The skin was without rashes. EARS: External auditory canals clear, tympanic membranes pearly sharp without erythema or effusion bilaterally. EYES: Pupils equal round and reactive to light and accommodation. Conjunctivae without injection, sclerae without icterus. MOUTH: Mucous membranes somewhat dry. NECK: Supple without nuchal rigidity. No lymphadenopathy. HEART: Tachycardic, regular rhythm without murmurs gallops or rubs. LUNGS: Clear to auscultation bilaterally without wheezes, rales or rhonchi. ABDOMEN: Colostomy in place in the left lower quadrant, stoma pink with no evidence surrounding infection. Positive bowel sounds x 4. Patient reports significant pain in palpation of all quadrants, guarding with minimal palpation. NEURO: Patient was alert and oriented to person place and time. Course Reevaluation(s) Reevaluation #1: Patient was reevaluated and is feeling somewhat better at this time. Reevaluation #2: Patient was reevaluated. Findings discussed with the patient and family members. They are agreeable to admission. Consultations Consultation #1: Dr. Chapman - [facility] – [place] hospitalist Administered Medications Heparin Sodium (Porcine) (Heparin Sodium (Porcine)) 5,000 units SQ Q8 SAURAV Stop: 02/28/19 14:29 Last Admin: 01/29/19 15:18 Dose: 5,000 units Documented by: [id number] Cosigned by: [id number] Metronidazole (Flagyl) 500 mg in 100 mls @ 100 mls/hr IV Q8H SAURAV Stop: 02/08/19 12:59 Last Infusion: 01/29/19 15:15 Dose: 0 mls/hr Documented by: [id number] Admin: 01/29/19 14:03 Dose: 100 mls/hr Documented by: [id number] Ciprofloxacin (Cipro) 400 mg in 200 mls @ 100 mls/hr IV Q12H SAURAV Stop: 02/08/19 13:59 Last Admin: 01/29/19 14:37 Dose: 100 mls/hr Documented by: [id number] Potassium Chloride/Sodium Chloride (Normal Saline W/20 Meq Kcl) 20 meq in 1,000 mls @ 150 mls/hr IV .Q6H40M SAURAV Stop: 01/30/19 02:49 Last Admin: 01/29/19 14:09 Dose: 150 mls/hr Documented by: [id number] Morphine Sulfate (Morphine Sulfate) 4 mg IV Q4H PRN PRN Reason: Pain Stop: 02/12/19 12:24 Last Admin: 01/29/19 13:55 Dose: 4 mg Documented by: [id number] Discontinued Medications Acetaminophen (Ofirmev) 1,000 mg in 100 mls @ 400 mls/hr IV NOW STA Stop: 01/29/19 08:58 Last Infusion: 01/29/19 09:25 Dose: 0 mls/hr Documented by: [id number] Admin: 01/29/19 09:07 Dose: 400 mls/hr Documented by: [id number] Sodium Chloride (Nss 1000ml) 1,000 mls @ 999 mls/hr IV .Q1H1M ONE Stop: 01/29/19 09:44 Last Infusion: 01/29/19 10:02 Dose: 0 mls/hr Documented by: [id number] Admin: 01/29/19 09:07 Dose: 999 mls/hr Documented by: [id number] Sodium Chloride (Nss 1000ml) 1,000 mls @ 999 mls/hr IV .Q1H1M ONE Stop: 01/29/19 11:21 Last Infusion: 01/29/19 11:39 Dose: 0 mls/hr Documented by: [id number] Admin: 01/29/19 10:34 Dose: 999 mls/hr Documented by: [id number] Potassium Chloride (K Michael / Wtr) 10 meq in 100 mls @ 100 mls/hr IV Q1H SAURAV Stop: 01/29/19 16:29 Last Admin: 01/29/19 14:40 Dose: 100 mls/hr Documented by: [id number] Infusion: 01/29/19 14:40 Dose: 100 mls/hr Documented by: [id number] Admin: 01/29/19 13:49 Dose: 100 mls/hr Documented by: [id number] Magnesium Sulfate/Dextrose (Magnesium Sulfate / D5w) 1 gm in 100 mls @ 100 mls/hr IV ONE ONE Stop: 01/29/19 14:29 Last Infusion: 01/29/19 14:36 Dose: 0 mls/hr Documented by: [id number] Admin: 01/29/19 13:41 Dose: 100 mls/hr Documented by: [id number] Ioversol (Optiray 320 100ml) 94 ml IV ONCE PRN PRN Reason: Interaction Checking Stop: 02/02/19 09:44 Last Admin: 01/29/19 09:46 Dose: 94 ml Documented by: [id number] Morphine Sulfate (Morphine Sulfate) 6 mg IV NOW STA Stop: 01/29/19 08:45 Last Admin: 01/29/19 09:07 Dose: 6 mg Documented by: [id number] Ondansetron HCl (Zofran) 4 mg IV NOW STA Stop: 01/29/19 08:45 Last Admin: 01/29/19 09:07 Dose: 4 mg Documented by: [id number] Raspberry (Raspberry) 5 ml PO ONE ONE Stop: 01/29/19 13:16 Last Admin: 01/29/19 13:55 Dose: 5 ml Documented by: [id number] Vancomycin HCl (Vancomycin Hcl) 250 mg PO ONE ONE Stop: 01/29/19 13:16 Last Admin: 01/29/19 13:55 Dose: 250 mg Documented by: [id number] Medical Decision Making Differential Diagnosis Differential diagnosis includes diverticulitis, colitis, perforated bowel, intra-abdominal abscess, enteritis, among others. Home Medications Current Medication List: was personally reviewed by me Laboratory Data Attestation: I reviewed the patient's lab results. Result diagrams: 01/29/19 08:51 01/29/19 08:51 Lab Results 01/29/19 01/29/19 01/29/19 Range/Units 08:51 08:51 08:51 WBC 16.26 H (4.8-10.8) K/uL RBC 4.84 (4.7-6.1) M/uL Hgb 15.6 (14.0-18.0) g/dL Hct 42.4 (42-52) % MCV 87.6 (80-100) fL MCH 32.2 (25-34) pg MCHC 36.8 H (32-36) g/dL RDW Std Deviation 42.5 (36.4-46.3) fL RDW Coeff of Héctor 13.2 (11.5-14.5) % Plt Count 165 (130-400) K/uL MPV 10.1 (7.4-10.4) fL Immature Gran % (Auto) 0.3 % Neut % (Auto) 90.3 % Lymph % (Auto) 4.7 % Miller % (Auto) 4.6 % Eos % (Auto) 0.0 % Baso % (Auto) 0.1 % Immature Gran # (Auto) 0.05 H (0.00-0.02) K/uL Neut # (Auto) 14.70 H (1.4-6.5) K/uL Lymph # (Auto) 0.76 L (1.2-3.4) K/uL Miller # (Auto) 0.74 H (0.11-0.59) K/uL Eos # (Auto) 0.00 (0-0.5) K/uL Baso # (Auto) 0.01 (0-0.2) K/uL Sodium 130 L (136-145) mmol/L Potassium 3.0 L (3.5-5.1) mmol/L Chloride 94 L (98-107) mmol/L Carbon Dioxide 25 (21-32) mmol/L Anion Gap 11.0 (3-11) BUN 12 (7-18) mg/dl Creatinine 1.21 (0.6-1.4) mg/dl Est Cr Clr Drug Dosing 72.0 ml/min Est GFR ( Amer) 87.5 Est GFR (Non-Af Amer) 75.5 BUN/Creatinine Ratio 9.8 L (10-20) Glucose 130 H (70-99) mg/dl Lactate 2.0 (0.4-2.0) mmol/L Calcium 10.0 (8.5-10.1) mg/dl Total Bilirubin 1.0 (0.2-1) mg/dl AST 41 H (15-37) U/L ALT 57 (12-78) U/L Alkaline Phosphatase 76 (45-117) U/L Total Protein 8.8 H (6.4-8.2) gm/dl Albumin 4.0 (3.4-5.0) gm/dl Globulin 4.8 H (2.5-4.0) gm/dl Albumin/Globulin Ratio 0.8 L (0.9-2) Urine Color Urine Appearance (Clear) Urine pH (4.5-7.5) Ur Specific [place] (1.000-1.030) Urine Protein (Negative) Urine Glucose (UA) (Negative) Urine Ketones (Negative) Urine Blood (Negative) Urine Nitrite (Negative) Urine Bilirubin (Negative) Urine Urobilinogen (Negative) Ur Leukocyte Esterase (Negative) Urine RBC (0-4) /hpf Urine WBC (0-5) /hpf Ur Epithelial Cells (0-5) /lpf Urine Bacteria (Negative) Hyaline Casts (0-5) /lpf 01/29/19 Range/Units 11:10 WBC (4.8-10.8) K/uL RBC (4.7-6.1) M/uL Hgb (14.0-18.0) g/dL Hct (42-52) % MCV (80-100) fL MCH (25-34) pg MCHC (32-36) g/dL RDW Std Deviation (36.4-46.3) fL RDW Coeff of Héctor (11.5-14.5) % Plt Count (130-400) K/uL MPV (7.4-10.4) fL Immature Gran % (Auto) % Neut % (Auto) % Lymph % (Auto) % Miller % (Auto) % Eos % (Auto) % Baso % (Auto) % Immature Gran # (Auto) (0.00-0.02) K/uL Neut # (Auto) (1.4-6.5) K/uL Lymph # (Auto) (1.2-3.4) K/uL Miller # (Auto) (0.11-0.59) K/uL Eos # (Auto) (0-0.5) K/uL Baso # (Auto) (0-0.2) K/uL Sodium (136-145) mmol/L Potassium (3.5-5.1) mmol/L Chloride (98-107) mmol/L Carbon Dioxide (21-32) mmol/L Anion Gap (3-11) BUN (7-18) mg/dl Creatinine (0.6-1.4) mg/dl Est Cr Clr Drug Dosing ml/min Est GFR ( Amer) Est GFR (Non-Af Amer) BUN/Creatinine Ratio (10-20) Glucose (70-99) mg/dl Lactate (0.4-2.0) mmol/L Calcium (8.5-10.1) mg/dl Total Bilirubin (0.2-1) mg/dl AST (15-37) U/L ALT (12-78) U/L Alkaline Phosphatase (45-117) U/L Total Protein (6.4-8.2) gm/dl Albumin (3.4-5.0) gm/dl Globulin (2.5-4.0) gm/dl Albumin/Globulin Ratio (0.9-2) Urine Color Yellow Urine Appearance Clear (Clear) Urine pH 6.0 (4.5-7.5) Ur Specific [place] 1.025 (1.000-1.030) Urine Protein Negative (Negative) Urine Glucose (UA) Negative (Negative) Urine Ketones Negative (Negative) Urine Blood Trace H (Negative) Urine Nitrite Negative (Negative) Urine Bilirubin Negative (Negative) Urine Urobilinogen Negative (Negative) Ur Leukocyte Esterase Negative (Negative) Urine RBC 0-4 (0-4) /hpf Urine WBC 0-5 (0-5) /hpf Ur Epithelial Cells 10-20 H (0-5) /lpf Urine Bacteria Negative (Negative) Hyaline Casts 0-5 (0-5) /lpf Imaging Data Attestation: I personally reviewed and interpreted this imaging study as follows: Radiologist's Impression: CT SCAN OF THE ABDOMEN AND PELVIS WITH IV CONTRAST FINDINGS: Lung bases: The heart is top normal in size and without pericardial effusion. Myocardial fat deposition suggests previous insult. A 3 mm left lower lobe pulmonary nodule is seen on image #5. This is unchanged from 2015 and of doubtful significance. No airspace consolidation is seen. There is a trace right pleural effusion. A tiny hiatal hernia is noted. Liver: The contrast-enhanced liver is normal in size, contour, and attenuation. There is no intrahepatic biliary ductal dilatation. The hepatic veins and portal veins are patent. Gallbladder: Unremarkable. Spleen: Normal in size and attenuation. Pancreas: Unremarkable. Adrenal glands: Unremarkable. Kidneys: The contrast enhanced kidneys are normal in size and without hydronephrosis. The kidneys enhance symmetrically. Abdominal vasculature: The abdominal aorta is normal in course and caliber noting mild to moderate age advanced atherosclerotic calcification. Bowel: There is postoperative change from partial left colon resection with left lower quadrant colostomy and Marrufo pouch formation. No bowel obstruction is seen. Liquid stool is noted throughout the colon. There is no associated colonic wall thickening or pericolonic inflammation. There are also fluid-filled loops of small bowel. There are scattered diverticula of the remaining colon without CT evidence of acute diverticulitis. The appendix is well-visualized and normal. Peritoneum: There is no intraperitoneal free air or abdominal ascites. There is a small fat-containing umbilical hernia. Intraperitoneal collections seen on 12/02/2018 have resolved. Lymphadenopathy: None. Pelvic viscera: The bladder, prostate, and seminal vesicles are normal as imaged. Skeletal structures: No lytic or blastic lesions are seen. IMPRESSION: 1. There is postoperative change from partial left colon resection with left lower quadrant colostomy. No bowel obstruction is identified. 2. Liquid stool is seen throughout the colon, and there are also fluid-filled small bowel loops. There is no associated bowel wall thickening or surrounding inflammation. Correlate clinically for evidence of a diarrheal illness/nonspecific enterocolitis. 3. Trace right pleural effusion. 4. Additional findings as above. Blood Pressure Blood Pressure Findings: Low blood pressure Blood Pressure Disposition: further management by hospitalist LAURENT Narrative The patient is a 39-year-old male who presents today complaining of abdominal pain, diarrhea and weakness. Labs revealed a leukocytosis of 16,000, no anemia or concerning electrolyte abnormalities. Potassium and sodium are slightly low consistent with dehydration. Lactic acid not significantly elevated at 2.0. Stool from the patient's ostomy bag was sent for testing. CT showed evidence of diarrheal illness/enteritis, no other acute findings. Patient was given 2 L of IV fluids with some improvement of vital signs, although he does remain tachycardic and borderline hypotensive. Given patient's complicated history and vital signs, I do feel he will need to stay for IV fluids and possible antibiotics. I did hold off on antibiotics as there is no source of infection right now, although urinalysis and stool studies are pending. Case was discussed with the [facility] hospitalist service who agreed to evaluate the patient for admission. Impression & Plan Enteritis, Dehydration Discharge Plan Visit Data *Final* Discharge Date/Time: 01/29/19 12:54 Chief Complaint: Abdominal Pain Stated Complaint: STOMACH PAIN ,HEADACHE ED Provider: Santi Jacobs ED Midlevel Provider: Tasha Manuel Discharge Problem: Enteritis, Dehydration Patient Disposition: Admitted As Inpatient Discharge Instructions Interventions: ED Discharge Assessment Last Done: 01/29/19 12:54
[2019-01-29 09:08] LABS: Basophils # (auto) 0.01 K/uL (0-0.2); Basophils % (auto) 0.1 %; Hematocrit (blood only) 42.4 % (42-52); Hemoglobin 15.6 g/dL (14.0-18.0); Immature Granulocytes # (auto) 0.05 K/uL (0.00-0.02); Immature Granulocytes % (auto) 0.3 %; Lymphocytes # (auto) 0.76 K/uL (1.2-3.4); Lymphocytes % (auto) 4.7 %; Mean Corpuscular Hgb Conc 36.8 g/dL (32-36); Mean Corpuscular Volume 87.6 fL (80-100); Mean Platelet Volume 10.1 fL (7.4-10.4); Monocytes # (auto) 0.74 K/uL (0.11-0.59); Monocytes % (auto) 4.6 %; Neutrophils % (auto) 90.3 %; Platelet Count 165 K/uL (130-400); RDW Coefficient of Variation 13.2 % (11.5-14.5); RDW Standard Deviation 42.5 fL (36.4-46.3); Red Blood Count 4.84 M/uL (4.7-6.1); White Blood Count 16.26 K/uL (4.8-10.8)
[2019-01-29 09:25] LABS: BUN Creatinine Ratio 9.8 (10-20); Est GFR (African American) 87.5; Est GFR (Non-African American) 75.5
[2019-01-29 09:28] LABS: Albumin Globulin Ratio 0.8 (0.9-2); Globulin 4.8 gm/dl (2.5-4.0); Total Protein 8.8 gm/dl (6.4-8.2)
[2019-01-29] MEDS ORDERED: IOVERSOL 100ml IV PRN (09:45)
--- NOTE | 2019-01-29 10:08 | CT Scan Report ---
CT SCAN OF THE ABDOMEN AND PELVIS WITH IV CONTRAST CLINICAL HISTORY: Generalized abdominal pain. Fever. COMPARISON STUDY: Abdominal CT dated 12/02/2018 and 07/16/2015. TECHNIQUE: Following the IV administration of 94 cc of Optiray 320, CT scan of the abdomen and pelvi s is performed from the lung bases to the proximal femora. Images are reviewed in the axial, sagittal , and coronal planes. IV contrast was administered without complication. A dose lowering technique wa s utilized adhering to the principles of ALARA. CT DOSE: 376.34 mGy.cm FINDINGS: Lung bases: The heart is top normal in size and without pericardial effusion. Myocardial fat depositi on suggests previous insult. A 3 mm left lower lobe pulmonary nodule is seen on image #5. This is unc hanged from 2015 and of doubtful significance. No airspace consolidation is seen. There is a trace ri ght pleural effusion. A tiny hiatal hernia is noted. Liver: The contrast-enhanced liver is normal in size, contour, and attenuation. There is no intrahepa tic biliary ductal dilatation. The hepatic veins and portal veins are patent. Gallbladder: Unremarkable. Spleen: Normal in size and attenuation. Pancreas: Unremarkable. Adrenal glands: Unremarkable. Kidneys: The contrast enhanced kidneys are normal in size and without hydronephrosis. The kidneys enh ance symmetrically. Abdominal vasculature: The abdominal aorta is normal in course and caliber noting mild to moderate ag e advanced atherosclerotic calcification. Bowel: There is postoperative change from partial left colon resection with left lower quadrant colos florin and Marrufo pouch formation. No bowel obstruction is seen. Liquid stool is noted throughout the colon. There is no associated colonic wall thickening or pericolonic inflammation. There are also flu id-filled loops of small bowel. There are scattered diverticula of the remaining colon without CT alvarez dence of acute diverticulitis. The appendix is well-visualized and normal. Peritoneum: There is no intraperitoneal free air or abdominal ascites. There is a small fat-containin g umbilical hernia. Intraperitoneal collections seen on 12/02/2018 have resolved. Lymphadenopathy: None. Pelvic viscera: The bladder, prostate, and seminal vesicles are normal as imaged. Skeletal structures: No lytic or blastic lesions are seen. IMPRESSION: 1. There is postoperative change from partial left colon resection with left lower quadrant colostomy . No bowel obstruction is identified. 2. Liquid stool is seen throughout the colon, and there are also fluid-filled small bowel loops. Ther e is no associated bowel wall thickening or surrounding inflammation. Correlate clinically for eviden ce of a diarrheal illness/nonspecific enterocolitis. 3. Trace right pleural effusion. 4. Additional findings as above. Electronically signed by: Suresh Giles M.D. 01/29/2019 10:07 AM
[2019-01-29 11:26] LABS: Appearance Urine Clear (Clear); Bilirubin Urine Negative (Negative); Blood Urine Trace (Negative); Color Urine Yellow; Glucose Urine UA Negative (Negative); Ketones Urine Negative (Negative); Leukocyte Esterase Urine Negative (Negative); Nitrite Urine Negative (Negative); Protein Urine Negative (Negative); Specific Gravity Urine 1.025 (1.000-1.030); Urobilinogen Urine Negative (Negative)
--- NOTE | 2019-01-29 11:29 | History & Physical Report ---
Date of Service January 29, 2019 Assessment & Plan (1) Enteritis: 38 y/o M hx CAD - OR 03/2018, HTN, HLD, smoker, diverticulitis and a microperforation and pneumoperitoneum 12/02/18. He required a sigmoid colectomy and colostomy placement. the pt presents with diffuse abdominal pain, liquid s tool in his colostomy bag, fevers, nausea and vomiting x [address] abdomen is consistent with enteritis. Initial labs are notable for leukocytosis, hyponatremia, hypokalemia. 1) Abdominal pain, nausea, vomiting, diarrhea, fever - no evidence of diverticulitis on imaging. Pain control, IVF. Will r/o C diff. Surgery consulted due to concerning abd exam. 2) Hyponatremia, hypokalemia - repletion ordered 2) CAD - No evidence of ACS - cont ASA, Brilinta, B bianka, statin. 3) HTN - cont metoprolol. 4) HLD - cont atorvastatin. Full code - Heparin prophylaxis Total time for this admit including review of labs, meds, imaging, records - discussion with pt, ER attending - 38 min History of Present Illness Primary Care Provider: Felicity Pemberton, DO 38 y/o M hx CAD - OR 03/2018, HTN, HLD, smoker, diverticulitis and a microperforation and pneumoperitoneum 12/02/18. He required a sigmoid colectomy and colostomy placement. the pt presents with diffuse abdominal pain, liquid stool in his colostomy bag, fevers, nausea and vomiting x [address] abdomen is consistent with enteritis. Initial labs are notable for leukocytosis, hyponatremia, hypokalemia. PMH: 1) CAD - anterior OR 03/2018 - LAD stent 2) HTN 3) HLD 4) Smoker 5) Diverticulitis with microperforation 10/22/18. Did not respond to outpt antibiotics and proceeded to the OR for s sigmoid colectomy/colostomy 12/02/18. A reversal is scheduled for 02/13/19. Surgical: Catheterization and stent 03/2018 Social: Smokes a pack of cigarettes daily, denies ETOH Family: CAD Allergies Allergy/AdvReac Type Severity Reaction Status Date / Time No Known Allergies Allergy Verified 01/29/19 10:26 Home Medications Home Medications Medication Instructions Recorded Confirmed Type Brilinta 90 mg PO BID 10/12/18 01/29/19 History aspirin 81 mg PO QAM 10/12/18 01/29/19 History atorvastatin [Lipitor] 80 mg PO QAM 10/12/18 01/29/19 History metoprolol succinate [Toprol XL] 50 mg PO QAM 10/12/18 01/29/19 History nitroglycerin [Nitrostat] 0.4 mg SUBLINGUAL UD PRN 10/12/18 01/29/19 History Past Med/Surg History Medical History Acute diverticulitis (Acute) Cardiomyopathy, ischemic (Acute) LIFE [facility]ST [facility]N FROM [place] JUNE 2018 Acute blood loss anemia CAD (coronary artery disease) (Chronic) Diverticulitis of colon with perforation (Acute) NOVEMBER 2018 Myocardial infarction HTN (hypertension) (Chronic) Tobacco use disorder (Chronic) Colonic polyp Hyperlipidemia Myocardial infarction 03/2018 Surgical History History of bowel resection WITH COLOSTOMY 11/2018 History of colonoscopy History of esophagogastroduodenoscopy (EGD) History of heart artery stent 03/2018 (FOLLOWED BY DR. JHA) History of tooth extraction Family History Father Family history of diabetes mellitus Unknown Cancer Mother Cancer Grandmother Cancer Coronary heart disease Type 2 diabetes mellitus Grandfather Cancer Coronary heart disease Type 2 diabetes mellitus Grandfather Coronary heart disease Other Myocardial infarction Social History Preferred Language: Portuguese Communication Ability: Effective Beliefs That Will Affect Care: None marital status: Current Living Situation: Spouse current occupational status: employed Other Information That Helps Us Care for You: No Feels Safe at Home: Yes Safety Concerns: Feels Safe At This Time Smoking Status: Current every day smoker Tobacco Type: cigarettes Cigarettes Per Day: 20 CIG DAILY Second Hand Exposure: No Hx Alcohol Use: Yes Alcohol type: beer Hx Substance Use: No Review of Systems Review of Systems: Gen: + fevers x 2-3 days ENT: Denies congestion, throat pain, hearing loss Eyes: Denies acute visual changes CV: Denies CP, palpitations Pulmonary: Denies SOB, cough, wheezing GI: Nausea, vomiting, abd pain, liquid stool in colostomy bag. Neuro: Denies acute or unilateral weakness, acute gait impairment, headache or acute visual changes Musculoskeletal: Denies joint pain, inflammation Endocrine: Denies polydipsia, polyuria Skin: Denies acute rashes or ulcers Physical Exam Physical Exam: General: AAO x 3, no distress ENT: No erythema or exudates, no thrush Eyes: JESSICA, EOMI Head and neck: Normocephalic, atraumatic, No JVD, neck is supple. Chest/heart: Nontender, S1,2, RRR, no murmurs, no gallops Lungs: CTAB, no wheezing or crackles Abdomen: Diffuse, severe tenderness and guarding present. Liquid stool in colostomy bag Neuro: AAO x 3, speech is clear, no unilateral weakness or loss of sensation, coordination intact Musculoskeletal: No joint inflammation, muscle tenderness, FROM Skin: No acute rashes or ulcers Extremities: No clubbing, cyanosis, edema Results & Data Vital Signs (Past 12 Hours) Vital Signs Temp Pulse Pulse Resp BP BP Pulse Ox 01/29/19 11:01 96 H 19 94 01/29/19 11:00 96 H 20 93/54 L 92 01/29/19 10:34 98.8 F 99 H 14 101/59 L 95 01/29/19 10:03 106 H 16 95/68 L 96 01/29/19 09:11 125 H 16 107/67 96 01/29/19 08:30 102.6 F H 143 H 24 101/65 97 PG Care Time/CCT Total # of Minutes Spent Total Time Spent with Patient: Total time spent is greater than 50% in coordination of care (as documented) at patient's floor/unit and/or counseling patient:
[2019-01-29 11:58] LABS: RBC Urine 0-4 /hpf (0-4); WBC Urine 0-5 /hpf (0-5)
[2019-01-29 11:59] LABS: Bacteria Urine Negative (Negative); Hyaline Casts Urine 0-5 /lpf (0-5)
[2019-01-29] MEDS ORDERED: ACETAMINOPHEN 500 MG TAB PO PRN (12:25)
--- NOTE | 2019-01-29 13:05 | Surgery Consultation ---
Date of Consultation January 29, 2019 Assessment & Plan (1) Enteritis: It appears the patient has enteritis and a C. difficile has been ordered. His CAT scan is relatively unremarkable no significant edematous bowel. He does appear to be dehydrated with hypokalemia. We will replenish his IV fluids and electrolytes. I am going to empirically start IV antibiotic with Cipro and Flagyl. We will also give him some empiric p.o. Vanco to we are sure he does not have C. difficile. Patient appears to be stable does not need acute surgical intervention. History of Present Illness History of Present Illness Patient presents emergency room with abdominal pain over 2 to 3 days possible fever and nausea and vomiting today. On 12/02/2018 she underwent sigmoidal colectomy with end colostomy for perforated diverticulitis. His CAT scan today shows possible enteritis liquid filled small and large bowel no significant thickening or evidence of bowel obstruction. His white blood cell count is 16.2 calcium 3.0 creatinine 1.21. Patient states that when he eats anything it comes straight out of his ostomy bag is liquid. Allergies Allergy/AdvReac Type Severity Reaction Status Date / Time No Known Allergies Allergy Verified 01/29/19 10:26 Home Medications Home Medications Medication Instructions Recorded Confirmed Type Brilinta 90 mg PO BID 10/12/18 01/29/19 History aspirin 81 mg PO QAM 10/12/18 01/29/19 History atorvastatin [Lipitor] 80 mg PO QAM 10/12/18 01/29/19 History metoprolol succinate [Toprol XL] 50 mg PO QAM 10/12/18 01/29/19 History nitroglycerin [Nitrostat] 0.4 mg SUBLINGUAL UD PRN 10/12/18 01/29/19 History Patient History Medical History Acute diverticulitis (Acute) Cardiomyopathy, ischemic (Acute) LIFE VEST WORN FROM [place] JUNE 2018 Acute blood loss anemia CAD (coronary artery disease) (Chronic) Diverticulitis of colon with perforation (Acute) NOVEMBER 2018 Myocardial infarction HTN (hypertension) (Chronic) Tobacco use disorder (Chronic) Colonic polyp Hyperlipidemia Myocardial infarction 03/2018 Surgical History History of bowel resection WITH COLOSTOMY 11/2018 History of colonoscopy History of esophagogastroduodenoscopy (EGD) History of heart artery stent 03/2018 (FOLLOWED BY DR. JHA) History of tooth extraction Family History Father Family history of diabetes mellitus Unknown Cancer Mother Cancer Grandmother Cancer Coronary heart disease Type 2 diabetes mellitus Grandfather Cancer Coronary heart disease Type 2 diabetes mellitus Grandfather Coronary heart disease Other Myocardial infarction Social History Preferred Language: Ukrainian Communication Ability: Effective Beliefs That Will Affect Care: None marital status: Current Living Situation: Spouse current occupational status: employed Other Information That Helps Us Care for You: No Feels Safe at Home: Yes Safety Concerns: Feels Safe At This Time Smoking Status: Current every day smoker Tobacco Type: cigarettes Cigarettes Per Day: 20 CIG DAILY Second Hand Exposure: No Hx Alcohol Use: Yes Alcohol type: beer Hx Substance Use: No Review of Systems Review of Systems: All systems reviewed & are unremarkable except as noted in HPI & below Physical Exam Physical Exam: Patient is currently awake and alert not appear to be in any distress mildly at times. He is afebrile his heart rate is 96 blood pressure in the 100 systolic range. HEENT is grossly normal Sclera anicteric skin normal color neck is supple. He is breathing comfortably heart shows regular rhythm. His abdomen shows dermal active almost vigorous bowel sounds his abdomen is soft. He does have some pain in the left upper quadrant to deep palpation does not appear to have peritonitis. Patient is healing well His extremities are warm and well-perfused. Results & Data Vital Signs (Past 12 Hours) Vital Signs Temp Pulse Pulse Resp BP BP Pulse Ox 01/29/19 12:31 101 H 21 100 01/29/19 12:30 96 H 16 99/59 L 93 01/29/19 12:00 96 H 14 91/52 L 01/29/19 11:31 96 H 19 01/29/19 11:30 93 H 16 95/59 L 01/29/19 11:01 96 H 19 94 01/29/19 11:00 96 H 20 93/54 L 92 01/29/19 10:34 37.1 C 99 H 14 101/59 L 95 01/29/19 10:03 106 H 16 95/68 L 96 01/29/19 09:11 125 H 16 107/67 96 01/29/19 08:30 39.2 C H 143 H 24 101/65 97 I did review his CAT scan.
--- NOTE | 2019-01-29 13:08 | Surgery Consultation ---
Date of Consultation January 29, 2019 Assessment & Plan (1) Enteritis: C. diff pending. Will give empiric IV abx. Does not appear to be related to his recent surgery, but may influence his upcoming reversal. Will continue to follow. Was also seen by Dr. Moe and will discuss further with Dr. Iglesias. History of Present Illness History of Present Illness 39 y/o male 8 weeks s/p Marrufo's scheduled for colostomy reversal in a few weeks now with 4 days N/V, abdominal pain and liquid output from his colostomy. Had fevers/chills last night. No others around him are ill, he has not had any recent antibiotics. Allergies Allergy/AdvReac Type Severity Reaction Status Date / Time No Known Allergies Allergy Verified 01/29/19 10:26 Home Medications Home Medications Medication Instructions Recorded Confirmed Type Brilinta 90 mg PO BID 10/12/18 01/29/19 History aspirin 81 mg PO QAM 10/12/18 01/29/19 History atorvastatin [Lipitor] 80 mg PO QAM 10/12/18 01/29/19 History metoprolol succinate [Toprol XL] 50 mg PO QAM 10/12/18 01/29/19 History nitroglycerin [Nitrostat] 0.4 mg SUBLINGUAL UD PRN 10/12/18 01/29/19 History Patient History Medical History Acute diverticulitis (Acute) Cardiomyopathy, ischemic (Acute) LIFE VEST WORN FROM [place] JUNE 2018 Acute blood loss anemia CAD (coronary artery disease) (Chronic) Diverticulitis of colon with perforation (Acute) NOVEMBER 2018 Myocardial infarction HTN (hypertension) (Chronic) Tobacco use disorder (Chronic) Colonic polyp Hyperlipidemia Myocardial infarction 03/2018 Surgical History History of bowel resection WITH COLOSTOMY 11/2018 History of colonoscopy History of esophagogastroduodenoscopy (EGD) History of heart artery stent 03/2018 (FOLLOWED BY DR. JHA) History of tooth extraction Family History Father Family history of diabetes mellitus Unknown Cancer Mother Cancer Grandmother Cancer Coronary heart disease Type 2 diabetes mellitus Grandfather Cancer Coronary heart disease Type 2 diabetes mellitus Grandfather Coronary heart disease Other Myocardial infarction Social History Preferred Language: Polish Communication Ability: Effective Beliefs That Will Affect Care: None marital status: Current Living Situation: Spouse current occupational status: employed Other Information That Helps Us Care for You: No Feels Safe at Home: Yes Safety Concerns: Feels Safe At This Time Smoking Status: Current every day smoker Tobacco Type: cigarettes Cigarettes Per Day: 20 CIG DAILY Second Hand Exposure: No Hx Alcohol Use: Yes Alcohol type: beer Hx Substance Use: No Review of Systems Constitutional: + fever, + chills and + anorexia Gastrointestinal: + abdominal pain, + bloating, + nausea, + vomiting and + diarrhea/loose stools Physical Exam Constitutional: + ill appearing Respiratory: normal respiratory effort Cardiovascular: Rate/Rhythm: + tachycardic Gastrointestinal (Abdomen): Percussion/Palpation: + abdomen tender and + guarding green liquid ostomy output, stoma pink Results & Data Vital Signs (Past 12 Hours) Vital Signs Temp Pulse Pulse Resp BP BP Pulse Ox 01/29/19 12:31 101 H 21 100 01/29/19 12:30 96 H 16 99/59 L 93 01/29/19 12:00 96 H 14 91/52 L 01/29/19 11:31 96 H 19 01/29/19 11:30 93 H 16 95/59 L 01/29/19 11:01 96 H 19 94 01/29/19 11:00 96 H 20 93/54 L 92 01/29/19 10:34 37.1 C 99 H 14 101/59 L 95 01/29/19 10:03 106 H 16 95/68 L 96 01/29/19 09:11 125 H 16 107/67 96 01/29/19 08:30 39.2 C H 143 H 24 101/65 97 Diagnostic Findings [facility], [place] [phone] CT Scan Report Patient: MAXINE WINSLOW DAdmit Date: 01/29/19 MR#: [id number] [facility] Acct ID:[id number]: Date: 1980[facility] Zip: [place] [id number] Age: 39Location: ED Sex: M Room/Bed: Att Phy: Diagnosis: STOMACH PAIN ,HEADACHE Gloria Phy: Felicity Pemberton, DOService Date: 01/29/19 Fam Phy: Interpreting Phy: Suresh Giles MD Admit Phy: Ordering Phy: Tasha Manuel PA-C cc: ~ CT SCAN OF THE ABDOMEN AND PELVIS WITH IV CONTRAST CLINICAL HISTORY: Generalized abdominal pain. Fever. COMPARISON STUDY: Abdominal CT dated 12/02/2018 and 07/16/2015. TECHNIQUE: Following the IV administration of 94 cc of Optiray 320, CT scan of the abdomen and pelvis is performed from the lung bases to the proximal femora. Images are reviewed in the axial, sagittal, and coronal planes. IV contrast was administered without complication. A dose lowering technique was utilized adhering to the principles of ALARA. CT DOSE: 376.34 mGy.cm FINDINGS: Lung bases: The heart is top normal in size and without pericardial effusion. Myocardial fat deposition suggests previous insult. A 3 mm left lower lobe pulmonary nodule is seen on image #5. This is unchanged from 2015 and of doubtful significance. No airspace consolidation is seen. There is a trace right pleural effusion. A tiny hiatal hernia is noted. Liver: The contrast-enhanced liver is normal in size, contour, and attenuation. There is no intrahepatic biliary ductal dilatation. The hepatic veins and portal veins are patent. Gallbladder: Unremarkable. Spleen: Normal in size and attenuation. Pancreas: Unremarkable. Adrenal glands: Unremarkable. Kidneys: The contrast enhanced kidneys are normal in size and without hydronephrosis. The kidneys enhance symmetrically. Abdominal vasculature: The abdominal aorta is normal in course and caliber noting mild to moderate age advanced atherosclerotic calcification. Bowel: There is postoperative change from partial left colon resection with left lower quadrant colostomy and Marrufo pouch formation. No bowel obstruction is seen. Liquid stool is noted throughout the colon. There is no associated colonic wall thickening or pericolonic inflammation. There are also fluid-filled loops of small bowel. There are scattered diverticula of the remaining colon without CT evidence of acute diverticulitis. The appendix is well-visualized and normal. Peritoneum: There is no intraperitoneal free air or abdominal ascites. There is a small fat-containing umbilical hernia. Intraperitoneal collections seen on 12/02/2018 have resolved. Lymphadenopathy: None. Pelvic viscera: The bladder, prostate, and seminal vesicles are normal as imaged. Skeletal structures: No lytic or blastic lesions are seen. IMPRESSION: 1. There is postoperative change from partial left colon resection with left lower quadrant colostomy. No bowel obstruction is identified. 2. Liquid stool is seen throughout the colon, and there are also fluid-filled small bowel loops. There is no associated bowel wall thickening or surrounding inflammation. Correlate clinically for evidence of a diarrheal illness/nonspecific enterocolitis. 3. Trace right pleural effusion. 4. Additional findings as above. Electronically signed by: Suresh Giles M.D. 01/29/2019 10:07 AM
[2019-01-29] MEDS ORDERED: RASPBERRY SYRUP 5 ML UDP PO ONE (13:15)
[2019-01-29] MEDS ORDERED: VANCOMYCIN HCL 250 MG/5 ML SOLN PO ONE (13:15)
[2019-01-29] MEDS ORDERED: NITROGLYCERIN SL 0.4 MG/TAB TAB SL PRN (13:16)
[2019-01-29] MEDS ORDERED: ALUMINUM/MAGNESIUM SUSP 30 ML UDC PO PRN (13:16)
[2019-01-29] MEDS ORDERED: MAGNESIUM HYDROXIDE SUSP 30 ML UDC PO PRN (13:16)
[2019-01-29] MEDS ORDERED: ZOLPIDEM TARTRATE 5 MG TAB PO PRN (13:16)
[2019-01-29] MEDS ORDERED: ONDANSETRON INJ 2 MG/ML 2 ML VIAL IV PRN ×2 (13:16)
[2019-01-29] MEDS ORDERED: POLYETHYLENE (MIRALAX) 17 GM PACK PO PRN (13:16)
[2019-01-29] MEDS ORDERED: MAGNESIUM SULFATE / D5W 1 GM/100 ML BAG IV ONE (13:30)
[2019-01-29] MEDS: POTASSIUM CHLORIDE / WTR 10 MEQ/100 ML PLCT IV SCH ×3 (13:49→16:49)
[2019-01-29] MEDS: MoRPHine SULFATE 4 MG/ML 1 ML CARP\\VIAL IV PRN ×2 (13:55→23:17)
[2019-01-29] MEDS: metroNIDAZOLE 500 MG/100 ML BAG IV SCH ×2 (14:03→20:32)
[2019-01-29] MEDS: NSS + 20MEQ KCL 20 MEQ/1,000 ML BAG IV SCH ×2 (14:09→20:30)
[2019-01-29 14:17] LABS: Prothrombin Time 10.7 Seconds (9.0-12.0)
[2019-01-29] MEDS: CIPROFLOXACIN 400 MG/200 ML BAG IV SCH (14:37)
[2019-01-29] MEDS: HEPARIN SOD 5,000 UNIT/0.5 ML VIAL SQ SCH ×2 (15:18→21:29)
[2019-01-29 16:47] LABS: Cdiff Antigen Negative; Cdiff Toxin A+B Negative Cdiff Toxin (Negative)
[2019-01-29] MEDS: RASPBERRY SYRUP 5 ML UDP PO SCH ×2 (18:00→23:35)
[2019-01-29] MEDS: VANCOMYCIN HCL 250 MG/5 ML SOLN PO SCH ×2 (18:00→23:35)
[2019-01-29] MEDS: ACETAMINOPHEN 325 MG TAB PO PRN (18:04)
[2019-01-29] MEDS ORDERED: IBUPROFEN 600 MG TAB PO STA (19:46)
[2019-01-29] MEDS: TICAGRELOR 90 MG TAB PO SCH (20:31)
[2019-01-30] MEDS ORDERED: Nursing to Pharmacy Communication ONE (01:23)
[2019-01-30] MEDS: CIPROFLOXACIN 400 MG/200 ML BAG IV SCH (01:32)
[2019-01-30] MEDS: ACETAMINOPHEN 325 MG TAB PO PRN ×5 (01:37→23:32)
[2019-01-30] MEDS: NSS + 20MEQ KCL 20 MEQ/1,000 ML BAG IV SCH ×2 (02:59→11:18)
[2019-01-30] MEDS: MoRPHine SULFATE 4 MG/ML 1 ML CARP\\VIAL IV PRN ×4 (03:02→18:35)
[2019-01-30] MEDS: HEPARIN SOD 5,000 UNIT/0.5 ML VIAL SQ SCH ×3 (05:19→21:00)
[2019-01-30] MEDS: RASPBERRY SYRUP 5 ML UDP PO SCH ×2 (05:21→12:52)
[2019-01-30] MEDS: VANCOMYCIN HCL 250 MG/5 ML SOLN PO SCH ×2 (05:22→12:51)
[2019-01-30] MEDS: metroNIDAZOLE 500 MG/100 ML BAG IV SCH ×3 (05:22→20:59)
[2019-01-30 05:37] LABS: Basophils # (auto) 0.02 K/uL (0-0.2); Basophils % (auto) 0.3 %; Eosinophils # (auto) 0.01 K/uL (0-0.5); Eosinophils % (auto) 0.1 %; Hematocrit (blood only) 35.4 % (42-52); Hemoglobin 12.4 g/dL (14.0-18.0); Immature Granulocytes # (auto) 0.02 K/uL (0.00-0.02); Immature Granulocytes % (auto) 0.3 %; Lymphocytes # (auto) 0.71 K/uL (1.2-3.4); Lymphocytes % (auto) 9.3 %; Mean Corpuscular Volume 88.3 fL (80-100); Monocytes # (auto) 0.33 K/uL (0.11-0.59); Monocytes % (auto) 4.3 %; Neutrophils # (auto) 6.53 K/uL (1.4-6.5); Neutrophils % (auto) 85.7 %; Platelet Count 110 K/uL (130-400); RDW Coefficient of Variation 13.6 % (11.5-14.5); RDW Standard Deviation 44.3 fL (36.4-46.3); Red Blood Count 4.01 M/uL (4.7-6.1); White Blood Count 7.62 K/uL (4.8-10.8)
[2019-01-30 06:08] LABS: BUN Creatinine Ratio 13.4 (10-20); Calcium 8.3 mg/dl (8.5-10.1); Creatinine Clr Calc Pharmacy 117.7 ml/min; Est GFR (African American) 135.6; Magnesium 2.4 mg/dl (1.8-2.4); Potassium 3.9 mmol/L (3.5-5.1)
[2019-01-30] MEDS: ASPIRIN 81 MG ECTAB PO SCH (10:21)
[2019-01-30] MEDS: TICAGRELOR 90 MG TAB PO SCH ×2 (10:21→21:00)
[2019-01-30] MEDS: ATORVASTATIN 40 MG TAB PO SCH (10:21)
[2019-01-30] MEDS: METOPROLOL SUCC 50MG EXT REL TAB PO SCH (10:26)
[2019-01-30] MEDS ORDERED: METOPROLOL TARTRATE 1 MG/ML VIAL IV STA (10:57)
[2019-01-30] MEDS ORDERED: MoRPHine SULFATE 2 MG/ML CARP IV STA (11:01)
--- NOTE | 2019-01-30 11:10 | XRay Report ---
XR chest 1V portable CLINICAL HISTORY: hypoxia, adventitious lung sounds COMPARISON STUDY: 12/20/2018 FINDINGS: The heart is mildly enlarged. There is dense parenchymal consolidation within the right upp er lobe. There are left midlung zone airspace opacities. The findings are suspicious for a multifocal pneumonia. Aspiration and pulmonary infarct could appear similar. Clinical correlation and radiograp hic follow-up is recommended.[ IMPRESSION: 1. Interval development of bilateral pulmonary airspace opacities. The findings are statistically sec ondary to a multifocal pneumonia. Please correlate with history of fever and elevated white count. Cl inical and radiographic follow-up is recommended. Electronically signed by: Ezekiel German M.D. 01/30/2019 11:08 AM
[2019-01-30 11:42] LABS: Hematocrit (blood only) 35.4 % (42-52); Hemoglobin 12.6 g/dL (14.0-18.0); Mean Corpuscular Hgb Conc 35.6 g/dL (32-36); Mean Corpuscular Volume 88.3 fL (80-100); Mean Platelet Volume 10.4 fL (7.4-10.4); Platelet Count 132 K/uL (130-400); RDW Coefficient of Variation 13.5 % (11.5-14.5); RDW Standard Deviation 43.9 fL (36.4-46.3); Red Blood Count 4.01 M/uL (4.7-6.1); White Blood Count 7.51 K/uL (4.8-10.8)
[2019-01-30 12:04] LABS: Creatine Kinase 80 U/L (39-308); Creatine Kinase MB < 1.0 ng/ml (0.5-3.6); Troponin I 0.032 ng/ml (0-0.045)
--- NOTE | 2019-01-30 12:11 | Surgery Progress Note ---
Date of Service January 30, 2019 Assessment & Plan (1) Enteritis: ? etiology. C. diff negative. tachy now...going to CT r/o PE no surgical intervention indicated at this time...will follow along closely. continue supportive care and antibiotics. Subjective pt feeling about the same. still having water output. no emesis. still some abdominal cramping. Also has new cough. Physical Exam Physical Exam: in wheelchair in [place] on his way to CT scan NAD. abd: soft. minimal tenderness. no peritoneal signs. Results & Data Vital Signs (Past 12 Hours) Vital Signs Temp Pulse Resp BP Pulse Ox 01/30/19 10:36 91 01/30/19 10:28 131 H 106/68 88 L 01/30/19 07:00 36.7 C 110 H 16 94/57 L 93
[2019-01-30] MEDS ORDERED: OPTIRAY 320 125ml IV PRN (12:25)
--- NOTE | 2019-01-30 12:33 | CT Scan Report ---
CT angio chest PE protocol CT DOSE: 517.61 mGycm HISTORY: Dyspnea PE TECHNIQUE: Multiaxial CT images of the chest were performed following the intravenous administration of contrast to evaluate the pulmonary arteries. Maximal intensity projection images were also obtaine d. A dose lowering technique was utilized adhering to the principles of ALARA. COMPARISON STUDY: None. FINDINGS: Thoracic aorta is normal in course and caliber. Pulmonary vasculature enhances uniformly. There are no significant filling defects. There are bilateral upper lobe infiltrative changes. There is moderate hilar as well as mediastinal a denopathy possibly reactive. There are minimal peripheral infiltrative changes of the right as well as left lower lobe regions. Al so noted is parenchymal infiltrative change left base and to a lesser extent medial aspect right base . IMPRESSION: 1. Study is negative for pulmonary embolus. 2. Diffuse bilateral upper lobe infiltrative changes with evidence for peripheral right apical consol idative change. 3. Moderate mediastinal and hilar adenopathy possibly reactive. 4. Scattered basilar peripheral infiltrative changes. 5. Small right effusion. The above report was generated using voice recognition software. It may contain grammatical, syntax or spelling errors. Electronically signed by: Taurus Mcconnell M.D. 01/30/2019 12:32 PM
[2019-01-30] MEDS: LEVOFLOXACIN/D5W 750 MG/150 ML BAG IV SCH (12:51)
[2019-01-30] MEDS ORDERED: VANCOMYCIN CONSULT ACTIVE PRN (13:22)
[2019-01-30] MEDS ORDERED: VANCOMYCIN HCL 1,750 MG in SODIUM CHLORIDE 0.9% 500 ML IV ONE (13:45)
--- NOTE | 2019-01-30 14:18 | Pharmacy Report ---
Pharmacy Abx Initial Consult - Date of Service January 30, 2019 - Pharmacy Dosing Scope Date of Consult: 01/30/19 Consultation requested by: MARIA TERESA Powell Pharmacy is consulted to initiate Vancomycin IV dosing therapy, order appropriate labs and adjust drug dose/frequency. - Subjective The patient is a 39 year old M admitted on 01/29/19 11:53 with fever and leukocytosis, watery stools in colostomy bag - s/p sigmond colectomy & colostomy placement on 12/02/18. Reversal scheduled fro 02/13/19. - Objective Height: 5 ft 5 in Weight: 72.8 kg Vital Signs (Past 12hrs): Vital Signs Temp Pulse Resp BP Pulse Ox 01/30/19 10:36 91 01/30/19 10:28 131 H 106/68 88 L 01/30/19 07:00 36.7 C 110 H 16 94/57 L 93 Lab Results (24hrs): Laboratory Tests (24 Hours) 01/30/19 01/30/19 01/30/19 11:29 11:29 05:11 WBC 7.51 Neut # (Auto) Creatinine 0.74 D Est Cr Clr Drug Dosing 117.7 Total Creatine Kinase 80 01/30/19 05:11 WBC 7.62 Neut # (Auto) 6.53 H Creatinine Est Cr Clr Drug Dosing Total Creatine Kinase Micro Results: 01/29/19 13:48 Aerobic Blood Culture - Pending Blood Anaerobic Blood Culture - Pending Laboratory Tests 01/29/19 13:30 Stl C. diff Tox B Gene Positive Cdiff Gene H Stl C.difficile Tox A&B Negative Cdiff Toxin - Risk Factors for Resistance * Hospitalization for 48 hours or more within the past 90 days * Antimicrobial use within the last 90 days - fluconazole, Zosyn - Assessment & Plan Assessment 39 year old M admitted with fevers and leukocytosis. Empirically was started on IV metronidazole and PO Vancomycin. Negative CDif. Patient received Cipro 400mg IV x2 doses, then switched to IV Levaquin today. CT of chest showed multifocal pneumonia. Plan IV Vancomycin for treatment of pneumonia. Vancomycin IV * Estimated PK Parameters: Vd 0.7 L/kg, Joaquin 0.1 hr-1, t1/2 7hr * Loading dose: 1750 mg (24 mg/kg) x1 dose now at 1415 * Maintenance dose: 1250 mg IV (17 mg/kg) every 8 hours * Goal trough level for pneumonia : 15 to 20 mcg/mL * Trough level ordered for 01/31/19 prior to 4th total dose at 1330. * MRSA Nasal swab ordered Recommend discontinuing PO Vancomycin for negative Cdif toxin. Could also discontinue IV metronidazole as long as no other concern for IAI. Pharmacy will continue to follow and will adjust dose/frequency as necessary. Thank you.
--- NOTE | 2019-01-30 15:04 | Hospitalist Progress Note ---
Date of Service January 30, 2019 Assessment & Plan (1) Enteritis: Presented with diffuse abdominal pain, liquid stool in his colostomy bag, fevers, nausea and vomiting x [address] abdomen is consistent with enteritis. Initial labs were notable for leukocytosis, hyponatremia, hypokalemia. - c.diff positive for gene but negative for toxin - discontinue po vanco - Surgery consulted due to concerning abd exam - no surgical intervention at this time - abx as below (2) Multifocal pneumonia: with sepsis Patient with acute respiratory change this morning with productive sputum, sob, tachycadia and chest pain CT scan neg for PE but did show diffuse bilateral upper lobe infiltrative changes with evidence for peripheral right apical consolidative change, Moderate mediastinal and hilar adenopathy possibly reactive, and scattered basilar periph eral infiltrative changes. Small right effusion. Will change abx regiment to Flagyl, Levaquin, and Vancomycin Discontinue IFV for effusion (3) CAD (coronary artery disease): cont ASA, Brilinta, B bianka, statin. - complaints of chest pain - EKG showed ST but no new ST changes, initial trop negative, will trend (4) HTN (hypertension): continue metoprolol (5) Tobacco use disorder: tobacco cessation education (6) Hyperlipidemia: continue statin (7) Diverticulitis of colon with perforation: In November of this year - with colostomy with planned reversal (8) DVT prophylaxis: heparin subq Subjective Mr. Hassan was having acute pain in his abdomen this morning with onset of cough with significant caballero sputum production and chest pain. He was tachycardic as well, EKG showing sinus tachycardia. Review of Systems Review of Systems: All systems reviewed & are unremarkable except as noted in HPI & below Physical Exam Physical Exam: General: no distress Eyes: normal inspection, PERLL Respiratory: chest non tender, course to auscultation bilaterally, no accessory muscle use Cardiac: regular rate and rhythm, no rub or gallop, no murmur, no edema, no jvd GI/: active bowel sounds, tender abdomen, soft, non distended, some guarding Extremities: normal range of motion, normal strength, non tender Neuro/Psych: alert and oriented x 3, agitated Skin: normal color, dry Results & Data Vital Signs (Past 12 Hours) Vital Signs Temp Pulse Resp BP Pulse Ox 01/30/19 10:36 91 01/30/19 10:28 131 H 106/68 88 L 01/30/19 07:00 36.7 C 110 H 16 94/57 L 93 PG Care Time/CCT Total # of Minutes Spent Total Time Spent with Patient: Total time spent is greater than 50% in coordination of care (as documented) at patient's floor/unit and/or counseling patient: (1) CAD (coronary artery disease) Associated angina: without angina Coronary Disease-Associated Artery/Lesion type: [place] artery [place] vs. transplanted heart: [place] heart Qualified Code(s): I25.10 - Atherosclerotic heart disease of [place] coronary artery without angina pectoris (2) Hyperlipidemia Hyperlipidemia type: unspecified Qualified Code(s): E78.5 - Hyperlipidemia, unspecified (3) Diverticulitis of colon with perforation Diverticulitis bleeding: unspecified bleeding status Qualified Code(s): K57.20 - Diverticulitis of large intestine with perforation and abscess without bleeding (4) HTN (hypertension) Hypertension type: essential hypertension Qualified Code(s): I10 - Essential (primary) hypertension
[2019-01-30] MEDS: methylPREDNISolone 40 MG in SYRINGE 0 ML IV SCH (17:19)
[2019-01-30] MEDS: VANCOMYCIN HCL 1,250 MG in SODIUM CHLORIDE 0.9% 250 ML IV SCH (21:50)
[2019-01-31] MEDS: MoRPHine SULFATE 4 MG/ML 1 ML CARP\\VIAL IV PRN ×4 (00:50→23:35)
[2019-01-31] MEDS: metroNIDAZOLE 500 MG/100 ML BAG IV SCH ×3 (03:54→21:01)
[2019-01-31] MEDS: methylPREDNISolone 40 MG in SYRINGE 0 ML IV SCH ×2 (03:55→17:54)
[2019-01-31] MEDS: VANCOMYCIN HCL 1,250 MG in SODIUM CHLORIDE 0.9% 250 ML IV SCH (05:01)
[2019-01-31] MEDS: HEPARIN SOD 5,000 UNIT/0.5 ML VIAL SQ SCH ×3 (05:02→21:02)
[2019-01-31 07:08] LABS: Hematocrit (blood only) 37.5 % (42-52); Hemoglobin 13.5 g/dL (14.0-18.0); Mean Platelet Volume 10.8 fL (7.4-10.4); Platelet Count 170 K/uL (130-400); RDW Coefficient of Variation 13.7 % (11.5-14.5); RDW Standard Deviation 44.3 fL (36.4-46.3); Red Blood Count 4.26 M/uL (4.7-6.1); White Blood Count 9.55 K/uL (4.8-10.8)
[2019-01-31 07:39] LABS: BUN Creatinine Ratio 12.3 (10-20); Calcium 9.3 mg/dl (8.5-10.1); Creatinine Clr Calc Pharmacy 143.7 ml/min; Est GFR (African American) 142.1; Est GFR (Non-African American) 122.6; Potassium 3.8 mmol/L (3.5-5.1)
[2019-01-31] MEDS: ATORVASTATIN 40 MG TAB PO SCH (08:25)
[2019-01-31] MEDS: METOPROLOL SUCC 50MG EXT REL TAB PO SCH (08:25)
[2019-01-31] MEDS: ASPIRIN 81 MG ECTAB PO SCH (08:25)
[2019-01-31] MEDS: TICAGRELOR 90 MG TAB PO SCH ×2 (08:25→22:05)
--- NOTE | 2019-01-31 09:07 | Surgery Progress Note ---
Date of Service January 31, 2019 Assessment & Plan (1) Enteritis: does not appear to be anything surgical going on pt has appointment with me this coming Sunday will sign off. Dr. Fung covering for weekend if any questions/concerns. Subjective pt seen. feeling better today ate eritrean toast without issue. loose bm's improved. main c/o is left chest wall pain with inspiration. Physical Exam Physical Exam: alert. nad abd: slightly distended. soft. nt. ostomy with some liquid stool. Results & Data Vital Signs (Past 12 Hours) Vital Signs Temp Pulse Pulse Resp BP Pulse Ox 01/31/19 08:23 109 H 127/76 01/31/19 07:52 99 H 01/31/19 07:27 36.8 C 109 H 18 121/76 92 01/31/19 03:53 36.7 C 84 18 109/70 94 01/30/19 23:58 100 H 01/30/19 23:30 37.8 C H 107 H 18 103/68 98
--- NOTE | 2019-01-31 10:10 | Hospitalist Progress Note ---
Date of Service January 31, 2019 Assessment & Plan (1) Enteritis: Presented with diffuse abdominal pain, liquid stool in his colostomy bag, fevers, nausea and vomiting x [address] abdomen is consistent with enteritis. Initial labs were notable for leukocytosis, hyponatremia, hypokalemia. - c.diff positive for gene but negative for toxin - discontinue po vanco - Surgery consulted due to concerning abd exam - no surgical intervention at this time - abx as below (2) Multifocal pneumonia: with sepsis Patient with acute respiratory change 01/30 with productive sputum, sob, tachycadia and chest pain CT scan neg for PE but did show diffuse bilateral upper lobe infiltrative changes with evidence for peripheral right apical consolidative change, Moderate mediastinal and hilar adenopathy possibly reactive, and scattered basilar peripheral infiltrative changes. Small right effusion. - Reviewed with pulmonology and they think this most likely represents aspiration and associated inflammation. This fits the clinical picture as well given rapid onset of pulmonary symptoms Initially changed antibiotic regiment to Flagyl, Levaquin, and Vancomycin - MRSA swab was negative so will dc IV vanco Continue IV solumedrol (3) CAD (coronary artery disease): cont ASA, Brilinta, B bianka, statin. - complaints of chest pain 01/30 - EKG showed ST but no new ST changes, trop wnl x2 (4) HTN (hypertension): continue metoprolol (5) Tobacco use disorder: tobacco cessation education - patient reports he is not interested in quitting (6) Hyperlipidemia: continue statin (7) Diverticulitis of colon with perforation: In November of this year - with colostomy with planned reversal (8) DVT prophylaxis: heparin subq Subjective Mr. Hassan is much improved today. He is on room air, no longer has much of a cough. Fevers decreased throughout the night and tachycardia has lessoned. He denies any chest pain but does have pain over his left ribs with deep inspiration Review of Systems Review of Systems: All systems reviewed & are unremarkable except as noted in HPI & below Physical Exam Physical Exam: General: no distress Eyes: normal inspection, PERLL Respiratory: chest non tender, scattered expiratory wheeze, no respiratory distress, no accessory muscle use Cardiac: regular rate and rhythm, no rub or gallop, no murmur, no edema, no jvd GI/: active bowel sounds, no abd pain or tenderness, soft, non distended Extremities: normal range of motion, normal strength, non tender Neuro/Psych: alert and oriented x 3, normal mood and affect Skin: normal color, dry Results & Data Vital Signs (Past 12 Hours) Vital Signs Temp Pulse Pulse Resp BP Pulse Ox 01/31/19 08:23 109 H 127/76 01/31/19 07:52 99 H 01/31/19 07:27 36.8 C 109 H 18 121/76 92 01/31/19 03:53 36.7 C 84 18 109/70 94 01/30/19 23:58 100 H 01/30/19 23:30 37.8 C H 107 H 18 103/68 98 PG Care Time/CCT Total # of Minutes Spent Total Time Spent with Patient: Total time spent is greater than 50% in coordination of care (as documented) at patient's floor/unit and/or counseling patient: (1) CAD (coronary artery disease) Coronary Disease-Associated Artery/Lesion type: [place] artery [place] vs. transplanted heart: [place] heart Associated angina: without angina Qualified Code(s): I25.10 - Atherosclerotic heart disease of [place] coronary artery without angina pectoris (2) HTN (hypertension) Hypertension type: essential hypertension Qualified Code(s): I10 - Essential (primary) hypertension (3) Hyperlipidemia Hyperlipidemia type: unspecified Qualified Code(s): E78.5 - Hyperlipidemia, unspecified (4) Diverticulitis of colon with perforation Diverticulitis bleeding: unspecified bleeding status Qualified Code(s): K57.20 - Diverticulitis of large intestine with perforation and abscess without bleeding
[2019-01-31] MEDS: ACETAMINOPHEN 325 MG TAB PO PRN (12:31)
[2019-01-31] MEDS: LEVOFLOXACIN/D5W 750 MG/150 ML BAG IV SCH (12:37)
[2019-01-31] MEDS ORDERED: VANCOMYCIN TROUGH ONE (13:30)
[2019-01-31] MEDS: RASPBERRY SYRUP 5 ML UDP PO SCH ×2 (17:54→23:35)
[2019-01-31] MEDS: VANCOMYCIN HCL 250 MG/5 ML SOLN PO SCH ×2 (17:54→23:35)
[2019-02-01] MEDS: metroNIDAZOLE 500 MG/100 ML BAG IV SCH ×2 (04:25→11:30)
[2019-02-01] MEDS: methylPREDNISolone 40 MG in SYRINGE 0 ML IV SCH (04:25)
[2019-02-01] MEDS: MoRPHine SULFATE 4 MG/ML 1 ML CARP\\VIAL IV PRN ×2 (04:26→08:27)
[2019-02-01] MEDS: ACETAMINOPHEN 325 MG TAB PO PRN (04:26)
[2019-02-01] MEDS: HEPARIN SOD 5,000 UNIT/0.5 ML VIAL SQ SCH (05:43)
[2019-02-01] MEDS: RASPBERRY SYRUP 5 ML UDP PO SCH ×2 (05:44→11:31)
[2019-02-01] MEDS: VANCOMYCIN HCL 250 MG/5 ML SOLN PO SCH ×2 (05:44→11:31)
[2019-02-01 06:07] LABS: Hematocrit (blood only) 33.9 % (42-52); Hemoglobin 11.9 g/dL (14.0-18.0); Mean Corpuscular Hgb Conc 35.1 g/dL (32-36); Mean Corpuscular Volume 87.1 fL (80-100); Mean Platelet Volume 10.5 fL (7.4-10.4); Platelet Count 210 K/uL (130-400); RDW Coefficient of Variation 13.9 % (11.5-14.5); RDW Standard Deviation 44.2 fL (36.4-46.3); Red Blood Count 3.89 M/uL (4.7-6.1); White Blood Count 13.01 K/uL (4.8-10.8)
[2019-02-01 06:43] LABS: BUN Creatinine Ratio 14.2 (10-20); Calcium 8.7 mg/dl (8.5-10.1); Est GFR (African American) 137.9; Potassium 3.7 mmol/L (3.5-5.1)
[2019-02-01] MEDS: ASPIRIN 81 MG ECTAB PO SCH (08:34)
[2019-02-01] MEDS: ATORVASTATIN 40 MG TAB PO SCH (08:34)
[2019-02-01] MEDS: METOPROLOL SUCC 50MG EXT REL TAB PO SCH (08:34)
[2019-02-01] MEDS: TICAGRELOR 90 MG TAB PO SCH (08:34)
[2019-02-01] MEDS: LEVOFLOXACIN/D5W 750 MG/150 ML BAG IV SCH (11:30)
--- NOTE | 2019-02-01 16:28 | Discharge Summary ---
Date of Service February 01, 2019 Admission HPI Per Admitting Provider 38 y/o M hx CAD - CO 03/2018, HTN, HLD, smoker, diverticulitis and a microperforation and pneumoperitoneum 12/02/18. He required a sigmoid colectomy and colostomy placement. the pt presents with diffuse abdominal pain, liquid stool in his colostomy bag, fevers, nausea and vomiting x [address] abdomen is consistent with enteritis. Initial labs are notable for leukocytosis, hyponatremia, hypokalemia. PMH: 1) CAD - anterior [place] 03/2018 - LAD stent 2) HTN 3) HLD 4) Smoker 5) Diverticulitis with microperforation 10/22/18. Did not respond to outpt antibiotics and proceeded to the OR for s sigmoid colectomy/colostomy 12/02/18. A reversal is scheduled for 02/13/19. Surgical: Catheterization and stent 03/2018 Social: Smokes a pack of cigarettes daily, denies ETOH Family: CAD Principal Diagnosis multilobar pneumonia, chronic c diff gene Discharge Exam Constitutional well developed and average body habitus Eyes no conjunctival abnormality and no scleral abnormality Neck normal visual inspection and trachea midline Respiratory normal respiratory effort; no respiratory distress Auscultation: lungs clear to auscultation bilaterally Cardiovascular RRR, no murmur, no edema Musculoskeletal no cyanosis or clubbing, extremities motor strength 12/08 Discharge Data Allergies Allergy/AdvReac Type Severity Reaction Status Date / Time No Known Allergies Allergy Verified 01/29/19 10:26 Consultations 01/29/19 11:00 ED Decision to Admit Stat Ordered Studies 01/29/19 08:45 CT abd pelvis IV con only Stat 01/30/19 11:25 CT angio chest PE protocol Routine Hospital Course (1) Enteritis: Presented with diffuse abdominal pain, liquid stool in his colostomy bag, fevers, nausea and vomiting x [address] abdomen is consistent with enteritis. Initial labs were notable for leukocytosis, hyponatremia, hypokalemia. - c.diff positive for gene but negative for toxin - continue po vanco as per surgical recommendations - Surgery consulted due to concerning abd exam - no surgical intervention planned - abx as below (2) Multifocal pneumonia: with sepsis Patient with acute respiratory change 01/30 with productive sputum, sob, tachycadia and chest pain CT scan neg for PE but did show diffuse bilateral upper lobe infiltrative changes with evidence for peripheral right apical consolidative change, Moderate mediastinal and hilar adenopathy possibly reactive, and scattered basilar peripheral infiltrative changes. Small right effusion. - Reviewed with pulmonology and they think this most likely represents aspiration and associated inflammation. This fits the clinical picture as well given rapid onset of pulmonary symptoms Initially changed antibiotic regiment to Flagyl, Levaquin, and Vancomycin - MRSA swab was negative so will dc vanco and will have home on po levaquin (3) CAD (coronary artery disease): cont ASA, Brilinta, B bianka, statin. - complaints of chest pain 01/30 - EKG showed ST but no new ST changes, trop wnl x2 will need recommendations from surgery regarding holding his antiplatelet agents (4) HTN (hypertension): continue metoprolol (5) Tobacco use disorder: tobacco cessation education - patient reports he is not interested in quitting (6) Hyperlipidemia: continue statin (7) Diverticulitis of colon with perforation: In November of this year - with colostomy with planned reversal Total Time Total Time Spent Total Time Spent (In Minutes): greater than 30 minutes were required to prepare discharge Discharge Plan Discharge Items Patient Disposition: Home - Self-Care Reason For Visit: ENTERITIS Discharge Diagnosis: pneumonia Discharge Goals: Decrease discomfort Activity: As commented below Activity Comment: rest and take it easy for a few days Non-emergency contact: Primary Care Provider Call non-emergency contact if: you have any medication questions Follow-up/Referrals: Felicity Pemberton DO [Primary Care Provider] - Diet: Regular Addtl Provider Instructions: follow up Dr Pemberton, in one week or so monitor for temperature Prescriptions: New levofloxacin 750 mg tablet 750 mg PO DAILY 8 Days Qty: 8 RF: 0 vancomycin 250 mg capsule 250 mg PO QID 14 Days Qty: 56 RF: 0 Continued atorvastatin [Lipitor] 80 mg tablet 80 mg PO QAM RF: 0 metoprolol succinate [Toprol XL] 50 mg tablet extended release 24 hr 50 mg PO QAM RF: 0 aspirin 81 mg Tablet,Delayed Release (Dr/Ec) 81 mg PO QAM RF: 0 nitroglycerin [Nitrostat] 0.4 mg Tablet, Sublingual 0.4 mg Sublingual UD PRN (Reason: Chest Pain) RF: 0 Brilinta 90 mg tablet 90 mg PO BID RF: 0 Stand-Alone Forms: Call Back Authorization, [facility] Discharge Orders: Discharge Order (Routine); Ordered 02/01/19 Ordered By: Russell Long Admission Data Admit Date/Time: 01/29/19 11:53 Attending Provider: Russell Long Admit Provider: Adam Chapman Primary Care Provider: Felicity Pemberton Other Providers: Adam Chapman Service: Telemetry Other Interventions: Discharge Summary Assessment (RN) Last Done: 02/01/19 13:01 DC Date/Time DO NOT enter until pt leaves facility: 02/01/19 13:36
== END 2019-02-01 13:36 | disposition home or self-care (01) | DRG 871 ==
LOC: ED 08:17 → 3N 11:53 → SUATTDRO 11:53 → 3N 12:54 → 2S 01-30 12:36
DX: J18.9 Pneumonia, unspecified organism; I25.2 Old myocardial infarction; Z82.49 Family history of ischemic heart disease and other diseases of the circulatory system; Z93.3 Colostomy status; K52.9 Noninfective gastroenteritis and colitis, unspecified; E87.1 Hypo-osmolality and hyponatremia; Z80.9 Family history of malignant neoplasm, unspecified; E78.5 Hyperlipidemia, unspecified; Z79.82 Long term (current) use of aspirin; E87.6 Hypokalemia; E86.0 Dehydration; I10 Essential (primary) hypertension; A41.9 Sepsis, unspecified organism; I25.10 Atherosclerotic heart disease of native coronary artery without angina pectoris; F17.210 Nicotine dependence, cigarettes, uncomplicated; Z90.49 Acquired absence of other specified parts of digestive tract; Z83.3 Family history of diabetes mellitus

== ENCOUNTER 2019-02-13 07:16 | Inpatient (IN) ==
--- NOTE | 2019-01-21 09:36 | Anesthesiology Consultation ---
Date of Service January 21, 2019 Assessment & Plan Consults Requested medical & cardiac Pulmonary History Surgery Operation Date: 02/13/19 08:20 Proposed Procedures p Open Reversal of Colostomy - Bimal Iglesias DO Height/Weight Height: 5 ft 5 in Weight: 72.575 kg Allergies Allergy/AdvReac Type Severity Reaction Status Date / Time No Known Allergies Allergy Verified 01/21/19 07:33 Medications Home Medications Medication Instructions Recorded Confirmed Last Taken Brilinta 90 mg PO BID 10/12/18 01/21/19 12/20/18 aspirin 81 mg PO QAM 10/12/18 01/21/19 12/20/18 atorvastatin [Lipitor] 80 mg PO QAM 10/12/18 01/21/19 12/20/18 metoprolol succinate [Toprol XL] 50 mg PO QAM 10/12/18 01/21/19 12/20/18 nitroglycerin [Nitrostat] 0.4 mg SUBLINGUAL UD PRN 10/12/18 01/21/19 Unknown Past Medical History Medical History Acute diverticulitis (Acute) Cardiomyopathy, ischemic (Acute) LIFE [place] JUNE 2018 Acute blood loss anemia CAD (coronary artery disease) (Chronic) Diverticulitis of colon with perforation (Acute) NOVEMBER 2018 Myocardial infarction HTN (hypertension) (Chronic) Tobacco use disorder (Chronic) Colonic polyp Hyperlipidemia Myocardial infarction 03/2018 Past Family History Family History Father Family history of diabetes mellitus Other Myocardial infarction Past Surgical History Surgical History History of bowel resection WITH COLOSTOMY 11/2018 History of colonoscopy History of esophagogastroduodenoscopy (EGD) History of heart artery stent 03/2018 (FOLLOWED BY DR. JHA) History of tooth extraction Social History Smoking Status: Current every day smoker tobacco type: cigarettes Smoking cigarettes per day: 20 CIG DAILY Do You Dip or Chew Tobacco: No Hx Alcohol Use: Yes Alcohol type: beer alcohol intake frequency: holidays/special occasions only Hx Substance Use: No substance use type: does not use Testing Electrocardiogram Date: 01/20/19 Findings: + NSR @ (74) and + CT (old anteroseptal infarct from March 2018) Chest X-Ray Laboratory Tests 03/22/18 12/20/18 12/20/18 06:07 17:51 17:51 WBC 10.79 Hgb 11.5 L Hct 32.6 L Plt Count 479 H PT 10.3 INR 1.0 APTT 27.5 Sodium Potassium Chloride Carbon Dioxide BUN Creatinine Glucose Hemoglobin A1c 5.6 12/20/18 17:51 WBC Hgb Hct Plt Count PT INR APTT Sodium 138 Potassium 3.9 Chloride 104 Carbon Dioxide 29 BUN 8 Creatinine 0.71 Glucose 73 Hemoglobin A1c 5.6
--- NOTE | 2019-01-21 09:58 | Anesthesiology Consultation ---
Date of Service January 21, 2019 Assessment & Plan (1) Encounter for pre-operative examination: Chart Review Chart Review: Acceptable Risk for Surgery and Patient NOT seen in Pre Admission Testing Consults Requested none History Surgery Operation Date: 02/13/19 08:20 Proposed Procedures p Open Reversal of Colostomy - Bimal Iglesias, Height/Weight Height: 5 ft 5 in Weight: 72.575 kg Allergies Allergy/AdvReac Type Severity Reaction Status Date / Time No Known Allergies Allergy Verified 01/21/19 07:33 Medications Home Medications Medication Instructions Recorded Confirmed Last Taken Brilinta 90 mg PO BID 10/12/18 01/21/19 12/20/18 aspirin 81 mg PO QAM 10/12/18 01/21/19 12/20/18 atorvastatin [Lipitor] 80 mg PO QAM 10/12/18 01/21/19 12/20/18 metoprolol succinate [Toprol XL] 50 mg PO QAM 10/12/18 01/21/19 12/20/18 nitroglycerin [Nitrostat] 0.4 mg SUBLINGUAL UD PRN 10/12/18 01/21/19 Unknown Past Medical History Medical History Acute diverticulitis (Acute) Cardiomyopathy, ischemic (Acute) LIFE [place] JUNE 2018 Acute blood loss anemia CAD (coronary artery disease) (Chronic) Diverticulitis of colon with perforation (Acute) NOVEMBER 2018 Myocardial infarction HTN (hypertension) (Chronic) Tobacco use disorder (Chronic) Colonic polyp Hyperlipidemia Myocardial infarction 03/2018 Past Family History Family History Father Family history of diabetes mellitus Other Myocardial infarction Past Surgical History Surgical History History of bowel resection WITH COLOSTOMY 11/2018 History of colonoscopy History of esophagogastroduodenoscopy (EGD) History of heart artery stent 03/2018 (FOLLOWED BY DR. JHA) History of tooth extraction Social History Smoking Status: Current every day smoker tobacco type: cigarettes Smoking cigarettes per day: 20 CIG DAILY Do You Dip or Chew Tobacco: No Hx Alcohol Use: Yes Alcohol type: beer alcohol intake frequency: holidays/special occasions only Hx Substance Use: No substance use type: does not use Testing Electrocardiogram Date: 12/20/18 Findings: + NSR @ (74) and + [place] (2018 old anteroseptal infarct) Chest X-Ray Date: 12/20/18 HISTORY: Dyspnea COMPARISON: Chest 12/20/2018. FINDINGS: The lungs are clear. Cardiac silhouette is normal in size. No pleural effusions. No pneumothorax. IMPRESSION: No acute process. Electronically signed by: Marquise Olmos M.D. 12/20/2018 5:45 PM Echocardiogram Date: 03/24/18 EF: 30-35 LV Function: dysfunctional RWMA: + akinetic Other Findings: + LVH (mild concentric) Other Testing Laboratory Tests 03/22/18 12/20/18 12/20/18 06:07 17:51 17:51 WBC 10.79 Hgb 11.5 L Hct 32.6 L Plt Count 479 H PT 10.3 INR 1.0 APTT 27.5 Sodium Potassium Chloride Carbon Dioxide BUN Creatinine Glucose Hemoglobin A1c 5.6 12/20/18 17:51 WBC Hgb Hct Plt Count PT INR APTT Sodium 138 Potassium 3.9 Chloride 104 Carbon Dioxide 29 BUN 8 Creatinine 0.71 Glucose 73 Hemoglobin A1c 5.6
[~2019-02-13 07:16] MED LIST changes: +CEFAZOLIN 2000MG 2,000 MG/15 ML SYR IV SCH; +LR 15ML/HR IV SCH; -SULF800T23 PO
[2019-02-13] MEDS ORDERED: fentaNYL citrate 100 MCG/2 ML VIAL ONE ×6 (08:28→11:15)
[2019-02-13] MEDS ORDERED: MIDAZOLAM HCL 1 MG/ML 2ML VIAL ONE (08:28)
--- NOTE | 2019-02-13 08:39 | History & Physical Bridge Note ---
Date of Service February 13, 2019 History & Physical Bridge Note I have examined the patient, reviewed the History & Physical and in the interval since the performance of the History & Physical I have noted the following changes of clinical significance: no changes noted
[2019-02-13] MEDS ORDERED: ATROPINE SULFATE 0.1 MG/ML 10ML SYR IV PRN (08:41)
[2019-02-13] MEDS ORDERED: ePHEDrine sulfate 50 MG/ML AMP IV PRN (08:41)
[2019-02-13] MEDS ORDERED: HYDROmorphone INJ 1 MG/ML SYRINGE IV PRN ×2 (08:41→13:02)
[2019-02-13] MEDS ORDERED: ONDANSETRON INJ 2 MG/ML 2 ML VIAL IV PRN ×2 (08:41→13:02)
[2019-02-13] MEDS ORDERED: ALBUT/IPRATROP 3MG/0.5MG NEB 3 ML VIAL NEB STA (08:55)
[2019-02-13] MEDS ORDERED: HYDROmorphone INJ 2 MG/ML SYR/VIAL ONE ×2 (08:58→11:16)
[2019-02-13] MEDS ORDERED: NEOSTIGMINE METHYLSULFATE 5 MG/5 ML SYR ONE ×2 (08:58→10:27)
[2019-02-13] MEDS ORDERED: BUPIVACAINE/EPINEPHRINE 0.5% MPF 1:200,000 30 ML VIAL ONE (09:05)
[2019-02-13] MEDS ORDERED: ESMOLOL HCL INJ 10 MG/ML 10ML VIAL IV ONE (09:52)
[2019-02-13] MEDS ORDERED: METOPROLOL TARTRATE 1 MG/ML VIAL IV ONE (09:52)
[2019-02-13] MEDS ORDERED: VOLUVEN IN NSS IV ONE (10:13)
[2019-02-13] MEDS ORDERED: GLYCOPYRROLATE 0.2 MG/ML VIAL ONE (10:27)
[2019-02-13] MEDS ORDERED: DEXAMETHASONE SOD INJ 4 MG/ML VIAL ONE (10:27)
[2019-02-13] MEDS ORDERED: PROPOFOL IV EMULSION 10 MG/ML 20 ML VIAL IV ONE (10:27)
[2019-02-13] MEDS ORDERED: ONDANSETRON INJ 2 MG/ML 2 ML VIAL ONE (10:27)
[2019-02-13] MEDS ORDERED: LIDOCAINE HCL 2% 2 ML VIAL/AMP(20MG/ML) INFIL ONE (10:27)
[2019-02-13] MEDS ORDERED: ROCURONIUM BROMIDE 10 MG/ML 5 ML VIAL ONE (10:27)
[2019-02-13] MEDS ORDERED: KETOROLAC 30 MG/ML VIAL ONE (11:26)
[2019-02-13] MEDS ORDERED: LARYING-O-JET KIT (LTA) ONE (11:26)
--- NOTE | 2019-02-13 11:33 | Operative Report ---
Post Operative Report Pre & Post Diagnosis Operation Date: 02/13/19 09:00 Pre-Op Diagnosis: Diverticulosis, Colostomy Post-Op Diagnosis: Diverticulosis, Colostomy; adhesions Procedure Operation Date: 02/13/19 09:00 Actual Procedures p Laparoscopic assisted Reversal of Colostomy, Enterolysis - Bimal Iglesias DO Surgeon Bimal Iglesias DO Ballast Regulator Operator lenora Gallegos Estimated Blood Loss 20 Findings Consistent with Post-Op Diagnosis Specimens none Description of Procedure After informed consent was obtained the patient was taken to the operating room and placed in supine position. After successful intubation the patient was placed in a low lithotomy position. A Marquez catheter was placed. I then oversewed the colostomy with 2-0 silk. We then sterilely prepped and draped the entire abdomen after shaving it. I began with a supraumbilical incision with 11 blade scalpel and carried this down through the soft tissue using cautery. Ante rior rectus fascia was opened using cautery and two #0 Vicryl stay sutures were placed. Peritoneum was entered using blunt finger penetration and a finger sweep was performed. A 12 mm Olivia trocar was placed and the abdomen was insufflated to 20 mmHg. Laparoscope was inserted and the abdomen examined in 360 degrees. There was some adhesions to the anterior abdominal wall. These involved primarily small bowel. I was able to place a right lower quadrant 5 mm port and a right mid abdominal 5 mm port under direct vision. Using traction/ countertraction and small amounts of harmonic scalpel as well as laparoscopic scissors I was able to take down these adhesions primarily in the midline. Once all the adhesions were down we then inspected the stoma which looked healthy. There was plenty of remaining left colon. I did free the left colon up using blunt dissection and again small amounts of harmonic scalpel by taking down some more of the white line of Toldt as well as some adhesions around the colon itself. Next we placed the patient in Trendelenburg position. The stump was readily apparent with the marking sutures. Again I freed this up using primarily blunt dissection. There was plenty of rectosigmoid remaining as well. At this point we desufflated the abdomen. I used a 15 blade scalpel to make an elliptical incision around the closed colostomy. We used traction co untertraction and cautery to come down along the stoma in 360 degrees. Eventually I was able to use scissor lysis and blunt finger dissection to completely free up the stoma. It appeared healthy and viable with good blood supply. We placed a bowel clamp and removed the distal end of the stoma. We then used sizers to estimate the lumen size to be 25 mm. 2-0 silk was used to create a pursestring. 25 mm anvil was placed into the end and secured using the pursestring. This was then dunked back down into the abdominal cavity. At this point we changed our gloves. I then closed the fascial defect of the stoma site using 0 PDS in running fashion. We then reinsufflated the abdomen. The anvil laid over the pelvic brim nicely without any tension. We first brought the sizers into the rectal stump followed by the handle of the EEA. We deployed the spike anterior to the previous staple line. We then placed the anvil into the handle and they were secured together and fired creating an end to side functional end-to-end anastomosis... both donuts were intact. The colon was not twisted and seemed to lay without tension. We thoroughly irrigated the pelvis. I then submerged the anastomosis under water and clamped the proximal end. Rigid sigmoidoscope was used to insufflate the rectal stump. The anastomosis was completely airtight with no evidence of leakage. Final irrigation was performed. There was adequate hemostasis at the end of the case. A 10 flat Beny-Nelson drain was placed in the pelvis and brought out through 1 of the trocar sites. It was secured using 2-0 silk. The remainder of the trochars were removed and the abdomen desufflated. The fascia of the camera port was closed using 0 Vicryl in a [id number] fashion. All wounds were irrigated and closed using 4-0 Monocryl. The stoma site was closed over a Crosby drain using 3-0 Vicryl for the deep layers and 2 -0 Prolene in simple interrupted fashion for the skin. The Elmer was secured using 2-0 silk to the skin as well. A silver dressing gauze and tape were then placed and Dermabond glue placed over the other incisions. 30 cc of Marcaine with epinephrine were injected around the incisions prior to dressing them. The patient was then awakened extubated and transferred to recovery in stable condition. My physician practice assistant was present for the entire case. He assisted throughout the entire procedure with retraction running the camera as well as the anastomosis and wound closures I attest to the content of the Intraoperative Record and any orders documented therein. Any exceptions are noted below.
[2019-02-13] MEDS: fentaNYL citrate 100 MCG/2 ML VIAL IV PRN ×4 (11:53→12:08)
[2019-02-13] MEDS ORDERED: ePHEDrine sulfate 50 MG/ML AMP ONE (11:53)
[2019-02-13] MEDS ORDERED: PHENYLEPHRINE 100MCG/ML 5ML SYR ONE (11:53)
[2019-02-13] MEDS ORDERED: ePHEDrine sulfate 50 MG/ML SYR ONE (11:53)
--- NOTE | 2019-02-13 12:32 | Anesthesiology Progress Note ---
Date of Service February 13, 2019 Anesthesia Post Procedure Vital Signs Vital Signs: Temp Pulse Pulse Resp BP BP Pulse Ox 02/13/19 12:20 58 L 18 112/66 97 02/13/19 12:10 63 18 120/75 96 02/13/19 12:00 71 18 117/75 97 02/13/19 11:50 76 18 120/75 97 02/13/19 11:43 98.4 F 86 18 128/77 96 02/13/19 09:04 72 16 96 02/13/19 08:03 97.7 F 92 H 20 117/78 95 Transfer of Care Handoff Completed per policy Notes Mental Status: alert / awake / arousable and participated in evaluation Patient Amnestic to Procedure: Yes Nausea / Vomiting: adequately controlled Pain: adequately controlled Airway Patency, RR, SpO2: stable & adequate BP & HR: stable & adequate Hydration State: stable & adequate Anesthetic Complications: no major complications apparent and Pt Satisfied with anesthetic care
[2019-02-13] MEDS ORDERED: KETOROLAC 30 MG/ML VIAL IV PRN (13:02)
[2019-02-13] MEDS ORDERED: NITROGLYCERIN SL 0.4 MG/TAB TAB SL PRN (13:02)
[2019-02-13] MEDS ORDERED: HYDROmorphone INJ 0.5 MG/0.5 ML SYR IV PRN (13:02)
[2019-02-13] MEDS ORDERED: ACETAMINOPHEN 1,000 MG/100 ML VIAL IV PRN (13:02)
[2019-02-13] MEDS ORDERED: NALOXONE HCL 0.4 MG/1 ML VIAL/CARP IV PRN (13:44)
[2019-02-13] MEDS ORDERED: VANCOMYCIN HCL 500 MG/10 ML SOLN PO SCH (14:00)
[2019-02-13] MEDS: SODIUM CHLORIDE 0.9% 1000ML 1,000 ML IV SCH (14:06)
[2019-02-13] MEDS: LACTATED RINGER'S 1,000 ML IV SCH ×2 (14:20→18:31)
[2019-02-13] MEDS: RASPBERRY SYRUP 5 ML UDP PO SCH ×3 (14:20→20:09)
[2019-02-13] MEDS: HYDROmorphone HCL 0.5MG/ML 50 ML CASSETTE IV PRN (15:53)
[2019-02-13] MEDS: VANCOMYCIN HCL 250 MG/5 ML SOLN PO SCH ×2 (16:57→20:09)
[2019-02-13] MEDS: CEFAZOLIN 2000MG 2,000 MG/15 ML SYR IV SCH (17:00)
[2019-02-13] MEDS: TICAGRELOR 90 MG TAB PO SCH (20:09)
[2019-02-14] MEDS: CEFAZOLIN 2000MG 2,000 MG/15 ML SYR IV SCH ×2 (01:58→08:58)
[2019-02-14] MEDS: LACTATED RINGER'S 1,000 ML IV SCH ×3 (01:58→18:51)
[2019-02-14 08:04] LABS: Basophils # (auto) 0.01 K/uL (0-0.2); Basophils % (auto) 0.1 %; Eosinophils # (auto) 0.03 K/uL (0-0.5); Eosinophils % (auto) 0.2 %; Hematocrit (blood only) 34.3 % (42-52); Hemoglobin 11.8 g/dL (14.0-18.0); Immature Granulocytes # (auto) 0.07 K/uL (0.00-0.02); Immature Granulocytes % (auto) 0.4 %; Lymphocytes # (auto) 1.97 K/uL (1.2-3.4); Lymphocytes % (auto) 10.9 %; Mean Corpuscular Hgb Conc 34.4 g/dL (32-36); Mean Corpuscular Volume 89.6 fL (80-100); Mean Platelet Volume 9.8 fL (7.4-10.4); Monocytes # (auto) 0.95 K/uL (0.11-0.59); Monocytes % (auto) 5.3 %; Neutrophils # (auto) 15.05 K/uL (1.4-6.5); Neutrophils % (auto) 83.1 %; Platelet Count 257 K/uL (130-400); RDW Coefficient of Variation 13.9 % (11.5-14.5); RDW Standard Deviation 45.7 fL (36.4-46.3); Red Blood Count 3.83 M/uL (4.7-6.1); White Blood Count 18.08 K/uL (4.8-10.8)
[2019-02-14] MEDS: ATORVASTATIN 40 MG TAB PO SCH (08:08)
[2019-02-14] MEDS: TICAGRELOR 90 MG TAB PO SCH ×2 (08:08→20:18)
[2019-02-14] MEDS: RASPBERRY SYRUP 5 ML UDP PO SCH ×4 (08:08→20:18)
[2019-02-14] MEDS: ASPIRIN 81 MG ECTAB PO SCH (08:08)
[2019-02-14] MEDS: ENOXAPARIN INJ 40 MG/0.4 ML SYR SQ SCH (08:09)
[2019-02-14] MEDS: VANCOMYCIN HCL 250 MG/5 ML SOLN PO SCH ×4 (08:09→20:18)
[2019-02-14] MEDS: METOPROLOL SUCC 50MG EXT REL TAB PO SCH (08:09)
--- NOTE | 2019-02-14 08:12 | Surgery Progress Note ---
Date of Service February 14, 2019 Assessment & Plan (1) Diverticulitis of colon with perforation: POD 1 lap colostomy takedown d/c kingsley can have clears add Toradol Lovenox as above. doing as expected. BURGLAR ALARM OPERATOR only marginally helping..will increase dose increase activity d/c kingsley sips clears only until BM Subjective no nausea, no flatus, LLQ pain Physical Exam Gastrointestinal (Abdomen): Inspection/Auscultation: + abdominal surgical incision (some dara drainage) and + abdominal surgical drain present (LEDY 70 cc) Results & Data Vital Signs (Past 12 Hours) Vital Signs Temp Pulse Resp BP Pulse Ox 02/14/19 02:39 36.6 C 63 14 92/55 L 92 02/13/19 23:35 36.8 C 64 14 93/56 L 91 02/13/19 20:12 91 H 15 96/60 L 94 (1) Diverticulitis of colon with perforation Diverticulitis bleeding: unspecified bleeding status Qualified Code(s): K57.20 - Diverticulitis of large intestine with perforation and abscess without bleeding
[2019-02-14 08:35] LABS: BUN Creatinine Ratio 14.1 (10-20); Creatinine Clr Calc Pharmacy 150.2 ml/min; Est GFR (African American) 149.9; Est GFR (Non-African American) 129.3; Potassium 4.3 mmol/L (3.5-5.1)
[2019-02-14] MEDS: KETOROLAC 30 MG/ML VIAL IV SCH ×3 (08:54→20:18)
[2019-02-14] MEDS: HYDROmorphone HCL 0.5MG/ML 50 ML CASSETTE IV PRN (11:26)
[2019-02-14] MEDS: SODIUM CHLORIDE 0.9% 1000ML 1,000 ML IV SCH (13:55)
--- NOTE | 2019-02-14 14:36 | Anesthesiology Progress Note ---
Date of Service February 14, 2019 Anesthesia Post Procedure Vital Signs Vital Signs: Temp Pulse Pulse Resp BP Pulse Ox 02/14/19 11:15 36.8 C 62 13 106/68 94 02/14/19 07:30 36.8 C 62 16 108/68 91 02/14/19 02:39 36.6 C 63 14 92/55 L 92 02/13/19 23:35 36.8 C 64 14 93/56 L 91 02/13/19 20:12 91 H 15 96/60 L 94 02/13/19 18:58 36.4 C L 83 17 91/60 L 93 02/13/19 17:07 36.4 C L 74 17 95/60 L 94 02/13/19 15:50 66 15 95/60 L 95 02/13/19 14:50 36.6 C 59 L 16 105/66 94 Pain Intensity Left Lower Abdomen: Pain Intensity: 7 Notes Mental Status: alert / awake / arousable Patient Amnestic to Procedure: Yes Nausea / Vomiting: adequately controlled Pain: adequately controlled Airway Patency, RR, SpO2: stable & adequate BP & HR: stable & adequate Hydration State: stable & adequate Anesthetic Complications: no major complications apparent and Pt Satisfied with anesthetic care
[2019-02-15] MEDS: HYDROmorphone HCL 0.5MG/ML 50 ML CASSETTE IV PRN (01:09)
[2019-02-15] MEDS: KETOROLAC 30 MG/ML VIAL IV SCH ×4 (03:04→20:43)
[2019-02-15] MEDS: LACTATED RINGER'S 1,000 ML IV SCH ×3 (03:16→22:59)
[2019-02-15] MEDS: ATORVASTATIN 40 MG TAB PO SCH (07:39)
[2019-02-15] MEDS: VANCOMYCIN HCL 250 MG/5 ML SOLN PO SCH ×2 (07:39→13:10)
[2019-02-15] MEDS: ASPIRIN 81 MG ECTAB PO SCH (07:40)
[2019-02-15] MEDS: TICAGRELOR 90 MG TAB PO SCH ×2 (07:40→20:41)
[2019-02-15] MEDS: METOPROLOL SUCC 50MG EXT REL TAB PO SCH (07:40)
[2019-02-15] MEDS: RASPBERRY SYRUP 5 ML UDP PO SCH ×2 (07:40→13:10)
[2019-02-15] MEDS: ENOXAPARIN INJ 40 MG/0.4 ML SYR SQ SCH (07:40)
[2019-02-15 08:43] LABS: Basophils # (auto) 0.02 K/uL (0-0.2); Basophils % (auto) 0.2 %; Eosinophils # (auto) 0.06 K/uL (0-0.5); Eosinophils % (auto) 0.6 %; Hematocrit (blood only) 33.7 % (42-52); Hemoglobin 11.3 g/dL (14.0-18.0); Immature Granulocytes # (auto) 0.03 K/uL (0.00-0.02); Immature Granulocytes % (auto) 0.3 %; Lymphocytes # (auto) 2.53 K/uL (1.2-3.4); Lymphocytes % (auto) 25.3 %; Mean Corpuscular Hgb Conc 33.5 g/dL (32-36); Mean Corpuscular Volume 91.8 fL (80-100); Mean Platelet Volume 9.4 fL (7.4-10.4); Monocytes # (auto) 0.68 K/uL (0.11-0.59); Monocytes % (auto) 6.8 %; Neutrophils # (auto) 6.69 K/uL (1.4-6.5); Neutrophils % (auto) 66.8 %; Platelet Count 191 K/uL (130-400); RDW Coefficient of Variation 14.3 % (11.5-14.5); RDW Standard Deviation 47.5 fL (36.4-46.3); Red Blood Count 3.67 M/uL (4.7-6.1); White Blood Count 10.01 K/uL (4.8-10.8)
--- NOTE | 2019-02-15 08:49 | Surgery Progress Note ---
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 WBC elevated yesterday, CBC pending but no real signs or symptoms of acute infection Present on Admission?: No Subjective POD #2 laparoscopic colostomy takedown taking clears well passing a lot of flatus no BM yet no fevers or chills abdominal pain incisional Review of Systems Constitutional: no fever and no chills Respiratory: no cough and no dyspnea Cardiovascular: no chest pain Gastrointestinal: + abdominal pain (incisional moderate); no nausea and no vomiting Physical Exam Constitutional: well developed and well nourished Neck: trachea midline Respiratory: normal respiratory effort; no respiratory distress Au scultation: lungs clear to auscultation bilaterally and + wheezes (occasional) Cardiovascular: Rate/Rhythm: regular rate and regular rhythm Heart Sounds: no murmur Gastrointestinal (Abdomen): Inspection/Auscultation: normal bowel sounds; abdomen not distended Percussion/Palpation: + abdomen tender incision clean with some bloody drainage dara in place Musculoskeletal: Head/Neck/Chest: normocephalic and head atraumatic Skin: no rashes, warm and dry Psychiatric: Orientation: alert and oriented x 3 Results & Data Vital Signs (Past 12 Hours) Vital Signs Temp Pulse Pulse Resp BP Pulse Ox 02/15/19 07:46 36.7 C 58 L 16 111/70 94 02/15/19 03:18 37 C 59 L 16 105/64 97 02/14/19 23:21 36.8 C 70 14 101/59 L 97
[2019-02-15] MEDS ORDERED: OXYCODONE/ACETAMINOPHEN 5mg/325mg TAB ONE (08:53)
[2019-02-15 09:21] LABS: BUN Creatinine Ratio 13.7 (10-20); Calcium 9.2 mg/dl (8.5-10.1); Creatinine Clr Calc Pharmacy 138.3 ml/min; Est GFR (African American) 144.9; Potassium 3.7 mmol/L (3.5-5.1)
[2019-02-15] MEDS: SODIUM CHLORIDE 0.9% 1000ML 1,000 ML IV SCH (13:10)
[2019-02-15] MEDS: OXYCODONE/ACETAMINOPHEN 5mg/325mg TAB PO PRN (21:52)
[2019-02-16] MEDS: OXYCODONE/ACETAMINOPHEN 5mg/325mg TAB PO PRN ×4 (03:06→21:38)
[2019-02-16] MEDS: KETOROLAC 30 MG/ML VIAL IV SCH ×4 (03:07→20:35)
[2019-02-16] MEDS ORDERED: Nursing to Pharmacy Communication ONE (04:16)
[2019-02-16 06:51] LABS: Basophils # (auto) 0.02 K/uL (0-0.2); Basophils % (auto) 0.2 %; Eosinophils # (auto) 0.15 K/uL (0-0.5); Eosinophils % (auto) 1.6 %; Hematocrit (blood only) 32.9 % (42-52); Hemoglobin 11.1 g/dL (14.0-18.0); Immature Granulocytes # (auto) 0.03 K/uL (0.00-0.02); Immature Granulocytes % (auto) 0.3 %; Lymphocytes # (auto) 2.23 K/uL (1.2-3.4); Lymphocytes % (auto) 24.1 %; Mean Corpuscular Hgb Conc 33.7 g/dL (32-36); Mean Corpuscular Volume 90.6 fL (80-100); Mean Platelet Volume 9.8 fL (7.4-10.4); Monocytes # (auto) 0.68 K/uL (0.11-0.59); Monocytes % (auto) 7.4 %; Neutrophils # (auto) 6.14 K/uL (1.4-6.5); Neutrophils % (auto) 66.4 %; Platelet Count 211 K/uL (130-400); RDW Coefficient of Variation 13.9 % (11.5-14.5); RDW Standard Deviation 46.1 fL (36.4-46.3); Red Blood Count 3.63 M/uL (4.7-6.1); White Blood Count 9.25 K/uL (4.8-10.8)
[2019-02-16 07:23] LABS: BUN Creatinine Ratio 8.4 (10-20); Calcium 8.7 mg/dl (8.5-10.1); Est GFR (African American) 142.1; Est GFR (Non-African American) 122.6; Potassium 3.5 mmol/L (3.5-5.1)
[2019-02-16] MEDS: ATORVASTATIN 40 MG TAB PO SCH (07:24)
[2019-02-16] MEDS: METOPROLOL SUCC 50MG EXT REL TAB PO SCH (07:24)
[2019-02-16] MEDS: ASPIRIN 81 MG ECTAB PO SCH (07:25)
[2019-02-16] MEDS: ENOXAPARIN INJ 40 MG/0.4 ML SYR SQ SCH (07:25)
[2019-02-16] MEDS: TICAGRELOR 90 MG TAB PO SCH ×2 (07:26→20:35)
[2019-02-16] MEDS: LACTATED RINGER'S 1,000 ML IV SCH ×2 (07:29→19:22)
[2019-02-16] MEDS ORDERED: MoRPHine SULFATE 10 MG/ML CARP/VIAL IV PRN (10:05)
--- NOTE | 2019-02-16 10:13 | Surgery Progress Note ---
Date of Service February 16, 2019 Assessment & Plan (1) S/P colectomy: stop FREE LANCE ARTIST; prn morphine as needed with oral meds regular diet walking well decrease IVF Subjective doing well passing flatus pain OK will stop FREE LANCE ARTIST Review of Systems Constitutional: no fever and no chills Respiratory: no dyspnea Cardiovascular: no chest pain Gastrointestinal: + abdominal pain (moderate but improving) Musculoskeletal: no back pain Integumentary: no rash Physical Exam Constitutional: WD/WN, vitals as above Neck: trachea midline Respiratory: normal respiratory effort, lungs clear to auscultation Cardiovascular: RRR, no murmur, no edema Gastrointestinal (Abdomen): Inspection/Auscultation: abdomen normal to inspection and normal bowel sounds Percussion/Palpation: + abdomen tender (mild) and abdomen soft LEDY with serous drainage [place] with some bloody drainage Results & Data Vital Signs (Past 12 Hours) Vital Signs Temp Pulse Resp BP Pulse Ox 02/16/19 07:32 36.8 C 61 16 113/74 96 02/16/19 03:25 37.3 C 68 14 115/76 94 02/15/19 23:14 37.2 C 67 14 106/67 95
[2019-02-16] MEDS: MoRPHine SULFATE 2 MG/ML CARP IV PRN (23:21)
[2019-02-17] MEDS: OXYCODONE/ACETAMINOPHEN 5mg/325mg TAB PO PRN ×2 (01:30→09:25)
[2019-02-17] MEDS: KETOROLAC 30 MG/ML VIAL IV SCH ×2 (03:12→09:28)
[2019-02-17] MEDS: MoRPHine SULFATE 2 MG/ML CARP IV PRN (05:56)
--- NOTE | 2019-02-17 09:10 | Surgery Progress Note ---
Date of Service February 17, 2019 Assessment & Plan (1) S/P colectomy: ok for d/c f/u sunday for dara removal home on antibiotics for a week instructions given. Subjective pt doing well. +BM yesterday and this AM. flavio diet. wants to go home. Physical Exam Physical Exam: alert. nad abd: soft. LEDY serous/scant. incisions look good. mild erythema at old stoma site. Results & Data Vital Signs (Past 12 Hours) Vital Signs Temp Pulse Pulse Resp BP Pulse Ox 02/17/19 07:35 37 C 68 11 L 105/69 97 02/16/19 23:06 37.3 C 77 16 117/75 93
[2019-02-17] MEDS: ENOXAPARIN INJ 40 MG/0.4 ML SYR SQ SCH (09:28)
[2019-02-17] MEDS: METOPROLOL SUCC 50MG EXT REL TAB PO SCH (09:28)
[2019-02-17] MEDS: ATORVASTATIN 40 MG TAB PO SCH (09:29)
[2019-02-17] MEDS: TICAGRELOR 90 MG TAB PO SCH (09:29)
[2019-02-17] MEDS: ASPIRIN 81 MG ECTAB PO SCH (09:29)
--- NOTE | 2019-02-21 08:04 | Discharge Summary ---
Date of Service February 21, 2019 Principal Diagnosis Colostomy status for perforated diverticulitis Discharge Exam Gastrointestinal (Abdomen) Inspection/Auscultation: + abdominal surgical incision (no erythema, dara drain in place); abdomen not distended Percussion/Palpation: abdomen soft Discharge Data Allergies Allergy/AdvReac Type Severity Reaction Status Date / Time No Known Allergies Allergy Verified 02/13/19 07:45 Procedures Performed Operation Date: 02/13/19 09:00 Actual Procedures p Laparoscopic assisted Reversal of Colostomy, Enterolysis - Bimal Iglesias DO Ordered Studies 02/13/19 09:52 [facility] Hospital Course (1) S/P colectomy: 39 y/o male with history of perforated diverticulitis taken to the OR for laparoscopic colostomy takedown. He was transferred to the surgical floor and did well postoperatively. A CARGO SERVICE SUPERVISOR was used for initial analgesia. Lovenox was used for DVT prophylaxis. He was started on clear liquids on POD 1 and advanced to full liquids on day 2. By day 3 he was tolerating oral analgesics and began moving his bowels. He was able to tolerate regular diet on day 4 and was stable for discharge that afternoon. Total Time Total Time Spent Total Time Spent (In Minutes): 15 Discharge Plan Discharge Items Patient Disposition: Home - Self-Care Reason For Visit: Diverticulosis, Colostomy Discharge Diagnosis: colostomy takedown Discharge Goals: Decrease discomfort Activity: Per 'Additional Instructions' section Lifting: No more than 10 pounds Bathing: No limitations Driving/Machine Use Comment: when pain free Non-emergency contact: Surgeon Call non-emergency contact if: you have any medication questions, your pain is not controlled, you have a fever, your temperature is above 101.5, your wound has increased redness and your wound has increased drainage Follow-up/Referrals: Felicity Pemberton DO [Primary Care Provider] - Bimal Iglesias DO [Surgeon] - (In approx 1 week, call the office to schedule) Diet: Low Fiber Addtl Provider Instructions: Prescriptions: New oxycodone-acetaminophen [Percocet] 5-325 mg tablet 1 - 2 tab PO Q4H PRN (Reason: pain) Qty: 30 RF: 0 metronidazole [Flagyl] 500 mg tablet 500 mg PO TID 7 Days Qty: 21 RF: 0 ciprofloxacin HCl [Cipro] 500 mg tablet 500 mg PO BID Qty: 14 RF: 0 Continued atorvastatin [Lipitor] 80 mg tablet 80 mg PO QAM RF: 0 metoprolol succinate [Toprol XL] 50 mg tablet extended release 24 hr 50 mg PO QAM RF: 0 aspirin 81 mg Tablet,Delayed Release (Dr/Ec) 81 mg PO QAM RF: 0 nitroglycerin [Nitrostat] 0.4 mg Tablet, Sublingual 0.4 mg Sublingual UD PRN (Reason: Chest Pain) RF: 0 Brilinta 90 mg tablet 90 mg PO BID RF: 0 Discontinued vancomycin 250 mg capsule 500 mg PO QID RF: 0 Stand-Alone Forms: [employer] [facility] [place] [employer]/Other Patient Handouts: Eat Healthy Discharge Orders: Discharge Order (Routine); Ordered 02/17/19 Ordered By: Bimal Iglesias Admission Data Admit Date/Time: 02/13/19 11:46 Attending Provider: Bimal Iglesias Admit Provider: Bimal Iglesias Primary Care Provider: Felicity Pemberton Service: Surgical Services Other Interventions: Discharge Summary Assessment (RN) Last Done: 02/17/19 12:34 DC Date/Time DO NOT enter until pt leaves facility: 02/17/19 12:48
== END 2019-02-17 12:48 | disposition home or self-care (01) | DRG 331 ==
LOC: ASU 07:16 → 3W 11:46
DX: Z43.3 Encounter for attention to colostomy; K57.90 Diverticulosis of intestine, part unspecified, without perforation or abscess without bleeding; Z79.82 Long term (current) use of aspirin; Z79.899 Other long term (current) drug therapy

== ENCOUNTER 2019-06-28 17:45 | Inpatient (IN) ==
[2019-06-28] MEDS ORDERED: ASPIRIN 81 MG CHEW PO STA (17:59)
[2019-06-28] MEDS ORDERED: NITROGLYCERIN 2% OINTMENT 30GM TUBE EXT ONE (17:59)
[2019-06-28] MEDS ORDERED: SODIUM CHLORIDE 0.9% 1000ML 1,000 ML IV SCH (18:00)
--- NOTE | 2019-06-28 18:26 | Emergency Department Note ---
History of Present Illness General Chief complaint: Chest Pain Stated complaint: CHEST PAIN Time Seen by Provider: 06/28/19 17:53 History of Present Illness Maximum Pain Intensity: 6 This is a 39-year-old male presenting to the emergency department with complaint of midsternal chest pain and shortness of breath for the past 1 to 2 days. He states that he may have begun with some chest discomfort late night, but it certainly persisted all day Sunday. The patient now presents today, Sunday, for evaluation. The patient did take nitroglycerin without any relief of symptoms. He has an extensive history of coronary artery disease, and myocardial infarction with stenting. Additionally there is a history of ischemic cardiomyopathy. The patient did take a baby aspirin this morning as normal. He does smoke tobacco, and continues to smoke despite his history. He has not had any recent fevers or chills. No leg swelling is reported. No calf pain. He does not identify aggravating or alleviating factors, and his symptoms began spontaneously. He rates his current discomfort a 6/10, dull, nonradiating. Home Medications Home Medications Medication Instructions Recorded Confirmed Type aspirin 81 mg PO QAM 10/12/18 06/28/19 History nitroglycerin 0.4 mg sublingual 0.4 mg SUBLINGUAL Q5M PRN tab 05/12/19 06/28/19 History tablet atorvastatin 80 mg tablet 80 mg PO QAM #90 tab 06/18/19 06/28/19 Rx metoprolol succinate 50 mg 50 mg PO QAM #90 tab 06/18/19 06/28/19 Rx tablet,extended release 24 hr varenicline 1 mg tablet 1 mg PO BID #56 tab 06/18/19 06/28/19 Rx Allergies Allergy/AdvReac Type Severity Reaction Status Date / Time No Known Allergies Allergy Verified 06/28/19 18:15 Past Med/Surg History Medical History Acute blood loss anemia Acute diverticulitis (Acute) CAD (coronary artery disease) (Chronic) Cardiomyopathy, ischemic (Acute) LIFE [facility]ST WORN FROM [place] JUNE 2018 Colonic polyp Diverticulitis of colon with perforation (Acute) NOVEMBER 2018 HTN (hypertension) (Chronic) Hyperlipidemia Myocardial infarction 03/2018 Myocardial infarction Tobacco use disorder (Chronic) Surgical History History of bowel resection WITH COLOSTOMY 11/2018 History of colonoscopy History of colostomy reversal 02/13/19 lap-assisted reversal of colostomy and enterolysis Dr. Bimal Iglesais History of esophagogastroduodenoscopy (EGD) History of heart artery stent 03/2018 (FOLLOWED BY DR. JHA) History of tooth extraction Social History Preferred Language: Cuban Communication Ability: Effective [employer] Internship Required: No Beliefs That Will Affect Care: None marital status: Current Living Situation: Alone current occupational status: employed Feels Safe at Home: Yes Smoking Status: Current every day smoker Tobacco Type: cigarettes ; Cigarettes Per Day: 10 ; Second Hand Exposure: No ; Hx Alcohol Use: No Hx Substance Use: No Review of Systems A total of 10 systems reviewed and were otherwise negative Physical Exam Vital Signs Vital Signs - 24 hr 06/28/19 17:23 06/28/19 17:47 06/28/19 18:26 Temperature 36.6 C Temperature Source Oral Pulse Rate 83 89 90 Pulse Rate [Finger] Respiratory Rate 15 16 18 Respiratory Effort / Characteristics Non-Labored Respiratory Depth Normal Blood Pressure 139/91 133/77 Blood Pressure [Right Arm] Blood Pressure Mean 104 95 Blood Pressure Mean [Right Arm] Pulse Oximetry 96 98 97 Oxygen Delivery Method Room Air Room Air Room Air Sepsis Recent Fever Within 48 Hours No Sepsis New/Unexplained Change in Mental Status No Sepsis Action Taken by Nursing No Action Required 06/28/19 18:30 06/28/19 18:42 06/28/19 19:02 Temperature Temperature Source Pulse Rate 89 81 Pulse Rate [Finger] 82 Respiratory Rate 17 16 18 Respiratory Effort / Characteristics Respiratory Depth Blood Pressure 106/67 Blood Pressure [Right Arm] 110/71 Blood Pressure Mean 86 Blood Pressure Mean [Right Arm] 84 Pulse Oximetry 96 95 97 Oxygen Delivery Method Room Air Room Air Room Air Sepsis Recent Fever Within 48 Hours Sepsis New/Unexplained Change in Mental Status Sepsis Action Taken by Nursing VITALS: Vitals are noted on the nurse's note and reviewed by myself. Vital signs stable. GENERAL: Well-developed, well-nourished, white male, who is in no acute distress and resting comfortably. Patient is cooperative with the examination. HEAD: Normocephalic atraumatic. HEART: Regular rate and rhythm without murmurs gallops or rubs. LUNGS: Scattered wheezing throughout ABDOMEN: Positive normal bowel sounds x 4. Soft, nontender, without masses or organomegaly. No guarding or rebound tenderness. MUSCULOSKELETAL: No muscle atrophy, erythema, or edema noted. Full range of motion in all extremities. No tenderness to palpation. NEURO: Patient was alert and oriented to person place and time. CN II through XII grossly intact. Course Administered Medications Acetaminophen (Tylenol) 650 mg PO Q4H PRN PRN Reason: Pain Stop: 07/28/19 20:51 Last Admin: 06/28/19 21:45 Dose: 650 mg Documented by: [id number] Cyclobenzaprine HCl (Flexeril) 5 mg PO TID [facility] Stop: 07/28/19 20:59 Last Admin: 06/28/19 21:43 Dose: 5 mg Documented by: [id number] Doxycycline Hyclate (Vibramycin) 100 mg PO BID [facility]; Protocol Stop: 07/05/19 20:59 Last Admin: 06/28/19 21:44 Dose: 100 mg Documented by: [id number] Heparin Sodium/Dextrose (Heparin Sodium/Dextrose) 25,000 units in 500 mls @ 26 mls/hr IV .[id number] [facility]; Protocol Stop: 07/28/19 20:51 Last Admin: 06/28/19 21:25 Dose: 1,300 units/hr, 26 mls/hr Documented by: [id number] Cosigned by: [id number] Discontinued Medications Aspirin (Aspirin Chew) 324 mg PO NOW STA Stop: 06/28/19 18:00 Last Admin: 06/28/19 18:20 Dose: 324 mg Documented by: [id number] Sodium Chloride (Nss 1000ml) 1,000 mls @ 125 mls/hr IV .Q8H [facility] Stop: 07/28/19 17:59 Last Infusion: 06/28/19 21:28 Dose: 0 mls/hr Documented by: [id number] Admin: 06/28/19 18:52 Dose: 125 mls/hr Documented by: [id number] Nitroglycerin (Nitro-Bid 2%) 1 inch EXT NOW ONE Stop: 06/28/19 18:00 Last Admin: 06/28/19 18:20 Dose: 1 inch Documented by: [id number] Medical Decision Making Differential Diagnosis Differential diagnosis includes, but is not limited to: Myocardial infarction, dysrhythmia, pericarditis, pneumothorax, aortic aneurysm/dissection, DVT/PE, anxiety, GERD, PUD, electrolyte imbalance, thyroid disorder, pneumonia, bronchitis, pancreatitis, and others Laboratory Data Result diagrams: 06/28/19 18:22 06/28/19 18:22 Lab Results 06/28/19 06/28/19 06/28/19 Range/Units 18:22 18:22 18:22 WBC 14.34 H (4.8-10.8) K/uL RBC 5.03 (4.7-6.1) M/uL Hgb 16.4 (14.0-18.0) g/dL Hct 44.4 (42-52) % MCV 88.3 (80-100) fL MCH 32.6 (25-34) pg MCHC 36.9 H (32-36) g/dL RDW Std Deviation 42.5 (36.4-46.3) fL RDW Coeff of Héctor 13.2 (11.5-14.5) % Plt Count 245 (130-400) K/uL MPV 10.1 (7.4-10.4) fL Immature Gran % (Auto) 0.3 % Neut % (Auto) 57.8 % Lymph % (Auto) 31.2 % [place] % (Auto) 8.4 % Eos % (Auto) 2.0 % Baso % (Auto) 0.3 % Immature Gran # (Auto) 0.05 H (0.00-0.02) K/uL Neut # (Auto) 8.28 H (1.4-6.5) K/uL Lymph # (Auto) 4.48 H (1.2-3.4) K/uL [place] # (Auto) 1.20 H (0.11-0.59) K/uL Eos # (Auto) 0.29 (0-0.5) K/uL Baso # (Auto) 0.04 (0-0.2) K/uL PT 9.5 (9.0-12.0) Seconds INR 0.9 (0.9-1.1) APTT 24.5 (21.0-31.0) Seconds PTT Ratio 0.9 D-Dimer 230 (0-500) ug/L FEU Sodium 139 (136-145) mmol/L Potassium 3.8 (3.5-5.1) mmol/L Chloride 106 (98-107) mmol/L Carbon Dioxide 27 (21-32) mmol/L Anion Gap 6.0 (3-11) BUN 10 (7-18) mg/dl Creatinine 0.88 (0.6-1.4) mg/dl Est Cr Clr Drug Dosing 117.5 ml/min Est GFR ( Amer) 126.3 Est GFR (Non-Af Amer) 109.0 BUN/Creatinine Ratio 11.4 (10-20) Glucose 90 (70-99) mg/dl Calcium 9.3 (8.5-10.1) mg/dl Magnesium 2.2 (1.8-2.4) mg/dl Total Bilirubin 0.4 (0.2-1) mg/dl AST 37 (15-37) U/L ALT 87 H (12-78) U/L Alkaline Phosphatase 79 (45-117) U/L Troponin I 0.075 H* (0-0.045) ng/ml Total Protein 7.4 (6.4-8.2) gm/dl Albumin 3.8 (3.4-5.0) gm/dl Globulin 3.6 (2.5-4.0) gm/dl Albumin/Globulin Ratio 1.1 (0.9-2) Lipase 111 (73-393) U/L TSH 4.170 (0.300-4.500) uIu/ml Urine Color Urine Appearance (Clear) Urine pH (4.5-7.5) Ur Specific [place] (1.000-1.030) Urine Protein (Negative) Urine Glucose (UA) (Negative) Urine Ketones (Negative) Urine Blood (Negative) Urine Nitrite (Negative) Urine Bilirubin (Negative) Urine Urobilinogen (Negative) Ur Leukocyte Esterase (Negative) Urine Opiates Screen (Neg) Ur Methadone, Qual (Neg) Urine Barbiturates (Neg) Ur Phencyclidine (PCP) (Neg) U Amphetamin/Meth Scrn (Neg) MDMA (Ecstasy) Screen (Neg) U Benzodiazepines Scrn (Neg) Ur Cocaine Metabolite (Neg) U Marijuana (THC) Screen (Neg) 06/28/19 06/28/19 Range/Units 18:44 18:44 WBC (4.8-10.8) K/uL RBC (4.7-6.1) M/uL Hgb (14.0-18.0) g/dL Hct (42-52) % MCV (80-100) fL MCH (25-34) pg MCHC (32-36) g/dL RDW Std Deviation (36.4-46.3) fL RDW Coeff of Héctor (11.5-14.5) % Plt Count (130-400) K/uL MPV (7.4-10.4) fL Immature Gran % (Auto) % Neut % (Auto) % Lymph % (Auto) % [place] % (Auto) % Eos % (Auto) % Baso % (Auto) % Immature Gran # (Auto) (0.00-0.02) K/uL Neut # (Auto) (1.4-6.5) K/uL Lymph # (Auto) (1.2-3.4) K/uL [place] # (Auto) (0.11-0.59) K/uL Eos # (Auto) (0-0.5) K/uL Baso # (Auto) (0-0.2) K/uL PT (9.0-12.0) Seconds INR (0.9-1.1) APTT (21.0-31.0) Seconds PTT Ratio D-Dimer (0-500) ug/L FEU Sodium (136-145) mmol/L Potassium (3.5-5.1) mmol/L Chloride (98-107) mmol/L Carbon Dioxide (21-32) mmol/L Anion Gap (3-11) BUN (7-18) mg/dl Creatinine (0.6-1.4) mg/dl Est Cr Clr Drug Dosing ml/min Est GFR ( Amer) Est GFR (Non-Af Amer) BUN/Creatinine Ratio (10-20) Glucose (70-99) mg/dl Calcium (8.5-10.1) mg/dl Magnesium (1.8-2.4) mg/dl Total Bilirubin (0.2-1) mg/dl AST (15-37) U/L ALT (12-78) U/L Alkaline Phosphatase (45-117) U/L Troponin I (0-0.045) ng/ml Total Protein (6.4-8.2) gm/dl Albumin (3.4-5.0) gm/dl Globulin (2.5-4.0) gm/dl Albumin/Globulin Ratio (0.9-2) Lipase (73-393) U/L TSH (0.300-4.500) uIu/ml Urine Color Yellow Urine Appearance Clear (Clear) Urine pH 7.5 (4.5-7.5) Ur Specific [place]comb 1.013 (1.000-1.030) Urine Protein Negative (Negative) Urine Glucose (UA) Trace H (Negative) Urine Ketones Negative (Negative) Urine Blood Negative (Negative) Urine Nitrite Negative (Negative) Urine Bilirubin Negative (Negative) Urine Urobilinogen Negative (Negative) Ur Leukocyte Esterase Negative (Negative) Urine Opiates Screen Neg (Neg) Ur Methadone, Qual Neg (Neg) Urine Barbiturates Neg (Neg) Ur Phencyclidine (PCP) Neg (Neg) U Amphetamin/Meth Scrn Neg (Neg) MDMA (Ecstasy) Screen Neg (Neg) U Benzodiazepines Scrn Neg (Neg) Ur Cocaine Metabolite Neg (Neg) U Marijuana (THC) Screen Neg (Neg) Imaging Data Radiologist's Impression: TWO VIEW CHEST CLINICAL HISTORY: Atypical chest pain. Dyspnea.. FINDINGS: PA and lateral chest radiographs are compared to study dated 02/07/2019 and correlated with chest CT dated 01/30/2019. The cardiomediastinal silhouette is unremarkable. Right apical consolidation has resolved as compared to 02/07/2019. There are faint patchy airspace opacities in the left midlung. No pleural effusion is identified. There is no pneumothorax. The bony thorax appears intact. IMPRESSION: There are faint patchy airspace opacities identified in the left midlung. Correlate clinically for evidence of a mild infectious/inflammatory pneumonitis. Radiographic follow-up to resolution is recommended. ECG Data Additional Comments: EKG#1 @28-JUN-2019 17:55:48 Normal sinus rhythm with sinus arrhythmia @82 BPM No acuteST elevation Anteroseptal infarct (cited on or before 22-MAR-2018) When compared with ECG of 30-JAN-2019 10:43, Vent. rate has decreased BY 50 BPM EKG#2 @28-JUN-2019 19:12:49 Normal sinus rhythm with sinus arrhythmia @[address] elevation Anteroseptal infarct (cited on or before 22-MAR-2018) When compared with ECG of 28-JUN-2019 17:55, (unconfirmed) No significant change was found MDM Narrative Physical exam and history were performed. Nursing notes, EMR, and Medication List were personally reviewed. Patient appears to have central chest pain symptoms bringing him to the ER tonight. The patient has had symptoms for greater than 24 hours, and has not had relief with nitroglycerin this evening. EKG was performed as above showing no acute ST elevation. IV access was established and labs were obtained. The patient was given aspirin and Nitropaste here in the department. He was placed in the director digital sales. Chest x-ray was performed. The patient's blood work is as above and was reviewed. He does have a mildly elevated white blood cell count of 14,000. He does not have a significant anemia or significant electrolyte imbalance. Lipase and transaminases are not diagnostic. D-dimer x1 is negative. Chest x-ray was reviewed by myself and radiology and may represent a pneumonitis or other process. Unfortunately the patient's troponin is elevated at 0.075. Second EKG was performed and appears unchanged. The patient remained in normal sinus rhythm on the director digital sales. Overall the patient does not appear well for discharge home. He has an extensive cardiac history and appears to have chest pain with an elevated troponin that is not chronic. The case was discussed with the on-call hospitalist team. Please see their dictation for further patient course, plan, and disposition. The chart was completed utilizing [employer] Voice Recognition Software. Grammatical errors, random word insertions, pronoun errors, and incomplete sentences are an occasional consequence of this system due to software limitations, ambient noise, and hardware issues. Any formal questions or concerns about the content, text, or information contained within the body of this dictation should be directly addressed to the provider for clarification. . Impression & Plan Non-ST elevation [place] (NSTEMI), Elevated troponin level, Substernal chest pain Critical Care Time I have personally spent greater than 30 minutes of critical care time in the direct management of this patient. This includes bedside care, interpretation of diagnostic studies, and testing, discussion with consultants, patient, and family members, and other required patient management activities. This 30 minutes is in excess of all separately billable procedures. Discharge Plan Visit Data *Final* Discharge Date/Time: 06/28/19 20:29 Chief Complaint: Chest Pain Stated Complaint: CHEST PAIN ED Provider: Santi Jacobs ED Midlevel Provider: Thai Sargent Discharge Problem: Non-ST elevation [place] (NSTEMI), Elevated troponin level, Substernal chest pain Patient Disposition: Admitted As Inpatient Discharge Instructions Interventions: ED Discharge Assessment Last Done: 06/28/19 20:29
[2019-06-28 18:31] LABS: Basophils # (auto) 0.04 K/uL (0-0.2); Basophils % (auto) 0.3 %; Eosinophils # (auto) 0.29 K/uL (0-0.5); Hematocrit (blood only) 44.4 % (42-52); Hemoglobin 16.4 g/dL (14.0-18.0); Immature Granulocytes # (auto) 0.05 K/uL (0.00-0.02); Immature Granulocytes % (auto) 0.3 %; Lymphocytes # (auto) 4.48 K/uL (1.2-3.4); Lymphocytes % (auto) 31.2 %; Mean Corpuscular Hemoglobin 32.6 pg (25-34); Mean Corpuscular Hgb Conc 36.9 g/dL (32-36); Mean Corpuscular Volume 88.3 fL (80-100); Mean Platelet Volume 10.1 fL (7.4-10.4); Monocytes % (auto) 8.4 %; Neutrophils # (auto) 8.28 K/uL (1.4-6.5); Neutrophils % (auto) 57.8 %; Platelet Count 245 K/uL (130-400); RDW Coefficient of Variation 13.2 % (11.5-14.5); RDW Standard Deviation 42.5 fL (36.4-46.3); Red Blood Count 5.03 M/uL (4.7-6.1); White Blood Count 14.34 K/uL (4.8-10.8)
[2019-06-28 18:46] LABS: D Dimer 230 ug/L FEU (0-500); INR 0.9 (0.9-1.1); Partial Thromboplastin Ratio 0.9; Partial Thromboplastin Time 24.5 Seconds (21.0-31.0); Prothrombin Time 9.5 Seconds (9.0-12.0)
[2019-06-28 18:47] LABS: Albumin Level 3.8 gm/dl (3.4-5.0); BUN Creatinine Ratio 11.4 (10-20); Calcium 9.3 mg/dl (8.5-10.1); Creatinine Clr Calc Pharmacy 117.5 ml/min; Est GFR (African American) 126.3; Magnesium 2.2 mg/dl (1.8-2.4); Potassium 3.8 mmol/L (3.5-5.1)
[2019-06-28 18:59] LABS: Appearance Urine Clear (Clear); Bilirubin Urine Negative (Negative); Blood Urine Negative (Negative); Color Urine Yellow; Glucose Urine UA Trace (Negative); Ketones Urine Negative (Negative); Leukocyte Esterase Urine Negative (Negative); Nitrite Urine Negative (Negative); Protein Urine Negative (Negative); Specific Gravity Urine 1.013 (1.000-1.030); Urobilinogen Urine Negative (Negative); pH Urine 7.5 (4.5-7.5)
[2019-06-28 19:01] LABS: Albumin Globulin Ratio 1.1 (0.9-2); Bilirubin,Total 0.4 mg/dl (0.2-1); Globulin 3.6 gm/dl (2.5-4.0); Thyroid Stimulating Hormone 4.17 uIu/ml (0.300-4.500); Total Protein 7.4 gm/dl (6.4-8.2); Troponin I 0.075 ng/ml (0-0.045)
[2019-06-28 19:16] LABS: Amphetamines+Metham, Urine Neg (Neg); Barbiturates, Urine Neg (Neg); Benzodiazepine, Urine Neg (Neg); Cocaine, Urine Neg (Neg); MDMA (Ecstacy), Urine Neg (Neg); Methadone, Urine Neg (Neg); Opiate, Urine Neg (Neg); Phencyclidine, Urine Neg (Neg)
--- NOTE | 2019-06-28 19:20 | XRay Report ---
TWO VIEW CHEST CLINICAL HISTORY: Atypical chest pain. Dyspnea.. FINDINGS: PA and lateral chest radiographs are compared to study dated 02/07/2019 and correlated with c hest CT dated 01/30/2019. The cardiomediastinal silhouette is unremarkable. Right apical consolidation has resolved as compared to 02/07/2019. There are faint patchy airspace opacities in the left midlung. No pleural effusion is identified. There is no pneumothorax. The bony thorax appears intact. IMPRESSION: There are faint patchy airspace opacities identified in the left midlung. Correlate clini sathya for evidence of a mild infectious/inflammatory pneumonitis. Radiographic follow-up to [facility] is recommended. Electronically signed by: Suresh Giles M.D. 06/28/2019 7:18 PM
--- NOTE | 2019-06-28 20:43 | History & Physical Report ---
Date of Service June 28, 2019 Assessment & Plan (1) Chest pain: Patient presenting with chest pain bandlike across his chest and between his shoulder blades ongoing [id number]. Pain is somewhat pleuritic in nature and somewhat positional. Truly seems to be atypical chest pain upon description however, patient reports that this is "exactly" how he felt when he had his prior heart attack. Patient does not support history consistent with acute CHF and has no exam findings consistent with that. He also has a mild elevation in troponin 0 0.075. EKG essentially unchanged from prior. No evidence of acute ST/T wave changes. Blood pressure roughly equal in bilateral upper extremities Exam supports some degree of muscle spasm/musculoskeletal pain as well. Labs and imaging suggest pneumonia -Admit to PCU, continuous cardiac monitoring -Trend troponin every 8 hours x3 sets total -Continue aspirin, atorvastatin, metoprolol -Nitroglycerin and morphine as needed for chest pain -Cardiology consultationassistance appreciated -If repeat troponin continues to rise will initiate heparin drip -Tylenol as needed for pain -Flexeril 5 mg p.o. 3 times daily -Lidoderm patch on mid scapular region -Heat as needed -Doxycycline 100 mg p.o. twice daily for presumed pneumonia -Albuterol as needed Present on Admission?: Yes (2) Pneumonia: Possible pneumonia. Patient with vague complaints of chills, shortness of breath. Has leukocytosis with WBC = 14.34, CXR with faint patchy airspace opacities in the left midlung. Pleuritic chest discomfort could be secondary to this as well. Patient is diffusely wheezy on physical exam -Doxycycline 100 mg p.o. twice daily Albuterol nebs every 2 hours as needed for shortness of breath Present on Admission?: Yes (3) HTN (hypertension): Blood pressure stable at present, 110/71 Continue metoprolol -Continue to monitor Present on Admission?: Yes (4) Tobacco use disorder: Patient STRONGLY encouraged to quit smoking. I discussed with him that smoking is directly related to CAD. He is presently smoking 1/2 pack/day which is down from a pack a day 3 use of Chantix. He was congratulated on his progress thus far. Says that he is unable to quit because it helps him deal with his rage issues. -Smoking cessation counseling -Patient to call for nicotine patch if needed -Continue Chantix Present on Admission?: Yes (5) CAD (coronary artery disease): Patient with known CAD status post anterior STEMI with drug-eluting stent placed to the mid LAD. Echocardiogram immediately following anterior PR with wall motion abnormality, apical akinesis and an EF of 30 to 35%. He had intermittent nonsustained ectopy and was discharged home with a LifeVest. Upon follow-up his LV dysfunction resolved. Most recent echocardiogram November 28 2018 with EF of 50 to 55%. Patient follows routinely with cardiology. Last saw Dr. Jha on 06/06/2019, has recently discontinued Brilinta. Patient's chest pain today is quite atypical upon description however he does state that this feels "exactly" as he felt when he had his PR. His EKG is largely unchanged but his troponin is mildly elevated at 0.075. -Plan as above Present on Admission?: Yes (6) Dyslipidemia: Chronic. Stable. Continue atorvastatin F/E/N-Hep-Lock, monitor electrolytes and replete as needed, heart healthy diet as tolerated. N.p.o. after midnight ProphylaxisLovenox 40 daily Codefull per discussion with patient Dispositionadmit to PCU Present on Admission?: Yes History of Present Illness Chief Complaint: chest pain Primary Care Provider: Felicity Pemberton, 31-year-old male with history of CAD status post anterior PR with drug-eluting stent placed to mid LAD, ischemic cardiomyopathy now largely resolved, hypertension, hyperlipidemia, perforated diverticulitis status post emergency laparotomy with resection/colostomy/subsequent reversal presenting with chest pain. Patient reports that the pain has been ongoing for the last 48 hours. It started evening as a sharp, severe mid scapular pain which woke him from sleep, 10 out of 10 in severity. It has been ongoing since then, ranging in intensity from 5-6 out of 10 to 10 out of 10. Located primarily mid scapular region as well as bandlike across his chest. Somewhat pleuritic, patient reports he is unable to take deep breaths, slightly aggravated by arm movement on exam. He says that it feels like it might be a pulled muscle and then states that it feels "exactly" like his PR felt.. He also reports intermittent chills and palpitations as well as some nausea. Denies weight gain/edema/orthopnea. ER courseaspirin, nitro, normal saline Allergies Allergy/AdvReac Type Severity Reaction Status Date / Time No Known Allergies Allergy Verified 06/28/19 18:15 Home Medications Home Medications Medication Instructions Recorded Confirmed Type aspirin 81 mg PO QAM 10/12/18 06/28/19 History nitroglycerin 0.4 mg sublingual 0.4 mg SUBLINGUAL Q5M PRN tab 05/12/19 06/28/19 History tablet atorvastatin 80 mg tablet 80 mg PO QAM #90 tab 06/18/19 06/28/19 Rx metoprolol succinate 50 mg 50 mg PO QAM #90 tab 06/18/19 06/28/19 Rx tablet,extended release 24 hr varenicline 1 mg tablet 1 mg PO BID #56 tab 06/18/19 06/28/19 Rx Past Med/Surg History Medical History Acute blood loss anemia Acute diverticulitis (Acute) CAD (coronary artery disease) (Chronic) Cardiomyopathy, ischemic (Acute) LIFE VEST WORN FROM [place] JUNE 2018 Colonic polyp Diverticulitis of colon with perforation (Acute) NOVEMBER 2018 HTN (hypertension) (Chronic) Hyperlipidemia Myocardial infarction 03/2018 Myocardial infarction Tobacco use disorder (Chronic) Surgical History History of bowel resection WITH COLOSTOMY 11/2018 History of colonoscopy History of colostomy reversal 02/13/19 lap-assisted reversal of colostomy and enterolysis Dr. Bimal Iglesias History of esophagogastroduodenoscopy (EGD) History of heart artery stent 03/2018 (FOLLOWED BY DR. 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: No Beliefs That Will Affect Care: None marital status: Current Living Situation: Spouse current occupational status: employed Feels Safe at Home: Yes Smoking Status: Current every day smoker Tobacco Type: cigarettes ; Cigarettes Per Day: 20 ; Second Hand Exposure: No ; Hx Alcohol Use: Yes Alcohol type: beer Hx Substance Use: No Review of Systems Review of Systems: All systems reviewed & are unremarkable except as noted in HPI & below + Palpitations + Nausea + Chills + Shortness of breath Physical Exam Physical Exam: General: patient resting comfortably, anxious in appearance, NAD, non-toxic, AA&O x 4 Skin: warm, dry, intact, no rashes or lesions, midline abdominal scar HEENT: NC/AT, PERRL, EOMI, anicteric sclera, conjunctiva without injection, external ear normal to inspection and nontender, nares patent, moist mucus membranes, dentition intact, no oropharyngeal lesions, neck supple, trachea midline, no LAD, no thyromegaly, no JVD however limited evaluation secondary to body habitus Heart: +S1/S2, regular, no m/r/g, + reproducible chest wall tenderness with palpation Back: + Acutely tender with palpation of mid thoracic paraspinal musculature, muscles tense, + tenderness with palpation of trapezius muscle bilaterally, + back pain somewhat reproducible with arm movement Lungs: equal air entry bilaterally, diffuse end expiratory wheezing throughout Abd: +BS, soft, NT/ND, no masses/organomegaly/ascites Ext: warm, 2+ pulses in UE/LE bilaterally, no clubbing/cyanosis or edema Neuro: nonfocal, patient AA&O x 4, speech intact, no facial droop, moving all extremities on command with equal strength 5/5 Results & Data Vital Signs (Past 12 Hours) Vital Signs Temp Pulse Pulse Resp BP BP Pulse Ox 06/28/19 19:02 82 18 110/71 97 06/28/19 18:42 81 16 106/67 95 06/28/19 18:30 89 17 96 06/28/19 18:26 90 18 97 06/28/19 17:47 36.6 C 89 16 133/77 98 06/28/19 17:23 83 15 139/91 96 Laboratory Results Lab Results 06/28/19 06/28/19 06/28/19 Range/Units 18:22 18:22 18:22 WBC 14.34 H (4.8-10.8) K/uL RBC 5.03 (4.7-6.1) M/uL Hgb 16.4 (14.0-18.0) g/dL Hct 44.4 (42-52) % MCV 88.3 (80-100) fL MCH 32.6 (25-34) pg MCHC 36.9 H (32-36) g/dL RDW Std Deviation 42.5 (36.4-46.3) fL RDW Coeff of [place] 13.2 (11.5-14.5) % Plt Count 245 (130-400) K/uL MPV 10.1 (7.4-10.4) fL Immature Gran % (Auto) 0.3 % Neut % (Auto) 57.8 % Lymph % (Auto) 31.2 % [place] % (Auto) 8.4 % Eos % (Auto) 2.0 % Baso % (Auto) 0.3 % Immature Gran # (Auto) 0.05 H (0.00-0.02) K/uL Neut # (Auto) 8.28 H (1.4-6.5) K/uL Lymph # (Auto) 4.48 H (1.2-3.4) K/uL [place] # (Auto) 1.20 H (0.11-0.59) K/uL Eos # (Auto) 0.29 (0-0.5) K/uL Baso # (Auto) 0.04 (0-0.2) K/uL PT 9.5 (9.0-12.0) Seconds INR 0.9 (0.9-1.1) APTT 24.5 (21.0-31.0) Seconds PTT Ratio 0.9 D-Dimer 230 (0-500) ug/L FEU Sodium 139 (136-145) mmol/L Potassium 3.8 (3.5-5.1) mmol/L Chloride 106 (98-107) mmol/L Carbon Dioxide 27 (21-32) mmol/L Anion Gap 6.0 (3-11) BUN 10 (7-18) mg/dl Creatinine 0.88 (0.6-1.4) mg/dl Est Cr Clr Drug Dosing 117.5 ml/min Est GFR ( Amer) 126.3 Est GFR (Non-Af Amer) 109.0 BUN/Creatinine Ratio 11.4 (10-20) Glucose 90 (70-99) mg/dl Calcium 9.3 (8.5-10.1) mg/dl Magnesium 2.2 (1.8-2.4) mg/dl Total Bilirubin 0.4 (0.2-1) mg/dl AST 37 (15-37) U/L ALT 87 H (12-78) U/L Alkaline Phosphatase 79 (45-117) U/L Troponin I 0.075 H* (0-0.045) ng/ml Total Protein 7.4 (6.4-8.2) gm/dl Albumin 3.8 (3.4-5.0) gm/dl Globulin 3.6 (2.5-4.0) gm/dl Albumin/Globulin Ratio 1.1 (0.9-2) Lipase 111 (73-393) U/L TSH 4.170 (0.300-4.500) uIu/ml Urine Color Urine Appearance (Clear) Urine pH (4.5-7.5) Ur Specific [place] (1.000-1.030) Urine Protein (Negative) Urine Glucose (UA) (Negative) Urine Ketones (Negative) Urine Blood (Negative) Urine Nitrite (Negative) Urine Bilirubin (Negative) Urine Urobilinogen (Negative) Ur Leukocyte Esterase (Negative) Urine Opiates Screen (Neg) Ur Methadone, Qual (Neg) Urine Barbiturates (Neg) Ur Phencyclidine (PCP) (Neg) U Amphetamin/Meth Scrn (Neg) MDMA (Ecstasy) Screen (Neg) U Benzodiazepines Scrn (Neg) Ur Cocaine Metabolite (Neg) U Marijuana (THC) Screen (Neg) 06/28/19 06/28/19 Range/Units 18:44 18:44 WBC (4.8-10.8) K/uL RBC (4.7-6.1) M/uL Hgb (14.0-18.0) g/dL Hct (42-52) % MCV (80-100) fL MCH (25-34) pg MCHC (32-36) g/dL RDW Std Deviation (36.4-46.3) fL RDW Coeff of Héctor (11.5-14.5) % Plt Count (130-400) K/uL MPV (7.4-10.4) fL Immature Gran % (Auto) % Neut % (Auto) % Lymph % (Auto) % [place] % (Auto) % Eos % (Auto) % Baso % (Auto) % Immature Gran # (Auto) (0.00-0.02) K/uL Neut # (Auto) (1.4-6.5) K/uL Lymph # (Auto) (1.2-3.4) K/uL [place] # (Auto) (0.11-0.59) K/uL Eos # (Auto) (0-0.5) K/uL Baso # (Auto) (0-0.2) K/uL PT (9.0-12.0) Seconds INR (0.9-1.1) APTT (21.0-31.0) Seconds PTT Ratio D-Dimer (0-500) ug/L FEU Sodium (136-145) mmol/L Potassium (3.5-5.1) mmol/L Chloride (98-107) mmol/L Carbon Dioxide (21-32) mmol/L Anion Gap (3-11) BUN (7-18) mg/dl Creatinine (0.6-1.4) mg/dl Est Cr Clr Drug Dosing ml/min Est GFR ( Amer) Est GFR (Non-Af Amer) BUN/Creatinine Ratio (10-20) Glucose (70-99) mg/dl Calcium (8.5-10.1) mg/dl Magnesium (1.8-2.4) mg/dl Total Bilirubin (0.2-1) mg/dl AST (15-37) U/L ALT (12-78) U/L Alkaline Phosphatase (45-117) U/L Troponin I (0-0.045) ng/ml Total Protein (6.4-8.2) gm/dl Albumin (3.4-5.0) gm/dl Globulin (2.5-4.0) gm/dl Albumin/Globulin Ratio (0.9-2) Lipase (73-393) U/L TSH (0.300-4.500) uIu/ml Urine Color Yellow Urine Appearance Clear (Clear) Urine pH 7.5 (4.5-7.5) Ur Specific [place] 1.013 (1.000-1.030) Urine Protein Negative (Negative) Urine Glucose (UA) Trace H (Negative) Urine Ketones Negative (Negative) Urine Blood Negative (Negative) Urine Nitrite Negative (Negative) Urine Bilirubin Negative (Negative) Urine Urobilinogen Negative (Negative) Ur Leukocyte Esterase Negative (Negative) Urine Opiates Screen Neg (Neg) Ur Methadone, Qual Neg (Neg) Urine Barbiturates Neg (Neg) Ur Phencyclidine (PCP) Neg (Neg) U Amphetamin/Meth Scrn Neg (Neg) MDMA (Ecstasy) Screen Neg (Neg) U Benzodiazepines Scrn Neg (Neg) Ur Cocaine Metabolite Neg (Neg) U Marijuana (THC) Screen Neg (Neg) Diagnostic Findings TWO VIEW CHEST CLINICAL HISTORY: Atypical chest pain. Dyspnea.. FINDINGS: PA and lateral chest radiographs are compared to study dated 02/07/2019 and correlated with chest CT dated 01/30/2019. The cardiomediastinal silhouette is unremarkable. Right apical consolidation has resolved as compared to 02/07/2019. There are faint patchy airspace opacities in the left midlung. No pleural effusion is identified. There is no pneumothorax. The bony thorax appears intact. IMPRESSION: There are faint patchy airspace opacities identified in the left midlung. Correlate clinically for evidence of a mild infectious/inflammatory pneumonitis. Radiographic follow-up to resolution is recommended. Electronically signed by: Suresh Giles M.D. 06/28/2019 7:18 PM Dictated: 06/28/191915 Transcribed: 06/28/191915 ECG Additional Comments: The study shows normal sinus rhythm with sinus arrhythmia, 86 bpm, normal axis, DE = 130, QRS = 78, QTc = 442, evidence of septal infarct, no acute ST/T wave changes when compared to prior Code Status & VTE Plan Code Status FULL VTE Prophylaxis Plan VTE Prophylaxis will be ordered: Yes PG Care Time/CCT Total # of Minutes Spent Total Time Spent with Patient: Total time spent is greater than 50% in coordination of care (as documented) at patient's floor/unit and/or counseling patient: (1) HTN (hypertension) Hypertension type: essential hypertension Qualified Code(s): I10 - Essential (primary) hypertension (2) CAD (coronary artery disease) Coronary Disease-Associated Artery/Lesion type: [place] artery [place] vs. transplanted heart: [place] heart Associated angina: without angina Qualified Code(s): I25.10 - Atherosclerotic heart disease of [place] coronary artery without angina pectoris (3) Chest pain Chest pain type: chest pain on breathing Qualified Code(s): R07.1 - Chest pain on breathing
[2019-06-28] MEDS ORDERED: NITROGLYCERIN SL 0.4 MG/TAB TAB SL PRN (20:52)
[2019-06-28] MEDS ORDERED: MoRPHine SULFATE 2 MG/ML CARP IV PRN (20:52)
[2019-06-28] MEDS ORDERED: HEPARIN SODIUM/DEXTROSE 25,000 UNITS/500 ML BAG IV SCH (20:52)
[2019-06-28] MEDS ORDERED: POLYETHYLENE (MIRALAX) 17 GM PACK PO PRN (20:52)
[2019-06-28] MEDS ORDERED: ONDANSETRON INJ 2 MG/ML 2 ML VIAL IV PRN (20:52)
[2019-06-28] MEDS ORDERED: ALBUTEROL 0.5% NEB SOLN 2.5 MG/0.5 ML VIAL NEB PRN (20:52)
[2019-06-28] MEDS ORDERED: ACETAMINOPHEN 325 MG TAB PO PRN (20:52)
[2019-06-28] MEDS ORDERED: DOCUSATE SODIUM 100 MG CAP PO PRN (20:52)
[2019-06-28] MEDS ORDERED: Heparin IV Standard *NO* Bolus IV SCH (21:00)
[2019-06-28] MEDS: CYCLOBENZAPRINE HCL 5 MG TAB PO SCH (21:43)
[2019-06-28] MEDS: DOXYCYCLINE HYCLATE 100 MG CAP PO SCH (21:44)
[2019-06-28 22:00] LABS: Phosphorus 4.1 mg/dl (2.5-4.9)
[2019-06-29 02:47] LABS: BUN Creatinine Ratio 14.4 (10-20); Calcium 9.1 mg/dl (8.5-10.1); Creatinine Clr Calc Pharmacy 112.2 ml/min; Est GFR (African American) 125.1; Potassium 4.3 mmol/L (3.5-5.1)
[2019-06-29 02:52] LABS: Troponin I 0.044 ng/ml (0-0.045)
[2019-06-29 03:52] LABS: Basophils # (auto) 0.02 K/uL (0-0.2); Basophils % (auto) 0.2 %; Eosinophils # (auto) 0.29 K/uL (0-0.5); Eosinophils % (auto) 3.1 %; Hematocrit (blood only) 43.4 % (42-52); Hemoglobin 15.5 g/dL (14.0-18.0); Immature Granulocytes # (auto) 0.03 K/uL (0.00-0.02); Immature Granulocytes % (auto) 0.3 %; Lymphocytes % (auto) 39.4 %; Mean Corpuscular Hemoglobin 31.8 pg (25-34); Mean Corpuscular Hgb Conc 35.7 g/dL (32-36); Mean Corpuscular Volume 88.9 fL (80-100); Mean Platelet Volume 10.2 fL (7.4-10.4); Monocytes # (auto) 0.72 K/uL (0.11-0.59); Monocytes % (auto) 7.7 %; Neutrophils # (auto) 4.62 K/uL (1.4-6.5); Neutrophils % (auto) 49.3 %; Platelet Count 215 K/uL (130-400); RDW Coefficient of Variation 13.3 % (11.5-14.5); RDW Standard Deviation 42.9 fL (36.4-46.3); Red Blood Count 4.88 M/uL (4.7-6.1); White Blood Count 9.38 K/uL (4.8-10.8)
[2019-06-29 04:02] LABS: Partial Thromboplastin Ratio 1.5; Partial Thromboplastin Time 40.6 Seconds (21.0-31.0)
[2019-06-29] MEDS ORDERED: HEPARIN IV BOLUS 6,000 UNITS in SYRINGE 0 ML IV ONE (04:45)
[2019-06-29] MEDS ORDERED: ATORVASTATIN 40 MG TAB PO SCH (09:00)
[2019-06-29] MEDS ORDERED: METOPROLOL SUCC 50MG EXT REL TAB PO SCH (09:00)
[2019-06-29] MEDS ORDERED: LIDOCAINE 5% 1 PATCH TD SCH (09:00)
[2019-06-29] MEDS ORDERED: ENOXAPARIN INJ 40 MG/0.4 ML SYR SQ SCH (09:00)
[2019-06-29] MEDS ORDERED: VARENICLINE 1 MG TAB PO SCH (09:00)
[2019-06-29] MEDS ORDERED: ASPIRIN 81 MG ECTAB PO SCH (09:00)
[2019-06-29] MEDS: DOXYCYCLINE HYCLATE 100 MG CAP PO SCH (10:43)
[2019-06-29] MEDS: CYCLOBENZAPRINE HCL 5 MG TAB PO SCH ×2 (10:52→14:58)
--- NOTE | 2019-06-29 12:54 | Cardiology Consultation ---
Date of Consultation June 29, 2019 Assessment & Plan (1) Chest pain: The patient has experience 48 hours of chest discomfort in demonstrates a very minor elevation in his troponin. There are no acute EKG changes. His symptoms and chest x-ray suggested possibility of an early pneumonia. Would discontinue his heparin drip. (2) Pneumonia: Agree with initiating antibiotics. (3) CAD (coronary artery disease): Presented last March with an anterior NC requiring a mid LAD drug eluting stent. Fortunately, his ischemic cardiomyopathy has resolved. Continue medical management. (4) HTN (hypertension): Adequate control on current medical regimen. (5) Hyperlipidemia: Continue atorvastatin. History of Present Illness Attending Physician: Olya Jimenez MD History of Present Illness Mr. Hassan is a 39-year-old male admitted yesterday with a chest pain syndrome. This consultation was ordered to assess cardiac management. Of note, the patient typically follows with Dr. Jha in the outpatient setting. The patient claims he was in his usual state of health until late evening when he woke from sleep experiencing a sharp and pressure sensation in the central sternal region. He noted his discomfort to be worse with deep inspiration and also with certain position changes. There was no associated shortness of breath, nausea, vomiting, or diaphoresis. The patient's discomfort persisted and therefore, he presented to the emergency room last evening. Total duration of his discomfort was 48 hours. Fortunately, his initial EKG was unchanged from prior tracing. Chest x-ray raised the possibility of a left mid lung zone infiltrate. The patient has not experienced any fever, however, has noticed intermittent chills over the last 48 hours. The patient's cardiac history began in March 2018 when he presented to our institution with acute anterior wall myocardial infarction. He had a drug- eluting stent placed in the mid LAD (3 x 30 mm, [place]). His initial ejection fraction was depressed at 30-35%, however, an echocardiogram performed in November of this year noted an ejection fraction of 50-55% with a limited distal anterior wall motion abnormality. The patient experienced a perforated diverticulum back in November of this year which required a sigmoid colectomy and colostomy. He had reversal of his colostomy performed in February 2019. Currently, patient is resting comfortably in bed without complaints. He is anxious for hospital discharge. Past medical and surgical history 1. Coronary artery disease-see above 2. LAD WAYNE-March 2018 3. Resolved ischemic cardiomyopathy 4. Hypertension 5. Hypercholesterolemia 6. Perforated diverticulum-November 2018 7. Sigmoid colectomy 8. Colostomy and reversal 9. GERD Social history and lives with his Smokes 1/2 pack cigarettes daily Drinks several beers every day Family history No early coronary artery disease Review of systems A 10 point review of systems was negative except for that described above. Allergies Allergy/AdvReac Type Severity Reaction Status Date / Time No Known Allergies Allergy Verified 06/28/19 18:15 Home Medications Home Medications Medication Instructions Recorded Confirmed Type aspirin 81 mg PO QAM 10/12/18 06/28/19 History nitroglycerin 0.4 mg sublingual 0.4 mg SUBLINGUAL Q5M PRN tab 05/12/19 06/28/19 History tablet atorvastatin 80 mg tablet 80 mg PO QAM #90 tab 06/18/19 06/28/19 Rx metoprolol succinate 50 mg 50 mg PO QAM #90 tab 06/18/19 06/28/19 Rx tablet,extended release 24 hr varenicline 1 mg tablet 1 mg PO BID #56 tab 06/18/19 06/28/19 Rx Patient History Medical History Acute blood loss anemia Acute diverticulitis (Acute) CAD (coronary artery disease) (Chronic) Cardiomyopathy, ischemic (Acute) LIFE VEST WORN FROM [place] JUNE 2018 Colonic polyp Diverticulitis of colon with perforation (Acute) NOVEMBER 2018 HTN (hypertension) (Chronic) Hyperlipidemia Myocardial infarction 03/2018 Myocardial infarction Tobacco use disorder (Chronic) Surgical History History of bowel resection WITH COLOSTOMY 11/2018 History of colonoscopy History of colostomy reversal 02/13/19 lap-assisted reversal of colostomy and enterolysis Dr. Bimal Iglesias History of esophagogastroduodenoscopy (EGD) History of heart artery stent 03/2018 (FOLLOWED BY DR. JHA) History of tooth extraction Social History Preferred Language: Vietnamese Communication Ability: Effective Massage Therapist Required: No Beliefs That Will Affect Care: None marital status: Current Living Situation: Alone current occupational status: employed Feels Safe at Home: Yes Smoking Status: Current every day smoker Tobacco Type: cigarettes ; Cigarettes Per Day: 10 ; Second Hand Exposure: No ; Hx Alcohol Use: No Hx Substance Use: No Physical Exam Physical Exam: In general this is a well-developed well-nourished white male in no acute distress. HEENT exam is negative. Neck is supple with full carotid upstrokes. There are no carotid bruits. Jugular venous pressure is flat at 90. There is no thyromegaly. Cardiovascular exam reveals a regular rhythm with a normal S1 and S2. No S3, S4, or murmurs are noted. Lungs notes scattered rhonchi and wheezes. Abdomen is soft and nontender without bruits. Extremities reveal intact radial artery and posterior tibial pulses bilaterally. There is no peripheral edema. Results & Data Vital Signs (Past 12 Hours) Vital Signs Temp Pulse Pulse Pulse Resp BP Pulse Ox 06/29/19 11:05 36.4 C L 84 18 119/75 95 06/29/19 08:00 80 06/29/19 07:49 37.1 C 89 18 127/71 95 06/29/19 05:25 36.9 C 71 18 118/63 94 Laboratory Results CBC notes a hemoglobin of 15.5, hematocrit 43.4, white count 9.38, and platelet count of [id number]. Electrolytes notice sodium of 137, potassium 4.3, chloride 107, bicarb 25, BUN 13, creatinine 0.9, and glucose of 107. Initial troponin was mildly elevated 0.075 with follow-up values of 0.085 and 0.044. BNP is normal at 37. TSH is 4.17. Diagnostic Findings EKG notes normal sinus rhythm and an old anterior myocardial infarction. This is unchanged from a tracing done on January 30, 2019. Chest x-ray notes a faint opacity in the left mid lung region. PG Care Time/CCT Total # of Minutes Spent Total Time Spent with Patient: Total time spent is greater than 50% in coordination of care (as documented) at patient's floor/unit and/or counseling patient: (1) CAD (coronary artery disease) Associated angina: without angina Coronary Disease-Associated Artery/Lesion type: [place] artery [place] vs. transplanted heart: [place] heart Qualified Code(s): I25.10 - Atherosclerotic heart disease of [place] coronary artery without angina pectoris (2) Hyperlipidemia Hyperlipidemia type: unspecified Qualified Code(s): E78.5 - Hyperlipidemia, unspecified (3) Chest pain Chest pain type: chest pain on breathing Qualified Code(s): R07.1 - Chest pain on breathing (4) HTN (hypertension) Hypertension type: essential hypertension Qualified Code(s): I10 - Essential (primary) hypertension
[2019-06-29] MEDS ORDERED: OPTIRAY 320 125ml IV PRN (14:15)
--- NOTE | 2019-06-29 14:38 | CT Scan Report ---
CT angio chest PE protocol CT DOSE: 510.33 mGy.cm HISTORY: Chest pain. Dyspnea. PE TECHNIQUE: Multiaxial CT images of the chest were performed following the intravenous administration of contrast to evaluate the pulmonary arteries. Maximal intensity projection images were also obtaine d. A dose lowering technique was utilized adhering to the principles of ALARA. COMPARISON STUDY: 01/30/2019 FINDINGS: Thoracic aorta is negative for aneurysm or dissection. Minimal atherosclerotic change is pr esent. Pulmonary vasculature enhances appropriately. There are no significant filling defects the pulmonary arterial structures. Mild bilateral mediastinal and hilar adenopathy. This is similar to slightly diminished as compared t o the prior study. Evaluation of the lung parenchyma demonstrates several small patchy parenchymal infiltrates of the le ft upper lobe. Lungs otherwise appear clear. There is a subtle interstitial prominence of the left katy ng base. IMPRESSION: 1. Study is negative for pulmonary embolus. 2. Scattered patchy parenchymal infiltrate left upper lobe. 3. Subtle interstitial prominence left lower lobe possibly inflammatory. 4. Moderate reactive hilar and or mediastinal adenopathy slightly diminished from the prior exam. The above report was generated using voice recognition software. It may contain grammatical, syntax or spelling errors. Electronically signed by: Taurus Mcconnell M.D. 06/29/2019 2:36 PM
--- NOTE | 2019-06-29 15:57 | Discharge Summary ---
Date of Service June 29, 2019 Admission HPI Per Admitting Provider 31-year-old male with history of CAD status post anterior LA with drug-eluting stent placed to mid LAD, ischemic cardiomyopathy now largely resolved, hypertension, hyperlipidemia, perforated diverticulitis status post emergency laparotomy with resection/colostomy/subsequent reversal presenting with chest pain. Patient reports that the pain has been ongoing for the last 48 hours. It started evening as a sharp, severe mid scapular pain which woke him from sleep, 10 out of 10 in severity. It has been ongoing since then, ranging in intensity from 5-6 out of 10 to 10 out of 10. Located primarily mid scapular region as well as bandlike across his chest. Somewhat pleuritic, patient reports he is unable to take deep breaths, slightly aggravated by arm movement on exam. He says that it feels like it might be a pulled muscle and then states that it feels "exactly" like his LA felt.. He also reports intermittent chills and palpitations as well as some nausea. Denies weight gain/edema/orthopnea. ER courseaspirin, nitro, normal saline Principal Diagnosis Chest pain secondary to pneumonia Elevated troponin-myocardial demand ischemia Discharge Exam Constitutional WD/WN, vitals as above Eyes PERRL, conjunctivae normal, anicteric sclerae ENMT external ear and nose normal, oropharynx normal Neck trachea midline, no thyromegaly Respiratory normal respiratory effort, lungs clear to auscultation Cardiovascular RRR, no murmur, no edema Chest (Breasts) Chest: normal inspection of chest Gastrointestinal (Abdomen) normal bowel sounds, soft, nontender, no hepatosplenomegaly Musculoskeletal Extremities: extremities normal to inspection; no cyanosis and no clubbing Skin no rashes, warm and dry Neurologic moves all extremities and awake; no focal motor deficits Psychiatric A+Ox3, euthymic affect Lymphatic no lymphedema Discharge Data Allergies Allergy/AdvReac Type Severity Reaction Status Date / Time No Known Allergies Allergy Verified 06/28/19 18:15 Consultations 06/28/19 19:19 ED Decision to Admit Stat 06/28/19 20:52 Consult Cardiology Routine Ordered Studies 06/29/19 13:25 CT angio chest PE protocol Urgent CXR Hospital Course (1) Chest pain: Patient presenting with chest pain bandlike across his chest and between his shoulder blades ongoing [id number]. Pain is somewhat pleuritic in nature and somewhat positional. Truly seems to be atypical chest pain upon description however, patient reports that this is "exactly" how he felt when he had his prior heart attack. Patient does not support history consistent with acute CHF and has no exam findings consistent with that. He also has a mild elevation in troponin 0 0.075 on admission. EKG essentially unchanged from prior. No evidence of acute ST/T wave changes. Blood pressure roughly equal in bilateral upper extremities Exam supports some degree of muscle spasm/musculoskeletal pain as well. Labs and imaging suggest pneumonia on left -Admitted to PCU, continuous cardiac monitoring revealed nothing significant - troponin was trended and went down after peaking at 0.085 -initiall was on a heparin gtt but then this was discontinued after seen by Cardiology -Seen by Cardiology who did not feel this was a NSTEMI -CTA chest performed which was negative for PE but did confirm CHANDLER pneumonia -he was not requiring O2, his pain was improved, no further chills as he had been having the prior 2 days -he was treated with Tylenol as needed, Flexeril 5 mg p.o. 3 times daily, and Lidoderm patch on mid scapular region, but I do not feel he needs these upon discharge -he was started on doxycycline 100mg po bid -stable for dc to home on doxycycline 100mg po bid x 6 more days and omnicef 300mg po bid x 5 more days to treat for CAP -encouraged smoking cessation as below (2) Pneumonia: Left sided pneumonia on CXR and confirmed on CT Chest. Patient with vague complaints of chills, shortness of breath. Has leukocytosis with WBC = 14.34 and then came down to 9k after started on abx Pleuritic chest discomfort could be secondary to this as well. Patient is diffusely wheezy on physical exam on admission which is now improved -continue doxy and cefdinir on discharge as above not requiring O2, no sepsis (3) HTN (hypertension): Blood pressure controlled Continue metoprolol (4) Tobacco use disorder: Patient counseled on importance of smoking cessation. Advised he gets recurrent lung infections due to smoking and he said he believes doctors just say that smoking causes "everything." However, he is willing to restart the Chantix as he ran out of it at [facility] and reports it was helping him-he denies any adverse side effects from Chantix specifically no SI or mood issues -refilled Chantix 1mg po bid (5) CAD (coronary artery disease): Patient with known CAD status post anterior STEMI with drug-eluting stent placed to the mid LAD. Echocardiogram immediately following anterior LA with wall motion abnormality, apical akinesis and an EF of 30 to 35%. He had intermittent nonsustained ectopy and was discharged home with a LifeVest. Upon follow-up his LV dysfunction resolved. Most recent echocardiogram November 28 2018 with EF of 50 to 55%. Patient follows routinely with cardiology. Last saw Dr. Thorne on 06/06/2019, has recently discontinued Brilinta. Patient's chest pain today is quite atypical upon description however he does state that this feels "exactly" as he felt when he had his LA. His EKG is largely unchanged but his troponin is mildly elevated as above, no ACS. -continue ASA, statin, metoprolol (6) Dyslipidemia: Chronic. Stable. Continue atorvastatin ProphylaxisLovenox 40 daily Codefull per discussion with patient Dispositionstable for dc to home Total Time Total Time Spent Total Time Spent (In Minutes): 45 min Total Time Includes: Examination of the Patient, Discharge Planning, Medication Reconciliation and Communication With Other Providers (Cardiology) Discharge Plan Discharge Items Patient Disposition: Home - Self-Care Reason For Visit: CHEST PAIN, ELEVATED TROPONIN Discharge Diagnosis: Chest pain secondary to pneumonia Condition on Discharge: Good Health Concerns: You have been hospitalized for an acute medical problem. During your stay at [facility], we have made an effort to correct the problem that brought you to the hospital while keeping you as comfortable as possible. Medications were used to bring your condition under control and your discharge instructions will include directions for any medications you should take after leaving the hospital. Please make sure you see your Primary Care Provider as part of your follow up plan. Activity: As commented below Lifting: Gradually increase as tolerated Bathing: No limitations Exercise/Sports: Gradually increase as tolerated Driving/Machine Use: No limitations Non-emergency contact: Primary Care Provider Call non-emergency contact if: you have any medication questions, your symptoms worsen, your pain is not controlled, your pain is worsening, your pain is unusual for you, your pain is concerning for you and your temperature is above 101 Follow-up/Referrals: Felicity Pemberton DO [Primary Care Provider] - (Please call for a follow up appointment within 1-2 weeks. ) Diet: Heart Healthy Addtl Attending Provider Instructions: Please finish out the course of antibiotics for your pneumonia with doxycycline 100mg twice a day for 6 days and cefdinir 300mg twice a day for 5 days. It is very important that you quit smoking. A refill of your Chantix was sent to your pharmacy. Please follow up with your primary care doctor within 1 week a fter discharge. Pending Studies at Discharge: No Stand-Alone Forms: Call Back Authorization, My [facility], Smoking Cessation Medications and DC Order Prescriptions: New doxycycline hyclate 100 mg Capsule 100 mg PO BID Qty: 12 RF: 0 cefdinir 300 mg capsule 300 mg PO BID 5 Days Qty: 10 RF: 0 Continued atorvastatin [Lipitor] 80 mg tablet 80 mg PO QAM Qty: 90 RF: 1 metoprolol succinate [Toprol XL] 50 mg tablet extended release 24 hr 50 mg PO QAM Qty: 90 RF: 1 nitroglycerin [Nitrostat] 0.4 mg tablet, sublingual 0.4 mg Sublingual Q5M PRN (Reason: Chest Pain) RF: 0 varenicline 1 mg tablet 1 mg PO BID Qty: 60 RF: 0 aspirin 81 mg Tablet,Delayed Release (Dr/Ec) 81 mg PO QAM RF: 0 Discharge Orders: Discharge Order (Routine); Ordered 06/29/19 Ordered By: Olya Jimenez Admission Data Admit Date/Time: 06/28/19 20:11 Attending Provider: Olya Jimenez Admit Provider: Aleshia Krueger Primary Care Provider: Felicity Pemberton Other Providers: Mayco Farias ; Aleshia Krueger
[2019-07-01 15:24] LABS: Troponin I 0.085 ng/ml (0-0.045)
== END 2019-06-29 16:14 | disposition home or self-care (01) | DRG 194 ==
LOC: ED 17:45 → 2E 20:11 → SUATTDRO 20:11 → 2E 20:29

== ENCOUNTER 2019-11-27 19:40 | Observation (INO) ==
[2019-11-27] MEDS ORDERED: ASPIRIN CHEW 324 MG PO STA (19:49)
[2019-11-27] MEDS ORDERED: NITROGLYCERIN 2% OINTMENT 30GM TUBE EXT ONE (19:53)
[2019-11-27 20:11] LABS: Basophils # (auto) 0.04 K/uL (0-0.2); Basophils % (auto) 0.3 %; Eosinophils # (auto) 0.29 K/uL (0-0.5); Eosinophils % (auto) 2.5 %; Hematocrit (blood only) 47.5 % (42-52); Hemoglobin 16.7 g/dL (14.0-18.0); Immature Granulocytes # (auto) 0.03 K/uL (0.00-0.02); Immature Granulocytes % (auto) 0.3 %; Lymphocytes % (auto) 40.2 %; Mean Corpuscular Hemoglobin 32.4 pg (25-34); Mean Corpuscular Hgb Conc 35.2 g/dL (32-36); Mean Corpuscular Volume 92.1 fL (80-100); Mean Platelet Volume 10.7 fL (7.4-10.4); Monocytes % (auto) 8.7 %; Neutrophils # (auto) 5.47 K/uL (1.4-6.5); Platelet Count 258 K/uL (130-400); RDW Standard Deviation 43.3 fL (36.4-46.3); Red Blood Count 5.16 M/uL (4.7-6.1); White Blood Count 11.43 K/uL (4.8-10.8)
[2019-11-27 20:22] LABS: INR 0.9 (0.9-1.1); Prothrombin Time 9.9 Seconds (9.0-12.0)
[2019-11-27 20:27] LABS: Alanine Aminotransferase 94 U/L (12-78); Albumin Level 4.2 gm/dl (3.4-5.0); Aspartate Aminotransferase 51 U/L (15-37); BUN Creatinine Ratio 16.6 (10-20); Blood Urea Nitrogen 15 mg/dl (7-18); Calcium 9.6 mg/dl (8.5-10.1); Carbon Dioxide 29 mmol/L (21-32); Chloride 106 mmol/L (98-107); Creatinine Clr Calc Pharmacy 113.9 ml/min; Est GFR (African American) 120.3; Est GFR (Non-African American) 103.8; Glucose 104 mg/dl (70-99); Lipase 111 U/L (73-393); Potassium 3.5 mmol/L (3.5-5.1); Sodium 138 mmol/L (136-145)
[2019-11-27 20:32] LABS: Albumin Globulin Ratio 1.1 (0.9-2); Alkaline Phosphatase 99 U/L (45-117); Bilirubin,Total 0.4 mg/dl (0.2-1); Globulin 3.7 gm/dl (2.5-4.0); Total Protein 7.9 gm/dl (6.4-8.2); Troponin I < 0.015 ng/ml (0-0.045)
--- NOTE | 2019-11-27 20:38 | XRay Report ---
XR chest 1V portable HISTORY: 39 years-old Male Chest Pain acute atypical chest pain COMPARISON: Chest radiographs 06/28/2019, CTA chest 06/29/2019 TECHNIQUE: Portable AP view of the chest FINDINGS: Cardiac silhouette is enlarged. Mild right hemidiaphragmatic elevation with bibasilar densities. No p neumothorax, pleural effusion or overt pulmonary edema. Bones of the chest appear grossly intact. IMPRESSION: 1. Cardiomegaly. 2. Mild bibasilar densities are suggestive of atelectasis and summation density. Pneumonitis consider ed less likely. ACT 112: Negative or not required by law. The above report was generated using voice recognition software. It may contain grammatical, syntax o r spelling errors. Electronically signed by: Honorio Coker M.D. 11/27/2019 8:36 PM
--- NOTE | 2019-11-27 22:20 | History & Physical Report ---
Date of Service November 27, 2019 Assessment & Plan Admission and Anticipated Discharge Date Admission Date: Aneudy is a 39-year-old male with past medical history of NSTEMI with WAYNE to his LAD approximately 2 years ago, prediabetes, hypertension, and tobacco abuse who presents with an episode of chest pain. Chest pain, suspect noncardiac with high risk history Troponin negative, no acute EKG changes Mild tenderness at mid sternum and at area of pain lower suspicion for ACS, but given patient's extremely high risk history recommend monitoring on telemetry with serial troponins overnight Troponin every 8 hour x2 additional CBC every morning CMP every morning Shortness of breath with recent travel history Patient denies fever and cough but has a trace leukocytosis with elevated lymphocytes and has had 2 days of mild night sweats Chest x-ray shows mild bibasilar densities suggestive of atelectasis Patient recently returned from [facility] (second highest COVID prevalence in the [facility]) Given symptom history, low suspicion for ACS, travel history, and mild CXR findings will order COVID and placed on isolation precautions BMP pending History of NSTEMI Continue aspirin 81 mg daily Continue atorvastatin 80 mg daily Continue metoprolol succinate 50 mg daily Patient denies being on an JOLLY/carb prior to admission. Being that he has prediabetes and a history of PCI recommend he be considered for JOLLY/arm therapy at discharge Leukocytosis with mild SoB Defer empiric abx at this time - Procal pending - x2 Tobacco abuse Patient current active smoker. Is aware of the consequences of smoking on his cardiac health, reports he has tried Chantix in the past without success. Patient not engaged in discussions of reduction of tobacco use/cessation's, appears to be pre-contemplative Diet: Heart healthy DVT prophylaxis: Heparin 5000 subcu every 8 hours Disposition: Med telemetry for observation History of Present Illness Chief Complaint: Chest pain Primary Care Provider: Felicity Pemberton DO Aneudy is a 39-year-old male with past medical history of NSTEMI with WAYNE to his LAD approximately 2 years ago, prediabetes, hypertension, and tobacco abuse who presents with an episode of chest pain. Aneudy reports that prior to admission he was driving home when he developed moderate intensity chest pain in the center of his sternum which did not radiate into his jaw, shoulder, or left chest. He had some associated shortness of breath with this episode. He did not have any diaphoresis, lightheadedness, dizziness, syncope, or presyncope. He did not notice an association with exercise, but did note his symptoms worsened while laying down. He took 1 nitro which relieved his pain for approximately half hour after which the pain came back. The nitro did not affect his shortness of breath. When the chest pain came back he became concerned and presented to the emergency department. He denies abdominal pain, nausea, vomiting, diarrhea, constipation, syncope, presyncope, dizziness, jaw pain, shoulder pain, numbness or tingling down his left arm (he experienced this with his prior heart attack), focal weakness, and neck pain. He endorses persistent mild shortness of breath, but denies cough. He reports he has not had a fever or chills, but has had 2-3 days of night sweats which are new. He was recently in [facility] which has the second highest rate of COVID in the [facility]. He denies direct contact with a COVID positive patient. He has not been tested for COVID. Medications: Reviewed in EMR. Of note he has prediabetes and CAD, reports he is not and is never been on an JOLLY/arb Medical history: Reviewed in EMR Surgical history: Reviewed in EMR Social history: Rare social alcohol use, endorses 1 pack/day continued tobacco use. No recreational drug use. He lives in his home with his and children. Allergies: No known drug allergies CODE STATUS: Full code Allergies Allergy/AdvReac Type Severity Reaction Status Date / Time No Known Allergies Allergy Verified 11/27/19 20:25 Home Medications Home Medications Medication Instructions Recorded Confirmed Type aspirin 81 mg PO QAM 10/12/18 11/27/19 History atorvastatin 80 mg tablet 80 mg PO QAM #90 tab 06/18/19 11/27/19 Rx metoprolol succinate 50 mg 50 mg PO QAM #90 tab 06/18/19 11/27/19 Rx tablet,extended release 24 hr nitroglycerin 0.4 mg sublingual 0.4 mg SUBLINGUAL Q5M PRN #20 tab 07/23/19 11/27/19 Rx tablet Past Med/Surg History Medical History Acute blood loss anemia (Resolved) Acute diverticulitis (Resolved) CAD (coronary artery disease) (Chronic) Cardiomyopathy, ischemic (Acute) LIFE VEST WORN FROM [place] JUNE 2018 Colonic polyp Diverticulitis of colon with perforation (Resolved) NOVEMBER 2018 HTN (hypertension) (Chronic) Hyperlipidemia Myocardial infarction 03/2018 Myocardial infarction Prediabetes Status post insertion of drug-eluting stent into left anterior descending (LAD) artery (Inactive) Tobacco use disorder (Chronic) Surgical History History of bowel resection WITH COLOSTOMY 11/2018 History of colonoscopy History of colostomy reversal 02/13/19 lap-assisted reversal of colostomy and enterolysis Dr. Bimal Iglesias History of esophagogastroduodenoscopy (EGD) History of heart artery stent 03/2018 (FOLLOWED BY DR. JHA) History of tooth extraction S/P colectomy Family History Father Family history of diabetes mellitus Unknown Cancer Mother Cancer Ovarian cancer Grandmother Cancer Coronary heart disease Type 2 diabetes mellitus Ovarian cancer Grandfather Cancer Coronary heart disease Type 2 diabetes mellitus Grandfather Coronary heart disease Grandfather (Maternal) No problems noted. Grandmother (Maternal) Ovarian cancer Aunt Ovarian cancer Other Myocardial infarction Denies family history of Prostate cancer Breast cancer Lung cancer Stroke Social History Preferred Language: Colombian Communication Ability: Effective Visual Impairment: No Limitations Hearing Ability: Normal Music Supervisor Required: No Beliefs That Will Affect Care: None marital status: Current Living Situation: Spouse and Family current occupational status: employed Other Information That Helps Us Care for You: No Feels Safe at Home: Yes Safety Concerns: Feels Safe At This Time Smoking Status: Current every day smoker Tobacco Type: cigarettes ; Cigarettes Per Day: 10 ; Do You Dip or Chew Tobacco: No ; Second Hand Exposure: No ; Tobacc o Cessation Education Requested by Patient: No Hx Alcohol Use: No Hx Substance Use: No Childhood Exposure to Second-Hand Smoke: No Diet Comment: regular caffeine: Yes (soda) during the past year weight has: increased > 10 lbs Dental Care, Regularly: Yes Physical Activity Frequency: Does not Exercise Seatbelt Use: always Sunscreen Use: No Review of Systems Review of Systems: Constitutional: Denies fever, chills, malaise, weight change. Endorses night sweats Eyes: Denies double vision, vision change, eye pain ENT: Denies ear pain, sore throat, sinus pain Cardiovascular: See HPI. Denies lower extremity leg swelling. Respiratory: Endorses shortness of breath, denies cough, sputum production, difficulty breathing Gastrointestinal: Denies abdominal pain, nausea, vomiting, constipation, diarrhea Genitourinary: Denies urinary symptoms Musculoskeletal: Denies weakness, muscle aches/pain, joint aches/pain Integumentary:Denies rash, lesions, bruising Neurological: Denies headache, numbness, tingling, focal weakness Physical Exam Physical Exam: General: A&Ox3. NAD. Cooperative. HEENT: Atraumatic, normocephalic. Pulm: Diffuse end expiratory wheezes in right upper/right middle lobe posteriorly. Trace bibasilar crackles. No rales. Symmetrical chest rise. No increased work of breathing. No respiratory distress. Cardiac: RRR, -mrg. Radial pulses intact and symmetrical. No JVD appreciated. Mild tenderness at mid sternum to palpation. Abdominal: Nontender, nondistended, soft. Midline scar, well-healed present. CN II: Visual li are full to confrontation. Pupils are equal and react to light and accomidation. Visual acuity grossly intact. CN III, IV, : At primary gaze, there is no eye deviation. EoM intact without nystagmus. No visual field cuts. CN V: Facial sensation is intact to soft touch in all 3 divisions bilaterally. CN VII: No facial asymmetry, full strength to eyebrow raise, smile, eye close, and cheek puff. CN VII: Hearing is grossly intact. CN IX, X: Palate elevates symmetrically. Phonation is normal without dysarthria. CN XI: Head turning and shoulder shrug are intact CN XII: Tongue protrudes midline. Reflexes: Patellar, Achilles, Brachial DTR 2+ Bilaterally Sensory: Light touch intact in upper and low extremities without deficit or asymmetry. Strength: RUE: Shoulder flexion/extension/internal rotation/external rotation, elbow flexion/extension, chief learning officer strength 5/5 LUE: Shoulder flexion/extension/internal rotation/external rotation, elbow flexion/extension, chief learning officer strength 5/5 RLE: Hip flexion, ankle plantar flexion/dorsiflexion 5/5 LLE: Hip flexion, ankle plantar flexion/dorsiflexion 12/08 Results & Data Results & Data ([facility]) Vital Signs (Past 12 Hours) Vital Signs Temp Pulse Resp BP Pulse Ox 11/27/19 20:40 92 H 20 133/79 11/27/19 20:30 83 20 132/103 H 11/27/19 20:20 85 20 144/95 H 11/27/19 20:10 83 20 117/81 11/27/19 20:00 78 20 123/81 11/27/19 19:45 36.7 C 97 H 20 137/86 97 Code Status & VTE Plan VTE Prophylaxis Plan VTE Prophylaxis will be ordered: Yes Supervising Physician Co-Signing Physician Notes Patient seen and examined, chart reviewed, case discussed with Dr. Herrera and I agree with his assessment and plan as documented above. Briefly, patient is a 39yo C male with CAD s/p NV 03/2018 with stent to LAD, Diverticulitis, pre-DM, HTN, tobacco abuse presenting with CP with SOB. CP relieved with Nitro. Patient still with SOB, endorses 2-3 days of night sweats as well. Recent travel to [facility] for work Patient masked during encounter Agree with exam as above +wheezing, +sternal tenderness Labs and images reviewed WBC=11.43 AST=51, ALT=94 Troponin negative LDH within normal range at 201 D-vctmc=811 CXR wtih cardiomegaly. Mild bibasilar densities suggestive of atelectasis and summation density. Pneumonitis considered less likely. EKG with no acute ischemic changes Patient had an exercise stress test performed on 09/25/19 which was negative Assessment/Plan - CP, reproducible on exam. Doubt ACS at this time -Trend troponin Some concern for Covid-19 based on patient's recent travel to [facility] (currently over 3,000 confirmed cases), mild SOB, reported night sweats and non- specific basilar findings on CXR -Airborne and contact precautions -Covid 19 test ordered Remainder of plan as above Resident Activity Tracking Resident Involvement: Resident Care Provided Care Provided: Adult Hospital Medicine
[2019-11-27] MEDS ORDERED: NITROGLYCERIN SL 0.4 MG/TAB TAB SL PRN (23:40)
[2019-11-28] MEDS: HEPARIN SOD 5,000 UNIT/0.5 ML VIAL SQ SCH ×2 (00:33→08:00)
--- NOTE | 2019-11-28 00:35 | Emergency Department Note ---
History of Present Illness General Chief complaint: Chest Pain Stated complaint: SOB CHEST PAIN Source: patient and RN notes reviewed Mode of arrival: ambulatory Limitations: no limitations History of Present Illness Provider complaint: Chest pain Onset (ago): hour(s) 5 Location: chest Radiation: non-radiation Severity: moderate Pain Consistency: + constant Maximum Pain Intensity: 7 Associated symptoms: + shortness of breath This patient is a 39-year-old male who presents to the emergency department with complaints of substernal chest pressure with radiation to the back. Patient states the pain began around 3:00 this afternoon, but denies any significant exertion at that time. Patient admits to a significant cardiac history with presence of a stent after an AK 2 years ago. States he follows with Dr. Jha of cardiology. Patient denies any recent vomiting, diarrhea or fever. He denies any significant cough but does admit to some shortness of breath. Home Medications Home Medications Medication Instructions Recorded Confirmed Type aspirin 81 mg PO QAM 10/12/18 11/27/19 History atorvastatin 80 mg tablet 80 mg PO QAM #90 tab 06/18/19 11/27/19 Rx metoprolol succinate 50 mg 50 mg PO QAM #90 tab 06/18/19 11/27/19 Rx tablet,extended release 24 hr nitroglycerin 0.4 mg sublingual 0.4 mg SUBLINGUAL Q5M PRN #20 tab 07/23/19 11/27/19 Rx tablet Allergies Allergy/AdvReac Type Severity Reaction Status Date / Time No Known Allergies Allergy Verified 11/27/19 20:25 Past Med/Surg History Medical History Acute blood loss anemia (Resolved) Acute diverticulitis (Resolved) CAD (coronary artery disease) (Chronic) Cardiomyopathy, ischemic (Acute) LIFE VEST WORN FROM [place] JUNE 2018 Colonic polyp Diverticulitis of colon with perforation (Resolved) NOVEMBER 2018 HTN (hypertension) (Chronic) Hyperlipidemia Myocardial infarction 03/2018 Myocardial infarction Prediabetes Status post insertion of drug-eluting stent into left anterior descending (LAD) artery (Inactive) Tobacco use disorder (Chronic) Surgical History History of bowel resection WITH COLOSTOMY 11/2018 History of colonoscopy History of colostomy reversal 02/13/19 lap-assisted reversal of colostomy and enterolysis Dr. Bimal Iglesias History of esophagogastroduodenoscopy (EGD) History of heart artery stent 03/2018 (FOLLOWED BY DR. JHA) History of tooth extraction S/P colectomy Family History Father Family history of diabetes mellitus Unknown Cancer Mother Cancer Ovarian cancer Grandmother Cancer Coronary heart disease Type 2 diabetes mellitus Ovarian cancer Grandfather Cancer Coronary heart disease Type 2 diabetes mellitus Grandfather Coronary heart disease Grandfather (Maternal) No problems noted. Grandmother (Maternal) Ovarian cancer Aunt Ovarian cancer Other Myocardial infarction Denies family history of Prostate cancer Breast cancer Lung cancer Stroke Social History Preferred Language: Serbian Communication Ability: Effective Visual Impairment: No Limitations Hearing Ability: Normal Health And Safety Representative Required: No Beliefs That Will Affect Care: None marital status: Current Living Situation: Alone current occupational status: employed Feels Safe at Home: Yes Smoking Status: Current every day smoker Tobacco Type: cigarettes ; Cigarettes Per Day: 10 ; Second Hand Exposure: No ; Hx Alcohol Use: No Hx Substance Use: No Childhood Exposure to Second-Hand Smoke: No Diet Comment: regular caffeine: Yes (soda) during the past year weight has: increased > 10 lbs Dental Care, Regularly: Yes Physical Activity Frequency: Does not Exercise Seatbelt Use: always Sunscreen Use: No Review of Systems See HPI for pertinent positives & negatives. and A total of 10 systems reviewed and were otherwise negative Physical Exam Vital Signs Vital Signs - 24 hr 11/27/19 19:45 11/27/19 20:00 11/27/19 20:10 Temperature 36.7 C Temperature Source Oral Pulse Rate 97 H 78 83 Pulse Rate from SpO2 Sensor Respiratory Rate 20 20 20 Respiratory Effort / Characteristics Non-Labored Spontaneous Respiratory Depth Normal Blood Pressure 137/86 123/81 117/81 Blood Pressure Mean 103 84 93 Pulse Oximetry 97 Oxygen Delivery Method Room Air Sepsis Recent Fever Within 48 Hours No Sepsis New/Unexplained Change in Mental Status No Sepsis Action Taken by Nursing No Action Required 11/27/19 20:20 11/27/19 20:30 11/27/19 20:40 Temperature Temperature Source Pulse Rate 85 83 92 H Pulse Rate from SpO2 Sensor Respiratory Rate 20 20 20 Respiratory Effort / Characteristics Respiratory Depth Blood Pressure 144/95 H 132/103 H 133/79 Blood Pressure Mean 110 121 102 Pulse Oximetry Oxygen Delivery Method Sepsis Recent Fever Within 48 Hours Sepsis New/Unexplained Change in Mental Status Sepsis Action Taken by Nursing 11/27/19 20:50 11/27/19 21:00 11/27/19 21:11 Temperature Temperature Source Pulse Rate 97 H 90 83 Pulse Rate from SpO2 Sensor Respiratory Rate 19 18 18 Respiratory Effort / Characteristics Respiratory Depth Blood Pressure 122/90 122/88 117/84 Blood Pressure Mean 102 104 92 Pulse Oximetry Oxygen Delivery Method Sepsis Recent Fever Within 48 Hours Sepsis New/Unexplained Change in Mental Status Sepsis Action Taken by Nursing 11/27/19 21:20 11/27/19 21:30 11/27/19 21:40 Temperature Temperature Source Pulse Rate 91 H 89 93 H Pulse Rate from SpO2 Sensor 86 80 Respiratory Rate 18 19 17 Respiratory Effort / Characteristics Respiratory Depth Blood Pressure 107/85 137/97 121/97 Blood Pressure Mean 92 103 105 Pulse Oximetry 98 95 Oxygen Delivery Method Sepsis Recent Fever Within 48 Hours Sepsis New/Unexplained Change in Mental Status Sepsis Action Taken by Nursing 11/27/19 21:50 Temperature Temperature Source Pulse Rate 92 H Pulse Rate from SpO2 Sensor 91 H Respiratory Rate 18 Respiratory Effort / Characteristics Respiratory Depth Blood Pressure 137/85 Blood Pressure Mean 95 Pulse Oximetry 95 Oxygen Delivery Method Sepsis Recent Fever Within 48 Hours Sepsis New/Unexplained Change in Mental Status Sepsis Action Taken by Nursing Vital signs reviewed. General: Chronically ill-appearing, obese 39-year-old male, in no significant distress. HEENT: No scleral icterus, PERRLA, neck supple. Atraumatic. Cardiovascular: Regular rate and rhythm, no extra sounds. Pulmonary: Clear to auscultation bilaterally, normal work of breathing. Abdomen: Soft, nontender, nondistended, positive bowel sounds. Musculoskeletal: Atraumatic, no peripheral edema. Neurologic: Patient awake alert and oriented x 3 Skin: Warm, dry, no rash Course Administered Medications Heparin Sodium (Porcine) (Heparin Sodium (Porcine)) 5,000 units SQ Q8H COUNT INCLUDES THE [facility] Stop: 12/28/19 00:00 Last Admin: 11/28/19 00:33 Dose: Not Given Documented by: [id number] Discontinued Medications Aspirin (Aspirin) 324 mg PO NOW [facility] Stop: 11/27/19 19:50 Last Admin: 11/27/19 20:10 Dose: 324 mg Documented by: [id number] Nitroglycerin (Nitro-Bid 2%) 1 inch EXT NOW ONE Stop: 11/27/19 19:54 Last Admin: 11/27/19 20:05 Dose: 1 inch Documented by: [id number] Medical Decision Making Differential Diagnosis Differential diagnosis: Acute coronary syndrome, pulmonary embolus, aortic dissection, musculoskeletal pain, pneumonia, pleural effusion, pneumothorax, GERD Medical Records Attestation: I reviewed the patient's medical records. Home Medications Current Medication List: was personally reviewed by me Laboratory Data Attestation: I reviewed the patient's lab results. Result diagrams: 11/27/19 19:59 11/27/19 19:59 Lab Results 11/27/19 11/27/19 11/27/19 Range/Units 19:59 19:59 19:59 WBC 11.43 H (4.8-10.8) K/uL RBC 5.16 (4.7-6.1) M/uL Hgb 16.7 (14.0-18.0) g/dL Hct 47.5 (42-52) % MCV 92.1 (80-100) fL MCH 32.4 (25-34) pg MCHC 35.2 (32-36) g/dL RDW Std Deviation 43.3 (36.4-46.3) fL RDW Coeff of Héctor 13.0 (11.5-14.5) % Plt Count 258 (130-400) K/uL MPV 10.7 H (7.4-10.4) fL Immature Gran % (Auto) 0.3 % Neut % (Auto) 48.0 % Lymph % (Auto) 40.2 % [place] % (Auto) 8.7 % Eos % (Auto) 2.5 % Baso % (Auto) 0.3 % Immature Gran # (Auto) 0.03 H (0.00-0.02) K/uL Neut # (Auto) 5.47 (1.4-6.5) K/uL Lymph # (Auto) 4.60 H (1.2-3.4) K/uL [place] # (Auto) 1.00 H (0.11-0.59) K/uL Eos # (Auto) 0.29 (0-0.5) K/uL Baso # (Auto) 0.04 (0-0.2) K/uL PT 9.9 (9.0-12.0) Seconds INR 0.9 (0.9-1.1) APTT 29.0 (21.0-31.0) Seconds PTT Ratio 1.0 Sodium 138 (136-145) mmol/L Potassium 3.5 (3.5-5.1) mmol/L Chloride 106 (98-107) mmol/L Carbon Dioxide 29 (21-32) mmol/L Anion Gap 3.0 (3-11) BUN 15 (7-18) mg/dl Creatinine 0.93 (0.6-1.4) mg/dl Est Cr Clr Drug Dosing 113.9 ml/min Est GFR ( Amer) 120.3 Est GFR (Non-Af Amer) 103.8 BUN/Creatinine Ratio 16.6 (10-20) Glucose 104 H (70-99) mg/dl Calcium 9.6 (8.5-10.1) mg/dl Total Bilirubin 0.4 (0.2-1) mg/dl AST 51 H (15-37) U/L ALT 94 H (12-78) U/L Alkaline Phosphatase 99 (45-117) U/L Troponin I < 0.015 (0-0.045) ng/ml Total Protein 7.9 (6.4-8.2) gm/dl Albumin 4.2 (3.4-5.0) gm/dl Globulin 3.7 (2.5-4.0) gm/dl Albumin/Globulin Ratio 1.1 (0.9-2) Lipase 111 (73-393) U/L Imaging Data Radiologist's Impression: XR chest 1V portable HISTORY: 39 years-old Male Chest Pain acute atypical chest pain COMPARISON: Chest radiographs 06/28/2019, CTA chest 06/29/2019 TECHNIQUE: Portable AP view of the chest FINDINGS: Cardiac silhouette is enlarged. Mild right hemidiaphragmatic elevation with bibasilar densities. No pneumothorax, pleural effusion or overt pulmonary edema. Bones of the chest appear grossly intact. IMPRESSION: 1. Cardiomegaly. 2. Mild bibasilar densities are suggestive of atelectasis and summation density. Pneumonitis considered less likely. ACT 112: Negative or not required by law. The above report was generated using voice recognition software. It may contain grammatical, syntax or spelling errors. Electronically signed by: Honorio Coker M.D. 11/27/2019 8:36 PM Dictated: 11/27/192031 Transcribed: 11/27/192031 ECG Data Attestation: I personally reviewed and interpreted this ECG as follows: Indication: + chest pain Rate (beats per minute): 86 Rhythm: + normal sinus ECG Intervals/blocks: + Normal QT-c ECG [place]: + Normal ECG ST segments: + Normal ST segments and + Nonspecific ST abnormalities ECG Findings: + Q waves (Anterior); no PACs and no PVCs Additional Comments: EKG #2 at 2103 reveals a normal sinus rhythm at 70 bpm with previous anterior infarct. There is no ectopy or evidence of acute ischemic change. ST segments are within normal limits. No significant change from the previous EKG. Blood Pressure Blood Pressure Findings: Normal blood pressure Blood Pressure Disposition: did not require urgent referral MDM Narrative An order for cardiac monitoring was placed and the patient is found to be in a normal sinus rhythm at 86 bpm. This patient was evaluated and appeared to be in no significant distress. 1 inch of nitroglycerin paste was applied due to the previous improvement in s ymptoms with sublingual nitro. Patient was given aspirin to chew. Chest x-ray was performed and is negative for acute pathology. EKG reveals no evidence of acute ischemic change. Laboratory work reveals a negative troponin. Patient did have an exacerbation of symptoms. An EKG was repeated and again is nonischemic appearing. Given the patient significant past medical history including drug-eluting stent at the age of 37 and ongoing chest pain, patient will be evaluated by the hospitalist service for further management. He is aware of the plan and agrees. Impression & Plan Substernal chest pain, CAD (coronary artery disease) Discharge Plan Visit Data Chief Complaint: Chest Pain Stated Complaint: SOB CHEST PAIN ED Provider: Esther Gomez Discharge Problem: Substernal chest pain, CAD (coronary artery disease) Discharge Instructions Interventions: ED Discharge Assessment Last Done: 11/27/19 23:03 Discharge Problem: CAD (coronary artery disease) Qualifiers: Coronary Disease-Associated Artery/Lesion type: ute artery [place] vs. transplanted heart: ute heart Associated angina: with unspecified angina Qualified Code(s): I25.119 - Atherosclerotic heart disease of ute coronary artery with unspecified angina pectoris
[2019-11-28 00:41] LABS: D Dimer 240 ug/L FEU (0-500)
--- NOTE | 2019-11-28 01:25 | Billing Data ---
Date of Service November 28, 2019 Coding Level of Care Code 64629 OBS Care - Level 3
[2019-11-28] MEDS: NITROGLYCERIN 2% OINTMENT 30GM TUBE EXT SCH ×3 (02:27→08:03)
[2019-11-28 05:08] LABS: Basophils # (auto) 0.04 K/uL (0-0.2); Basophils % (auto) 0.4 %; Eosinophils # (auto) 0.24 K/uL (0-0.5); Eosinophils % (auto) 2.4 %; Hematocrit (blood only) 43.5 % (42-52); Hemoglobin 15.7 g/dL (14.0-18.0); Immature Granulocytes # (auto) 0.02 K/uL (0.00-0.02); Immature Granulocytes % (auto) 0.2 %; Lymphocytes # (auto) 3.98 K/uL (1.2-3.4); Lymphocytes % (auto) 40.3 %; Mean Corpuscular Hemoglobin 33.3 pg (25-34); Mean Corpuscular Hgb Conc 36.1 g/dL (32-36); Mean Corpuscular Volume 92.2 fL (80-100); Mean Platelet Volume 10.7 fL (7.4-10.4); Monocytes # (auto) 0.82 K/uL (0.11-0.59); Monocytes % (auto) 8.3 %; Neutrophils # (auto) 4.77 K/uL (1.4-6.5); Neutrophils % (auto) 48.4 %; Platelet Count 237 K/uL (130-400); RDW Coefficient of Variation 12.8 % (11.5-14.5); RDW Standard Deviation 43.1 fL (36.4-46.3); Red Blood Count 4.72 M/uL (4.7-6.1); White Blood Count 9.87 K/uL (4.8-10.8)
[2019-11-28 05:57] LABS: Alanine Aminotransferase 87 U/L (12-78); Albumin Level 3.6 gm/dl (3.4-5.0); Aspartate Aminotransferase 48 U/L (15-37); BUN Creatinine Ratio 15.7 (10-20); Blood Urea Nitrogen 14 mg/dl (7-18); Calcium 8.8 mg/dl (8.5-10.1); Carbon Dioxide 26 mmol/L (21-32); Chloride 110 mmol/L (98-107); Creatinine Clr Calc Pharmacy 191.9 ml/min; Est GFR (African American) 126.3; Glucose 106 mg/dl (70-99); Sodium 137 mmol/L (136-145)
[2019-11-28] MEDS ORDERED: HEPARIN SOD 5,000 UNIT/0.5 ML VIAL SQ SCH (06:00)
[2019-11-28 06:01] LABS: Albumin Globulin Ratio 1.1 (0.9-2); Alkaline Phosphatase 80 U/L (45-117); Bilirubin,Total 0.4 mg/dl (0.2-1); Globulin 3.3 gm/dl (2.5-4.0); Total Protein 6.9 gm/dl (6.4-8.2); Troponin I < 0.015 ng/ml (0-0.045)
[2019-11-28] MEDS ORDERED: ASPIRIN 81 MG ECTAB PO SCH (09:00)
[2019-11-28] MEDS ORDERED: METOPROLOL SUCC 50MG EXT REL TAB PO SCH (09:00)
[2019-11-28] MEDS ORDERED: ATORVASTATIN 40 MG TAB PO SCH (09:00)
--- NOTE | 2019-11-28 15:19 | Electrocardiogram Report ---
Test Reason : Blood Pressure : / mmHG Vent. Rate : 086 BPM Atrial Rate : 086 BPM P-R Int : 148 ms QRS Dur : 088 ms QT Int : 340 ms P-R-T Axes : 025 035 055 degrees QTc Int : 406 ms Normal sinus rhythm Anteroseptal infarct (cited on or before 22-MAR-2018) Abnormal ECG When compared with ECG of 28-JUN-2019 19:12, No significant change was found Confirmed by Robbie Garibay ([id number]) on 11/28/2019 3:19:09 PM Referred By: REFERRED SELF Confirmed By:Kyle Garibay
--- NOTE | 2019-11-28 15:20 | Electrocardiogram Report ---
Test Reason : Blood Pressure : / mmHG Vent. Rate : 070 BPM Atrial Rate : 070 BPM P-R Int : 146 ms QRS Dur : 086 ms QT Int : 418 ms P-R-T Axes : 021 019 056 degrees QTc Int : 451 ms Normal sinus rhythm Anteroseptal infarct (cited on or before 22-MAR-2018) Abnormal ECG When compared with ECG of 27-NOV-2019 19:52, (unconfirmed) No significant change was found Confirmed by Robbie Garibay ([id number]) on 11/28/2019 3:19:57 PM Referred By: REFERRED SELF Confirmed By:Kyle Garibay
--- NOTE | 2019-11-28 18:42 | Discharge Summary ---
Date of Service November 28, 2019 Admission HPI Per Admitting Provider Aneudy is a 39-year-old male with past medical history of NSTEMI with WAYNE to his LAD approximately 2 years ago, prediabetes, hypertension, and tobacco abuse who presents with an episode of chest pain. Aneudy reports that prior to admission he was driving home when he developed moderate intensity chest pain in the center of his sternum which did not radiate into his jaw, shoulder, or left chest. He had some associated shortness of breath with this episode. He did not have any diaphoresis, lightheadedness, dizziness, syncope, or presyncope. He did not notice an association with exercise, but did note his symptoms worsened while laying down. He took 1 nitro which relieved his pain for approximately half hour after which the pain came back. The nitro did not affect his shortness of breath. When the chest pain came back he became concerned and presented to the emergency department. He denies abdominal pain, nausea, vomiting, diarrhea, constipation, syncope, presyncope, dizziness, jaw pain, shoulder pain, numbness or tingling down his left arm (he experienced this with his prior heart attack), focal weakness, and neck pain. He endorses persistent mild shortness of breath, but denies cough. He reports he has not had a fever or chills, but has had 2-3 days of night sweats which are new. He was recently in [facility] which has the second highest rate of COVID in the state. He denies direct contact with a COVID positive patient. He has not been tested for COVID. Medications: Reviewed in EMR. Of note he has prediabetes and CAD, reports he is not and is never been on an JOLLY/arb Medical history: Reviewed in EMR Surgical history: Reviewed in EMR Social history: Rare social alcohol use, endorses 1 pack/day continued tobacco use. No recreational drug use. He lives in his home with his and children. Allergies: No known drug allergies CODE STATUS: Full code Principal Diagnosis Chest pain, negative troponins, noncardiac chest pain Discharge Exam The patient appeared well Vital signs as documented. Lungs are clear to auscultation and percussion. Cardiac exam, Rhythm is regular.. No murmurs, rubs or gallops. Abdominal exam reveals normal bowel sounds, soft non tender, no masses Extremities are nonedematous and both pedal pulses are normal. Neurologic exam is alert and oriented, no focal loss of strength or sensation Skin is without bruises or rashes Psychologically is without concerns for anxiety or depression Discharge Data Allergies Allergy/AdvReac Type Severity Reaction Status Date / Time No Known Allergies Allergy Verified 11/27/19 20:25 Consultations 11/27/19 20:56 ED Decision to Admit Stat Hospital Course (1) Substernal chest pain: Patient has previous coronary disease and has heart failure reduced ejection fraction with an EF of 45%. Patient had a recent stress echocardiogram performed in September 2019 which was unremarkable for concerns for ischemic disease. Patient states he had chest pain yesterday unrelieved by nitro at home. Patient is unaware of how old his nitro is it may be a year-old or more. He is unaware of any expiration date on the bottle. In the hospital the patient had 2- troponins he had a negative EKG for acute changes. His chest pain was not reminiscent of any pleuritic discomfort.. Patient is been working in [facility] and he was ruled out for COVID with a rapid COVID test. I spoke with Dr. Thorne the patient's regional rehabilitation director who did not wish to have any medication amendments. I did give the patient a new prescription for nitroglycerin encouraging him to look for expiration dates on the bottle. Patient ambulated in the hallway without difficulty and was discharged home (2) Dyslipidemia: Continuing statin therapy (3) Cardiomyopathy, ischemic: Patient is heart failure reduced ejection fraction. Continues on aspirin atorvastatin and metoprolol following up Dr. Akira Thorne Total Time Total Time Spent Total Time Spent (In Minutes): It required greater than 30 minutes to prepare this patient for discharge Discharge Plan Discharge Items Patient Disposition: Home - Self-Care Reason For Visit: CHEST PAIN Discharge Diagnosis: angina, negative cardiac enzymes, I did speak to Dr Thorne he does not want to make any medication changes Activity: Resume your previous activity Non-emergency contact: Primary Care Provider and Motor Room Controller Call non-emergency contact if: you have any medication questions and your symptoms worsen Follow-up/Referrals: Felicity Pemberton DO [Primary Care Provider] - Pedrito Thorne MD [Physician] - (please set a tele medicine visit in one week) Diet: Heart Healthy Addtl Attending Provider Instructions: Please be sure that you have an electronic device and have you account set up in the [facility] portal to enable you to have a tele medicine visit in the future If you have concerns about setting up your patient portal, please check [facility] web site Pending Studies at Discharge: No Stand-Alone Forms: My [facility], Smoking Cessation Medications and DC Order Prescriptions: Continued atorvastatin [Lipitor] 80 mg tablet 80 mg PO QAM Qty: 90 RF: 1 metoprolol succinate [Toprol XL] 50 mg tablet extended release 24 hr 50 mg PO QAM Qty: 90 RF: 1 nitroglycerin [Nitrostat] 0.4 mg tablet, sublingual 0.4 mg Sublingual Q5M PRN (Reason: Chest Pain) Qty: 20 RF: 1 aspirin 81 mg Tablet,Delayed Release (Dr/Ec) 81 mg PO QAM RF: 0 Discharge Orders: Discharge Order (Routine); Ordered 11/28/19 Ordered By: Russell Long Admission Data Admit Date/Time: 11/27/19 21:56 Attending Provider: Russell Long Admit Provider: Candelario Herrera Primary Care Provider: Felicity Pemberton Other Providers: Aleshia Krueger DC Date/Time DO NOT enter until pt leaves facility: 11/28/19 14:49 Coding Level of Care Code D/C Day Management >30 mins Diagnoses Substernal chest pain R07.2 Dyslipidemia E78.5 Cardiomyopathy, ischemic I25.5
== END 2019-11-28 14:49 | disposition home or self-care (01) ==
LOC: 2W 19:40 → ED 19:40 → SUATTDRO 21:56 → 2W 23:03

== ENCOUNTER 2022-04-13 11:46 | Inpatient (IN) ==
[2022-04-13 14:17] LABS: Basophils # (auto) 0.08 K/uL (0-0.2); Basophils % (auto) 0.5 %; Eosinophils % (auto) 1.2 %; Hematocrit (blood only) 44.4 % (40.1-51.0); Hemoglobin 16.3 g/dl (14.0-18.0); Immature Granulocytes # (auto) 0.07 K/uL (0.00-0.02); Immature Granulocytes % (auto) 0.4 %; Lymphocytes # (auto) 3.89 K/uL (1.2-3.4); Mean Corpuscular Hemoglobin 32.7 pg (25.0-34.0); Mean Corpuscular Hgb Conc 36.7 g/dL (32.0-36.0); Mean Platelet Volume 10.6 fL (9.4-12.4); Monocytes # (auto) 0.94 K/uL (0.24-0.82); Monocytes % (auto) 5.5 %; Neutrophils # (auto) 11.76 K/uL (1.4-6.5); Neutrophils % (auto) 69.4 %; Platelet Count 266 K/uL (130-400); RDW Coefficient of Variation 12.7 % (11.5-14.5); RDW Standard Deviation 41.3 fL (36.4-46.3); Red Blood Count 4.99 M/uL (4.63-6.08); White Blood Count 16.94 K/ul (4.8-10.8)
[2022-04-13 14:39] LABS: Albumin Level 4.9 gm/dl (3.4-5.0); BUN Creatinine Ratio 10.5 (10-20); Bilirubin,Total 0.8 mg/dl (0.2-1.0); Creatinine Clr Calc Pharmacy 125.5 ml/min; Est GFR (African American) 131.3 ml/min; Est GFR (Non-African American) 113.3 ml/min; Globulin 2.5 gm/dl (2.5-4.0); Potassium 3.7 mmol/L (3.5-5.1); Total Protein 7.4 gm/dl (6.0-8.3)
[2022-04-13 14:44] LABS: Troponin I High Sensitivity 172.5 pg/ml (0-20)
[2022-04-13] MEDS ORDERED: ASPIRIN CHEW 324 MG PO STA (15:05)
--- NOTE | 2022-04-13 15:12 | Emergency Department Note ---
Impression & Plan Chest pain, Elevated troponin I level, Non-ST elevation DE (NSTEMI) ED Provider Note NAME: MAXINE WINSLOW AGE: 42 SEX: M : 1980 ARRIVES VIA: Walk-In INFORMANT: Patient, ED PROVIDER(S): Mayco Azul DO CHIEF COMPLAINT: Chest pain HPI: The patient is a 42-year-old male who presented to the emergency department for an evaluation of chest pain. The patient states that he started having chest pain this morning at approximately 7 AM. He states he started noticing a pressure over the left side of his chest. He is taking multiple doses of nitroglycerin prior to coming to the emergency department. The patient also had nausea but no vomiting. He also complained of shortness of breath. He states he has a history of coronary artery disease and has a history of a stent. The stent was placed in 2019. He has had a stress test as recent as a year ago. He was noted to have a small amount of disease in the stent on his most recent cardiac catheterization. The patient states he came directly to the emergency d epartment because the symptoms. He was in the waiting room for a prolonged period of time. The patient states he has no pain at this time but his significant other states he may have some pain because it continues to come and go. The patient does state that he is comfortable at this time. ROS: See above HPI for pertinent positives & negatives. A total of 10 systems reviewed and were otherwise negative. PAST MEDICAL HISTORY: See Below PAST SURGICAL HISTORY: See Below FAMILY HISTORY: See Below SOCIAL HISTORY: See Below HOME MEDICATIONS: See Below ALLERGIES: See Below VITALS: See Below PHYSICAL EXAMINATION: GENERAL: Patient is awake alert in no acute distress patient is resting comfortably and showing no signs of anxiety EYES: The conjunctivae are clear. The pupils are round and reactive. EARS, NOSE, MOUTH AND THROAT: The nose is without any evidence of any deformity. Mucous membranes are moist. Tongue is midline. NECK: The neck is nontender and supple. RESPIRATORY: Normal respiratory effort is noted there is no evidence of wheezing rhonchi or rales CARDIOVASCULAR: Regular rate and rhythm noted there no murmurs rubs or gallops normal S1 normal S2. GASTROINTESTINAL: Incisional hernias noted in the left lower quadrant. There was tenderness over this area but no guarding rigidity. MUSCULOSKELETAL/EXTREMITIES: There is no evidence of gross deformity full range of motion is noted in the hips and shoulders. SKIN: There is no obvious evidence of any rash. There are no petechiae, pallor or cyanosis noted. NEUROLOGIC: Patient is awake alert and oriented x3. MEDICAL DECISION MAKING: The patient is a 42-year-old male who presented to the emergency department for an evaluation of chest pain. The patient has a history of coronary artery disease. His EKG did not show any acute change from previous. The patient did have an elevated troponin. I discussed the patient's condition with the on-call [facility] it programmer analyst. The patient took multiple doses of nitroglycerin today. Pain was significantly improved after nitroglycerin. He was treated with aspirin in the emergency department. I discussed his condition with the on-call [facility] hospitalist. They have agreed to evaluate the patient in the emergency department for further management and disposition. Triage Nursing notes reviewed. Prior medical records reviewed Vital Signs: reviewed and remarkable for no significant abnormalities Differential diagnosis: Cardiac ischemia, aortic dissection, pulmonary embolism, pneumothorax, pneu monia, pericarditis, myocarditis, esophageal rupture, GERD, cholecystitis, pancreatitis, musculoskeletal, as well as other pathologies. ER treatment provided: See below Diagnostics interpreted by me: ECG: EKG was obtained in the emergency department. My interpretation is sinus rhythm at 92 bpm. There is no ectopy. Poor R wave progression was noted with anterior Q waves. This was compared to a tracing from September 06, 2021. No changes were noted. Cardiac Monitoring: An order was placed for continuous cardiac monitoring. The monitor shows a rate of 70 bpm with sinus rhythm. Laboratory studies: As stated above and show below. Imaging studies: See below Consultation(s): Discussed this case with Dr. Lawrence who is on-call for [facility] cardiology. I discussed this case with Dr. Jackson who is on-call for the [facility] hospitalist group. I have personally spent greater than 35 minutes of critical care time in the direct management of this patient. This includes bedside care, interpretation of diagnostic studies, and testing, discussion with consultants, patient, and family members, and other required patient management activities. This 35 minutes is in excess of all separately billable procedures. Past Med/Surg History Medical History (Updated 04/13/22 @ 22:47 by Mayco Azul DO) Acute diverticulitis 11/2018, admitted with acute perforation with peritonitis requiring emergent sigmoid colectomy and colostomy. Colostomy reversed 02/2019. CAD (coronary artery disease) s/p anterior STEMI 03/21/18, single WAYNE to mid LAD. EF 30-35% at the time, stress echo 09/2019 showed EF 45%. Cardiomyopathy, ischemic EF was 30-35% post STEMI, was 45% on most recent stress echo 09/2019. Colonic polyp COVID-19 (09/2021) Diabetes mellitus, type 2 Diverticulitis of colon with perforation NOVEMBER 2018 Fatty liver GERD (gastroesophageal reflux disease) H/O acute myocardial infarction (09/21/17) HTN (hypertension) Hyperlipidemia Ischemic cardiomyopathy with implantable cardioverter-defibrillator (ICD) Status post insertion of drug-eluting stent into left anterior descending (LAD) artery Tobacco use disorder Surgical History H/O hernia repair (09/16/20) Laparoscopic Incisional Hernia (multiple) Repair with Mesh Dr. Iglesias 09/16/2020 History of bowel resection WITH COLOSTOMY 11/2018 History of colonoscopy History of colostomy reversal 02/13/19 lap-assisted reversal of colostomy and enterolysis Dr. Bimal Iglesias History of esophagogastroduodenoscopy (EGD) History of heart artery stent 03/2018 (FOLLOWED BY DR. JHA) History of tooth extraction S/P colectomy Family History Father Family history of diabetes mellitus Unknown Cancer Mother Cancer Ovarian cancer Grandmother Cancer Coronary heart disease Type 2 diabetes mellitus Ovarian cancer Grandfather Cancer Coronary heart disease Type 2 diabetes mellitus Grandfather Coronary heart disease Grandfather (Maternal) No problems noted. Grandmother (Maternal) Ovarian cancer Aunt Ovarian cancer Other Myocardial infarction Denies family history of Prostate cancer Breast cancer Lung cancer Colorectal cancer Stroke Social History Smoking Status: Current every day smoker Tobacco Type: Cigarettes Age Started Using Tobacco: 14; packs per day: 1.5; Cigarettes Per Day: 1 pack; Second Hand Exposure: No; Hx Alcohol Use: No Hx Substance Use: No Preferred Language: Frisian Communication Ability: Effective Visual Impairment: No Limitations Hearing Ability: Normal Patient Access Manager Required: No Beliefs That Will Affect Care: None marital status: Current Living Situation: Spouse and Family current occupational status: employed How many Children do You have: 3 Feels Safe at Home: Yes Childhood Exposure to Second-Hand Smoke: No Diet Comment: regular caffeine: Yes (soda) during the past year weight has: remained stable Dental Care, Regularly: Yes Physical Activity Frequency: Daily Seatbelt Use: always Sunscreen Use: No Assistive Devices: Glasses Allergies Allergies Allergy/AdvReac Type Severity Reaction Status Date / Time No Known Allergies Allergy Verified 04/13/22 16:04 Home Meds Home Medications Medication Instructions Recorded Confirmed aspirin 81 mg tablet,delayed 81 mg PO QAM 10/12/18 04/13/22 release Previous Rx's Medication Instructions Recorded atorvastatin 80 mg tablet (Lipitor) 80 mg PO QAM #90 tabs 01/26/22 omeprazole 20 mg capsule,delayed 20 mg PO QAM #90 caps 01/26/22 release ezetimibe 10 mg tablet 10 mg PO DAILY #90 tabs 02/14/22 nitroglycerin 0.4 mg sublingual 0.4 mg sublingual Q5M PRN Chest 02/22/22 tablet (Nitrostat) Pain #20 tabs metformin 500 mg tablet 500 mg PO BID #180 tabs 03/03/22 metoprolol succinate 50 mg 50 mg PO QAM #90 tabs 03/03/22 tablet,extended release 24 hr (Toprol XL) Results & Data (ED) Vital Signs Vital Signs - 24 hr 04/13/22 11:50 04/13/22 11:50 04/13/22 15:52 Temperature 36.7 C Temperature Source Temporal Artery Scan Pulse Rate 111 H Pulse Rate [Apical] Respiratory Rate 19 Respiratory Effort / Characteristics SOB on Exertion Respiratory Depth Blood Pressure 122/85 Blood Pressure [Right Arm] Blood Pressure Mean 97 Blood Pressure Mean [Right Arm] Blood Pressure Position [Right Arm] Pulse Oximetry 97 97 Oxygen Delivery Method Room Air Room Air Sepsis Recent Fever Within 48 Hours No Sepsis New/Unexplained Change in Mental Status N/A Sepsis Action Taken by Nursing No Action Required 04/13/22 15:52 Temperature Temperature Source Pulse Rate Pulse Rate [Apical] 81 Respiratory Rate 18 Respiratory Effort / Characteristics Non-Labored Spontaneous Respiratory Depth Normal Blood Pressure Blood Pressure [Right Arm] 122/81 Blood Pressure Mean Blood Pressure Mean [Right Arm] 94 Blood Pressure Position [Right Arm] Lying Pulse Oximetry 97 Oxygen Delivery Method Room Air Sepsis Recent Fever Within 48 Hours Sepsis New/Unexplained Change in Mental Status Sepsis Action Taken by Senior Care Medications Current Medication List: was personally reviewed by me Laboratory Data Attestation: I reviewed the patient's lab results. Result diagrams: 04/13/22 14:00 04/13/22 14:00 Lab Results 04/13/22 04/13/22 04/13/22 Range/Units 12:06 12:06 14:00 WBC Cancelled RBC Cancelled Hgb Cancelled Hct Cancelled MCV Cancelled MCH Cancelled MCHC Cancelled RDW Std Deviation Cancelled RDW Coeff of Héctor Cancelled Plt Count Cancelled MPV Cancelled Immature Gran % (Auto) Cancelled Neut % (Auto) Cancelled Lymph % (Auto) Cancelled [place] % (Auto) Cancelled Eos % (Auto) Cancelled Baso % (Auto) Cancelled Neut # (Auto) Cancelled Lymph # (Auto) Cancelled [place] # (Auto) Cancelled Eos # (Auto) Cancelled Baso # (Auto) Cancelled Immature Gran # (Auto) Cancelled Absolute Nucleated RBC Cancelled Nucleated RBC % (auto) Cancelled Neutrophils % (Manual) Cancelled Band Neutrophils % Cancelled Lymphocytes % (Manual) Cancelled Prolymphocyte % Cancelled Reactive Lymphs % (Man) Cancelled Monocytes % (Manual) Cancelled Eosinophils % (Manual) Cancelled Basophils % (Manual) Cancelled Metamyelocytes % (Man) Cancelled Myelocytes % (Man) Cancelled Promyelocytes % (Man) Cancelled Blast Cells % (Manual) Cancelled Plasma Cell % (Manual) Cancelled Other Cells % Cancelled Nucleated RBC % Cancelled Neutrophils # (Manual) Cancelled Band Neutrophils # Cancelled Total Absolute Neuts Cancelled Lymphocytes # (Manual) Cancelled Prolymphocyte # Cancelled Reactive Lymphs # Cancelled Total Abs Lymphocytes Cancelled Monocytes # (Manual) Cancelled Eosinophils # (Manual) Cancelled Basophils # (Manual) Cancelled Metamyelocytes # (Man) Cancelled Myelocytes # (Manual) Cancelled Promyelocytes # (Man) Cancelled Blast Cells # (Man) Cancelled Plasma Cell # (Manual) Cancelled Other Cells # Cancelled Nucleated RBCs # (Man) Cancelled Hypersegmented Neuts Cancelled Hyposegmented Neuts Cancelled Hypogranular Neuts Cancelled Large Granular Lymphs Cancelled # Lrg Granular Lymphs Cancelled Hairy Cells Cancelled Smudge Cells Cancelled Toxic Granulation Cancelled Toxic Vacuolation Cancelled Dohle Bodies Cancelled Radha Rods Cancelled Platelet Estimate Cancelled Hypogranular Platelets Cancelled Clumped Platelets Cancelled Giant Platelets Cancelled Platelet Satelliting Cancelled RBC Morphology Cancelled Polychromasia Cancelled Hypochromasia Cancelled Poikilocytosis Cancelled Basophilic Stippling Cancelled Anisocytosis Cancelled Microcytosis Cancelled Macrocytosis Cancelled Spherocytes Cancelled Pappenheimer Bodies Cancelled Sickle Cells Cancelled Target Cells Cancelled Tear Drop Cells Cancelled Ovalocytes Cancelled Stomatocytes Cancelled [place] Bodies Cancelled Echinocytes Cancelled Acanthocytes (Spur) Cancelled Rouleaux Cancelled RBC Agglutinates Cancelled Schistocytes Cancelled Sezary Cell Cancelled PT Cancelled INR Cancelled APTT Cancelled PTT Ratio Cancelled Sodium Cancelled Potassium Cancelled Chloride Cancelled Carbon Dioxide Cancelled Anion Gap Cancelled BUN Cancelled Creatinine Cancelled Est Cr Clr Drug Dosing Cancelled Est GFR ( Amer) Cancelled Est GFR (Non-Af Amer) Cancelled BUN/Creatinine Ratio Cancelled Glucose Cancelled Calcium Cancelled Total Bilirubin Cancelled AST Cancelled ALT Cancelled Alkaline Phosphatase Cancelled Troponin I High Sens Cancelled C-Reactive Protein (0-0.5) mg/dl Total Protein Cancelled Albumin Cancelled Globulin Cancelled Albumin/Globulin Ratio Cancelled Procalcitonin (0-0.5) ng/ml SARS-CoV-2, RNA, NAAT (NEGATIVE) Blood Parasites ID Cancelled 04/13/22 04/13/22 04/13/22 Range/Units 14:00 14:00 14:00 WBC 16.94 H RBC 4.99 Hgb 16.3 Hct 44.4 MCV 89.0 MCH 32.7 MCHC 36.7 H RDW Std Deviation 41.3 RDW Coeff of Héctor 12.7 Plt Count 266 MPV 10.6 Immature Gran % (Auto) 0.4 Neut % (Auto) 69.4 Lymph % (Auto) 23.0 [place] % (Auto) 5.5 Eos % (Auto) 1.2 Baso % (Auto) 0.5 Neut # (Auto) 11.76 H Lymph # (Auto) 3.89 H [place] # (Auto) 0.94 H Eos # (Auto) 0.20 Baso # (Auto) 0.08 Immature Gran # (Auto) 0.07 H Absolute Nucleated RBC Nucleated RBC % (auto) Neutrophils % (Manual) Band Neutrophils % Lymphocytes % (Manual) Prolymphocyte % Reactive Lymphs % (Man) Monocytes % (Manual) Eosinophils % (Manual) Basophils % (Manual) Metamyelocytes % (Man) Myelocytes % (Man) Promyelocytes % (Man) Blast Cells % (Manual) Plasma Cell % (Manual) Other Cells % Nucleated RBC % Neutrophils # (Manual) Band Neutrophils # Total Absolute Neuts Lymphocytes # (Manual) Prolymphocyte # Reactive Lymphs # Total Abs Lymphocytes Monocytes # (Manual) Eosinophils # (Manual) Basophils # (Manual) Metamyelocytes # (Man) Myelocytes # (Manual) Promyelocytes # (Man) Blast Cells # (Man) Plasma Cell # (Manual) Other Cells # Nucleated RBCs # (Man) Hypersegmented Neuts Hyposegmented Neuts Hypogranular Neuts Large Granular Lymphs # Lrg Granular Lymphs Hairy Cells Smudge Cells Toxic Granulation Toxic Vacuolation Dohle Bodies Radha Rods Platelet Estimate Hypogranular Platelets Clumped Platelets Giant Platelets Platelet Satelliting RBC Morphology Polychromasia Hypochromasia Poikilocytosis Basophilic Stippling Anisocytosis Microcytosis Macrocytosis Spherocytes Pappenheimer Bodies Sickle Cells Target Cells Tear Drop Cells Ovalocytes Stomatocytes [place] Bodies Echinocytes Acanthocytes (Spur) Rouleaux RBC Agglutinates Schistocytes Sezary Cell PT INR APTT PTT Ratio Sodium 139 Potassium 3.7 Chloride 106 Carbon Dioxide 24 Anion Gap 9 BUN 8 Creatinine 0.76 Est Cr Clr Drug Dosing 125.5 Est GFR ( Amer) 131.3 Est GFR (Non-Af Amer) 113.3 BUN/Creatinine Ratio 10.5 Glucose 90 Calcium 10.0 Total Bilirubin 0.8 AST 35 ALT 57 H Alkaline Phosphatase 77 Troponin I High Sens 172.5 H* C-Reactive Protein (0-0.5) mg/dl Total Protein 7.4 Albumin 4.9 Globulin 2.5 Albumin/Globulin Ratio 2.0 Procalcitonin < 0.05 (0-0.5) ng/ml SARS-CoV-2, RNA, NAAT (NEGATIVE) Blood Parasites ID 04/13/22 04/13/22 04/13/22 Range/Units 14:00 15:12 15:13 WBC RBC Hgb Hct MCV MCH MCHC RDW Std Deviation RDW Coeff of Hcétor Plt Count MPV Immature Gran % (Auto) Neut % (Auto) Lymph % (Auto) [place] % (Auto) Eos % (Auto) Baso % (Auto) Neut # (Auto) Lymph # (Auto) [place] # (Auto) Eos # (Auto) Baso # (Auto) Immature Gran # (Auto) Absolute Nucleated RBC Nucleated RBC % (auto) Neutrophils % (Manual) Band Neutrophils % Lymphocytes % (Manual) Prolymphocyte % Reactive Lymphs % (Man) Monocytes % (Manual) Eosinophils % (Manual) Basophils % (Manual) Metamyelocytes % (Man) Myelocytes % (Man) Promyelocytes % (Man) Blast Cells % (Manual) Plasma Cell % (Manual) Other Cells % Nucleated RBC % Neutrophils # (Manual) Band Neutrophils # Total Absolute Neuts Lymphocytes # (Manual) Prolymphocyte # Reactive Lymphs # Total Abs Lymphocytes Monocytes # (Manual) Eosinophils # (Manual) Basophils # (Manual) Metamyelocytes # (Man) Myelocytes # (Manual) Promyelocytes # (Man) Blast Cells # (Man) Plasma Cell # (Manual) Other Cells # Nucleated RBCs # (Man) Hypersegmented Neuts Hyposegmented Neuts Hypogranular Neuts Large Granular Lymphs # Lrg Granular Lymphs Hairy Cells Smudge Cells Toxic Granulation Toxic Vacuolation Dohle Bodies Radha Rods Platelet Estimate Hypogranular Platelets Clumped Platelets Giant Platelets Platelet Satelliting RBC Morphology Polychromasia Hypochromasia Poikilocytosis Basophilic Stippling Anisocytosis Microcytosis Macrocytosis Spherocytes Pappenheimer Bodies Sickle Cells Target Cells Tear Drop Cells Ovalocytes Stomatocytes [place] Bodies Echinocytes Acanthocytes (Spur) Rouleaux RBC Agglutinates Schistocytes Sezary Cell PT 10.4 INR 1.0 APTT 29.1 PTT Ratio 1.1 Sodium Potassium Chloride Carbon Dioxide Anion Gap BUN Creatinine Est Cr Clr Drug Dosing Est GFR ( Amer) Est GFR (Non-Af Amer) BUN/Creatinine Ratio Glucose Calcium Total Bilirubin AST ALT Alkaline Phosphatase Troponin I High Sens 170.8 H* C-Reactive Protein < 0.50 (0-0.5) mg/dl Total Protein Albumin Globulin Albumin/Globulin Ratio Procalcitonin (0-0.5) ng/ml SARS-CoV-2, RNA, NAAT (NEGATIVE) Blood Parasites ID 04/13/22 Range/Units 15:56 WBC RBC Hgb Hct MCV MCH MCHC RDW Std Deviation RDW Coeff of Héctor Plt Count MPV Immature Gran % (Auto) Neut % (Auto) Lymph % (Auto) [place] % (Auto) Eos % (Auto) Baso % (Auto) Neut # (Auto) Lymph # (Auto) [place] # (Auto) Eos # (Auto) Baso # (Auto) Immature Gran # (Auto) Absolute Nucleated RBC Nucleated RBC % (auto) Neutrophils % (Manual) Band Neutrophils % Lymphocytes % (Manual) Prolymphocyte % Reactive Lymphs % (Man) Monocytes % (Manual) Eosinophils % (Manual) Basophils % (Manual) Metamyelocytes % (Man) Myelocytes % (Man) Promyelocytes % (Man) Blast Cells % (Manual) Plasma Cell % (Manual) Other Cells % Nucleated RBC % Neutrophils # (Manual) Band Neutrophils # Total Absolute Neuts Lymphocytes # (Manual) Prolymphocyte # Reactive Lymphs # Total Abs Lymphocytes Monocytes # (Manual) Eosinophils # (Manual) Basophils # (Manual) Metamyelocytes # (Man) Myelocytes # (Manual) Promyelocytes # (Man) Blast Cells # (Man) Plasma Cell # (Manual) Other Cells # Nucleated RBCs # (Man) Hypersegmented Neuts Hyposegmented Neuts Hypogranular Neuts Large Granular Lymphs # Lrg Granular Lymphs Hairy Cells Smudge Cells Toxic Granulation Toxic Vacuolation Dohle Bodies Radha Rods Platelet Estimate Hypogranular Platelets Clumped Platelets Giant Platelets Platelet Satelliting RBC Morphology Polychromasia Hypochromasia Poikilocytosis Basophilic Stippling Anisocytosis Microcytosis Macrocytosis Spherocytes Pappenheimer Bodies Sickle Cells Target Cells Tear Drop Cells Ovalocytes Stomatocytes [place] Bodies Echinocytes Acanthocytes (Spur) Rouleaux RBC Agglutinates Schistocytes Sezary Cell PT INR APTT PTT Ratio Sodium Potassium Chloride Carbon Dioxide Anion Gap BUN Creatinine Est Cr Clr Drug Dosing Est GFR ( Amer) Est GFR (Non-Af Amer) BUN/Creatinine Ratio Glucose Calcium Total Bilirubin AST ALT Alkaline Phosphatase Troponin I High Sens C-Reactive Protein (0-0.5) mg/dl Total Protein Albumin Globulin Albumin/Globulin Ratio Procalcitonin (0-0.5) ng/ml SARS-CoV-2, RNA, NAAT NEGATIVE (NEGATIVE) Blood Parasites ID Administered Medications Heparin Sodium/Dextrose (Heparin Sodium/Dextrose) 25,000 units in 500 mls @ 17 mls/hr IV .Q24H SAURAV; Protocol Stop: 05/13/22 16:29 Last Titration: 04/13/22 19:11 Dose: 850 units/hr, 17 mls/hr Documented By: NEENA Co-signed By: CONCETTA Admin: 04/13/22 16:45 Dose: 850 units/hr, 17 mls/hr Documented By: KHANG Co-signed By: ROBIN Insulin Aspart (Insulin Aspart Per Unit) 0 units SC ACHS SAURAV Stop: 05/13/22 18:10 Last Admin: 04/13/22 20:13 Dose: Not Given Documented By: Admin: 04/13/22 19:15 Dose: Not Given Documented By: CONCETTA Discontinued Medications Aspirin (Aspirin Chew 324 Mg) 324 mg PO NOW STA Stop: 04/13/22 15:06 Last Admin: 04/13/22 16:04 Dose: 324 mg Documented By: KHANG Heparin Sodium (Porcine) (Heparin Sod (Porcine) 1000 Unit/Ml) 4,000 units IV NOW ONE Stop: 04/13/22 16:20 Last Admin: 04/13/22 16:45 Dose: 4,000 units Documented By: KHANG Co-signed By: ROBIN Ioversol (Optiray 300 500ml) 110 ml IV ONCE ONE Stop: 04/13/22 16:32 Last Admin: 04/13/22 16:35 Dose: 110 ml Documented By: [facility] Imaging Data Radiologist's Impression: Chest X-Ray 04/13/22 13:59 XR chest 1V portable CLINICAL HISTORY: Chest Pain TECHNIQUE: Single frontal radiograph of the chest was obtained. Comparison: Comparison is made to CT chest 09/06/2021 FINDINGS: No lines and tubes are seen. Cardiomegaly is noted. The lungs are clear. No evidence of pleural effusion or pneumothorax. IMPRESSION: No acute chest disease. ACT 112: Negative or not required by law. Electronically signed by: Pee Duran M.D. 04/13/2022 3:44 PM Discharge Plan Visit Data Chief Complaint: Chest Pain Stated Complaint: CHEST PAIN, SHORTNESS OF BREATH ED Provider: Mayco Azul Discharge Problem: Chest pain, Elevated troponin I level, Non-ST elevation DE (NSTEMI) Patient Disposition: Admitted As Inpatient Discharge Instructions Interventions: ED Discharge Assessment Last Done: 04/13/22 17:20
--- NOTE | 2022-04-13 15:46 | XRay Report ---
XR chest 1V portable CLINICAL HISTORY: Chest Pain TECHNIQUE: Single frontal radiograph of the chest was obtained. Comparison: Comparison is made to CT chest 09/06/2021 FINDINGS: No lines and tubes are seen. Cardiomegaly is noted. The lungs are clear. No evidence of pleural effus ion or pneumothorax. IMPRESSION: No acute chest disease. ACT 112: Negative or not required by law. Electronically signed by: Pee Duran M.D. 04/13/2022 3:44 PM
[2022-04-13 15:59] LABS: Partial Thromboplastin Ratio 1.1; Partial Thromboplastin Time 29.1 Seconds (21.0-31.0); Prothrombin Time 10.4 Seconds (9.0-12.0)
--- NOTE | 2022-04-13 16:11 | Cardiology Consultation ---
Date of Consultation April 13, 2022 Assessment & Plan (1) Non-ST elevation LA (NSTEMI): Cardiac troponin modestly elevated x2 (high-sensitivity). Unclear if this represents type II non-ST elevation LA versus type I non-ST elevation LA. Tentatively plan for definitive evaluation by coronary angiography plus or minus PCI in the a.m. Patient will continue work-up for noncardiac etiologies of chest pain. Echocardiogram was performed at bedside while I was evaluating the patient. There are LAD territory wall motion abnormalities. Full report is pending. Patient will be placed on heparin drip empirically for possible ACS. He will remain on chronic coronary artery disease medication including low-dose aspirin 81 mg daily, atorvastatin 80 mg daily, Toprol-XL 50 mg p.o. daily and nitroglycerin as needed for chest pain. His metformin should be held in anticipation of cardiac catheterization. Present on Admission?: Yes (2) Cardiomyopathy, ischemic: He does not demonstrate any evidence of hypervolemia at this time. Chronic hea rt failure regimen includes Toprol-XL only at this time. He has not required loop diuretic and his EF does not require JOLLY inhibitor/ARB/Entresto. Present on Admission?: Yes (3) HTN (hypertension): Blood pressure is at target. Continue Toprol-XL. Present on Admission?: Yes History of Present Illness Reason for Consultation: Elevated troponin, chest pain Attending Physician: Thai Kim MD, PhD History of Present Illness 42-year-old diabetic male with prior history of anterior ST elevation LA treated by mid LAD stent in 2018. Associated ischemic cardiomyopathy initial EF 30 to 35% with last echo in 2020 demonstrating EF improved to 45 to 50%. He follows with his board turner Dr. Thorne and was last seen in February of this year. Prior stress test in January 2021 was without ischemia. He presents today to the emergency department with sudden onset chest discomfort with associated nausea and vomiting lasting for approximately 4 hours unrelieved with nitroglycerin. Upon arrival to the emergency department his chest discomfort had resolved. Presently, he states he has difficulty with deep inspiration and there is some sharp pain with that. EKG performed in the emergency department today fails to demonstrate any ischemic EKG changes. Patient denies any shortness of breath at rest, syncope, near syncope, orthopnea, PND, racing heartbeat, palpitations, or edema. He notes for several months he has had intermittent chest discomfort which has been mild and very short in duration. He continues to smoke. He denies any recent fevers, chills, cough, sputum production. He often has abdominal discomfort associated with his history of diverticular perforation, colectomy, etc. Allergies Allergy/AdvReac Type Severity Reaction Status Date / Time No Known Allergies Allergy Verified 04/13/22 16:04 Home Medications Medication Instructions Recorded Confirmed Type aspirin 81 mg tablet,delayed 81 mg PO QAM 10/12/18 04/13/22 History release atorvastatin 80 mg tablet (Lipitor) 80 mg PO QAM #90 tabs 01/26/22 04/13/22 Rx omeprazole 20 mg capsule,delayed 20 mg PO QAM #90 caps 01/26/22 04/13/22 Rx release ezetimibe 10 mg tablet 10 mg PO DAILY #90 tabs 02/14/22 04/13/22 Rx nitroglycerin 0.4 mg sublingual 0.4 mg sublingual Q5M PRN Chest 02/22/22 04/13/22 Rx tablet (Nitrostat) Pain #20 tabs metformin 500 mg tablet 500 mg PO BID #180 tabs 03/03/22 04/13/22 Rx metoprolol succinate 50 mg 50 mg PO QAM #90 tabs 03/03/22 04/13/22 Rx tablet,extended release 24 hr (Toprol XL) Patient History Medical History (Updated 04/13/22 @ 17:09 by Thai Kim MD, PhD) Acute diverticulitis 11/2018, admitted with acute perforation with peritonitis requiring emergent sigmoid colectomy and colostomy. Colostomy reversed 02/2019. CAD (coronary artery disease) s/p anterior STEMI 03/21/18, single WAYNE to mid LAD. EF 30-35% at the time, stress echo 09/2019 showed EF 45%. Cardiomyopathy, ischemic EF was 30-35% post STEMI, was 45% on most recent stress echo 09/2019. Colonic polyp COVID-19 (09/2021) Diabetes mellitus, type 2 Diverticulitis of colon with perforation NOVEMBER 2018 Fatty liver GERD (gastroesophageal reflux disease) H/O acute myocardial infarction (09/21/17) HTN (hypertension) Hyperlipidemia Ischemic cardiomyopathy with implantable cardioverter-defibrillator (ICD) Status post insertion of drug-eluting stent into left anterior descending (LAD) artery Tobacco use disorder Surgical History H/O hernia repair (09/16/20) Laparoscopic Incisional Hernia (multiple) Repair with Mesh Dr. Iglesias 09/16/2020 History of bowel resection WITH COLOSTOMY 11/2018 History of colonoscopy History of colostomy reversal 02/13/19 lap-assisted reversal of colostomy and enterolysis Dr. Bimal Iglesias History of esophagogastroduodenoscopy (EGD) History of heart artery stent 03/2018 (FOLLOWED BY DR. THORNE) History of tooth extraction S/P colectomy Family History Father Family history of diabetes mellitus Unknown Cancer Mother Cancer Ovarian cancer Grandmother Cancer Coronary heart disease Type 2 diabetes mellitus Ovarian cancer Grandfather Cancer Coronary heart disease Type 2 diabetes mellitus Grandfather Coronary heart disease Grandfather (Maternal) No problems noted. Grandmother (Maternal) Ovarian cancer Aunt Ovarian cancer Other Myocardial infarction Denies family history of Prostate cancer Breast cancer Lung cancer Colorectal cancer Stroke Social History Smoking Status: Never smoker Tobacco Type: Cigarettes Age Started Using Tobacco: 14; packs per day: 1.5; Cigarettes Per Day: 1 PPD SINCE AGE 14 YRS; Second Hand Exposure: No; Hx Alcohol Use: Yes Alcohol type: beer and hard liquor Alcohol Intake Frequency: Monthly or Less Hx Substance Use: No Preferred Language: Slovenian Communication Ability: Effective Visual Impairment: No Limitations Hearing Ability: Normal Product Development Consultant Required: No Beliefs That Will Affect Care: None marital status: Current Living Situation: Spouse and Family current occupational status: employed How many Children do You have: 3 Feels Safe at Home: Yes Childhood Exposure to Second-Hand Smoke: No Diet Comment: regular caffeine: Yes (soda) during the past year weight has: remained stable Dental Care, Regularly: Yes Physical Activity Frequency: Daily Seatbelt Use: always Sunscreen Use: No Assistive Devices: None Review of Systems Review of Systems: Negative x12 point review except as per HPI. Physical Exam Constitutional: WD/WN, vitals as above Eyes: PERRL, conjunctivae normal, anicteric sclerae ENMT: external ear and nose normal, oropharynx normal Neck: trachea midline, no thyromegaly No JVD Respiratory: normal respiratory effort, lungs clear to auscultation Fair air movement Cardiovascular: Rate/Rhythm: regular rate and regular rhythm Heart Sounds: normal S1, normal S2 and + murmur (Soft grade 1 out of 6 to 2 out of 6 systolic) Palpation: normal PMI Extremities: normal capillary refill and + edema (Trace bilateral lower extremity) Gastrointestinal (Abdomen): normal bowel sounds, soft, nontender, no hepatosplenomegaly Large ventral scar Neurologic: Cognition is intact. Speech is fluent. No focal motor deficits. No tremor. Psychiatric: A+Ox3, euthymic affect Results & Data ([facility]) Vital Signs (Past 12 Hours) Vital Signs Temp Pulse Pulse Resp BP BP Pulse Ox 04/13/22 15:52 81 18 122/81 97 04/13/22 15:52 97 04/13/22 11:50 36.7 C 111 H 19 122/85 97 O2 Del Method 04/13/22 15:52 Room Air 04/13/22 15:52 Room Air 04/13/22 11:50 Room Air PG Care Time/CCT Total # of Minutes Spent Total Time Spent with Patient: Total time spent is greater than 50% in coordination of care (as documented) at patient's floor/unit and/or counseling patient: [place] [address] Inpt Consult Level 5 Patient Type New History Comprehensive Exam Detailed Medical Decision Making Moderate Complexity Diagnoses Non-ST elevation LA (NSTEMI) I21.4 Cardiomyopathy, ischemic I25.5 HTN (hypertension) I10 Hypertension type: essential hypertension (1) HTN (hypertension) Hypertension type: essential hypertension Qualified Code(s): I10 - Essential (primary) hypertension
[2022-04-13] MEDS ORDERED: Heparin IV Adult Wt-Based Low-Dose WITH Bolus Protocol IV SCH (16:15)
[2022-04-13] MEDS ORDERED: HEPARIN SOD (PORCINE) 1000 UNIT/ML IV ONE ×2 (16:19→23:30)
--- NOTE | 2022-04-13 16:25 | History & Physical Report ---
Date of Service April 13, 2022 Assessment & Plan (1) Chest pain: Plan: Patient presents with left upper chest pain associated with radiation to shoulder and down arm, dyspnea, nausea/vomiting, diaphoresis while walking at work, and relieved with NTG - At this time consistent with his previous chest pain as he feels this is very similar to this - Likely Cardiac related unstable angina or NSTEMI- currently he is chest pain free - ECG without ST elevation - ECHO now - Heparin infusion - NPO after midnight - appreciate interventional and cardiology assistance - Trend HScTNI- second set down from 172-170 DDX l - PE - at this time with some pleuritic nature and tachycardia on arrival obtain CTA of the chest- negative for PE - infecctious process: eval for any infective process not seen on CXR- CRP/PCT pending - Anxiety (2) Diabetes mellitus, type 2: Plan: Hold Metformin - Aspart sliding scale 110-140 CF 20 Carb ration 1:15 (3) Leukocytosis: Plan: Without fever, no opacity on CXR, no abdominal pain, no urinary symptoms, no cough - Possibly stress response from above - CRP/ PCT pending - COVID negative - follow in am - if fevers occur obtain blood culture initiate broad coverage CT chest- IMPRESSION: 1. Previously noted groundglass opacities are now more diffuse in appearance. This may represent infectious/inflammatory process such as viral pneumonia. Bronchial wall thickening is again noted. Bilateral hilar lymph nodes are seen. 2. Tiny pulmonary nodule in the right upper lobe is unchanged. Further evaluation following cardiac evaluation (4) Dyslipidemia: Plan: Continue high dose statin/ezetimibe (5) GERD (gastroesophageal reflux disease): Plan: Continue PPI (6) Cardiomyopathy, ischemic: Plan: HX of - previous EF 45-50 % via EST 01/24 - ECHO obtained - read pending. (7) CAD (coronary artery disease): Plan: Cardiac cath 05/2020: Patent mid LAD stent, 30% mid LAD stenosis after stent, jailed D1 35% ostial, 25% proximal RCA Exercise stress echo 01/2021: Negative at 91% MPHR. 7: 08, 10 METS. LVEF 45 to 50%, apical akinesis, mid anteroseptal/septal hypokinesis. No valve pathology (8) HTN (hypertension): Plan: Continue BB (9) Tobacco use disorder: Plan: Continued smoker smoking cessation strongly recommended History of Present Illness Primary Care Provider: Felicity Pemberton, DO 42 YOM with medical history of: CAD(stents 2018), previous cath in 2019, ICM (45-50%), HLD, Continued Smoker, diverticulitis with colostomy reversal, palpitations, DMII. Patient comes to the EMD today for complaints of chest pain that started at 0730 this morning. It was at his left upper chest with radiation to left shoulder and down left arm, was associated with dyspnea, nausea and vomiting x2, and diaphoresis. This is not associated with any change in position, but does note that he feels it with inspiration. He is tachycardic and not hypoxic. At it's worst was 7-8/10. This was pain did occur while he was walking in the [place]. He went back to his truck took another ntg and went home. He continued to have chest pain took some more ntg came to the EMD. Overall he has taken 6 nitroglycerine tabs per his count. He reports that he normally does not need these, however over the past couple weeks he has been taking them more often. He does report that he is having more stress at work, and at times will also have pain in between his shoulder blades in his back. In the EMD the patient received 324mg asa, ECG without any ST elevation. He had routine labs performed that included HScTNI- this was elevated at 172 with recheck 2 hours post at 170.8. His WBC count is elevated at 16 without no complaints of urinary symptoms, CXR clear, and no GI symptoms or other illness endorsed. Patient will be admitted to PCU for continued work up of his chest pa in, and WBC count. ECHO placed and being obtained at this time, interventional cardiology evaluated at bedside as well. CTA of the chest to rule out PE, Heparin infusion, NPO after MN. COVID test on admission is: NEGATIVE Allergies Allergy/AdvReac Type Severity Reaction Status Date / Time No Known Allergies Allergy Verified 04/13/22 16:04 Home Medications Medication Instructions Recorded Confirmed Type aspirin 81 mg tablet,delayed 81 mg PO QAM 10/12/18 04/13/22 History release atorvastatin 80 mg tablet (Lipitor) 80 mg PO QAM #90 tabs 01/26/22 04/13/22 Rx omeprazole 20 mg capsule,delayed 20 mg PO QAM #90 caps 01/26/22 04/13/22 Rx release ezetimibe 10 mg tablet 10 mg PO DAILY #90 tabs 02/14/22 04/13/22 Rx nitroglycerin 0.4 mg sublingual 0.4 mg sublingual Q5M PRN Chest 02/22/22 04/13/22 Rx tablet (Nitrostat) Pain #20 tabs metformin 500 mg tablet 500 mg PO BID #180 tabs 03/03/22 04/13/22 Rx metoprolol succinate 50 mg 50 mg PO QAM #90 tabs 03/03/22 04/13/22 Rx tablet,extended release 24 hr (Toprol XL) Past Med/Surg History Medical History (Updated 04/13/22 @ 17:09 by Thai Kim MD, PhD) Acute diverticulitis 11/2018, admitted with acute perforation with peritonitis requiring emergent sigmoid colectomy and colostomy. Colostomy reversed 02/2019. CAD (coronary artery disease) s/p anterior STEMI 03/21/18, single WAYNE to mid LAD. EF 30-35% at the time, stress echo 09/2019 showed EF 45%. Cardiomyopathy, ischemic EF was 30-35% post STEMI, was 45% on most recent stress echo 09/2019. Colonic polyp COVID-19 (09/2021) Diabetes mellitus, type 2 Diverticulitis of colon with perforation NOVEMBER 2018 Fatty liver GERD (gastroesophageal reflux disease) H/O acute myocardial infarction (09/21/17) HTN (hypertension) Hyperlipidemia Ischemic cardiomyopathy with implantable cardioverter-defibrillator (ICD) Status post insertion of drug-eluting stent into left anterior descending (LAD) artery Tobacco use disorder Surgical History H/O hernia repair (09/16/20) Laparoscopic Incisional Hernia (multiple) Repair with Mesh Dr. Iglesias 09/16/2020 History of bowel resection WITH COLOSTOMY 11/2018 History of colonoscopy History of colostomy reversal 02/13/19 lap-assisted reversal of colostomy and enterolysis Dr. Bimal Iglesias History of esophagogastroduodenoscopy (EGD) History of heart artery stent 03/2018 (FOLLOWED BY DR. JHA) History of tooth extraction S/P colectomy Family History Father Family history of diabetes mellitus Unknown Cancer Mother Cancer Ovarian cancer Grandmother Cancer Coronary heart disease Type 2 diabetes mellitus Ovarian cancer Grandfather Cancer Coronary heart disease Type 2 diabetes mellitus Grandfather Coronary heart disease Grandfather (Maternal) No problems noted. Grandmother (Maternal) Ovarian cancer Aunt Ovarian cancer Other Myocardial infarction Denies family history of Prostate cancer Breast cancer Lung cancer Colorectal cancer Stroke Social History Smoking Status: Never smoker Tobacco Type: Cigarettes Age Started Using Tobacco: 14; packs per day: 1.5; Cigarettes Per Day: 1 PPD SINCE AGE 14 YRS; Second Hand Exposure: No; Hx Alcohol Use: Yes Alcohol type: beer and hard liquor Alcohol Intake Fr equency: Monthly or Less Hx Substance Use: No Preferred Language: Kosovan Communication Ability: Effective Visual Impairment: No Limitations Hearing Ability: Normal Resource Conservation Specialist Required: No Beliefs That Will Affect Care: None marital status: Current Living Situation: Spouse and Family current occupational status: employed How many Children do You have: 3 Feels Safe at Home: Yes Childhood Exposure to Second-Hand Smoke: No Diet Comment: regular caffeine: Yes (soda) during the past year weight has: remained stable Dental Care, Regularly: Yes Physical Activity Frequency: Daily Seatbelt Use: always Sunscreen Use: No Assistive Devices: None Review of Systems Review of Systems: REVIEW OF SYSTEMS: Constitutional: No fever, sweats or chills Eyes: No diplopia, no worsening or blurred vision ENT: normal hearing, no trouble swallowing Respiratory: (+) dyspnea with exertion, No cough, sputum, dyspnea at rest or on exertion Cardiovascular: (+) chest pain with activity and inspiration, NO tightness or palpitations Abdomen: No pain, nausea, vomiting, diarrhea or constipation Musculoskeletal: No joint pain, calf pain, swelling Neurologic: No weakness, numbness/tingling, or balance problems Psychiatric: No anxiety or depression Skin: No rash or itch Physical Exam Physical Exam: PHYSICAL EXAM: General: awake, alert, no apparent distress Head: Normocephalic, atraumatic ENT: PERRL, EOMI, no pharyngeal exudate, mucous membranes moist Neuro: AAO x 3, speech clear and appropriate, strength intact bilaterally 5/5, sensation intact and equal all extremities and dermatomes, no pronator drift Chest: equal rise and fall of the chest, no accessory muscle use, no heaves or thrills, Clear to auscultation, on room air, Cardiac: Regular rate and rhythm, telemetry reviewed- NSR, skin warm dry, cap refill <3 seconds, peripheral pulses +2 no JVD, no murmur, no edema GI: NABS x 4 quadrants, soft, nontender to palpation, no rebound, guarding or tenderness : Spontaneously voiding, no pain, no CVA tenderness, MSK: Negative spurling maneuver, negative meningismus signs, no back pain, no other painful or swollen joints Psych: Normal mood and affect Skin: no rash or erythema Results & Data Results & Data ([facility]) Vital Signs (Past 12 Hours) Vital Signs Temp Pulse Pulse Resp BP BP Pulse Ox 04/13/22 15:52 81 18 122/81 97 04/13/22 15:52 97 04/13/22 11:50 36.7 C 111 H 19 122/85 97 O2 Del Method 04/13/22 15:52 Room Air 04/13/22 15:52 Room Air 04/13/22 11:50 Room Air Laboratory Results Abnormal lab results 04/13/22 04/13/22 04/13/22 Range/Units 14:00 14:00 15:13 WBC 16.94 H (4.8-10.8) K/ul MCHC 36.7 H (32.0-36.0) g/dL Neut # (Auto) 11.76 H (1.4-6.5) K/uL Lymph # (Auto) 3.89 H (1.2-3.4) K/uL Jerome # (Auto) 0.94 H (0.24-0.82) K/uL Immature Gran # (Auto) 0.07 H (0.00-0.02) K/uL ALT 57 H (7-52) U/L Troponin I High Sens 172.5 H* 170.8 H* (0-20) pg/ml Diagnostic Findings Chest X-Ray 04/13/22 13:59 XR chest 1V portable CLINICAL HISTORY: Chest Pain TECHNIQUE: Single frontal radiograph of the chest was obtained. Comparison: Comparison is made to CT chest 09/06/2021 FINDINGS: No lines and tubes are seen. Cardiomegaly is noted. The lungs are clear. No evidence of pleural effusion or pneumothorax. IMPRESSION: No acute chest disease. ACT 112: Negative or not required by law. Electronically signed by: Pee Duran M.D. 04/13/2022 3:[address] angio chest PE protocol CLINICAL HISTORY: PE TECHNIQUE: Multidetector row helical CT of the chest was performed with angiographic protocol. Coronal and sagittal reformations were obtained. Coronal and sagittal MIPS were obtained from the axial data set and were submitted for review. Automated dose lowering techniques and/or adjustment according to patient size were utilized for this exam. CT DOSE: 434.76 mGy.cm Comparison: Comparison is made to CT chest to 09/07/2021 FINDINGS: Lungs and pleura: Hazy groundglass opacities are seen throughout the lungs. Bronchial wall thickening is seen. There is a 4 mm nodule in the right upper lobe (series 4 image 206). This is unchanged from prior exam. Heart and pericardium: Heart size is normal. No pericardial effusion. Incidental note is made of subendocardial fat deposition in the left ventricle, nonspecific but may be secondary to old infarct. Vessels: No evidence of pulmonary embolism. Severe atherosclerotic disease is seen most prominent in the LAD. Mediastinum and tommy: Subcentimeter hilar nodes are seen bilaterally. No jerome lymphadenopathy is seen. Chest wall and lower neck: Unremarkable. Abdomen: Unremarkable. Bones: Unremarkable. IMPRESSION: 1. Previously noted groundglass opacities are now more diffuse in appearance. This may represent infectious/inflammatory process such as viral pneumonia. Bronchial wall thickening is again noted. Bilateral hilar lymph nodes are seen. 2. Tiny pulmonary nodule in the right upper lobe is unchanged. Medications Administered Home Medications aspirin 81 mg tablet,delayed release 81 mg PO QAM 10/12/18 [History Confirmed 04/13/22] atorvastatin 80 mg tablet (Lipitor) 80 mg PO QAM #90 tabs 01/26/22 [Rx Confirmed 04/13/22] omeprazole 20 mg capsule,delayed release 20 mg PO QAM #90 caps 01/26/22 [Rx Confirmed 04/13/22] ezetimibe 10 mg tablet 10 mg PO DAILY #90 tabs 02/14/22 [Rx Confirmed 04/13/22] nitroglycerin 0.4 mg sublingual tablet (Nitrostat) 0.4 mg sublingual Q5M PRN Chest Pain #20 tabs 02/22/22 [Rx Confirmed 04/13/22] metformin 500 mg tablet 500 mg PO BID #180 tabs 03/03/22 [Rx Confirmed 04/13/22] metoprolol succinate 50 mg tablet,extended release 24 hr (Toprol XL) 50 mg PO QAM #90 tabs 03/03/22 [Rx Confirmed 04/13/22] Active Medications Heparin Sodium (Porcine) (Heparin Sod (Porcine) 1000 Unit/Ml) 1 units IV NOW ONE Stop: 04/13/22 16:20 Heparin Sodium/Dextrose (Heparin Iv Adult Wt-Based Low-Dose With Bolus Protocol) 1 each IV Q15M SAURAV; Protocol Stop: 04/13/22 17:31 Heparin Sodium/Dextrose (Heparin Sodium/Dextrose) 25,000 units in 500 mls @ 0.02 mls/hr IV .Q24H SAURAV; Protocol Stop: 05/13/22 16:29 Discontinued Medications Aspirin (Aspirin Chew 324 Mg) 324 mg PO NOW STA Stop: 04/13/22 15:06 Last Admin: 04/13/22 16:04 Dose: 324 mg Documented By: NMS ECG Additional Comments: Sinus rhythm with Fusion complexes Anteroseptal infarct (cited on or before 22-MAR-2018) Abnormal ECG When compared with ECG of 06-SEP-2021 22:52, Fusion complexes are now Present Code Status & VTE Plan Code Status CODE: FULL VTE: SCDS, Heparin infusion VTE Prophylaxis Plan VTE Prophylaxis will be ordered: Yes Supervising Physician Co-Signing Physician Notes I supervised MARIA TERESA Pinedo on this admission. I interviewed and examined the patient independently of him. The plan is as written in his note except for any following changes/exceptions: None 42yo M w/ hx of CAD s/p STEMI and WAYNE who presents with chest pain while walking through [place]. Associated with diaphoresis, shortness of breath. Took 6-7 nitro at home without improvement, though resolved by my interview. Seen by cardiology with stable echo. Troponins moderately elevated, but downtrending. Plan for heparin gtt, beta-bianka, ASA, statin, and NPO @ midnight for possible LHC. PG Care Time/CCT Total # of Minutes Spent Total Time Spent with Patient: Total time spent is greater than 50% in coordination of care (as documented) at patient's floor/unit and/or counseling patient: Coding Level of Care Code 22782 Initial Inpt Care Lvl 3 Diagnoses Chest pain R07.9 Diabetes mellitus, type 2 E11.9 Leukocytosis D72.829 Dyslipidemia E78.5 GERD (gastroesophageal reflux disease) K21.9 Cardiomyopathy, ischemic I25.5 CAD (coronary artery disease) I25.10 Associated angina: without angina Coronary Disease-Associated Artery/Lesion type: council artery [place] vs. transplanted heart: council heart HTN (hypertension) I10 Hypertension type: essential hypertension Tobacco use disorder F17.200 (1) CAD (coronary artery disease) Associated angina: without angina Coronary Disease-Associated Artery/Lesion type: council artery [place] vs. transplanted heart: council heart Qualified Code(s): I25.10 - Atherosclerotic heart disease of council coronary artery without angina pectoris (2) HTN (hypertension) Hypertension type: essential hypertension Qualified Code(s): I10 - Essential (primary) hypertension
[2022-04-13] MEDS ORDERED: HEPARIN SODIUM/DEXTROSE 25,000 UNITS/500 ML BAG IV SCH (16:30)
[2022-04-13] MEDS ORDERED: OPTIRAY 300 500mL IV ONE (16:31)
--- NOTE | 2022-04-13 16:48 | Electrocardiogram Report ---
Test Reason : Blood Pressure : / mmHG Vent. Rate : 092 BPM Atrial Rate : 092 BPM P-R Int : 148 ms QRS Dur : 090 ms QT Int : 348 ms P-R-T Axes : 015 -02 033 degrees QTc Int : 430 ms Poor data quality, interpretation may be adversely affected Sinus rhythm Anteroseptal infarct (cited on or before 22-MAR-2018) Abnormal ECG Confirmed by Robbie Garibay ([id number]) on 04/13/2022 4:47:46 PM Referred By: Confirmed By:Kyle Garibay
--- NOTE | 2022-04-13 16:53 | CT Scan Report ---
CT angio chest PE protocol CLINICAL HISTORY: PE TECHNIQUE: Multidetector row helical CT of the chest was performed with angiographic protocol. Cardenas l and sagittal reformations were obtained. Coronal and sagittal MIPS were obtained from the axial ginger a set and were submitted for review. Automated dose lowering techniques and/or adjustment according to patient size were utilized for this exam. CT DOSE: 434.76 mGy.cm Comparison: Comparison is made to CT chest to 09/07/2021 FINDINGS: Lungs and pleura: Hazy groundglass opacities are seen throughout the lungs. Bronchial wall thickening is seen. There is a 4 mm nodule in the right upper lobe (series 4 image 206). This is unchanged from prior exam. Heart and pericardium: Heart size is normal. No pericardial effusion. Incidental note is made of sube ndocardial fat deposition in the left ventricle, nonspecific but may be secondary to old infarct. Vessels: No evidence of pulmonary embolism. Severe atherosclerotic disease is seen most prominent in the LAD. Mediastinum and tommy: Subcentimeter hilar nodes are seen bilaterally. No jerome lymphadenopathy is see n. Chest wall and lower neck: Unremarkable. Abdomen: Unremarkable. Bones: Unremarkable. IMPRESSION: 1. Previously noted groundglass opacities are now more diffuse in appearance. This may represent inf ectious/inflammatory process such as viral pneumonia. Bronchial wall thickening is again noted. Bilat eral hilar lymph nodes are seen. 2. Tiny pulmonary nodule in the right upper lobe is unchanged. ACT 112: Negative or not required by law. Electronically signed by: Pee Duran M.D. 04/13/2022 4:51 PM
[2022-04-13] MEDS ORDERED: CARBOHYDRATES FOR HYPOGLYCEMIA PO PRN (18:11)
[2022-04-13] MEDS ORDERED: GLUCOSE 10 TAB/TUBE PO PRN (18:11)
[2022-04-13] MEDS ORDERED: NITROGLYCERIN SL 0.4 MG/TAB TAB SL PRN (18:11)
[2022-04-13] MEDS ORDERED: DEXTROSE 50% 50 ML SYRINGE IV PRN (18:11)
[2022-04-13] MEDS ORDERED: GLUCOSE 40% GEL 15 GM TUBE PO PRN (18:11)
[2022-04-13] MEDS ORDERED: ACETAMINOPHEN 325 MG TAB PO PRN (18:11)
[2022-04-13] MEDS ORDERED: GLUCAGON FOR INJ 1 MG VIAL SQ PRN (18:11)
[2022-04-13] MEDS ORDERED: ONDANSETRON INJ 2 MG/ML 2 ML VIAL IV PRN (18:11)
[2022-04-13] MEDS: INSULIN ASPART PER UNIT SC SCH ×2 (19:15→20:13)
[2022-04-13 23:15] LABS: Partial Thromboplastin Ratio 1.4; Partial Thromboplastin Time 37.5 Seconds (21.0-31.0)
[2022-04-14] MEDS: INSULIN ASPART PER UNIT SC SCH ×4 (07:27→20:57)
[2022-04-14 07:49] LABS: Basophils # (auto) 0.04 K/uL (0-0.2); Basophils % (auto) 0.5 %; Eosinophils # (auto) 0.23 K/uL (0-0.50); Eosinophils % (auto) 2.8 %; Hematocrit (blood only) 42.2 % (40.1-51.0); Immature Granulocytes # (auto) 0.02 K/uL (0.00-0.02); Immature Granulocytes % (auto) 0.2 %; Lymphocytes # (auto) 2.33 K/uL (1.2-3.4); Lymphocytes % (auto) 28.6 %; Mean Corpuscular Hemoglobin 32.3 pg (25.0-34.0); Mean Corpuscular Hgb Conc 35.5 g/dL (32.0-36.0); Mean Corpuscular Volume 90.8 fL (80.0-100.0); Mean Platelet Volume 10.4 fL (9.4-12.4); Monocytes # (auto) 0.52 K/uL (0.24-0.82); Monocytes % (auto) 6.4 %; Neutrophils # (auto) 5.01 K/uL (1.4-6.5); Neutrophils % (auto) 61.5 %; Platelet Count 210 K/uL (130-400); RDW Coefficient of Variation 12.6 % (11.5-14.5); RDW Standard Deviation 42.1 fL (36.4-46.3); Red Blood Count 4.65 M/uL (4.63-6.08); White Blood Count 8.15 K/ul (4.8-10.8)
[2022-04-14 07:58] LABS: Partial Thromboplastin Ratio 1.5
[2022-04-14 08:27] LABS: BUN Creatinine Ratio 14.9 (10-20); Calcium 9.5 mg/dl (8.5-10.1); Creatinine Clr Calc Pharmacy 129.4 ml/min; Est GFR (African American) 132.8 ml/min; Est GFR (Non-African American) 114.6 ml/min; Magnesium 2.3 mg/dl (1.7-2.4); Potassium 3.8 mmol/L (3.5-5.1); Troponin I High Sensitivity 107.7 pg/ml (0-20)
[2022-04-14] MEDS: PANTOprazole 40 MG TAB PO SCH (08:28)
[2022-04-14] MEDS: ATORVASTATIN 40 MG TAB PO SCH (08:28)
[2022-04-14] MEDS: METOPROLOL SUCC 50MG EXT REL TAB PO SCH (08:28)
[2022-04-14] MEDS: ASPIRIN 81 MG ECTAB PO SCH (08:28)
--- NOTE | 2022-04-14 08:41 | Hospitalist Progress Note ---
Date of Service April 14, 2022 Assessment & Plan (1) Non-ST elevation RI (NSTEMI): Plan: Patient presents with left upper chest pain associated with radiation to shoulder and down arm, dyspnea, nausea/vomiting, diaphoresis while walking at work, and relieved with NTG - At this time consistent with his previous chest pain as he feels this is very similar to this Unclear if this represents type II non-ST elevation RI versus type I non-ST elevation RI Trop 172.5--> 10.8--> 187.4 --> 107.7 Cardiology on consult, Dr Kim ECG w/o ST elevation ECHO with moderately reduced EF (35-40%), no thrombus, hyperechoic and severe hypokinesis of LAD territory myocardium. Consistent w/ prior LAD territory infarct +/- ischemia Continue to monitor on telemetry --> NSR 70-80s WBC normalized on repeat --> patient reported episode of emesis prior to admission, suspect reactive. Afebrile. CTA without evidence for PE Continue heparin gtt for now Continued ASA 81mg, atorvastatin 80mg, TOPROL XL 50mg daily, nitro prn CP Not required loop diuretic and EF not require JOLLY/ARB NPO for cath/PCI (2) Chest pain: Plan: as above awaiting cath (3) Diabetes mellitus, type 2: Plan: Hold Metformin - Aspart sliding scale 110-140 CF 20 Carb ration 1:15 BSGs acceptable , monitor (4) Leukocytosis: Plan: Without fever, no opacity on CXR, no abdominal pain, no urinary symptoms, no cough - Possibly stress response from above - CRP/ PCT pending - COVID negative - if fevers occur obtain blood culture initiate broad coverage CT chest- IMPRESSION: 1. Previously noted groundglass opacities are now more diffuse in appearance. This may represent infectious/inflammatory process such as viral pneumonia. Bronchial wall thickening is again noted. Bilateral hilar lymph nodes are seen. 2. Tiny pulmonary nodule in the right upper lobe is unchanged. *Of note, +COVID 19 in Sep 2021 Also had episode of emesis prior to admission en route to hospital. suspect reactive Repeat WBC 8.1k Further evaluation following cardiac evaluation (5) Dyslipidemia: Plan: Continue high dose statin/ezetimibe (6) GERD (gastroesophageal reflux disease): Plan: Continue PPI (7) Cardiomyopathy, ischemic: Plan: HX of - previous EF 45-50 % via EST 01/24 - ECHO obtained -- as above cath for eval (8) CAD (coronary artery disease): Plan: Cardiac cath 05/2020: Patent mid LAD stent, 30% mid LAD stenosis after stent, jailed D1 35% ostial, 25% proximal RCA Exercise stress echo 01/2021: Negative at 91% MPHR. 7: 08, 10 METS. LVEF 45 to 50%, apical akinesis, mid anteroseptal/septal hypokinesis. No valve pathology Continues on ASA 81mg, atorvastatin 80mg, metoprolol 50mg, nitro prn (9) HTN (hypertension): Plan: Continue BB BP stable (10) Tobacco use disorder: Plan: Continued smoker smoking cessation strongly recommended (11) Elevated troponin I level: Plan: demand vs NSTEMI as above repeat this morning improved, is chest pain free currently see above Plan NPO for cath this morning likely d/c tomorrow Admission and Anticipated Discharge Date Admission Date: April 13, 2022 Subjective Evaluated this morning, awaiting cardiac catheterization. States not having chest pain at this current time, but had symptoms similar to prior episode. Had been in [place], taking nitro more than typically required, no relief after 3- 4 tablets and he sat down to rest where he would normally smoke a cigarette but couldn't smoke a cigarette due to squeezing chest pressure on the left side with radiation to left arm/between shoulder blades. He did endorse 1 episode of vomiting coming out of the [place]. On the way to the hospital he took two additional nitro and finally was starting to have relief. No current CP/SOb. Did have COVID back in Sep 2021. Discussed CT w/ ground glass opacities but no focal pneumonia. He denies sputum production/fevers at home. Avoiding abx at this time, WBC normalized and patient remains afebrile. No abdominal pain, nausea or dysuria, lightheadedness, headache or other issues currently. Anxious and hopeful for discharge tomorrow. Questions/concerns addressed at this time. Review of Systems Review of Systems: All systems reviewed & are unremarkable except as noted in HPI & below Physical Exam Physical Exam: PHYSICAL EXAM: WN/WD male sitting up in bed, NAD, appears slightly older than stated age HEENT: head normocephalic, atraumatic, mmm, trachea midline without deviation Resp: CTAB, bibasilar crackles, no w/r, on room air, clubbing of nails CV: RRR, S1/S2, +murmur 2/6, trace b/l LE edema, calves nontender, pulses palpable GI:+ BS, distended, nontender, no rebound/guarding no kingsley MSK/Neuro: moves all extremities, no focal deficits Psych: AOx3, pleasant and cooperative Results & Data Results & Data ([facility]) Vital Signs (Past 12 Hours) Vital Signs Temp Pulse Pulse Resp BP Pulse Ox O2 Del Method 04/14/22 07:29 36.5 C 68 20 109/71 92 Room Air 04/14/22 02:52 36.8 C 71 18 102/66 94 Room Air 04/14/22 00:52 58 L 04/13/22 23:00 36.5 C 60 16 107/71 94 Room Air Laboratory Results 04/14/22 04/14/22 04/14/22 Range/Units 07:30 07:30 07:30 WBC 8.15 RBC 4.65 Hgb 15.0 Hct 42.2 MCV 90.8 MCH 32.3 MCHC 35.5 RDW Std Deviation 42.1 RDW Coeff of Héctor 12.6 Plt Count 210 MPV 10.4 Immature Gran % (Auto) 0.2 Neut % (Auto) 61.5 Lymph % (Auto) 28.6 [place] % (Auto) 6.4 Eos % (Auto) 2.8 Baso % (Auto) 0.5 Neut # (Auto) 5.01 Lymph # (Auto) 2.33 [place] # (Auto) 0.52 Eos # (Auto) 0.23 Baso # (Auto) 0.04 Immature Gran # (Auto) 0.02 Absolute Nucleated RBC Nucleated RBC % (auto) Neutrophils % (Manual) Band Neutrophils % Lymphocytes % (Manual) Prolymphocyte % Reactive Lymphs % (Man) Monocytes % (Manual) Eosinophils % (Manual) Basophils % (Manual) Metamyelocytes % (Man) Myelocytes % (Man) Promyelocytes % (Man) Blast Cells % (Manual) Plasma Cell % (Manual) Other Cells % Nucleated RBC % Neutrophils # (Manual) Band Neutrophils # Total Absolute Neuts Lymphocytes # (Manual) Prolymphocyte # Reactive Lymphs # Total Abs Lymphocytes Monocytes # (Manual) Eosinophils # (Manual) Basophils # (Manual) Metamyelocytes # (Man) Myelocytes # (Manual) Promyelocytes # (Man) Blast Cells # (Man) Plasma Cell # (Manual) Other Cells # Nucleated RBCs # (Man) Hypersegmented Neuts Hyposegmented Neuts Hypogranular Neuts Large Granular Lymphs # Lrg Granular Lymphs Hairy Cells Smudge Cells Toxic Granulation Toxic Vacuolation Dohle Bodies Radha Rods Platelet Estimate Hypogranular Platelets Clumped Platelets Giant Platelets Platelet Satelliting RBC Morphology Polychromasia Hypochromasia Poikilocytosis Basophilic Stippling Anisocytosis Microcytosis Macrocytosis Spherocytes Pappenheimer Bodies Sickle Cells Target Cells Tear Drop Cells Ovalocytes Stomatocytes [place] Bodies Echinocytes Acanthocytes (Spur) Rouleaux RBC Agglutinates Schistocytes Sezary Cell PT INR APTT 41.0 H PTT Ratio 1.5 Sodium 137 Potassium 3.8 Chloride 106 Carbon Dioxide 25 Anion Gap 6 BUN 11 Creatinine 0.74 Est Cr Clr Drug Dosing 129.4 Est GFR ( Amer) 132.8 Est GFR (Non-Af Amer) 114.6 BUN/Creatinine Ratio 14.9 Glucose 91 POC Glucose (70-99) mg/dl Calcium 9.5 Magnesium 2.3 (1.7-2.4) mg/dl Total Bilirubin AST ALT Alkaline Phosphatase Troponin I High Sens 107.7 H* D C-Reactive Protein (0-0.5) mg/dl Total Protein Albumin Globulin Albumin/Globulin Ratio Procalcitonin (0-0.5) ng/ml SARS-CoV-2, RNA, NAAT (NEGATIVE) Blood Parasites ID 04/14/22 04/13/22 04/13/22 Range/Units 07:29 22:41 22:41 WBC RBC Hgb Hct MCV MCH MCHC RDW Std Deviation RDW Coeff of Héctor Plt Count MPV Immature Gran % (Auto) Neut % (Auto) Lymph % (Auto) [place] % (Auto) Eos % (Auto) Baso % (Auto) Neut # (Auto) Lymph # (Auto) [place] # (Auto) Eos # (Auto) Baso # (Auto) Immature Gran # (Auto) Absolute Nucleated RBC Nucleated RBC % (auto) Neutrophils % (Manual) Band Neutrophils % Lymphocytes % (Manual) Prolymphocyte % Reactive Lymphs % (Man) Monocytes % (Manual) Eosinophils % (Manual) Basophils % (Manual) Metamyelocytes % (Man) Myelocytes % (Man) Promyelocytes % (Man) Blast Cells % (Manual) Plasma Cell % (Manual) Other Cells % Nucleated RBC % Neutrophils # (Manual) Band Neutrophils # Total Absolute Neuts Lymphocytes # (Manual) Prolymphocyte # Reactive Lymphs # Total Abs Lymphocytes Monocytes # (Manual) Eosinophils # (Manual) Basophils # (Manual) Metamyelocytes # (Man) Myelocytes # (Manual) Promyelocytes # (Man) Blast Cells # (Man) Plasma Cell # (Manual) Other Cells # Nucleated RBCs # (Man) Hypersegmented Neuts Hyposegmented Neuts Hypogranular Neuts Large Granular Lymphs # Lrg Granular Lymphs Hairy Cells Smudge Cells Toxic Granulation Toxic Vacuolation Dohle Bodies Radha Rods Platelet Estimate Hypogranular Platelets Clumped Platelets Giant Platelets Platelet Satelliting RBC Morphology Polychromasia Hypochromasia Poikilocytosis Basophilic Stippling Anisocytosis Microcytosis Macrocytosis Spherocytes Pappenheimer Bodies Sickle Cells Target Cells Tear Drop Cells Ovalocytes Stomatocytes [place] Bodies Echinocytes Acanthocytes (Spur) Rouleaux RBC Agglutinates Schistocytes Sezary Cell PT INR APTT 37.5 H PTT Ratio 1.4 Sodium Potassium Chloride Carbon Dioxide Anion Gap BUN Creatinine Est Cr Clr Drug Dosing Est GFR ( Amer) Est GFR (Non-Af Amer) BUN/Creatinine Ratio Glucose POC Glucose 100 H (70-99) mg/dl Calcium Magnesium (1.7-2.4) mg/dl Total Bilirubin AST ALT Alkaline Phosphatase Troponin I High Sens 187.4 H* C-Reactive Protein (0-0.5) mg/dl Total Protein Albumin Globulin Albumin/Globulin Ratio Procalcitonin (0-0.5) ng/ml SARS-CoV-2, RNA, NAAT (NEGATIVE) Blood Parasites ID 04/13/22 04/13/22 04/13/22 Range/Units 20:10 18:17 15:56 WBC RBC Hgb Hct MCV MCH MCHC RDW Std Deviation RDW Coeff of Héctor Plt Count MPV Immature Gran % (Auto) Neut % (Auto) Lymph % (Auto) [place] % (Auto) Eos % (Auto) Baso % (Auto) Neut # (Auto) Lymph # (Auto) [place] # (Auto) Eos # (Auto) Baso # (Auto) Immature Gran # (Auto) Absolute Nucleated RBC Nucleated RBC % (auto) Neutrophils % (Manual) Band Neutrophils % Lymphocytes % (Manual) Prolymphocyte % Reactive Lymphs % (Man) Monocytes % (Manual) Eosinophils % (Manual) Basophils % (Manual) Metamyelocytes % (Man) Myelocytes % (Man) Promyelocytes % (Man) Blast Cells % (Manual) Plasma Cell % (Manual) Other Cells % Nucleated RBC % Neutrophils # (Manual) Band Neutrophils # Total Absolute Neuts Lymphocytes # (Manual) Prolymphocyte # Reactive Lymphs # Total Abs Lymphocytes Monocytes # (Manual) Eosinophils # (Manual) Basophils # (Manual) Metamyelocytes # (Man) Myelocytes # (Manual) Promyelocytes # (Man) Blast Cells # (Man) Plasma Cell # (Manual) Other Cells # Nucleated RBCs # (Man) Hypersegmented Neuts Hyposegmented Neuts Hypogranular Neuts Large Granular Lymphs # Lrg Granular Lymphs Hairy Cells Smudge Cells Toxic Granulation Toxic Vacuolation Dohle Bodies Radha Rods Platelet Estimate Hypogranular Platelets Clumped Platelets Giant Platelets Platelet Satelliting RBC Morphology Polychromasia Hypochromasia Poikilocytosis Basophilic Stippling Anisocytosis Microcytosis Macrocytosis Spherocytes Pappenheimer Bodies Sickle Cells Target Cells Tear Drop Cells Ovalocytes Stomatocytes [place] Bodies Echinocytes Acanthocytes (Spur) Rouleaux RBC Agglutinates Schistocytes Sezary Cell PT INR APTT PTT Ratio Sodium Potassium Chloride Carbon Dioxide Anion Gap BUN Creatinine Est Cr Clr Drug Dosing Est GFR ( Amer) Est GFR (Non-Af Amer) BUN/Creatinine Ratio Glucose POC Glucose 115 H 108 H (70-99) mg/dl Calcium Magnesium (1.7-2.4) mg/dl Total Bilirubin AST ALT Alkaline Phosphatase Troponin I High Sens C-Reactive Protein (0-0.5) mg/dl Total Protein Albumin Globulin Albumin/Globulin Ratio Procalcitonin (0-0.5) ng/ml SARS-CoV-2, RNA, NAAT NEGATIVE (NEGATIVE) Blood Parasites ID 04/13/22 04/13/22 04/13/22 Range/Units 15:13 15:12 14:00 WBC RBC Hgb Hct MCV MCH MCHC RDW Std Deviation RDW Coeff of Héctor Plt Count MPV Immature Gran % (Auto) Neut % (Auto) Lymph % (Auto) [place] % (Auto) Eos % (Auto) Baso % (Auto) Neut # (Auto) Lymph # (Auto) [place] # (Auto) Eos # (Auto) Baso # (Auto) Immature Gran # (Auto) Absolute Nucleated RBC Nucleated RBC % (auto) Neutrophils % (Manual) Band Neutrophils % Lymphocytes % (Manual) Prolymphocyte % Reactive Lymphs % (Man) Monocytes % (Manual) Eosinophils % (Manual) Basophils % (Manual) Metamyelocytes % (Man) Myelocytes % (Man) Promyelocytes % (Man) Blast Cells % (Manual) Plasma Cell % (Manual) Other Cells % Nucleated RBC % Neutrophils # (Manual) Band Neutrophils # Total Absolute Neuts Lymphocytes # (Manual) Prolymphocyte # Reactive Lymphs # Total Abs Lymphocytes Monocytes # (Manual) Eosinophils # (Manual) Basophils # (Manual) Metamyelocytes # (Man) Myelocytes # (Manual) Promyelocytes # (Man) Blast Cells # (Man) Plasma Cell # (Manual) Other Cells # Nucleated RBCs # (Man) Hypersegmented Neuts Hyposegmented Neuts Hypogranular Neuts Large Granular Lymphs # Lrg Granular Lymphs Hairy Cells Smudge Cells Toxic Granulation Toxic Vacuolation Dohle Bodies Radha Rods Platelet Estimate Hypogranular Platelets Clumped Platelets Giant Platelets Platelet Satelliting RBC Morphology Polychromasia Hypochromasia Poikilocytosis Basophilic Stippling Anisocytosis Microcytosis Macrocytosis Spherocytes Pappenheimer Bodies Sickle Cells Target Cells Tear Drop Cells Ovalocytes Stomatocytes [place] Bodies Echinocytes Acanthocytes (Spur) Rouleaux RBC Agglutinates Schistocytes Sezary Cell PT 10.4 INR 1.0 APTT 29.1 PTT Ratio 1.1 Sodium Potassium Chloride Carbon Dioxide Anion Gap BUN Creatinine Est Cr Clr Drug Dosing Est GFR ( Amer) Est GFR (Non-Af Amer) BUN/Creatinine Ratio Glucose POC Glucose (70-99) mg/dl Calcium Magnesium (1.7-2.4) mg/dl Total Bilirubin AST ALT Alkaline Phosphatase Troponin I High Sens 170.8 H* C-Reactive Protein < 0.50 (0-0.5) mg/dl Total Protein Albumin Globulin Albumin/Globulin Ratio Procalcitonin (0-0.5) ng/ml SARS-CoV-2, RNA, NAAT (NEGATIVE) Blood Parasites ID 04/13/22 04/13/22 04/13/22 Range/Units 14:00 14:00 14:00 WBC 16.94 H RBC 4.99 Hgb 16.3 Hct 44.4 MCV 89.0 MCH 32.7 MCHC 36.7 H RDW Std Deviation 41.3 RDW Coeff of Héctor 12.7 Plt Count 266 MPV 10.6 Immature Gran % (Auto) 0.4 Neut % (Auto) 69.4 Lymph % (Auto) 23.0 [place] % (Auto) 5.5 Eos % (Auto) 1.2 Baso % (Auto) 0.5 Neut # (Auto) 11.76 H Lymph # (Auto) 3.89 H [place] # (Auto) 0.94 H Eos # (Auto) 0.20 Baso # (Auto) 0.08 Immature Gran # (Auto) 0.07 H Absolute Nucleated RBC Nucleated RBC % (auto) Neutrophils % (Manual) Band Neutrophils % Lymphocytes % (Manual) Prolymphocyte % Reactive Lymphs % (Man) Monocytes % (Manual) Eosinophils % (Manual) Basophils % (Manual) Metamyelocytes % (Man) Myelocytes % (Man) Promyelocytes % (Man) Blast Cells % (Manual) Plasma Cell % (Manual) Other Cells % Nucleated RBC % Neutrophils # (Manual) Band Neutrophils # Total Absolute Neuts Lymphocytes # (Manual) Prolymphocyte # Reactive Lymphs # Total Abs Lymphocytes Monocytes # (Manual) Eosinophils # (Manual) Basophils # (Manual) Metamyelocytes # (Man) Myelocytes # (Manual) Promyelocytes # (Man) Blast Cells # (Man) Plasma Cell # (Manual) Other Cells # Nucleated RBCs # (Man) Hypersegmented Neuts Hyposegmented Neuts Hypogranular Neuts Large Granular Lymphs # Lrg Granular Lymphs Hairy Cells Smudge Cells Toxic Granulation Toxic Vacuolation Dohle Bodies Radha Rods Platelet Estimate Hypogranular Platelets Clumped Platelets Giant Platelets Platelet Satelliting RBC Morphology Polychromasia Hypochromasia Poikilocytosis Basophilic Stippling Anisocytosis Microcytosis Macrocytosis Spherocytes Pappenheimer Bodies Sickle Cells Target Cells Tear Drop Cells Ovalocytes Stomatocytes [place] Bodies Echinocytes Acanthocytes (Spur) Rouleaux RBC Agglutinates Schistocytes Sezary Cell PT INR APTT PTT Ratio Sodium 139 Potassium 3.7 Chloride 106 Carbon Dioxide 24 Anion Gap 9 BUN 8 Creatinine 0.76 Est Cr Clr Drug Dosing 125.5 Est GFR ( Amer) 131.3 Est GFR (Non-Af Amer) 113.3 BUN/Creatinine Ratio 10.5 Glucose 90 POC Glucose (70-99) mg/dl Calcium 10.0 Magnesium (1.7-2.4) mg/dl Total Bilirubin 0.8 AST 35 ALT 57 H Alkaline Phosphatase 77 Troponin I High Sens 172.5 H* C-Reactive Protein (0-0.5) mg/dl Total Protein 7.4 Albumin 4.9 Globulin 2.5 Albumin/Globulin Ratio 2.0 Procalcitonin < 0.05 (0-0.5) ng/ml SARS-CoV-2, RNA, NAAT (NEGATIVE) Blood Parasites ID 04/13/22 04/13/22 04/13/22 Range/Units 14:00 12:06 12:06 WBC Cancelled RBC Cancelled Hgb Cancelled Hct Cancelled MCV Cancelled MCH Cancelled MCHC Cancelled RDW Std Deviation Cancelled RDW Coeff of Héctor Cancelled Plt Count Cancelled MPV Cancelled Immature Gran % (Auto) Cancelled Neut % (Auto) Cancelled Lymph % (Auto) Cancelled [place] % (Auto) Cancelled Eos % (Auto) Cancelled Baso % (Auto) Cancelled Neut # (Auto) Cancelled Lymph # (Auto) Cancelled [place] # (Auto) Cancelled Eos # (Auto) Cancelled Baso # (Auto) Cancelled Immature Gran # (Auto) Cancelled Absolute Nucleated RBC Cancelled Nucleated RBC % (auto) Cancelled Neutrophils % (Manual) Cancelled Band Neutrophils % Cancelled Lymphocytes % (Manual) Cancelled Prolymphocyte % Cancelled Reactive Lymphs % (Man) Cancelled Monocytes % (Manual) Cancelled Eosinophils % (Manual) Cancelled Basophils % (Manual) Cancelled Metamyelocytes % (Man) Cancelled Myelocytes % (Man) Cancelled Promyelocytes % (Man) Cancelled Blast Cells % (Manual) Cancelled Plasma Cell % (Manual) Cancelled Other Cells % Cancelled Nucleated RBC % Cancelled Neutrophils # (Manual) Cancelled Band Neutrophils # Cancelled Total Absolute Neuts Cancelled Lymphocytes # (Manual) Cancelled Prolymphocyte # Cancelled Reactive Lymphs # Cancelled Total Abs Lymphocytes Cancelled Monocytes # (Manual) Cancelled Eosinophils # (Manual) Cancelled Basophils # (Manual) Cancelled Metamyelocytes # (Man) Cancelled Myelocytes # (Manual) Cancelled Promyelocytes # (Man) Cancelled Blast Cells # (Man) Cancelled Plasma Cell # (Manual) Cancelled Other Cells # Cancelled Nucleated RBCs # (Man) Cancelled Hypersegmented Neuts Cancelled Hyposegmented Neuts Cancelled Hypogranular Neuts Cancelled Large Granular Lymphs Cancelled # Lrg Granular Lymphs Cancelled Hairy Cells Cancelled Smudge Cells Cancelled Toxic Granulation Cancelled Toxic Vacuolation Cancelled Dohle Bodies Cancelled Radha Rods Cancelled Platelet Estimate Cancelled Hypogranular Platelets Cancelled Clumped Platelets Cancelled Giant Platelets Cancelled Platelet Satelliting Cancelled RBC Morphology Cancelled Polychromasia Cancelled Hypochromasia Cancelled Poikilocytosis Cancelled Basophilic Stippling Cancelled Anisocytosis Cancelled Microcytosis Cancelled Macrocytosis Cancelled Spherocytes Cancelled Pappenheimer Bodies Cancelled Sickle Cells Cancelled Target Cells Cancelled Tear Drop Cells Cancelled Ovalocytes Cancelled Stomatocytes Cancelled [place] Bodies Cancelled Echinocytes Cancelled Acanthocytes (Spur) Cancelled Rouleaux Cancelled RBC Agglutinates Cancelled Schistocytes Cancelled Sezary Cell Cancelled PT Cancelled INR Cancelled APTT Cancelled PTT Ratio Cancelled Sodium Cancelled Potassium Cancelled Chloride Cancelled Carbon Dioxide Cancelled Anion Gap Cancelled BUN Cancelled Creatinine Cancelled Est Cr Clr Drug Dosing Cancelled Est GFR ( Amer) Cancelled Est GFR (Non-Af Amer) Cancelled BUN/Creatinine Ratio Cancelled Glucose Cancelled POC Glucose (70-99) mg/dl Calcium Cancelled Magnesium (1.7-2.4) mg/dl Total Bilirubin Cancelled AST Cancelled ALT Cancelled Alkaline Phosphatase Cancelled Troponin I High Sens Cancelled C-Reactive Protein (0-0.5) mg/dl Total Protein Cancelled Albumin Cancelled Globulin Cancelled Albumin/Globulin Ratio Cancelled Procalcitonin (0-0.5) ng/ml SARS-CoV-2, RNA, NAAT (NEGATIVE) Blood Parasites ID Cancelled PG Care Time/CCT Total # of Minutes Spent Total Time Spent with Patient: Total time spent is greater than 50% in coordination of care (as documented) at patient's floor/unit and/or counseling patient: Coding Level of Care Code 70474 Subseq Hosp Care Lvl 3 Diagnoses Non-ST elevation RI (NSTEMI) I21.4 Chest pain R07.9 Diabetes mellitus, type 2 E11.9 Leukocytosis D72.829 Dyslipidemia E78.5 GERD (gastroesophageal reflux disease) K21.9 Cardiomyopathy, ischemic I25.5 CAD (coronary artery disease) I25.10 Associated angina: without angina Coronary Disease-Associated Artery/Lesion type: [place] artery [place] vs. transplanted heart: [place] heart HTN (hypertension) I10 Hypertension type: essential hypertension Tobacco use disorder F17.200 Elevated troponin I level R77.8 (1) CAD (coronary artery disease) Associated angina: without angina Coronary Disease-Associated Artery/Lesion type: [place] artery [place] vs. transplanted heart: [place] heart Qualified Code(s): I25.10 - Atherosclerotic heart disease of [place] coronary artery without angina pectoris (2) HTN (hypertension) Hypertension type: essential hypertension Qualified Code(s): I10 - Essential (primary) hypertension
--- NOTE | 2022-04-14 10:02 | Pre Anesthesia Assessment ---
Date of Service April 14, 2022 Pre Sedation Assessment Vital Signs Temp Pulse Pulse Resp BP BP Pulse Ox 04/14/22 07:29 36.5 C 68 20 109/71 92 04/14/22 02:52 36.8 C 71 18 102/66 94 04/14/22 00:52 58 L 04/13/22 23:00 36.5 C 60 16 107/71 94 04/13/22 18:12 04/13/22 18:12 36.5 C 70 18 127/84 94 04/13/22 16:49 67 18 123/77 95 04/13/22 15:52 81 18 122/81 97 04/13/22 15:52 97 04/13/22 11:50 36.7 C 111 H 19 122/85 97 O2 Del Method 04/14/22 07:29 Room Air 04/14/22 02:52 Room Air 04/14/22 00:52 04/13/22 23:00 Room Air 04/13/22 18:12 Room Air 04/13/22 18:12 Room Air 04/13/22 16:49 Room Air 04/13/22 15:52 Room Air 04/13/22 15:52 Room Air 04/13/22 11:50 Room Air Cardiovascular RRR, no murmur, no edema Respiratory normal respiratory effort, lungs clear to auscultation Pre-Sedation Airway Assessment Smoking Status: Current every day smoker Hx Sleep Apnea: No Hx Difficult Intubation: No Short, Thick Neck: Yes Thyromental Distance: > or= 3.5 Finger Breadths Oral Cavity: + WNL Mallampati Class: III ASA: ASA3 NPO Status Date of Last Intake of Fluids: 04/13/22 Date of Last Intake of Solid Food: 04/13/22 Notes The planned sedation has been discussed with the patient. Informed Consent was obtained. I have identified the patient, determined the appropriateness of sedation and have assessed the patient immediately prior to the procedure. All medicine(s) and interventions are by my order.
[2022-04-14] MEDS ORDERED: MIDAZOLAM HCL 1 MG/ML 2ML VIAL ONE (10:09)
[2022-04-14] MEDS ORDERED: niCARdipine HCL INJ 2.5 MG/ML 10 ML AMP ONE (10:09)
[2022-04-14] MEDS ORDERED: NITROGLYCERIN/D5W 100MCG/ML 20ML SYR ONE (10:09)
[2022-04-14] MEDS ORDERED: HEPARIN (PORCINE) 1000 UNIT/ML 10 ML (CATH LAB USE ONLY) ONE (10:09)
[2022-04-14] MEDS ORDERED: fentaNYL citrate 100 MCG/2 ML VIAL ONE (10:09)
--- NOTE | 2022-04-14 10:13 | Electrocardiogram Report ---
Test Reason : Blood Pressure : / mmHG Vent. Rate : 072 BPM Atrial Rate : 072 BPM P-R Int : 158 ms QRS Dur : 086 ms QT Int : 354 ms P-R-T Axes : 033 020 059 degrees QTc Int : 387 ms Normal sinus rhythm with sinus arrhythmia Anterior infarct Abnormal ECG When compared with ECG of 13-APR-2022 11:58, No significant change Confirmed by Lamin Lawrence ([id number]) on 04/14/2022 10:13:42 AM Referred By: REFERRED SELF Confirmed By:Lamin Lawrence
--- NOTE | 2022-04-14 10:54 | Post Anesthesia Assessment ---
Date of Service April 14, 2022 Post Sedation Assessment Vital Signs Temp Pulse Pulse Resp BP BP Pulse Ox 04/14/22 10:48 72 17 110/73 90 04/14/22 10:45 56 L 04/14/22 07:29 36.5 C 68 20 109/71 92 04/14/22 02:52 36.8 C 71 18 102/66 94 04/14/22 00:52 58 L 04/13/22 23:00 36.5 C 60 16 107/71 94 04/13/22 18:12 04/13/22 18:12 36.5 C 70 18 127/84 94 04/13/22 16:49 67 18 123/77 95 04/13/22 15:52 81 18 122/81 97 04/13/22 15:52 97 04/13/22 11:50 36.7 C 111 H 19 122/85 97 O2 Del Method 04/14/22 10:48 Room Air 04/14/22 10:45 04/14/22 07:29 Room Air 04/14/22 02:52 Room Air 04/14/22 00:52 04/13/22 23:00 Room Air 04/13/22 18:12 Room Air 04/13/22 18:12 Room Air 04/13/22 16:49 Room Air 04/13/22 15:52 Room Air 04/13/22 15:52 Room Air 04/13/22 11:50 Room Air Recovery Score Activity: Moves 4 extremities Respiration: Deep Breath/Cough Circulation: +/-20% PreAnes Value Consciousness: Fully Awake Oxygen Saturation: > 92% On Room Air Post Anesthesia Score: 10 Discharge Sedation Level of Care: Phase I Post Sedation Plan On clinical assessment, the patient appears to have tolerated the sedation without complications. Patient is recovering as anticipated. Patient will continue to be monitored by nursing and may be discharged when sedation discharge criteria are met per below protocol. Upon Completions of procedure up to 15 minutes continue every 5 minute vital signs and the P.A.R. score; then discharge to a Phase I or Fast Track to Phase II per the following guidelines: * Discharge Patient to appropriate Phase II area if PAR is 8 or greater or return to pre- procedure baseline. The post - procedure orders will be as directed. * If PAR score is less than 8 or not return to pre-procedure baseline then patient will follow Phase I monitoring till PAR is reached for Phase II. The Phase I may be done in procedure room or may call to secure a Phase I area. * If naloxone or flumazenil are used for reversal, hold in Phase I for continued monitoring from when last reversal dose was given for a minimum of 60 minutes or longer pending the nurse and/or physician discretion of patient condition before discharge to Phase II. Please call the Sedation Physician to re-evaluate and complete post-note for discharge to Phase II area. Do NOT discharge from procedure sedation or Phase 1 until post- sedation evaluation note is complete by procedure /sedation MD Sedation Discharge Instructions to be given to the patient at discharge to home.
--- NOTE | 2022-04-14 11:10 | Cardiac Catheterization ---
ACC Data: Transcription Manager Cardiac Status Clinical evaluation leading to the procedure CAD Presenation: Non STEMI Coronary Anatomy Left Main (% Stenosis): Normal LAD (% Stenosis): Proximal (Mild diffuse less than 20%. Stent patent extends through mid), Mid (Stent patent) and Distal (Mild scattered less than 20 to 30%) D1 (% Stenosis): Ostial (40% focal. Jailed from LAD stent.) Circumflex (% Stenosis): Normal (Mild diffuse less than 20 to 30%) OM1 (% Stenosis): Normal (Mild luminal irregularities) OM2 (% Stenosis): Normal L PL1 (% Stenosis): Normal (Mild luminal irregularities) RCA (% Stenosis): Proximal (Diffuse 30%), Mid (Focal 30 to 40%) and Distal (Mild luminal irregularities) R PDA (% Stenosis): Normal (Mild luminal irregularities) Diagnostic Physicians Name: Thai Kim MD, PhD Closure Device Percutaneous Entry Location: Radial Recommendations: Medical Therapy and/or Counseling Cardiac Cath Procedure Full Procedure Date April 14, 2022 Pre-Procedure Diagnosis Pre-Procedure Diagnosis: Non STEMI AUC Score AUC Score: 07 Post-Procedure Diagnosis Post-Procedure Diagnosis: Mild CAD Procedure(s) Performed Procedure(s) Performed: Coronary Angiography Processing Technician Thai Kim MD, PhD Estimated Blood Loss Estimated Blood Loss: 5ml Summary of Findings BRIEF DESCRIPTION: Patient was brought to the cardiac catheterization suite where he was shaved and prepped in a sterile fashion. Sedated using IV Versed and fentanyl. Soft tissues of the right wrist were anesthetized using 2 mL of 1% Xylocaine. The right radial artery was accessed using a modified Seldinger technique and a 6 Somali radial artery glide sheath was placed. Patient was provided anticoagulation with IV heparin and antispasmodics including nicardipine and nitroglycerin. All catheters were advanced and exchanged over a 0.035 J-tip wire. Left coronary angiography in orthogonal views with a 5 Somali TIGR diagnostic catheter Right coronary angiography in orthogonal views with a 5 Somali JR4 diagnostic catheter Diagnostic catheters were removed. Radial artery sheath was removed. Hemostasis was obtained using a TR band. Patient remained hemodynamically stable and asymptomatic. He was returned to the recovery area. This ended the case. CORONARY ANGIOGRAPHY: Left main: Large-caliber vessel which bifurcates into LAD and left circumflex. No angiographically significant disease. LAD: Large caliber and transapical vessel. Gives a medium to large caliber first diagonal. There is a stent extending from the late proximal segment through the mid segment. Stent is widely patent. Ostium of the diagonal is jailed and has 40% stenosis. The distal LAD has mild disease. Left circumflex: Large caliber and nondominant. AV groove vessel has diffuse mild plaques less than 30% narrowing. First OM is medium to large with no significant disease. Second OM is medium caliber without significant disease. Distally there is a small to medium caliber posterior lateral branch with mild luminal irregularities. RCA: Medium to large caliber and dominant. Proximal segment with diffuse mild disease up to 30% narrowing. The mid RCA has diffuse mild disease with most severe stenosis just after the first RV marginal up to 40% stenosis. Distal RCA becomes medium in caliber and has mild disease. PDA is medium caliber with mild scattered plaques. Hemodynamics Rest Ao:: 117/86 mmHg, mean 101 mmHg Final Ao: 110/84 mmHg, mean 97 mmHg LV: Not performed Recommendations Recommendations: Medical Therapy and/or Counseling Radiation Exposure (mGy) 721 mGy Contrast (mls) 70 mL Anesthesia 2 mg IV Versed, 50 mcg IV fentanyl. Sedation time: 13 minutes Procedural Complication(s) None I attest to the content of the Intraoperative Record and any orders documented therein. Any exceptions are noted below. [facility] Card Cath Procedure Codes Cardiac Catheterization Procedure 1: Cardiovascular Cath Procedures: 05099 Coronaries Moderate Sedation Procedure 1: Sedation/Anesthesia: 24340 Mod Sedation by the same physician;Init15 Min Child Age 5 & Up PG Care Time/CCT Total # of Minutes Spent Total Time Spent with Patient: Total time spent is greater than 50% in coordination of care (as documented) at patient's floor/unit and/or counseling patient:
[2022-04-14] MEDS: EZETIMIBE 10 MG TABLET PO SCH (13:30)
[2022-04-14 15:50] LABS: Partial Thromboplastin Time 27.1 Seconds (21.0-31.0)
--- NOTE | 2022-04-14 21:16 | Electrocardiogram Report ---
Test Reason : Blood Pressure : / mmHG Vent. Rate : 060 BPM Atrial Rate : 060 BPM P-R Int : 152 ms QRS Dur : 082 ms QT Int : 458 ms P-R-T Axes : 035 002 055 degrees QTc Int : 458 ms Normal sinus rhythm Anteroseptal infarct (cited on or before 22-MAR-2018) Abnormal ECG When compared with ECG of 14-APR-2022 06:25, T wave inversion now evident in Anterior leads QT has lengthened Confirmed by Lamin Lawrence ([id number]) on 04/14/2022 9:16:12 PM Referred By: REFERRED SELF Confirmed By:Lamin Lawrence
[2022-04-15 06:36] LABS: Basophils # (auto) 0.04 K/uL (0-0.2); Basophils % (auto) 0.5 %; Eosinophils # (auto) 0.18 K/uL (0-0.50); Eosinophils % (auto) 2.3 %; Hemoglobin 14.4 g/dl (14.0-18.0); Immature Granulocytes # (auto) 0.03 K/uL (0.00-0.02); Immature Granulocytes % (auto) 0.4 %; Lymphocytes # (auto) 2.08 K/uL (1.2-3.4); Lymphocytes % (auto) 26.6 %; Mean Corpuscular Hemoglobin 32.1 pg (25.0-34.0); Mean Corpuscular Hgb Conc 35.1 g/dL (32.0-36.0); Mean Corpuscular Volume 91.3 fL (80.0-100.0); Mean Platelet Volume 10.3 fL (9.4-12.4); Monocytes % (auto) 7.7 %; Neutrophils # (auto) 4.89 K/uL (1.4-6.5); Neutrophils % (auto) 62.5 %; Platelet Count 208 K/uL (130-400); RDW Coefficient of Variation 12.7 % (11.5-14.5); RDW Standard Deviation 42.3 fL (36.4-46.3); Red Blood Count 4.49 M/uL (4.63-6.08); White Blood Count 7.82 K/ul (4.8-10.8)
[2022-04-15 07:10] LABS: Calcium 9.1 mg/dl (8.5-10.1); Est GFR (African American) 125.4 ml/min; Est GFR (Non-African American) 108.2 ml/min; Magnesium 2.2 mg/dl (1.7-2.4); Potassium 3.9 mmol/L (3.5-5.1)
[2022-04-15] MEDS: PANTOprazole 40 MG TAB PO SCH (08:27)
[2022-04-15] MEDS: METOPROLOL SUCC 50MG EXT REL TAB PO SCH (08:28)
[2022-04-15] MEDS: EZETIMIBE 10 MG TABLET PO SCH (08:28)
[2022-04-15] MEDS: ATORVASTATIN 40 MG TAB PO SCH (08:28)
[2022-04-15] MEDS: ASPIRIN 81 MG ECTAB PO SCH (08:28)
[2022-04-15] MEDS: INSULIN ASPART PER UNIT SC SCH ×2 (09:41→12:34)
--- NOTE | 2022-04-15 14:39 | Discharge Summary ---
Date of Service April 15, 2022 Admission HPI Per Admitting Provider 42 YOM with medical history of: CAD(stents 2017), previous cath in 2019, ICM (45-50%), HLD, Continued Smoker, diverticulitis with colostomy reversal, palpitations, DMII. Patient comes to the EMD today for complaints of chest pain that started at 0730 this morning. It was at his left upper chest with radiation to left shoulder and down left arm, was associated with dyspnea, nausea and vomiting x2, and diaphoresis. This is not associated with any change in position, but does note that he feels it with inspiration. He is tachycardic and not hypoxic. At it's worst was 7-8/10. This was pain did occur while he was walking in the [place] at work. He went back to his truck took another ntg and went home. He continued to have chest pain took some more ntg came to the EMD. Overall he has taken 6 nitroglycerine tabs per his count. He reports that he normally does not need these, however over the past couple weeks he has been taking them more often. He does report that he is having more stress at work, and at times will also have pain in between his shoulder blades in his back. In the EMD the patient received 324mg asa, ECG without any ST elevation. He had routine labs performed that included HScTNI- this was elevated at 172 with recheck 2 hours post at 170.8. His WBC count is elevated at 16 without no complaints of urinary symptoms, CXR clear, and no GI symptoms or other illness endorsed. Patient will be admitted to PCU for continued work up of his chest pain, and WBC count. ECHO placed and being obtained at this time, interventional cardiology evaluated at bedside as well. CTA of the chest to rule out PE, Heparin infusion, NPO after MN. COVID test on admission is: NEGATIVE Principal Diagnosis angina with negative cardiac cath for acute occlusive disease LAd stent open, other is non occlusive disease Tobacco abuse with counselling Discharge Exam The patient appeared stable Vital signs as documented. Lungs are clear to auscultation and appear unlabored Cardiac exam, Rhythm is regular.. No murmurs, rubs or gallops. Abdominal exam reveals normal bowel sounds, soft non tender, no masses Extremities are nonedematous and both pedal pulses are normal. Neurologic exam is alert and oriented, no focal loss of strength or sensation Skin is without bruises or rashes Psychologically is without concerns for anxiety or depression. Discharge Data Allergies Allergy/AdvReac Type Severity Reaction Status Date / Time No Known Allergies Allergy Verified 04/13/22 16:04 Consultations 04/13/22 15:22 Consult Cardiology Stat 04/13/22 15:30 ED Decision to Admit Stat 04/13/22 18:11 Consult Cardiology Routine Procedures Performed Operation Date: 04/14/22 10:00 Actual Procedures p Cineradiography w/Routine Exam - Thai Kim MD, PhD p Cath, Coronaries ONLY (no LV) - Thai Kim MD, PhD Ordered Studies 04/13/22 16:02 CT angio chest PE protocol Stat 04/14/22 06:32 CL Cath Imgs for PACS use only Routine Hospital Course (1) Non-ST elevation CT (NSTEMI): Patient presents with left upper chest pain associated with radiation to shoulder and down arm, dyspnea, nausea/vomiting, diaphoresis while walking at work, and relieved with NTG - At this time consistent with his previous chest pain as he feels this is very similar to this Unclear if this represents type II non-ST elevation CT versus type I non-ST elevation CT Trop 172.5--> 10.8--> 187.4 --> 107.7 Cardiology on consult, Dr Kim cath with non occlusive disease, LAD stent open ECG w/o ST elevation ECHO with moderately reduced EF (35-40%), no thrombus, hyperechoic and severe hypokinesis of LAD territory myocardium. Consistent w/ prior LAD territory infarct +/- ischemia WBC normalized on repeat --> patient reported episode of emesis prior to admission, suspect reactive. Afebrile. CTA without evidence for PE Continued ASA 81mg, atorvastatin 80mg, TOPROL XL 50mg daily, nitro prn CP EF not require JOLLY/ARB (2) Chest pain: possible vasospasm, discussed smoking at length with the patient and his , will agree to bupropion counselled for smoking cessation (3) Diabetes mellitus, type 2: resume Metformin - Aspart sliding scale 110-140 CF 20 Carb ration 1:15 BSGs acceptable , monitor (4) Leukocytosis: Without fever, no opacity on CXR, no abdominal pain, no urinary symptoms, no cough - Possibly stress response from above - CRP/ PCT pending - COVID negative - if fevers occur obtain blood culture initiate broad coverage CT chest- IMPRESSION: 1. Previously noted groundglass opacities are now more diffuse in appearance. This may represent infectious/inflammatory process such as viral pneumonia. Bronchial wall thickening is again noted. Bilateral hilar lymph nodes are seen. 2. Tiny pulmonary nodule in the right upper lobe is unchanged. *Of note, +COVID 19 in Sep 2021 (5) Dyslipidemia: Continue high dose statin/ezetimibe (6) GERD (gastroesophageal reflux disease): Continue PPI (7) Cardiomyopathy, ischemic: HX of - previous EF 45-50 % via EST 01/24 - ECHO obtained -- as above (8) CAD (coronary artery disease): Cardiac cath 05/2020: Patent mid LAD stent, 30% mid LAD stenosis after stent, jailed D1 35% ostial, 25% proximal RCA Exercise stress echo 01/2021: Negative at 91% MPHR. 7: 08, 10 METS. LVEF 45 to 50%, apical akinesis, mid anteroseptal/septal hypokinesis. No valve pathology Continues on ASA 81mg, atorvastatin 80mg, metoprolol 50mg, nitro prn (9) HTN (hypertension): Continue BB BP stable (10) Tobacco use disorder: Continued smoker smoking cessation strongly recommended, will have Wellbutrin (11) Elevated troponin I level: possible NSTEMI Total Time Total Time Spent Total Time Spent (In Minutes): It required greater than 30 minutes to prepare this patient for discharge majority time spent counseling about tobacco cessation Discharge Plan Discharge Items Patient Disposition: Home - Self-Care Reason For Visit: CHEST PAIN ELEVATED TROPONIN Discharge Diagnosis: chest pain cardiac cath with non occlusive disease Activity: Resume your previous activity Non-emergency contact: Primary Care Provider and Partition Notcher Call non-emergency contact if: your symptoms worsen Follow-up/Referrals: Felicity Pemberton, [Primary Care Provider] - Diet: Heart Healthy Addtl Attending Provider Instructions: please stop smoking start buproprion one pill a day for three days then one pill twice a day for smoking cessation Pending Studies at Discharge: No Stand-Alone Forms: My Za[facility], Smoking Cessation Medications and DC Order Prescriptions: New bupropion HCl [Wellbutrin SR] 150 mg tablet sustained-release 12 hr 150 mg PO BID Qty: 60 4RF Rx Instructions: One pill a day for three days to start then bid there after For smoking cessation Continued atorvastatin [Lipitor] 80 mg tablet 80 mg PO QAM Qty: 90 1RF omeprazole 20 mg capsule,delayed release(DR/EC) 20 mg PO QAM Qty: 90 1RF nitroglycerin [Nitrostat] 0.4 mg tablet, sublingual 0.4 mg Sublingual Q5M PRN (Reason: Chest Pain) Qty: 20 1RF metformin 500 mg tablet 500 mg PO BID Qty: 180 0RF metoprolol succinate [Toprol XL] 50 mg tablet extended release 24 hr 50 mg PO QAM Qty: 90 2RF ezetimibe 10 mg tablet 10 mg PO DAILY Qty: 90 3RF aspirin 81 mg Tablet,Delayed Release (Dr/Ec) 81 mg PO QAM Discharge Orders: Discharge Order (Routine); Ordered 04/15/22 Ordered By: Russell Valenzuela/Other Patient Handouts: Symptoms of a Heart Attack, Coronary Angiography, Diabetes: Caring for Your Body, Smoking Get Help to Quit, The Benefits of Living Smoke Free Admission Data Admit Date/Time: 04/13/22 16:02 Attending Provider: Russell Long Admit Provider: Nabor Jackson Primary Care Provider: Felicity Pemberton Other Providers: Lamin Lawrence ; Nabor Jackson Other Interventions: Discharge Summary Assessment (RN) Last Done: 04/15/22 13:39 Coding Level of Care Code D/C DAY MANAGEMENT >30 MINS Diagnoses Non-ST elevation CT (NSTEMI) I21.4 Chest pain R07.9 Diabetes mellitus, type 2 E11.9 Leukocytosis D72.829 Dyslipidemia E78.5 GERD (gastroesophageal reflux disease) K21.9 Cardiomyopathy, ischemic I25.5 CAD (coronary artery disease) I25.10 Coronary Disease-Associated Artery/Lesion type: [place] artery [place] vs. transplanted heart: [place] heart Associated angina: without angina HTN (hypertension) I10 Hypertension type: essential hypertension Tobacco use disorder F17.200 Elevated troponin I level R77.8
--- NOTE | 2022-04-16 14:34 | Electrocardiogram Report ---
Test Reason : Blood Pressure : / mmHG Vent. Rate : 063 BPM Atrial Rate : 063 BPM P-R Int : 148 ms QRS Dur : 086 ms QT Int : 438 ms P-R-T Axes : 029 015 059 degrees QTc Int : 448 ms Normal sinus rhythm with sinus arrhythmia Anteroseptal infarct (cited on or before 22-MAR-2018) anterolateral T wave inversions Abnormal ECG When compared with ECG of 14-APR-2022 11:19, No significant change was found Confirmed by Scott Gonzalez ([id number]) on 04/16/2022 2:34:04 PM Referred By: REFERRED SELF Confirmed By:Scott Gonzalez
== END 2022-04-15 14:03 | disposition home or self-care (01) | DRG 282 ==
LOC: ED 11:46 → SUATTDRO 16:02 → 4W 16:02
PROC: CLB.CCO (2022-04-14 10:00)

== ENCOUNTER 2024-02-17 20:07 | Observation (INO) ==
[2024-02-17 20:52] LABS: Basophils # (auto) 0.06 K/uL (0.00-0.20); Basophils % (auto) 0.5 %; Eosinophils % (auto) 2.4 %; Hematocrit (blood only) 42.4 % (42.0-52.0); Hemoglobin 15.3 g/dl (14.0-18.0); Immature Granulocytes % (auto) 0.8 %; Lymphocytes # (auto) 4.36 K/uL (1.20-3.40); Lymphocytes % (auto) 35.4 %; Mean Corpuscular Hemoglobin 32.3 pg (25.0-34.0); Mean Corpuscular Hgb Conc 36.1 g/dL (32.0-36.0); Mean Corpuscular Volume 89.6 fL (80.0-100.0); Mean Platelet Volume 10.3 fL (9.4-12.4); Monocytes # (auto) 0.99 K/uL (0.11-0.59); Neutrophils # (auto) 6.49 K/uL (1.40-6.50); Neutrophils % (auto) 52.9 %; Platelet Count 271 K/uL (130-400); RDW Coefficient of Variation 12.5 % (11.5-14.5); RDW Standard Deviation 41.3 fL (36.4-46.3); Red Blood Count 4.73 M/uL (4.70-6.10)
[2024-02-17 20:59] LABS: Albumin Globulin Ratio 1.8 (0.9-2); Albumin Level 4.8 gm/dl (3.4-5.0); BUN Creatinine Ratio 15.7 (10-20); Bilirubin,Total 0.7 mg/dl (0.2-1.0); Calcium 10.1 mg/dl (8.6-10.3); Creatinine Clr Calc Pharmacy 93.8 ml/min; Est GFR (African American) 96.9 ml/min; Est GFR (Non-African American) 83.6 ml/min; Globulin 2.6 gm/dl (2.5-4.0); Potassium 3.1 mmol/L (3.5-5.1); Total Protein 7.4 gm/dl (6.0-8.3)
--- NOTE | 2024-02-17 21:00 | Emergency Department Note ---
Impression & Plan Chest pain, Shortness of breath, Cough, Leukocytosis, Acute hypokalemia, Transaminitis, Bronchitis ED Provider Note HISTORY OF PRESENT ILLNESS: Patient is a 44-year-old male presenting with chest pain and shortness of breath. Patient reports that he has been having a cough for the last 2 weeks. Reports that he started to cough so hard that he vomits. He denies coughing anything up. He does state that today he became acutely more short of breath and developed substernal chest pain. He describes the chest pain is present when he tries to take a deep breath. Describes it as a sharp and stabbing sensation when he attempts to take deep breath. Denies any DVT or PE history. He is on a baby aspirin daily. He has a history of a cardiac stent to his LAD. Denies any nausea or vomiting with the chest pain. He is chest pain-free on my assessment in the ER. Denies any recent sick contact exposures. Denies any notable fevers at home. Denies any recent travel. Denies any abdominal pain or back pain. ROS: as above PHYSICAL EXAM: Constitutional: Patient appears in no acute distress. HENT: Head: Normocephalic and atraumatic. Eyes: EOMI, PERRL Mouth/Throat: Mucous membranes moist. Neck: Trachea midline. Neck supple. Cardiovascular: Tachycardic with regular rhythm. No murmurs, rubs or gallops. Intact distal pulses. Pulmonary/Chest: No respiratory distress. Breath sounds clear and equal bilaterally. No wheezes or rales. Abdominal: Abdomen soft, no tenderness, rebound or guarding. Musculoskeletal: No edema, tenderness or deformity noted. Skin: Warm and dry. No rash, erythema, pallor or cyanosis Psychiatric: Appropriate mood and affect for situation. Neurological: Alert and keenly responsive. CN II-XII grossly intact, moving all extremities equally and fully. MDM: - Vitals signs showed hypertension and tachycardia - History obtained via patient. History as above. - Chronic conditions affecting care: HTN; CAD (s/p PCI); ischemic cardiomyopathy); GERD; HLD DM-2 - Differential diagnoses include, but are not limited to: Acute coronary syndrome; pulmonary embolism; dissection; tension pneumothorax; esophageal rupture; pneumonia - Order placed for continuous cardiac monitoring. At this time, monitor showed rate of 92 bpm with normal sinus rhythm, per my interpretation. - External medical records reviewed. Wellness visit note dated 12/27/2023 was reviewed. Patient was seen in their clinic for his routine health maintenance exam. - EKG interpreted by myself showed normal sinus rhythm. Rate 92 bpm. QT 338. No acute ischemic changes. - Laboratory workup interpreted by myself showed leukocytosis (WBC 12.30) with left shift; normal PT/INR; hypokalemia (K 3.1); elevated anion gap (12); transaminitis (AST 56; ALT 72); normal troponin - CXR negative for pneumonia, per my interpretation - CT PE obtained. - HEART score 4 (History +1 highly suspicious; EKG +0; Age +0; Risk factors +2; Initial troponin +0), amounting to a moderate score. - Discussed case with patient. Patient symptoms seem atypical, however, he does have a history of a LAD stent. He was given 60 mg IV Solu-Medrol and 20 mg IV Pepcid. Discussed options of discharge with close follow-up and being initiated on steroid and a Z-Pedro versus admission to the hospital. Patient is concerned about going home, given his symptoms with his chest pain this evening. - Discussion was had with manager case about patient's case and need for admission - Hospitalist, Dr. Krueger, consulted for admission - Patient admitted to [facility] for further evaluation and management. ASSESSMENT AND PLAN: Diagnosis: Chest pain; shortness of breath; cough; acute hypokalemia; transaminitis; bronchitis Plan: Admit Past Med/Surg History Problem List (Updated 02/17/24 @ 23:40 by Dedra Garcia MD) Bronchitis (Acute) Transaminitis (Acute) Acute hypokalemia (Acute) Leukocytosis (Acute) Cough (Acute) Shortness of breath (Acute) Chest pain (Acute) Status post insertion of drug-eluting stent into left anterior descending (LAD) artery (2017) COPD (chronic obstructive pulmonary disease) Non-ST elevation RI (NSTEMI) (Acute) H/O acute myocardial infarction (09/21/17) Fatty liver Diabetes mellitus, type 2 Dyslipidemia Incisional hernia GERD (gastroesophageal reflux disease) Cardiomyopathy, ischemic (Chronic) EF was 30-35% post STEMI, was 45% on most recent stress echo 09/2019. CAD (coronary artery disease) s/p anterior STEMI 03/21/18, single WAYNE to mid LAD. EF 30-35% at the time, stress echo 09/2019 showed EF 45%. HTN (hypertension) (Chronic) Tobacco use disorder Medical History Atypical chest pain Acute diverticulitis Diverticulitis of colon with perforation Colonic polyp Surgical History H/O hernia repair (09/16/20) History of colostomy reversal (02/2019) History of esophagogastroduodenoscopy (EGD) History of bowel resection (11/2018) History of tooth extraction History of colonoscopy History of heart artery stent (03/2018) Family History Father Family history of diabetes mellitus Unknown Cancer Mother Cancer Ovarian cancer Grandmother Cancer Coronary heart disease Type 2 diabetes mellitus Ovarian cancer Grandfather Cancer Coronary heart disease Type 2 diabetes mellitus Grandfather Coronary heart disease Grandfather (Maternal) No problems noted. Grandmother (Maternal) Ovarian cancer Aunt Ovarian cancer Other Myocardial infarction Denies family history of Prostate cancer Breast cancer Lung cancer Colorectal cancer Stroke Social History Smoking Status: Current every day smoker Tobacco Type: Cigarettes Age Started Using Tobacco: 14; packs per day: 1; Cigarettes Per Day: 1 pack; Second Hand Exposure: No; Do You Dip or Chew Tobacco: No; Hx Alcohol Use: No Hx Substance Use: No Preferred Language: Mohawk Communication Ability: Effective Visual Impairment: No Limitations Hearing Ability: Normal Winter Sports Manager Required: No Beliefs That Will Affect Care: None marital status: Current Living Situation: Spouse and Family current occupational status: employed How many Children do You have: 3 Feels Safe at Home: Yes Childhood Exposure to Second-Hand Smoke: No Diet: regular Diet Comment: Regular caffeine: Yes (soda) during the past year weight has: remained stable Dental Care, Regularly: No Physical Activity Frequency: 3-4 Times per Week Seatbelt Use: always Sunscreen Use: No Assistive Devices: None Allergies Allergies Allergy/AdvReac Type Severity Reaction Status Date / Time No Known Allergies Allergy Verified 09/27/23 15:05 Home Meds Home Medications Medication Instructions Recorded Confirmed aspirin 81 mg tablet,delayed 81 mg PO QAM 10/12/18 12/28/23 release Previous Rx's Medication Instructions Recorded nitroglycerin 0.4 mg sublingual 0.4 mg sublingual Q5M PRN Chest 08/23/23 tablet (Nitrostat) Pain #20 tabs metoprolol succinate 50 mg 50 mg PO QAM #90 tabs 10/04/23 tablet,extended release 24 hr (Toprol XL) methylprednisolone 4 mg tablets in See Rx Instructions .Route 12/28/23 a dose pack (Medrol (Pedro)) .COMPLEX #21 ea metformin 1,000 mg tablet 1,000 mg PO BID #180 tabs 01/02/24 atorvastatin 80 mg tablet (Lipitor) 80 mg PO QAM #90 tabs 02/08/24 amlodipine 5 mg tablet 5 mg PO DAILY #90 tabs 02/12/24 ezetimibe 10 mg tablet 10 mg PO DAILY #90 tabs 02/12/24 omeprazole 20 mg capsule,delayed 20 mg PO QAM #90 caps 02/14/24 release Results & Data (ED) Vital Signs Vital Signs - 24 hr 02/17/24 20:10 02/17/24 20:23 02/17/24 20:26 Temperature 36.8 C Temperature Source Temporal Artery Scan Pulse Rate 100 H Pulse Rate [Apical] Respiratory Rate 18 Respiratory Effort / Characteristics Non-Labored Spontaneous Respiratory Depth Normal Blood Pressure 129/77 Blood Pressure [Right Arm] Blood Pressure Mean 94 Blood Pressure Mean [Right Arm] Pulse Oximetry 96 95 Oxygen Delivery Method Room Air Room Air Room Air Oxygen Flow Rate Sepsis Recent Fever Within 48 Hours No Sepsis New/Unexplained Change in Mental Status No Sepsis Action Taken by Nursing No Action Required 02/17/24 20:26 02/17/24 20:31 02/17/24 20:31 Temperature Temperature Source Pulse Rate Pulse Rate [Apical] 94 H Respiratory Rate 21 Respiratory Effort / Characteristics Respiratory Depth Blood Pressure Blood Pressure [Right Arm] 149/91 H Blood Pressure Mean Blood Pressure Mean [Right Arm] 110 Pulse Oximetry 95 94 94 Oxygen Delivery Method Room Air Room Air Room Air Oxygen Flow Rate 0 Sepsis Recent Fever Within 48 Hours Sepsis New/Unexplained Change in Mental Status Sepsis Action Taken by Nursing 02/17/24 21:00 02/17/24 22:00 Temperature Temperature Source Pulse Rate 90 Pulse Rate [Apical] 87 Respiratory Rate 15 Respiratory Effort / Characteristics Respiratory Depth Blood Pressure Blood Pressure [Right Arm] 114/87 Blood Pressure Mean Blood Pressure Mean [Right Arm] 96 Pulse Oximetry 98 Oxygen Delivery Method Room Air Oxygen Flow Rate Sepsis Recent Fever Within 48 Hours Sepsis New/Unexplained Change in Mental Status Sepsis Action Taken by Nursing Laboratory Data 02/17/24 20:28 02/17/24 20:28 Lab Results 02/17/24 Range/Units 20:28 WBC 12.30 H (4.8-10.8) K/ul RBC 4.73 (4.70-6.10) M/uL Hgb 15.3 (14.0-18.0) g/dl Hct 42.4 (42.0-52.0) % MCV 89.6 (80.0-100.0) fL MCH 32.3 (25.0-34.0) pg MCHC 36.1 H (32.0-36.0) g/dL RDW Std Deviation 41.3 (36.4-46.3) fL RDW Coeff of Héctor 12.5 (11.5-14.5) % Plt Count 271 (130-400) K/uL MPV 10.3 (9.4-12.4) fL Immature Gran % (Auto) 0.8 % Neut % (Auto) 52.9 % Lymph % (Auto) 35.4 % [place] % (Auto) 8.0 % Eos % (Auto) 2.4 % Baso % (Auto) 0.5 % Neut # (Auto) 6.49 (1.40-6.50) K/uL Lymph # (Auto) 4.36 H (1.20-3.40) K/uL [place] # (Auto) 0.99 H (0.11-0.59) K/uL Eos # (Auto) 0.30 (0.00-0.50) K/uL Baso # (Auto) 0.06 (0.00-0.20) K/uL Immature Gran # (Auto) 0.10 (0.01-0.20) K/uL PT 10.3 (9.0-12.0) Seconds INR 0.9 (0.9-1.1) APTT 26 (21-31) Seconds PTT Ratio 1.0 Sodium 136 (136-145) mmol/L Potassium 3.1 L (3.5-5.1) mmol/L Chloride 99 (98-107) mmol/L Carbon Dioxide 25 (21-32) mmol/L Anion Gap 12 H (3-11) BUN 17 (6-23) mg/dl Creatinine 1.08 (0.6-1.4) mg/dl Est Cr Clr Drug Dosing 93.8 ml/min Est GFR ( Amer) 96.9 ml/min Est GFR (Non-Af Amer) 83.6 ml/min BUN/Creatinine Ratio 15.7 (10-20) Glucose 176 H (70-99(Fasting)) mg/dl Calcium 10.1 (8.6-10.3) mg/dl Total Bilirubin 0.7 (0.2-1.0) mg/dl AST 56 H (13-39) U/L ALT 72 H (7-52) U/L Alkaline Phosphatase 117 H (34-104) U/L Troponin I High Sens 15.3 (0-20) pg/ml Total Protein 7.4 (6.0-8.3) gm/dl Albumin 4.8 (3.4-5.0) gm/dl Globulin 2.6 (2.5-4.0) gm/dl Albumin/Globulin Ratio 1.8 (0.9-2) Administered Medications Discontinued Medications Famotidine (Pepcid 20mg Iv Push) 20 mg in 5 mls @ 2.5 mls/min IV NOW STA Stop: 02/17/24 22:45 Last Admin: 02/17/24 22:52 Dose: 2.5 mls/min Documented By: ZAFAR Ioversol (Optiray 320 125ml) 118 ml IV ONCE ONE Stop: 02/17/24 21:33 Last Admin: 02/17/24 21:32 Dose: 118 ml Documented By: RAFI Methylprednisolone (Methylprednisolone 125 Mg/2 Ml Vial) 60 mg IV NOW STA Stop: 02/17/24 22:44 Last Admin: 02/17/24 22:52 Dose: 60 mg Documented By: ZAFAR Discharge Plan Visit Data Chief Complaint: Shortness of Breath/Dyspnea Stated Complaint: CHEST PAIN, SOB, COUGH ED Provider: Dedra Garcia Discharge Problem: Chest pain, Shortness of breath, Cough, Leukocytosis, Acute hypokalemia, Transaminitis, Bronchitis Patient Disposition: Home - Self-Care Discharge Instructions Krames/Other Patient Handouts: ED Chest Pain, Uncertain Cause Activity Restrictions/Additional Instructions: Your laboratory workup showed that your white blood cell count was slightly elevated, which is consistent with an infection or inflammatory process. Your liver function tests are slightly elevated, she will need close follow-up with your primary care provider for further workup, which may include an ultrasound of your liver. Your heart enzyme level was normal. Your chest x-ray did not show any evidence of pneumonia. Please help closely with your primary care provider. You are given a prescription for prednisone and omeprazole. Please take these for the next few days. Please follow close with your primary care provider. Return to the emergency department if you develop persistent chest pain, shortness of breath, lightheadedness or dizziness, or any new or worsening symptoms. Forms Stand Alone Forms: My [facility], Important Visit Information Prescriptions Prescriptions: No Action metoprolol succinate [Toprol XL] 50 mg tablet extended release 24 hr 50 mg PO QAM Qty: 90 2RF metformin 1,000 mg tablet 1,000 mg PO BID Qty: 180 3RF atorvastatin [Lipitor] 80 mg tablet 80 mg PO QAM Qty: 90 2RF ezetimibe 10 mg tablet 10 mg PO DAILY Qty: 90 3RF amlodipine 5 mg tablet 5 mg PO DAILY Qty: 90 3RF omeprazole 20 mg capsule,delayed release(DR/EC) 20 mg PO QAM Qty: 90 2RF methylprednisolone [Medrol (Pedro)] 4 mg tablets,dose pack See Rx Instructions .Route .COMPLEX Qty: 21 0RF Rx Instructions: Take PO as directed. ; nitroglycerin [Nitrostat] 0.4 mg tablet, sublingual 0.4 mg Sublingual Q5M PRN (Reason: Chest Pain) Qty: 20 1RF aspirin 81 mg Tablet,Delayed Release (Dr/Ec) 81 mg PO QAM Referrals Referrals: Felicity Pemberton DO [Primary Care Provider] -
[2024-02-17 21:05] LABS: Troponin I High Sensitivity 15.3 pg/ml (0-20)
[2024-02-17 21:20] LABS: INR 0.9 (0.9-1.1); Partial Thromboplastin Time 26 Seconds (21-31); Prothrombin Time 10.3 Seconds (9.0-12.0)
[2024-02-17] MEDS: OPTIRAY 320 125ml IV ONE (21:32)
[2024-02-17] MEDS: methylPREDNISolone 125 MG/2 ML VIAL IV STA (22:52)
[2024-02-17] MEDS: FAMOTIDINE 20MG IV PUSH 20 MG/5 ML SYR IV STA (22:52)
--- NOTE | 2024-02-17 23:53 | CT Scan Report ---
Exam(s): CTA CHEST IV Amt: 118 ml optiray 320 EXAM: CT Angiography Chest With Intravenous Contrast CLINICAL HISTORY: Reason for exam: PE. TECHNIQUE: Axial computed tomographic angiography images of the chest with intravenous contrast. CTDI is 26 mGy and DLP is 827 mGy-cm. Automated exposure control was utilized for the study. A dose lowering technique was utilized adhering to the principles of ALARA. MIP reconstructed images were created and reviewed. COMPARISON: No relevant prior studies available. FINDINGS: Pulmonary arteries: Unremarkable. No pulmonary embolism. Aorta: No acute findings. No thoracic aortic aneurysm. Lungs: Unremarkable. No mass. No consolidation. Pleural space: Unremarkable. No significant effusion. No pneumothorax. Heart: Fatty infiltration of the pericardium no cardiomegaly. No evidence of RV dysfunction. Bones/joints: No acute fracture. No dislocation. Soft tissues: Fatty infiltration of the liver. . Lymph nodes: Unremarkable. No enlarged lymph nodes. IMPRESSION: No acute findings in the visualized arteries of the chest. Electronically signed by: Carlo Aragon MD 02/17/24 23:52 PM
[2024-02-18] MEDS: POTASSIUM CHLORIDE CRTAB 20 MEQ TABCR PO STA (00:02)
[2024-02-18 00:11] LABS: Adenovirus PCR Not Detected (NotDetected); Bordetella parapertussis PCR Not Detected (NotDetected); Bordetella pertussis PCR Not Detected (NotDetected); Chlamydia pneumoniae PCR Not Detected (NotDetected); Coronavirus 229E PCR Not Detected (NotDetected); Coronavirus CoV-2 (COVID19)PCR Not Detected (NotDetected); Coronavirus HKU1 PCR Not Detected (NotDetected); Coronavirus NL63 PCR Not Detected (NotDetected); Coronavirus OC43PCR Not Detected (NotDetected); Human Metapneumovirus PCR Not Detected (NotDetected); Influenza A PCR Not Detected (NotDetected); Influenza B PCR Not Detected (NotDetected); Mycoplasma pneumoniae PCR Not Detected (NotDetected); Parainfluenza Virus 1 PCR Not Detected (NotDetected); Parainfluenza Virus 2 PCR Not Detected (NotDetected); Parainfluenza Virus 3 PCR Not Detected (NotDetected); Parainfluenza Virus 4 PCR Not Detected (NotDetected); Respiratory Syncytial VirusPCR Not Detected (NotDetected); Rhinovirus/Enterovirus PCR Not Detected (NotDetected)
[2024-02-18 00:14] LABS: Troponin I High Sensitivity 16.4 pg/ml (0-20)
--- NOTE | 2024-02-18 00:20 | History & Physical Report ---
Date of Service February 18, 2024 Assessment & Plan (1) Bronchitis: Plan: 44yo male presenting with cough x 2 weeks with acute worsening over the last several days. Productive for thick sputum. Also with substernal and pleuritic chest discomfort with coughing. Suspect acute bronchitis. No PNA noted on CTA -Observation to medical -Tylenol PRN -Azithromycin -Duonebs -Guaifenesin -Prednisone 40mg po daily -Incentive spiromentry -Repeat Troponin in AM (h/o CAD, slight increase in repeat labs in ER) (2) Acute hypokalemia: Plan: K=3.1. 60mEq KCL given in the ER -Repeat BMP in AM Plan Chronic Medical Conditions: CAD -Trending troponin -Continue ASA 81mg po daily -Continue Atorvastatin 80mg po daily and Ezetimibe -Continue Metoprolol Hypertension - BP at goal -Continue Amlodipine 5mg po daily DM - patient on Metformin -Hold Metformin -ISS - goal blood sugar 110 - 140 GERD - chronic -Continue Omeprazole *Encourage Smoking Cessation - discussed with patient possibly cutting down from 1ppd to 1/2 ppd and supplementing with gum (regular or nicotine). Reports he was on Chantix in the past and did not like how it made him feel. F/E/N - Saline lock. K repleted, repeat chemistry in AM, AHA/CC diet as tolerated Ppx - Encourage ambulation Code - Full Dispo - observation to medical History of Present Illness Chief Complaint: chest pain Primary Care Provider: Felicity Pemberton DO Dave Hassan is a pleasant 44yo male with history of CAD s/p anterior STEMI with placement of WAYNE to LAD, ICM with EF of 40% per echo in 2021, HTN, HLP, DM, Tobacco use presenting with productive cough and chest discomfort. Patient reports ongoing cough x 2 weeks. Cough was initially dry, however, over the weekend it became more productive. He is bringing up thick, yellow to brown sputum. He has also developed some BRAY as well as substernal chest discomfort that occurs with coughing and taking deep breaths. He reports severe coughing with occasional post-tussive emesis. He denies fever at home, denies abdominal pain, nausea, vomiting, diarrhea, urinary symptoms. No additional complaints at this time. In the ER he is afebrile, HD stable and non-toxic in appearance Ongoing cough ER Course: Solumedrol Pepcid Allergies Allergy/AdvReac Type Severity Reaction Status Date / Time No Known Allergies Allergy Verified 02/18/24 00:24 Home Medications Medication Instructions Recorded Confirmed Type aspirin 81 mg tablet,delayed 81 mg PO QAM 10/12/18 02/18/24 History release nitroglycerin 0.4 mg sublingual 0.4 mg sublingual Q5M PRN Chest 08/23/23 02/18/24 Rx tablet (Nitrostat) Pain #20 tabs metoprolol succinate 50 mg 50 mg PO QAM #90 tabs 10/04/23 02/18/24 Rx tablet,extended release 24 hr (Toprol XL) metformin 1,000 mg tablet 1,000 mg PO BID #180 tabs 01/02/24 02/18/24 Rx atorvastatin 80 mg tablet (Lipitor) 80 mg PO QAM #90 tabs 02/08/24 02/18/24 Rx amlodipine 5 mg tablet 5 mg PO DAILY #90 tabs 02/12/24 02/18/24 Rx ezetimibe 10 mg tablet 10 mg PO DAILY #90 tabs 02/12/24 02/18/24 Rx omeprazole 20 mg capsule,delayed 20 mg PO QAM #90 caps 02/14/24 02/18/24 Rx release Past Med/Surg History Problem List Bronchitis (Acute) Transaminitis (Acute) Acute hypokalemia (Acute) Leukocytosis (Acute) Cough (Acute) Shortness of breath (Acute) Chest pain (Acute) Status post insertion of drug-eluting stent into left anterior descending (LAD) artery (2017) COPD (chronic obstructive pulmonary disease) Non-ST elevation [place] (NSTEMI) (Acute) H/O acute myocardial infarction (09/21/17) Fatty liver Diabetes mellitus, type 2 Dyslipidemia Incisional hernia GERD (gastroesophageal reflux disease) Cardiomyopathy, ischemic (Chronic) EF was 30-35% post STEMI, was 45% on most recent stress echo 09/2019. CAD (coronary artery disease) s/p anterior STEMI 03/21/18, single WAYNE to mid LAD. EF 30-35% at the time, stress echo 09/2019 showed EF 45%. HTN (hypertension) (Chronic) Tobacco use disorder Medical History Atypical chest pain Acute diverticulitis 11/2018, admitted with acute perforation with peritonitis requiring emergent sigmoid colectomy and colostomy. Colostomy reversed 02/2019. Diverticulitis of colon with perforation NOVEMBER 2018 Colonic polyp Surgical History H/O hernia repair (09/16/20) Laparoscopic Incisional Hernia (multiple) Repair with Mesh Dr. Iglesias 09/16/2020 History of colostomy reversal (02/2019) 02/13/19 lap-assisted reversal of colostomy and enterolysis Dr. Bimal Iglesias History of esophagogastroduodenoscopy (EGD) History of bowel resection (11/2018) WITH COLOSTOMY 11/2018 History of tooth extraction History of colonoscopy History of heart artery stent (03/2018) 03/2018 (FOLLOWED BY DR. JHA) Family History Father Family history of diabetes mellitus Unknown Cancer Mother Cancer Ovarian cancer Grandmother Cancer Coronary heart disease Type 2 diabetes mellitus Ovarian cancer Grandfather Cancer Coronary heart disease Type 2 diabetes mellitus Grandfather Coronary heart disease Grandfather (Maternal) No problems noted. Grandmother (Maternal) Ovarian cancer Aunt Ovarian cancer Other Myocardial infarction Denies family history of Prostate cancer Breast cancer Lung cancer Colorectal cancer Stroke Social History Smoking Status: Current every day smoker Tobacco Type: Cigarettes Age Started Using Tobacco: 14; packs per day: 1; Cigarettes Per Day: 1 pack; Second Hand Exposure: No; Do You Dip or Chew Tobacco: No; Hx Alcohol Use: No Hx Substance Use: No Preferred Language: Mongolian Communication Ability: Effective Visual Impairment: No Limitations Hearing Ability: Normal Caustic Mixer Required: No Beliefs That Will Affect Care: None marital status: Current Living Situation: Spouse and Family current occupational status: employed How many Children do You have: 3 Feels Safe at Home: Yes Childhood Exposure to Second-Hand Smoke: No Diet: regular Diet Comment: Regular caffeine: Yes (soda) during the past year weight has: remained stable Dental Care, Regularly: No Physical Activity Frequency: 3-4 Times per Week Seatbelt Use: always Sunscreen Use: No Assistive Devices: None Review of Systems Review of Systems: All systems reviewed & are unremarkable except as noted in HPI & below Physical Exam Physical Exam: General: patient resting comfortably, NAD, non-toxic in appearance, AA&O x 4 Skin: warm, dry, intact, no rashes or lesions HEENT: NC/AT, PERRL, EOMI, anicteric sclera, conjunctiva without injection, external ear normal to inspection and nontender, nares patent, moist mucus membranes, dentition intact, no oropharyngeal lesions, neck supple, trachea midline, no LAD, no thyromegaly, no JVD Heart: +S1/S2, regular, no m/r/g Lungs: equal air entry bilaterally, no rales/rhonchi, scattered end-expiratory wheezing throughout Abd: +BS, soft, NT/ND, no masses/organomegaly/ascites Ext: warm, 2+ pulses in UE/LE bilaterally, no clubbing/cyanosis or edema Neuro: nonfocal, patient AA&O x 4, speech intact, no facial droop, moving all extremities on command with equal strength 5/5 Results & Data Results & Data Vital Signs (Past 12 Hours) Vital Signs Temp Pulse Pulse Resp BP BP Pulse Ox 02/18/24 00:00 92 H 15 113/84 93 02/17/24 22:00 87 15 114/87 98 02/17/24 21:00 90 02/17/24 20:31 94 02/17/24 20:31 94 02/17/24 20:26 94 H 21 149/91 H 95 02/17/24 20:26 95 02/17/24 20:23 02/17/24 20:10 36.8 C 100 H 18 129/77 96 O2 Del Method O2 Flow Rate 02/18/24 00:00 Room Air 02/17/24 22:00 Room Air 02/17/24 21:00 02/17/24 20:31 Room Air 02/17/24 20:31 Room Air 0 02/17/24 20:26 Room Air 02/17/24 20:26 Room Air 02/17/24 20:23 Room Air 02/17/24 20:10 Room Air Laboratory Results Laboratory Results WBC 12.30 K/ul (4.8-10.8) H 02/17/24 20:28 RBC 4.73 M/uL (4.70-6.10) 02/17/24 20: Hgb 15.3 g/dl (14.0-18.0) 02/17/24 20: Hct 42.4 % (42.0-52.0) 02/17/24 20: MCV 89.6 fL (80.0-100.0) 02/17/24: MCH 32.3 pg (25.0-34.0) 02/17/24 20: MCHC 36.1 g/dL (32.0-36.0) H 02/17/24 20: RDW Std Deviation 41.3 fL (36.4-46.3) 02/17/24: RDW Coeff of Héctor 12.5 % (11.5-14.5) 02/17/24: Plt Count 271 K/uL (130-400) 02/17/24: MPV 10.3 fL (9.4-12.4) 02/17/24: Immature Gran % (Auto) 0.8 % 02/17/24: Neut % (Auto) 52.9 % 02/17/24: Lymph % (Auto) 35.4 % 02/17/24: Daniels % (Auto) 8.0 % 02/17/24 20: Eos % (Auto) 2.4 % 02/17/24: Baso % (Auto) 0.5 % 02/17/24: Neut # (Auto) 6.49 K/uL (1.40-6.50) 02/17/24 20: Lymph # (Auto) 4.36 K/uL (1.20-3.40) H 02/17/24 20: Daniels # (Auto) 0.99 K/uL (0.11-0.59) H 02/17/24 20: Eos # (Auto) 0.30 K/uL (0.00-0.50) 02/17/24: Baso # (Auto) 0.06 K/uL (0.00-0.20) 02/17/24 20: Immature Gran # (Auto) 0.10 K/uL (0.01-0.20) 02/17/24 20: PT 10.3 Seconds (9.0-12.0) 02/17/24 20: INR 0.9 (0.9-1.1) 02/17/24 20: APTT 26 Seconds (21-31) 02/17/24 20: PTT Ratio 1.0 02/17/24 20: Sodium 136 mmol/L (136-145) 02/17/24 20: Potassium 3.1 mmol/L (3.5-5.1) L 02/17/24 20: Chloride 99 mmol/L (98-107) 02/17/24 20: Carbon Dioxide 25 mmol/L (21-32) 02/17/24 20: Anion Gap 12 (3-11) H 02/17/24 20: BUN 17 mg/dl (6-23) 02/17/24 20: Creatinine 1.08 mg/dl (0.6-1.4) 02/17/24 20: Est Cr Clr Drug Dosing 93.8 ml/min 02/17/24 20:28 Est GFR ( Amer) 96.9 ml/min 02/17/24 20: Est GFR (Non-Af Amer) 83.6 ml/min 02/17/24 20:28 BUN/Creatinine Ratio 15.7 (10-20) 02/17/24 20: Glucose 176 mg/dl (70-99(Fasting)) H 02/17/24 20: Calcium 10.1 mg/dl (8.6-10.3) 02/17/24 20: Phosphorus 3.9 mg/dl (2.5-4.9) 02/17/24 23:37 Magnesium 2.0 mg/dl (1.7-2.4) 02/17/24 23:37 Total Bilirubin 0.7 mg/dl (0.2-1.0) 02/17/24 20: AST 56 U/L (13-39) H 02/17/24 20:28 ALT 72 U/L (7-52) H 02/17/24 20:28 Alkaline Phosphatase 117 U/L (34-104) H 02/17/24 20:28 Troponin I High Sens 16.4 pg/ml (0-20) 02/17/24 23:37 Total Protein 7.4 gm/dl (6.0-8.3) 02/17/24 20:28 Albumin 4.8 gm/dl (3.4-5.0) 02/17/24 20:28 Globulin 2.6 gm/dl (2.5-4.0) 02/17/24 20:28 Albumin/Globulin Ratio 1.8 (0.9-2) 02/17/24 20:28 Adenovirus (PCR) Not Detected (NotDetected) 02/17/24 22:50 B. pertussis DNA (PCR) Not Detected (NotDetected) 02/17/24 22:50 B.parapertussis DNA PCR Not Detected (NotDetected) 02/17/24 22:50 C. pneumoniae DNA (PCR) Not Detected (NotDetected) 02/17/24 22:50 Coronavirus OC43 (PCR) Not Detected (NotDetected) 02/17/24 22:50 Coronavirus HKU1 (PCR) Not Detected (NotDetected) 02/17/24 22:50 Coronavirus 229E (PCR) Not Detected (NotDetected) 02/17/24 22:50 SARS-CoV-2 (PCR) Not Detected (NotDetected) 02/17/24 22:50 Coronavirus NL63 (PCR) Not Detected (NotDetected) 02/17/24 22:50 Human Metapneumovir PCR Not Detected (NotDetected) 02/17/24 22:50 Influenza Type A (PCR) Not Detected (NotDetected) 02/17/24 22:50 Influenza Type B (PCR) Not Detected (NotDetected) 02/17/24 22:50 M. pneumoniae (PCR) Not Detected (NotDetected) 02/17/24 22:50 Parainfluenza 1 (PCR) Not Detected (NotDetected) 02/17/24 22:50 Parainfluenza 2 (PCR) Not Detected (NotDetected) 02/17/24 22:50 Parainfluenza 3 (PCR) Not Detected (NotDetected) 02/17/24 22:50 Parainfluenza 4 (PCR) Not Detected (NotDetected) 02/17/24 22:50 RSV (PCR) Not Detected (NotDetected) 02/17/24 22:50 Entero/Rhino (PCR) Not Detected (NotDetected) 02/17/24 22:50 Impressions Chest CTA 02/17/24 20:52 Exam(s): CTA CHEST IV Amt: 118 ml optiray 320 EXAM: CT Angiography Chest With Intravenous Contrast CLINICAL HISTORY: Reason for exam: PE. TECHNIQUE: Axial computed tomographic angiography images of the chest with intravenous contrast. CTDI is 26 mGy and DLP is 827 mGy-cm. Automated exposure control was utilized for the study. A dose lowering technique was utilized adhering to the principles of ALARA. MIP reconstructed images were created and reviewed. COMPARISON: No relevant prior studies available. FINDINGS: Pulmonary arteries: Unremarkable. No pulmonary embolism. Aorta: No acute findings. No thoracic aortic aneurysm. Lungs: Unremarkable. No mass. No consolidation. Pleural space: Unremarkable. No significant effusion. No pneumothorax. Heart: Fatty infiltration of the pericardium no cardiomegaly. No evidence of RV dysfunction. Bones/joints: No acute fracture. No dislocation. Soft tissues: Fatty infiltration of the liver. . Lymph nodes: Unremarkable. No enlarged lymph nodes. IMPRESSION: No acute findings in the visualized arteries of the chest. Electronically signed by: Carlo Aragon MD 02/17/24 23:52 PM ECG Additional Comments: EKG per my interpretation with NSR at 92bpm, normal axis, PD=004, QRS=84, CHp=294, n acute ischemic changes, prior anterior infarct present PG Care Time/CCT Total # of Minutes Spent Total Time Spent with Patient: Total time spent is greater than 50% in coordination of care (as documented) at patient's floor/unit and/or counseling patient: Coding Level of Care Code 74820 INT INP/OBS CARE 2/55MIN Diagnoses Bronchitis J40 Acute hypokalemia E87.6
[2024-02-18 00:31] LABS: Phosphorus 3.9 mg/dl (2.5-4.9)
[2024-02-18] MEDS ORDERED: GLUCOSE 40% GEL 15 GM TUBE PO PRN (01:39)
[2024-02-18] MEDS ORDERED: DEXTROSE 50% 50 ML SYRINGE IV PRN (01:39)
[2024-02-18] MEDS ORDERED: GLUCAGON FOR INJ 1 MG VIAL SQ PRN (01:39)
[2024-02-18] MEDS ORDERED: CARBOHYDRATES FOR HYPOGLYCEMIA PO PRN (01:39)
[2024-02-18] MEDS ORDERED: GLUCOSE 10 TAB/TUBE PO PRN (01:39)
[2024-02-18] MEDS ORDERED: ACETAMINOPHEN 325 MG TAB PO PRN (01:39)
[2024-02-18] MEDS: ALBUT/IPRATROP 3MG/0.5MG NEB 3 ML VIAL NEB SCH (02:14)
[2024-02-18] MEDS: AZITHROMYCIN 250 MG TAB PO ONE (02:22)
[2024-02-18 06:51] LABS: Troponin I High Sensitivity 11.8 pg/ml (0-20)
--- NOTE | 2024-02-18 07:17 | XRay Report ---
XR chest 1V portable CLINICAL HISTORY: Chest pain, nonspecific TECHNIQUE: Single frontal radiograph of the chest was obtained. Comparison: Comparison is made to chest radiograph 08/13/2023 FINDINGS: Exam is limited by underpenetration. The cardiomediastinal silhouette is stable. The lungs are clear. No evidence of pleural effusion or pneumothorax. IMPRESSION: No acute chest disease. ACT 112: Negative or not required by law. Electronically signed by: Pee Duran M.D. 02/18/2024 7:15 AM
[2024-02-18] MEDS: guaiFENesin 600 MG TABCR PO SCH (07:54)
[2024-02-18] MEDS: amLODIPine BESYLATE 5 MG TAB PO SCH (07:54)
[2024-02-18] MEDS: predniSONE 20 MG TAB PO SCH (07:54)
[2024-02-18] MEDS: ASPIRIN 81 MG ECTAB PO SCH (07:54)
[2024-02-18] MEDS: EZETIMIBE 10 MG TAB PO SCH (07:55)
[2024-02-18] MEDS: PANTOprazole 40 MG TAB PO SCH (07:55)
[2024-02-18] MEDS: METOPROLOL SUCC 50MG EXT REL TAB PO SCH (07:55)
[2024-02-18] MEDS: ATORVASTATIN 40 MG TAB PO SCH (07:55)
[2024-02-18] MEDS: INSULIN ASPART PER UNIT CHARGE SC SCH (08:04)
[2024-02-18 09:00] LABS: Albumin Globulin Ratio 1.6 (0.9-2); Albumin Level 4.4 gm/dl (3.4-5.0); BUN Creatinine Ratio 14.3 (10-20); Bilirubin,Total 0.6 mg/dl (0.2-1.0); Creatinine Clr Calc Pharmacy 110.8 ml/min; Est GFR (African American) 119.2 ml/min; Est GFR (Non-African American) 102.9 ml/min; Globulin 2.8 gm/dl (2.5-4.0); Potassium 4.6 mmol/L (3.5-5.1); Total Protein 7.2 gm/dl (6.0-8.3)
[2024-02-18 09:05] LABS: Hematocrit (blood only) 43.7 % (42.0-52.0); Hemoglobin 15.2 g/dl (14.0-18.0); Mean Corpuscular Hemoglobin 31.8 pg (25.0-34.0); Mean Corpuscular Hgb Conc 34.8 g/dL (32.0-36.0); Mean Corpuscular Volume 91.4 fL (80.0-100.0); Mean Platelet Volume 10.8 fL (9.4-12.4); Platelet Count 224 K/uL (130-400); RDW Coefficient of Variation 12.7 % (11.5-14.5); RDW Standard Deviation 41.7 fL (36.4-46.3); Red Blood Count 4.78 M/uL (4.70-6.10); White Blood Count 10.06 K/ul (4.8-10.8)
[2024-02-18 10:12] LABS: Basophils # (auto) 0.05 K/uL (0.00-0.20); Basophils % (auto) 0.5 %; Immature Granulocytes # (auto) 0.12 K/uL (0.01-0.20); Immature Granulocytes % (auto) 1.2 %; Lymphocytes # (auto) 1.66 K/uL (1.20-3.40); Lymphocytes % (auto) 16.5 %; Monocytes # (auto) 0.19 K/uL (0.11-0.59); Monocytes % (auto) 1.9 %; Neutrophils # (auto) 7.94 K/uL (1.40-6.50); Neutrophils % (auto) 78.9 %
--- NOTE | 2024-02-18 11:32 | Discharge Summary ---
Discharge Summary Date of Service February 18, 2024 Principal Dx & Hospital Course #1 = Principal Diagnosis (1) Bronchitis: 44yo male presenting with cough x 2 weeks with acute worsening over the last several days. Productive for thick sputum. Also with substernal and pleuritic chest discomfort with coughing. Suspect acute bronchitis. No PNA noted on CTA - continue course of Azithromycin -received Duonebs - no wheezing -Guaifenesin - should continue at discharged -received Prednisone - medrol dose pack at discharge -Incentive spiromentry -Repeat Troponin downtrending. Peak at 16. No chest pain (2) Acute hypokalemia: K=3.1. 60mEq KCL given in the ER -Repeat K 4.6 Resolved. Plan Chronic Medical Conditions: CAD -Continue ASA 81mg po daily, Atorvastatin 80mg po daily and Ezetimibe. Metoprolol Hypertension - BP at goal -Continue Amlodipine 5mg po daily DM - patient on Metformin, recently increased - continue Metformin at discharge and PCP follow up GERD - chronic -Continue Omeprazole *Encourage Smoking Cessation - discussed with patient possibly cutting down from 1ppd to 1/2 ppd and supplementing with gum (regular or nicotine). Reports he was on Chantix in the past and did not like how it made him feel. Discharge to home today Notes For Next Care Provider Admitted for worsening cough. CT chest without PNA. responding well to abx and steriods. Continue azithromycin and medrol dose pack Medication Changes From Visit azithromycin mucinex medrol dose pack Admission HPI Per Admitting Provider Dave Hassan is a pleasant 44yo male with history of CAD s/p anterior STEMI with placement of WAYNE to LAD, ICM with EF of 40% per echo in 2021, HTN, HLP, DM, Tobacco use presenting with productive cough and chest discomfort. Patient reports ongoing cough x 2 weeks. Cough was initially dry, however, over the weekend it became more productive. He is bringing up thick, yellow to brown sputum. He has also developed some BRAY as well as substernal chest discomfort that occurs with coughing and taking deep breaths. He reports severe coughing with occasional post-tussive emesis. He denies fever at home, denies abdominal pain, nausea, vomiting, diarrhea, urinary symptoms. No additional complaints at this time. In the ER he is afebrile, HD stable and non-toxic in appearance Ongoing cough ER Course: Solumedrol Pepcid Discharge Exam General: NAD, VS as above Resp: normal respiratory effort, lungs clear to auscultation. no wheezing. no cough during encounter CV: RRR, no murmur, Abd: normal bowel sounds, non tender, no hepatosplenomegaly Extremities: Moves all extremities, no edema Neuro: A&O x3, Skin: intact, no lesions noted Updated Medication List Medication Instructions Recorded Confirmed Type aspirin 81 mg tablet,delayed 81 mg PO QAM 10/12/18 02/18/24 History release nitroglycerin 0.4 mg sublingual 0.4 mg sublingual Q5M PRN Chest 08/23/23 02/18/24 Rx tablet (Nitrostat) Pain #20 tabs metoprolol succinate 50 mg 50 mg PO QAM #90 tabs 10/04/23 02/18/24 Rx tablet,extended release 24 hr (Toprol XL) metformin 1,000 mg tablet 1,000 mg PO BID #180 tabs 01/02/24 02/18/24 Rx atorvastatin 80 mg tablet (Lipitor) 80 mg PO QAM #90 tabs 02/08/24 02/18/24 Rx amlodipine 5 mg tablet 5 mg PO DAILY #90 tabs 02/12/24 02/18/24 Rx ezetimibe 10 mg tablet 10 mg PO DAILY #90 tabs 02/12/24 02/18/24 Rx omeprazole 20 mg capsule,delayed 20 mg PO QAM #90 caps 02/14/24 02/18/24 Rx release azithromycin 250 mg tablet 250 mg PO QPM #4 tabs 02/18/24 Rx guaifenesin 600 mg tablet, 1,200 mg (2 x 600 mg) PO Q12 5 02/18/24 Rx extended release 12 hr (Mucinex) days #20 tabs methylprednisolone 4 mg tablets in 4 mg PO DAILY #21 ea 02/18/24 Rx a dose pack (Medrol (Pedro)) Hospital Stay Data Consultations 02/17/24 23:46 ED Decision to Admit Stat Diagnostic Imagining Performed Chest X-Ray 02/17/24 20:31 XR chest 1V portable CLINICAL HISTORY: Chest pain, nonspecific TECHNIQUE: Single frontal radiograph of the chest was obtained. Comparison: Comparison is made to chest radiograph 08/13/2023 FINDINGS: Exam is limited by underpenetration. The cardiomediastinal silhouette is stable. The lungs are clear. No evidence of pleural effusion or pneumothorax. IMPRESSION: No acute chest disease. ACT 112: Negative or not required by law. Electronically signed by: Pee Duran M.D. 02/18/2024 7:15 AM Chest CTA 02/17/24 20:52 Exam(s): CTA CHEST IV Amt: 118 ml optiray 320 EXAM: CT Angiography Chest With Intravenous Contrast CLINICAL HISTORY: Reason for exam: PE. TECHNIQUE: Axial computed tomographic angiography images of the chest with intravenous contrast. CTDI is 26 mGy and DLP is 827 mGy-cm. Automated exposure control was utilized for the study. A dose lowering technique was utilized adhering to the principles of ALARA. MIP reconstructed images were created and reviewed. COMPARISON: No relevant prior studies available. FINDINGS: Pulmonary arteries: Unremarkable. No pulmonary embolism. Aorta: No acute findings. No thoracic aortic aneurysm. Lungs: Unremarkable. No mass. No consolidation. Pleural space: Unremarkable. No significant effusion. No pneumothorax. Heart: Fatty infiltration of the pericardium no cardiomegaly. No evidence of RV dysfunction. Bones/joints: No acute fracture. No dislocation. Soft tissues: Fatty infiltration of the liver. . Lymph nodes: Unremarkable. No enlarged lymph nodes. IMPRESSION: No acute findings in the visualized arteries of the chest. Electronically signed by: Carlo Aragon MD 02/17/24 23:52 PM Pending Results Patient Have Any Pending Studies at Discharge: No Discharge Instructions Given to Patient (Per Discharging Provider) Mr. Sonya Cast were hospitalized after progressive worsening cough. Thankfully the chest CT did not show any pneumonia or blood clots to cause your symptoms. It is likely that you have bronchitis which we have treated with steroids and antibiotics. You will continue these at discharge * Azithromycin 250mg daily x 4 days (start PM of 02/17) * Medrol dose pack - start AM of 02/18 follow instructions on insert * Mucinex 1200mg twice a day x 5 days. I sent in the prescription to the pharmacy, if this is not covered by the insurance, please by the version over the counter. * Continue to use the incentive spirometer Your prolonged cough/delayed healing time is likely partially related to your smoking habits. Anything that you can do to cut back or quit is going to be beneficial for your health. Your blood sugars were slightly elevated while you were here. You should continue taking your metformin and follow up with your primary care doctor. It is likely that you are going to need medication in addition to the Metformin the future. I have attached some information about the diabetic diet below. Activity: You can do normal everyday activities as your body allows. Take rest breaks if you feel tired. Do not overexert. Stop activity if you have pain, shortness of breath or feel dizzy. Follow-up appointments: Make an appointment with your primary care physician within one week of discharge. A copy of this summary will be sent to them. Every time you see your primary care physician, or any other doctor, bring your medication list, and a list of questions. CONTACT YOUR PRIMARY CARE PROVIDER if you experience any of the following: Shortness of breath or difficulty breathing Fevers or chills Feeling tired with normal activity or experiencing dizziness or fainting Difficulty following your treatment plan, or difficulty taking medications CALL 911 OR GO TO THE EMERGENCY DEPARTMENT if you experience any of the following: Severe abdominal pain or nausea/vomiting Severe chest pain, or chest pain that radiates (moves) to your jaw or arm Sudden, severe shortness of breath or difficulty breathing Thank you for allowing us to participate in your care. Total Time Total Time Spent Total Time Spent (In Minutes): Time spend day of discharge 33 minutes including direct patient care, medication reconciliation, documentation, review of labs and images, and coordination of care. Coding Level of Care Code INP/OBS EV SAME DAY LV 3,85MIN Diagnoses Bronchitis J40 Acute hypokalemia E87.6
--- NOTE | 2024-02-18 12:44 | Electrocardiogram Report ---
Test Reason : Blood Pressure : / mmHG Vent. Rate : 092 BPM Atrial Rate : 092 BPM P-R Int : 150 ms QRS Dur : 084 ms QT Int : 338 ms P-R-T Axes : 015 006 069 degrees QTc Int : 417 ms Normal sinus rhythm Anteroseptal infarct (cited on or before 22-MAR-2018) Abnormal ECG When compared with ECG of 15-APR-2022 06:37, No significant change was found Confirmed by Mayco Farias ([id number]) on 02/18/2024 12:44:01 PM Referred By: REFERRED SELF Confirmed By:Mayco Farias
[2024-02-18] MEDS ORDERED: AZITHROMYCIN 250 MG TAB PO SCH (21:00)
== END 2024-02-18 12:48 | disposition home or self-care (01) ==
LOC: 3N 20:07 → ED 20:07 → SUATTDRO 02-18 00:20 → 3N 02-18 01:09